=== PATIENT | female | born 1965 | race Caucasian/White ===

== ENCOUNTER → 2018-02-03 15:18 | Outpatient (CLI) | payer MEDICAID, SELFPAY ==
--- NOTE | 2018-02-03 15:21 | CT_ITS ---
CT sinus wo con Ordering Physician: Ulises Meier MD Patient Age: 52 years: Female HISTORY: ITS.REASON: chronic sinusititis TECHNIQUE: Helical CT scanning performed through the sinuses with sagittal coronal and axial reconstructions performed on CT workstation. No relevant studies for comparison COMPARISON :None FINDINGS Maxillary sinuses. Both maxillary sinuses well-developed and clear. No significant mucosal thickening. Ostiomeatal complex and outflow pathways patent bilaterally Ethmoid air cells. Mild to moderate mucosal thickening involving scattered air cells bilaterally. No air-fluid levels Left Sphenoid sinus. diffuse moderate/generous mucosal thickening at left sphenoid sinus.... Small amount of air remaining centrally. No air-fluid level Right sphenoid sinus clear unremarkable. Frontal sinuses. Clear satisfactory. No significant findings. Moderate engorgement of nasal turbinates bilaterally. Deviation of nasal septum convexity to the right Orbits included on this study & grossly unremarkable IMPRESSION: Left sphenoid sinus with prominent diffuse mucosal thickening. No air-fluid level . Mild/moderate scattered areas mucosal thickening at ethmoid air cells bilaterally Maxillary sinuses, frontal sinuses, right sphenoid sinus clear . Ostiomeatal pathway patent bilaterally . Deviation nasal septum convexity to the right
== END ==
PROVIDERS: Family Provider Emergency Medicine; PCP Emergency Medicine; Visit Provider Otolaryngology
DX: J34.2 Deviated nasal septum (principal); J30.9 Allergic rhinitis, unspecified
CPT/HCPCS: 70486

== ENCOUNTER → 2018-03-08 16:10 | Outpatient (CLI) | payer MEDICAID, SELFPAY ==
[2018-03-08 16:21] LABS: Basophils % 0.3 % (0.1-2.0); Eosinophils # 0.2 K/mm3 (0.0-0.4); Hematocrit 40.7 % (37.0-47.0); Lymphocytes # 2.4 K/mm3 (0.7-4.5); Lymphocytes % 37.6 K/mm3 (10-50); Mean Corpuscular HGB Conc 31.8 g/dL (31.8-35.4); Mean Corpuscular Hemoglobin 28.1 pg (27.0-31.2); Mean Corpuscular Volume 88.3 fl (81-99); Monocytes # 0.3 K/mm3 (0.1-1.0); Neutrophils # 3.4 K/mm3 (1.8-7.8); Platelet Count 335 K/mm3 (142-424); Red Blood Count 4.61 M/mm3 (4.20-5.40); Red Cell Distribution Width 12.5 % (11.5-17.5); White Blood Count 6.4 K/mm3 (4.8-10.8)
[2018-03-08 20:04] LABS: Anion Gap 13.6 mEq/L (5-15); Blood Urea Nitrogen 14 mg/dL (7-18); Calcium 8.9 mg/dL (8.5-10.1); Carbon Dioxide 24 mmol/L (21.0-32.0); Chloride 99 mmol/L (98-107); Creatinine,Serum 0.69 mg/dL (0.55-1.02); Estimated Glomerular Filt Rate 89 ml/min (>60); GFR (African American) 108 ML/MIN (>60); Glucose 91 mg/dL (74-106); Potassium 4.6 mmoL/L (3.5-5.1); Sodium 132 mmol/L (136-145)
== END ==
PROVIDERS: Visit Provider Otolaryngology
DX: Z01.810 Encounter for preprocedural cardiovascular examination (principal); Z01.812 Encounter for preprocedural laboratory examination
CPT/HCPCS: 36415; 80048; 85025; 93005

== ENCOUNTER 2018-03-10 07:30 | Day surgery (SDC) | payer MEDICAID, SELFPAY ==
[2018-03-10] VITALS (12 sets, daily range): BP systolic 116–132; BP diastolic 58–89; PULSE 70–102; RESP 14–18; TEMP 36.4–36.6; O2SAT 95–99; BMI 20.9
--- NOTE | 2018-03-10 08:35 | P.PN_ITS ---
[facility] Anesthesia Checklist - Patient Identification Patient Identification: Arm Band - Structural Data Admitted From: Home Planned Operative Procedure/s: nasal septoplasty with FESS Consent for Planned Operative Procedure(s) Verified: Yes Verified Documents: Surgical Consent, History and Physical - NPO Status Verified Time NPO: 00:00 - Additional verifications Anesthesia Reactions: No - Airway Assessment C-Spine Mobility Assessed: Yes (mp2) TMJ Mobility Assessed: Yes Dentition: Good Dentition - Neurological Assessment Level of Consciousness: Awake, Alert - Anesthesia Plan Anesthesia Risk discussed: Yes Anesthesia Plan: Verified ASA Class: II Anesthesia Type: General [facility] Anesthesia HX I have reviewed the patient's past medical history: Yes Medical History: Reports:: Anxiety, Depression, Hyperlipidemia, Migraine Denies:: Cancer, Diabetes Mellitus Type 1, Diabetes Mellitus Type 2, Internal Pacemaker, MRSA, Seizures Other Medical History: Reports: Hypothyroidism. Denies: Blood Transfusion Reaction Laterality Cases: Left: Arthroscopy Shoulder, Bilateral: Other Other Surgeries: Yes: Hysterectomy-Partial, Other. No: Pacemaker Amputation: No Fractures: No *Family Hx:: Cancer, Coronary Artery Disease, Diabetes, Hyperlipidemia, Hypertension, Stroke
--- NOTE | 2018-03-10 10:23 | HMH.ANESI ---
[facility] Anesthesia Record Part I Intake, IV Amount: 800 Estimated blood loss (mL): 50 Urine output (mL): 0 Blood Products used (#): none Blood Pressure: 132/77 SaO2: 97 Pulse Rate: 102 Respiratory Rate: 14 Temperature: 97.5 F Patient is:: Awake, Stable Stable to PACU at:: 10:20
--- NOTE | 2018-03-10 10:25 | HMH.ANESII ---
[facility] Anesthesia Record Part II Discharge Time: 10:50 Destination: [facility] PACU nurse assessment reviewed?: Yes Patient Condition:: Good Anesthesia Complications:: None
--- NOTE | 2018-03-10 10:26 | P.PN_ITS ---
[facility] Anesthesia Record Part II Discharge Time: 10:50 Destination: [facility] PACU nurse assessment reviewed?: Yes Patient Condition:: Good Anesthesia Complications:: None
--- NOTE | 2018-03-10 10:26 | P.PN_ITS ---
[facility] Anesthesia Record Part I Intake, IV Amount: 800 Estimated blood loss (mL): 50 Urine output (mL): 0 Blood Products used (#): none Blood Pressure: 132/77 SaO2: 97 Pulse Rate: 102 Respiratory Rate: 14 Temperature: 97.5 F Patient is:: Awake, Stable Stable to PACU at:: 10:20
--- NOTE | 2018-03-13 13:04 | HMH.OPNOTE ---
Date of procedure: 03/10/18 Pre-op Diagnosis:: 1. Deviated nasal septum with 90% nasal airflow blockage 2. Chronic bilateral ethmoid sinusitis Post-op Diagnosis:: same Procedure performed:: 1. nasal septoplasty 2. Functional endoscopic sinus surgery with bilateral total ethmoidectomies Surgeon:: Ulises Meier MD ROTARY SLICING MACHINE OPERATOR:: Other (Danny Kelly) Anesthesia: GETA Estimated blood loss (mL): 7 Operative findings:: same Operative note:: With the patient under general anesthesia the nose was decongested with topical cocaine and 5 cc of 2% lidocaine with epi were injected into the nasal septum and the interior cartilaginous region of the nose. A left hemitransfixion septal incision was made in the mucoperichondrium and the mucoperiosteum was elevated from both sides of the nasal septum. There is a severe deformity involving the vomer and the quadrangular cartilage. The quadrangular cartilage was from the maxillary crest and from the vomer and trimmed inferiorly and posteriorly a large vomerine spur was removed. The maxillary crest was narrowed and the septum was then realigned in the midline and held there with transfixion and hemitransfixion chromic sutures after Surgicel snow was placed between the flaps. Using endoscopic sinus surgical techniques,scopes, and instruments, a right total ethmoidectomy was done and extensive polypoid disease was removed from the right ethmoid. And submitted. Similarly using the same scopes and instruments a left total ethmoidectomy was done and once again there was extensive polypoid disease involving the left ethmoid sinus all of that was removed and submitted. Surgicel snow was placed in both ethmoid regions, blood loss for All the procedure was less than 10 cc and stopped with suction cautery. CortiSporn ointment was placed in the nasal vestibule and a drip pad dressing was applied. Patient tolerated the procedure well and was sent to recovery in good general condition. Condition: stable Disposition: PACU Complications:: none
--- NOTE | 2018-03-13 13:09 | P.OP_ITS ---
Date of procedure: 03/10/18 Pre-op Diagnosis:: 1. Deviated nasal septum with 90% nasal airflow blockage 2. Chronic bilateral ethmoid sinusitis Post-op Diagnosis:: same Procedure performed:: 1. nasal septoplasty 2. Functional endoscopic sinus surgery with bilateral total ethmoidectomies Surgeon:: Ulises Meier MD GAME ADVISOR:: Other (Danny Kelly) Anesthesia: GETA Estimated blood loss (mL): 7 Operative findings:: same Operative note:: With the patient under general anesthesia the nose was decongested with topical cocaine and 5 cc of 2% lidocaine with epi were injected into the nasal septum and the interior cartilaginous region of the nose. A left hemitransfixion septal incision was made in the mucoperichondrium and the mucoperiosteum was elevated from both sides of the nasal septum. There is a severe deformity involving the vomer and the quadrangular cartilage. The quadrangular cartilage was from the maxillary crest and from the vomer and trimmed inferiorly and posteriorly a large vomerine spur was removed. The maxillary crest was narrowed and the septum was then realigned in the midline and held there with transfixion and hemitransfixion chromic sutures after Surgicel snow was placed between the flaps. Using endoscopic sinus surgical techniques,scopes , and instruments, a right total ethmoidectomy was done and extensive polypoid disease was removed from the right ethmoid. And submitted. Similarly using the same scopes and instruments a left total ethmoidectomy was done and once again there was extensive polypoid disease involving the left ethmoid sinus all of that was removed and submitted. Surgicel snow was placed in both ethmoid regions, blood loss for All the procedure was less than 10 cc and stopped with suction cautery. CortiSporn ointment was placed in the nasal vestibule and a drip pad dressing was applied. Patient tolerated the procedure well and was sent to recovery in good general condition. Condition: stable Disposition: PACU Complications:: none
== END 2018-03-10 11:35 | disposition home or self-care (01) ==
LOC: OR 07:31
PROVIDERS: Family Provider Emergency Medicine; PCP Emergency Medicine; Visit Provider Otolaryngology
PROC: (CPT 30520; principal; 2018-03-10 09:00)
DX: J34.2 Deviated nasal septum (principal); J32.2 Chronic ethmoidal sinusitis; J33.1 Polypoid sinus degeneration
CPT/HCPCS: 30520; 31255; 96374; 96375; J2405; J2710

== ENCOUNTER → 2018-10-02 15:04 | Outpatient (CLI) | payer MEDICAID, SELFPAY ==
--- NOTE | 2018-10-02 15:10 | XR_ITS ---
EXAM: XR lumbar spine min 4V HISTORY: ITS.REASON: DDD, RADICULOPATHY ORDERING PHYSICIAN: Parris Leger PATIENT AGE: 53 years COMPARISON: 01/06/2016. FINDINGS: Normal alignment. No fracture or dislocation. No lytic or blastic change. Degenerative disc disease L2-L5 most severe at L4-L5. No lytic or blastic change. Flexion and extension views show no abnormal subluxation in flexion or extension. There is minimal lumbar curvature convex right. IMPRESSION: Degenerative disc disease worse at L4-L5. This has progressed compared to the previous exam. No abnormal subluxation in flexion or extension
== END ==
PROVIDERS: PCP Emergency Medicine; Visit Provider Physical Medicine & Rehabilitation
DX: M51.36 Other intervertebral disc degeneration, lumbar region (principal); M47.817 Spondylosis without myelopathy or radiculopathy, lumbosacral region
CPT/HCPCS: 72110

== ENCOUNTER 2019-05-12 00:58 | Inpatient (IN) ==
--- NOTE | 2019-05-12 01:30 | Emergency Department Note ---
ED Disposition Clinical Impression: Abdominal pain Qualifiers: Abdominal location: generalized Qualified Code(s): R10.84 - Generalized abdominal pain Disposition: Admitted as Observation Condition on Discharge: Good Instructions: DI for Acute Abdomen Referrals: Ronn Smith MD [Primary Care Provider] - - Critical Care Critical Care Time: No Attestation: On 05/12/19, the high probability of a clinically significant, sudden or life threatening deterioration of the following system(s) required my full and direct attention, intervention and personal management. The time I documented below is in addition to time spent performing reported procedures but includes the following listed in this critical care notation. Medical Decision Making - Medical Records Medical records reviewed: Yes: I reviewed the patient's medical records. - Jef Inquiry Pt receiving controlled substance: No Vital Signs: 05/12/19 01:09 Temperature 98.3 F Temperature Source Oral Pulse Rate [Left Radial] 108 H Respiratory Rate 17 Blood Pressure [Right Arm] 150/74 H Blood Pressure Mean [Right Arm] 99 Blood Pressure Source [Right Arm] Automatic Cuff Blood Pressure Position [Right Arm] Supine 02 Sat by Pulse Oximetry 98 Oxygen Delivery Method Room Air - Lab Data Lab results reviewed: Yes: I reviewed the patient's lab results. Lab Results 05/12/19 01:30: Urine Color Yellow, Urine Appearance Clear, Urine pH >= 9.0 H, Ur Specific [place] 1.010, Urine Protein Negative, Urine Glucose (UA) Negative, Urine Ketones Negative, Urine Blood Trace-i, Urine Nitrate Negative, Urine Bilirubin Negative, Urine Urobilinogen 0.2, Ur Leukocyte Esterase Negative, Urine WBC Occasional, Ur Squamous Epith Cells 5-10, Urine Bacteria Trace 05/12/19 01:30: WBC 20.1 H*, RBC 4.34, Hgb 12.5, Hct 38.0, MCV 87.6, MCH 28.9, MCHC 33.0, RDW 12.8, Plt Count 343, MPV 6.9 L, Neut % (Auto) 87.1 H, Lymph % (Auto) 8.2 L, Hitchcock % (Auto) 4.0, Eos % (Auto) 0.6, Baso % (Auto) 0.2, Neut # (Auto) 17.5 H, Lymph # (Auto) 1.6, Hitchcock # (Auto) 0.8, Eos # (Auto) 0.1, Baso # (Auto) 0.0, Total Counted 100, Neutrophils % (Manual) 89 H, Lymphocytes % (Manual) 9 L, Monocytes % (Manual) 2, Platelet Estimate Normal, RBC Morphology Normal, ESR 28 05/12/19 01:30: Sodium 138, Potassium 3.3 L, Chloride 101, Carbon Dioxide 27, Anion Gap 13.3, BUN 12, Creatinine 0.81, Estimated Creat Clear 69, Estimated GFR 74, Est GFR ( Amer) 89, Glucose 124 H, Calcium 9.4, Total Bilirubin 0.5, AST 14 L, ALT 18, Alkaline Phosphatase 73, C-Reactive Protein 2.0 H, Total Protein 7.8, Albumin 3.6, Globulin 4.2 H, Albumin/Globulin Ratio 0.9 L, Amylase 54 05/12/19 01:30: Lipase 104 05/12/19 01:30: Lactate 1.2 05/12/19 01:31: Troponin I < 0.02 Result diagrams: 05/12/19 01:30 05/12/19 01:30 Orders (Tests/Meds): ED MEDICATIONS Generic Name Dose Route Start Last Admin Trade Name Freq PRN Reason Stop Dose Admin Sodium Chloride 1,000 mls @ 999 mls/hr 05/12/19 01:45 05/12/19 01:42 Sod Chlor 0.9% 1000ml Bag IV 05/12/19 02:45 999 mls/hr .Q1H1M PREMA Administration Discontinued Medications Generic Name Dose Route Start Last Admin Trade Name Freq PRN Reason Stop Dose Admin Ioversol 75 ml 05/12/19 03:14 05/12/19 03:15 Rad-Optiray 350 100ml Vial IV 05/12/19 03:15 75 ml ONCE ONE Administration Protocol Ketorolac Tromethamine 30 mg 05/12/19 01:35 05/12/19 01:42 Toradol 30mg/Ml Vial IV 05/12/19 01:36 30 mg ONCE ONE Administration Morphine Sulfate 4 mg 05/12/19 01:43 05/12/19 01:54 Morphine 4mg/Ml Syringe IV 05/12/19 01:44 4 mg ONCE ONE Administration Morphine Sulfate 4 mg 05/12/19 02:17 05/12/19 02:30 Morphine 4mg/Ml Syringe IV 05/12/19 02:18 4 mg ONCE ONE Administration Ondansetron HCl 4 mg 05/12/19 01:35 05/12/19 01:42 Zofran 4mg/2ml Vial IV 05/12/19 01:36 4 mg ONCE ONE Administration Promethazine HCl 12.5 mg 05/12/19 02:27 05/12/19 02:33 Phenergan 25mg/Ml 1ml Vial IV 05/12/19 02:28 12.5 mg ONCE ONE Administration Sodium Chloride 25 ml 05/12/19 02:27 05/12/19 02:33 Sod Chlor 0.9% 25ml Bag IV 05/12/19 02:28 25 ml ONCE ONE Administration Sodium Chloride 10 ml 05/12/19 03:14 05/12/19 03:15 Rad-Saline Flush 10ml Syringe IV 05/12/19 03:15 10 ml ONCE ONE Administration ORDERS Category Date Time Status CT abdomen pelvis w con Stat Cat Scan 05/12/19 01:33 Taken Blood Culture Stat Micro 05/12/19 01:30 Received - CT Data CT Scan: Abdomen, Pelvis Time Received: 03:[address] Reviewed: Yes: I have viewed the radiologist's interpretation Preliminary Findings: Abnormal (enlarged appendix ) Nausea/Vomiting/Diarrhea HPI - General Chief complaint: Abdominal Pain Stated complaint: Abdominal Pain Time Seen by Provider: 05/12/19 01:15 Mode of Arrival: Wheelchair Source of Information: Patient, Relative, Medical Record Limitations: Physical Limitations Description of Symptoms (Recalled from ER Triage Doc. by RN): pt started having abdominal pain about 4 hours ago. the pain started out dull and in the top of her stomach and has progressed to her lower abdomen and bilateral flank. pt stated she has been vomitting for the past 2 hour. - History of Present Illness HPI Narrative: acute onset of abd pain more on lt which started betzaida TOM complaint: nausea, abdominal pain Onset (ago): hour(s) Associated Abdominal Pain: Yes Location of pain: LLQ Associated symptoms: denies other symptoms - Related Data Home Medications Medication Instructions Recorded Confirmed hydrocodone 7.5 mg-acetaminophen 1 tab PO Q6H 12/02/17 05/12/19 325 mg tablet sumatriptan 25 mg tablet 25 mg PO Q12H tab 12/02/17 05/12/19 tizanidine 4 mg capsule 4 mg PO DAILY cap 12/02/17 05/12/19 nortriptyline 50 mg capsule 150 mg PO QHS cap 09/20/18 05/12/19 rizatriptan 10 mg tablet 10 mg PO Q2H PRN 09/20/18 05/12/19 gabapentin 400 mg capsule 400 mg PO QHS cap 04/17/19 05/12/19 Estrogens, Conjugated [Premarin] See Rx Instructions .ROUTE .COMPLEX 05/12/19 05/12/19 Levothyroxine Sodium [Synthroid See Rx Instructions .ROUTE .COMPLEX 05/12/19 05/12/19 25mcg (0.025mg) tablet] Lovastatin See Rx Instructions .ROUTE .COMPLEX 05/12/19 05/12/19 Previous Rx's Medication Instructions Recorded duloxetine 30 mg capsule,delayed 30 mg PO DAILY #90 cap 04/17/19 release montelukast 10 mg tablet 10 mg PO QAM #90 tab 04/17/19 promethazine 12.5 mg tablet 12.5 mg PO .once daily PRN #30 tab 04/17/19 Allergies Allergy/AdvReac Type Severity Reaction Status Date / Time azithromycin [AZITHROMYCIN] Allergy Unknown Verified 05/12/19 02:07 metronidazole [From FLAGYL] Allergy Unknown Verified 05/12/19 02:07 Nuts (Food) Allergy Severe WITH Uncoded 04/17/19 10:19 ALCOHOL MIXED ONLY-ANAPHYLAXIS [place] History - Hepatitis A Screen Drug use history?: No High risk sexual behaviors?: No History of sexually transmitted infection?: No Currently employed?: No Childcare worker?: No Do you have indoor plumbing?: Yes Do you have electricity?: Yes Attestation statement:: This patient has been screened for Hepatitis A risk factors. I have reviewed the patient's past medical history: Yes Medical History: Reports:: Anxiety, Depression, Hyperlipidemia, Migraine Denies:: Cancer, Diabetes Mellitus Type 1, Diabetes Mellitus Type 2, Internal Pacemaker, MRSA, Seizures Other Medical History: Reports: Hypothyroidism. Denies: Blood Transfusion Reaction Laterality Cases: Left: Arthroscopy Shoulder, Bilateral: Other Other Surgeries: Yes: Hysterectomy-Partial, Other. No: Pacemaker Amputation: No Fractures: No - Social History Educational Level: Completed High School Smoking Status: Current some day smoker Tobacco Type: cigarettes # Packs/Day (cigarettes): 1 #Yrs smoked (if former smoker): 22 Alcohol Intake: never Substance Use Type: denies use Occupational Status: employed Housing: apartment Household Members: none - Psychiatric History Pschychiatric History:: Reports:: Anxiety, Depression Family Hx:: Cancer, Coronary Artery Disease, Diabetes, Hyperlipidemia, Hype rtension, Stroke ROS Obtained: Yes All systems reviewed & no additional complaints - Constitutional Constitutional: Denies fever(s) - Eyes Eyes: Denies change in vision - ENT Ears, Nose, Mouth, and Throat: Denies sore throat - Cardiovascular Cardiovascular: Denies chest pain - Respiratory Respiratory: No cough - Gastrointestinal Gastrointestingal: Reports: abdominal pain, nausea, vomiting - Genitourinary Female Genitourinary: Denies hematuria - Musculoskeletal Musculoskeletal: Denies joint pain - Integumentary/Breasts Skin/Breast: Denies rash - Neurologic Neurologic: Denies seizure-like activity Physical Exam - General General appearance: alert - Head Head exam: normocephalic - Eye Eye exam: Present: PERRL, EOMI. Absent: scleral icterus - ENT ENT exam: Present: mucous membranes dry - Neck Neck exam: Absent: trachea midline - Respiratory Respiratory exam: Absent: respiratory distress - Cardiovascular Cardiovascular exam: Present: regular rate - Abdominal Exam Abdominal exam: Present: soft, tenderness Abdominal tenderness: Present: LLQ, moderate - Extremities Exam Extremities exam: Present: normal inspection - Neurological Exam Neurological exam: Present: alert, oriented X3, CN II-XII intact - Psychiatric Psychiatric exam: Present: normal affect - Skin Skin exam: Absent: rash
[2019-05-12 01:41] LABS: Microscopic, Urine URINE MICROSCOPIC (MICROSCOPIC)
[2019-05-12 01:47] LABS: Basophils % 0.2 % (0.1-2.0); Eosinophils # 0.1 K/mm3 (0.0-0.4); Eosinophils % 0.6 % (0.1-12.0); Hemoglobin 12.5 g/dL (12.2-16.2); Lymphocytes # 1.6 K/mm3 (0.7-4.5); Lymphocytes % 8.2 % (10-50); Mean Corpuscular Volume 87.6 fl (81-99); Mean Platelet Volume 6.9 fl (7.4-10.4); Monocytes # 0.8 K/mm3 (0.1-1.0); Neutrophils # 17.5 K/mm3 (1.8-7.8); Neutrophils % 87.1 % (37.0-80.0); Platelet Count 343 K/mm3 (142-424); Red Blood Count 4.34 M/mm3 (4.20-5.40); Red Cell Distribution Width 12.8 % (11.5-17.5); White Blood Count 20.1 K/mm3 (4.8-10.8)
[2019-05-12 01:57] LABS: Albumin Level 3.6 gm/dL (3.4-5.0); Albumin/Globulin Ratio 0.9 (1.1-1.8); Anion Gap 13.3 mEq/L (5-15); Bilirubin,Total 0.5 mg/dL (0.2-1.0); Calcium 9.4 mg/dL (8.5-10.1); Globulin 4.2 gm/dl (1.3-3.2); Total Protein,Serum 7.8 gm/dL (6.4-8.2)
[2019-05-12 01:59] LABS: Appearance,Urine CLEAR (Clear); Bilirubin,Urine Negative (Negative); Blood, Urine TRACE-I (Negative); Color,Urine YELLOW (Yellow); Glucose,Urine (UA) Negative (Negative); Ketones,Urine Negative (Negative); Leukocyte Esterase,Urine Negative (Negative); Protein,Urine Negative (Negative); Urobilinogen,Urine 0.2 EU/dl (0.2)
[2019-05-12 02:02] LABS: PH,Urine >= 9.0 (5.0-8.5)
[2019-05-12 02:08] LABS: Bacteria,Urine Trace /lpf; WBC,Urine Occasional #/hpf (0-3)
[2019-05-12 02:23] LABS: Lymphocytes % 9 % (10-50); Monocytes % 2 % (2-9); Neutrophils % 89 % (42-76); RBC Morphology Normal; Total Cells Counted 100
[2019-05-12 02:44] LABS: Erythrocyte Sedimentation Rate 28 mm/hr (0-30)
[2019-05-12 07:40] LABS: Basophils % 0.1 % (0.1-2.0); Eosinophils % 0.1 % (0.1-12.0); Hematocrit 35.3 % (37.0-47.0); Hemoglobin 11.5 g/dL (12.2-16.2); Lymphocytes # 1.6 K/mm3 (0.7-4.5); Lymphocytes % 9.3 % (10-50); Mean Corpuscular HGB Conc 32.5 g/dL (31.8-35.4); Mean Corpuscular Volume 89.2 fl (81-99); Mean Platelet Volume 6.8 fl (7.4-10.4); Monocytes # 0.8 K/mm3 (0.1-1.0); Monocytes % 4.4 % (1.7-9.3); Neutrophils # 14.6 K/mm3 (1.8-7.8); Neutrophils % 86.1 % (37.0-80.0); Platelet Count 317 K/mm3 (142-424); Red Blood Count 3.96 M/mm3 (4.20-5.40); Red Cell Distribution Width 12.8 % (11.5-17.5); White Blood Count 16.9 K/mm3 (4.8-10.8)
[2019-05-12 07:54] LABS: Anion Gap 11.7 mEq/L (5-15)
[2019-05-12 08:06] LABS: Calcium 8.4 mg/dL (8.5-10.1)
--- NOTE | 2019-05-12 08:25 | Pharmacy Consult Notes ---
[facility] Pharmacy VTE Monitoring - Patient Demographics Admission date: 05/12/19 Report Date: 05/12/19 Time: 08:25 Allergies/Adverse Reactions: Patient Allergies azithromycin [AZITHROMYCIN] Allergy (Unknown, Verified 05/12/19 02:07) metronidazole [From FLAGYL] Allergy (Unknown, Verified 05/12/19 02:07) Nuts (Food) Allergy (Severe, Uncoded 04/17/19 10:19) WITH ALCOHOL MIXED ONLY-ANAPHYLAXIS Height: 1.63 m Weight: 56.727 kg Patient Problems: Current Active Problems Abdominal pain (Acute) - VTE Risk Labs: VTE Related Lab Results Hgb 11.5 g/dL (12.2-16.2) L 05/12/19 07:12 Hct 35.3 % (37.0-47.0) L 05/12/19 07:12 Plt Count 317 K/mm3 (142-424) 05/12/19 07:12 BUN 8 mg/dL (7-18) D 05/12/19 07:12 Creatinine 0.75 mg/dL (0.55-1.02) 05/12/19 07:12 Estimated Creat Clear 77 mL/min (50-200) 05/12/19 07:12 VTE Score: 6 VTE Risk Level: Moderate Risk - Prophylaxis VTE Prophylaxis Ordered?: Yes Types of VTE Prophylaxis: TEDS Knee High Location of Applied Device: Bilateral Lower Extremeties
--- NOTE | 2019-05-12 08:29 | History & Physical Report ---
*Admission Date: 05/12/19 *Chief complaint: abd pain *History of present illness: this wf with abd pain which started last pm with assoc nausea - no fever or diarrhea - she did report not feeling well during the day but dev sev pain on rt and lt side with rad to back - she was seen in the ed with nonspecific ct and persistant pain despite iv meds - she was admitted for eval and treatment [facility] History I have reviewed the patient's past medical history: Yes Medical History: Reports:: Anxiety, Depression, Hyperlipidemia, Migraine Denies:: Cancer, Diabetes Mellitus Type 1, Diabetes Mellitus Type 2, Internal Pacemaker, MRSA, Seizures *Have you ever received a pneumonia vaccine?: No *Have you received a flu vaccine this season?: No Other Medical History: Reports: Anemia, Hypothyroidism, Sinus Problems. Denies: Blood Transfusion Reaction Laterality Cases: Left: Arthroscopy Shoulder, Bilateral: Other Other Surgeries: Yes: Colonoscopy, Hysterectomy-Partial, Sinus Surgery, Other. No: Pacemaker Amputation: No Fractures: No - *Social History Educational Level: Attended College Smoking Status: Current every day smoker Tobacco Type: cigarettes # Packs/Day (cigarettes): 1 #Yrs smoked (if former smoker): 22 Alcohol Intake: never Substance Use Type: denies use *Occupational Status:: employed Housing: apartment Household Members: none *Travel in the last 8 weeks: None - Psychiatric History Expresses thoughts of harming self/others: None Suicide Plan Description: No Plan Pschychiatric History:: Reports:: Anxiety, Depression Family Hx:: Cancer, Coronary Artery Disease, Diabetes, Hyperlipidemia, Hypertension, Stroke Review of Systems - Review of Systems Review of systems:: pertinent systems reviewed and negative unless documented below - Constitutional Denies headache(s) - Eyes Denies change in vision - ENT Denies sore throat - *Cardiovascular Denies shortness of breath - *Respiratory Denies cough - *Gastrointestinal Reports abdominal pain, Reports nausea, Denies black, tarry stools, Denies vomiting - *Genitourinary Denies blood in urine, Denies pelvic pain - *Musculoskeletal Denies joint pain - Integumentary/Breasts Denies rash - *Neurologic Denies seizure-like activity - Psychiatric Denies anxiety Meds Home Medications Medication Instructions Recorded Confirmed Type hydrocodone 7.5 mg-acetaminophen 1 tab PO Q6H 12/02/17 05/12/19 History 325 mg tablet sumatriptan 25 mg tablet 25 mg PO Q12H PRN tab 12/02/17 05/12/19 History tizanidine 4 mg capsule 4 mg PO DAILY cap 12/02/17 05/12/19 History nortriptyline 50 mg capsule 150 mg PO QHS cap 09/20/18 05/12/19 History rizatriptan 10 mg tablet 10 mg PO Q2H PRN 09/20/18 05/12/19 History duloxetine 30 mg capsule,delayed 30 mg PO DAILY #90 cap 04/17/19 05/12/19 Rx release gabapentin 400 mg capsule 400 mg PO QHS cap 04/17/19 05/12/19 History montelukast 10 mg tablet 10 mg PO QAM #90 tab 04/17/19 05/12/19 Rx promethazine 12.5 mg tablet 12.5 mg PO .once daily PRN #30 tab 04/17/19 05/12/19 Rx Estrogens, Conjugated [Premarin] 1.25 mg PO DAILY 05/12/19 05/12/19 History Estrogens, Conjugated [Premarin] See Rx Instructions .ROUTE .COMPLEX 05/12/19 05/12/19 History Levothyroxine Sodium [Synthroid See Rx Instructions .ROUTE .COMPLEX 05/12/19 05/12/19 History 25mcg (0.025mg) tablet] Lovastatin 20 mg PO HS 05/12/19 05/12/19 History Allergies Allergy/AdvReac Type Severity Reaction Status Date / Time azithromycin [AZITHROMYCIN] Allergy Unknown Verified 05/12/19 02:07 metronidazole [From FLAGYL] Allergy Unknown Verified 05/12/19 02:07 Nuts (Food) Allergy Severe WITH Uncoded 04/17/19 10:19 ALCOHOL MIXED ONLY-ANAPHYLAXIS Exam Vital signs and Labs for Last 24 Hours: Temp Pulse Resp BP Pulse Ox 99.0 F 107 H 16 152/89 H 97 05/12/19 04:26 05/12/19 04:26 05/12/19 04:26 05/12/19 04:26 05/12/19 04:26 Laboratory Results - last 24 hr 05/12/19 01:30: Urine Color Yellow, Urine Appearance Clear, Urine pH >= 9.0 H, Ur Specific [place] 1.010, Urine Protein Negative, Urine Glucose (UA) Negative, Urine Ketones Negative, Urine Blood Trace-i, Urine Nitrate Negative, Urine Bilirubin Negative, Urine Urobilinogen 0.2, Ur Leukocyte Esterase Negative, Urine WBC Occasional, Ur Squamous Epith Cells 5-10, Urine Bacteria Trace 05/12/19 01:30: WBC 20.1 H*, RBC 4.34, Hgb 12.5, Hct 38.0, MCV 87.6, MCH 28.9, MCHC 33.0, RDW 12.8, Plt Count 343, MPV 6.9 L, Neut % (Auto) 87.1 H, Lymph % (Auto) 8.2 L, [place] % (Auto) 4.0, Eos % (Auto) 0.6, Baso % (Auto) 0.2, Neut # (Auto) 17.5 H, Lymph # (Auto) 1.6, [place] # (Auto) 0.8, Eos # (Auto) 0.1, Baso # (Auto) 0.0, Total Counted 100, Neutrophils % (Manual) 89 H, Lymphocytes % (Manual) 9 L, Monocytes % (Manual) 2, Platelet Estimate Normal, RBC Morphology Normal, ESR 28 05/12/19 01:30: Sodium 138, Potassium 3.3 L, Chloride 101, Carbon Dioxide 27, Anion Gap 13.3, BUN 12, Creatinine 0.81, Estimated Creat Clear 69, Estimated GFR 74, Est GFR ( Amer) 89, Glucose 124 H, Calcium 9.4, Total Bilirubin 0.5, AST 14 L, ALT 18, Alkaline Phosphatase 73, C-Reactive Protein 2.0 H, Total Protein 7.8, Albumin 3.6, Globulin 4.2 H, Albumin/Globulin Ratio 0.9 L, Amylase 54 05/12/19 01:30: Lipase 104 05/12/19 01:30: Lactate 1.2 05/12/19 01:31: Troponin I < 0.02 05/12/19 07:12: WBC 16.9 H, RBC 3.96 L, Hgb 11.5 L, Hct 35.3 L, MCV 89.2, MCH 29.0, MCHC 32.5, RDW 12.8, Plt Count 317, MPV 6.8 L, Neut % (Auto) 86.1 H, Lymph % (Auto) 9.3 L, [place] % (Auto) 4.4, Eos % (Auto) 0.1, Baso % (Auto) 0.1, Neut # (Auto) 14.6 H, Lymph # (Auto) 1.6, [place] # (Auto) 0.8, Eos # (Auto) 0.0, Baso # (Auto) 0.0 05/12/19 07:12: Sodium 139, Potassium 3.7, Chloride 104, Carbon Dioxide 27, Anion Gap 11.7, BUN 8 D, Creatinine 0.75, Estimated Creat Clear 77, Estimated GFR 81, Est GFR ( Amer) 97, Glucose 108 H, Calcium 8.4 L D I & O for Last 24 hours: Intake & Output 05/09/19 05/10/19 05/11/19 05/12/19 11:59 11:59 11:59 11:59 Weight 125 lb 1 oz - Constitutional no acute distress - *Routine HEENT Exam Head: Present: normocephalic Eye: Present: EOMI, PERRL ENT: Present: mucous membranes dry - *Routine Neck Exam Present: supple - *Routine Respiratory Exam Present: CTA bilaterally - *Routine Cardiovascular Exam Present: RRR - *Routine Abdominal Exam Present: soft, tenderness - *Routine Extremities Exam Present: full ROM - *Routine Skin Exam Present: intact - *Routine Neurological Exam Present: alert, oriented X3, CN II-XII intact - Routine Psychiatric Exam Present: normal affect Assessment and Plan (1) Abdominal pain Current visit: Yes Status: Acute Qualifiers: Abdominal location: generalized Qualified Code(s): R10.84 - Generalized abdominal pain Category: Medical Code(s): R10.9 - Unspecified abdominal pain
--- NOTE | 2019-05-12 10:41 | Consult Report ---
*Admission Date: 05/12/19 *Reason for consult:: Abdominal pain. Possible appendicitis. *History of present illness: This is a 54-year-old female who presents the emergency department overnight with increasing abdominal pain. She states that the pain initially was in the mid/upper abdomen with some radiation to the back. The majority of her pain is now and the bilateral lower quadrants (no worse on the right or on the left. No fevers. She describes the pain as "severe spasm". She continues to have some pain radiating to the back. She states that she has had a history of diverticulitis and that this pain is somewhat similar in terms of quality but much more severe. Evaluation in emergency department included a CT scan that revealed no definitive abnormality. She did have a somewhat enlarged appendix but definitive identification was questionable as she did not have p.o. contrast. Recommendations for repeat CT scan with p.o. contrast were made and this has been ordered. Review of Systems - Constitutional Denies chills - Eyes Denies change in vision - ENT Denies difficulty swallowing - *Cardiovascular Denies chest pain - *Respiratory Denies cough - *Gastrointestinal Reports abdominal pain, Denies vomiting - *Genitourinary Denies blood in urine - *Musculoskeletal Reports back pain - Integumentary/Breasts Denies changing lesions - *Neurologic Denies headache(s), Denies seizure-like activity - Psychiatric Denies confusion - Endocrine Denies cold intolerance - Hematologic/Lymphatic Denies easy bleeding - Allergic/Immunologic Denies wheezing [facility] History Medical History: Reports:: Anxiety, Depression, Hyperlipidemia, Migraine Denies:: Cancer, Diabetes Mellitus Type 1, Diabetes Mellitus Type 2, Internal Pacemaker, MRSA, Seizures *Have you ever received a pneumonia vaccine?: No *Have you received a flu vaccine this season?: No Other Medical History: Reports: Anemia, Hypothyroidism, Sinus Problems. Denies: Blood Transfusion Reaction Laterality Cases: Left: Arthroscopy Shoulder, Bilateral: Other Other Surgeries: Yes: Colonoscopy, Hysterectomy-Partial, Sinus Surgery, Other. No: Pacemaker Amputation: No Fractures: No - *Social History Educational Level: Attended College Smoking Status: Current every day smoker Tobacco Type: cigarettes # Packs/Day (cigarettes): 1 #Yrs smoked (if former smoker): 22 Alcohol Intake: never Substance Use Type: denies use *Occupational Status:: employed Housing: apartment Household Members: none *Travel in the last 8 weeks: None - Psychiatric History Expresses thoughts of harming self/others: None Suicide Plan Description: No Plan Pschychiatric History:: Reports:: Anxiety, Depression Family Hx:: Cancer, Coronary Artery Disease, Diabetes, Hyperlipidemia, Hypertension, Stroke Meds Home Medications Medication Instructions Recorded Confirmed Type hydrocodone 7.5 mg-acetaminophen 1 tab PO Q6H 12/02/17 05/12/19 History 325 mg tablet tizanidine 4 mg capsule 4 mg PO DAILY cap 12/02/17 05/12/19 History nortriptyline 50 mg capsule 150 mg PO HS cap 09/20/18 05/12/19 History rizatriptan 10 mg tablet 10 mg PO Q2H PRN 09/20/18 05/12/19 History duloxetine 30 mg capsule,delayed 30 mg PO DAILY #90 cap 04/17/19 05/12/19 Rx release gabapentin 400 mg capsule 400 mg PO HS cap 04/17/19 05/12/19 History Estrogens, Conjugated [Premarin] 1.25 mg PO DAILY 05/12/19 05/12/19 History Levothyroxine Sodium [Synthroid 25 mg PO DAILY 05/12/19 05/12/19 History 25mcg (0.025mg) tablet] Lovastatin 20 mg PO HS 05/12/19 05/12/19 History Montelukast Sodium [Montelukast 10 mg PO DAILY 05/12/19 05/12/19 History 10mg Tab] Nortriptyline HCl 3 - 4 tab PO HS 05/12/19 05/12/19 History Promethazine HCl 12.5 mg PO DAILYP PRN 05/12/19 05/12/19 History SUMAtriptan succinate [Sumatriptan 100 mg PO Q2HP PRN 05/12/19 05/12/19 History Succinate] Allergies Allergy/AdvReac Type Severity Reaction Status Date / Time azithromycin [AZITHROMYCIN] Allergy Unknown Verified 05/12/19 02:07 metronidazole [From FLAGYL] Allergy Unknown Verified 05/12/19 02:07 Nuts (Food) Allergy Severe WITH Uncoded 04/17/19 10:19 ALCOHOL MIXED ONLY-ANAPHYLAXIS Exam Vital signs and Labs for Last 24 Hours: Temp Pulse Resp BP Pulse Ox 98.1 F 102 H 18 123/71 97 05/12/19 08:00 05/12/19 08:00 05/12/19 08:00 05/12/19 08:00 05/12/19 08:00 Laboratory Results - last 24 hr 05/12/19 01:30: Urine Color Yellow, Urine Appearance Clear, Urine pH >= 9.0 H, Ur Specific [place] 1.010, Urine Protein Negative, Urine Glucose (UA) Negative, Urine Ketones Negative, Urine Blood Trace-i, Urine Nitrate Negative, Urine Bi lirubin Negative, Urine Urobilinogen 0.2, Ur Leukocyte Esterase Negative, Urine WBC Occasional, Ur Squamous Epith Cells 5-10, Urine Bacteria Trace 05/12/19 01:30: WBC 20.1 H*, RBC 4.34, Hgb 12.5, Hct 38.0, MCV 87.6, MCH 28.9, MCHC 33.0, RDW 12.8, Plt Count 343, MPV 6.9 L, Neut % (Auto) 87.1 H, Lymph % (Auto) 8.2 L, [place] % (Auto) 4.0, Eos % (Auto) 0.6, Baso % (Auto) 0.2, Neut # (Auto) 17.5 H, Lymph # (Auto) 1.6, [place] # (Auto) 0.8, Eos # (Auto) 0.1, Baso # (Auto) 0.0, Total Counted 100, Neutrophils % (Manual) 89 H, Lymphocytes % (Man ual) 9 L, Monocytes % (Manual) 2, Platelet Estimate Normal, RBC Morphology Normal, ESR 28 05/12/19 01:30: Sodium 138, Potassium 3.3 L, Chloride 101, Carbon Dioxide 27, Anion Gap 13.3, BUN 12, Creatinine 0.81, Estimated Creat Clear 69, Estimated GFR 74, Est GFR ( Amer) 89, Glucose 124 H, Calcium 9.4, Total Bilirubin 0.5, AST 14 L, ALT 18, Alkaline Phosphatase 73, C-Reactive Protein 2.0 H, Total Protein 7.8, Albumin 3.6, Globulin 4.2 H, Albumin/Globulin Ratio 0.9 L, Amylase 54 05/12/19 01:30: Lipase 104 05/12/19 01:30: Lactate 1.2 05/12/19 01:31: Troponin I < 0.02 05/12/19 07:12: WBC 16.9 H, RBC 3.96 L, Hgb 11.5 L, Hct 35.3 L, MCV 89.2, MCH 29.0, MCHC 32.5, RDW 12.8, Plt Count 317, MPV 6.8 L, Neut % (Auto) 86.1 H, Lymph % (Auto) 9.3 L, [place] % (Auto) 4.4, Eos % (Auto) 0.1, Baso % (Auto) 0.1, Neut # (Auto) 14.6 H, Lymph # (Auto) 1.6, [place] # (Auto) 0.8, Eos # (Auto) 0.0, Baso # (Auto) 0.0 05/12/19 07:12: Sodium 139, Potassium 3.7, Chloride 104, Carbon Dioxide 27, Anion Gap 11.7, BUN 8 D, Creatinine 0.75, Estimated Creat Clear 77, Estimated GFR 81, Est GFR ( Amer) 97, Glucose 108 H, Calcium 8.4 L D I & O for Last 24 hours: Intake & Output 05/09/19 05/10/19 05/11/19 05/12/19 11:59 11:59 11:59 11:59 Weight 125 lb 1 oz - Constitutional moderate distress - *Routine HEENT Exam Head: Present: normocephalic, atraumatic - *Routine Respiratory Exam Absent: respiratory distress - *Routine Cardiovascular Exam Comments: Mildly tachycardic - *Routine Abdominal Exam Present: tenderness Results - Labs 05/12/19 07:12 05/12/19 07:12 Laboratory Results - last 24 hr 05/12/19 01:30: Urine Color Yellow, Urine Appearance Clear, Urine pH >= 9.0 H, Ur Specific [place] 1.010, Urine Protein Negative, Urine Glucose (UA) Negative, Urine Ketones Negative, Urine Blood Trace-i, Urine Nitrate Negative, Urine Bilirubin Negative, Urine Urobilinogen 0.2, Ur Leukocyte Esterase Negative, Urine WBC Occasional, Ur Squamous Epith Cells 5-10, Urine Bacteria Trace 05/12/19 01:30: WBC 20.1 H*, RBC 4.34, Hgb 12.5, Hct 38.0, MCV 87.6, MCH 28.9, MCHC 33.0, RDW 12.8, Plt Count 343, MPV 6.9 L, Neut % (Auto) 87.1 H, Lymph % (Auto) 8.2 L, [place] % (Auto) 4.0, Eos % (Auto) 0.6, Baso % (Auto) 0.2, Neut # (Auto) 17.5 H, Lymph # (Auto) 1.6, [place] # (Auto) 0.8, Eos # (Auto) 0.1, Baso # (Auto) 0.0, Total Counted 100, Neutrophils % (Manual) 89 H, Lymphocytes % (Manual) 9 L, Monocytes % (Manual) 2, Platelet Estimate Normal, RBC Morphology Normal, ESR 28 05/12/19 01:30: Sodium 138, Potassium 3.3 L, Chloride 101, Carbon Dioxide 27, Anion Gap 13.3, BUN 12, Creatinine 0.81, Estimated Creat Clear 69, Estimated GFR 74, Est GFR ( Amer) 89, Glucose 124 H, Calcium 9.4, Total Bilirubin 0.5, AST 14 L, ALT 18, Alkaline Phosphatase 73, C-Reactive Protein 2.0 H, Total Protein 7.8, Albumin 3.6, Globulin 4.2 H, Albumin/Globulin Ratio 0.9 L, Amylase 54 05/12/19 01:30: Lipase 104 05/12/19 01:30: Lactate 1.2 05/12/19 01:31: Troponin I < 0.02 05/12/19 07:12: WBC 16.9 H, RBC 3.96 L, Hgb 11.5 L, Hct 35.3 L, MCV 89.2, MCH 29.0, MCHC 32.5, RDW 12.8, Plt Count 317, MPV 6.8 L, Neut % (Auto) 86.1 H, Lymph % (Auto) 9.3 L, [place] % (Auto) 4.4, Eos % (Auto) 0.1, Baso % (Auto) 0.1, Neut # (Auto) 14.6 H, Lymph # (Auto) 1.6, [place] # (Auto) 0.8, Eos # (Auto) 0.0, Baso # (Auto) 0.0 05/12/19 07:12: Sodium 139, Potassium 3.7, Chloride 104, Carbon Dioxide 27, Anion Gap 11.7, BUN 8 D, Creatinine 0.75, Estimated Creat Clear 77, Estimated GFR 81, Est GFR ( Amer) 97, Glucose 108 H, Calcium 8.4 L D Assessment and Plan (1) Abdominal pain Current visit: Yes Status: Acute Qualifiers: Abdominal location: generalized Qualified Code(s): R10.84 - Generalized abdominal pain Category: Medical Code(s): R10.9 - Unspecified abdominal pain No definitive etiology. Her severe spasmodic pain is not consistent with appendicitis; however, this is still certainly a possible diagnosis. Narcotic bowel syndrome was severe associated spasms is also a possibility. Irritable bowel disease with severe spasmodic episode is also a possibility. Repeat CT scan with IV and PO contrast is pending A single dose of Valium (secondary to the severe spasmodic nature of her symptoms) has been ordered and this will be administered after she returns from her CT scan. Additional doses and other considerations will be pending results of her CT scan.
--- NOTE | 2019-05-12 14:26 | Operative Note ---
Date of procedure: 05/12/19 Pre-op Diagnosis:: Appendicitis with possible perforation Post-op Diagnosis:: Necrotic/suppurative appendicitis Procedure performed:: Laparoscopic appendectomy Surgeon:: Adonis Morgan MD [employer]:: Mu Estrada Anesthesia: GETA Estimated blood loss (mL): 10 Operative findings:: Necrotic/separative appendicitis with severe periappendiceal inflammation No definite perforation or abscess cavity Severe cecal angulation with projection toward pelvis and retrocecal appendicitis Operative note:: After informed consent was obtained the patient was taken to the operating room and placed in the supine position. General anesthesia was induced and her abdomen was prepped and draped in a sterile fashion. After infiltration local anesthetic an infraumbilical incision was made. A Veress needle was placed in position. The abdomen was insufflated. A 12 mm optical trocar was secured in position. Under direct visualization a 5 mm trocar was placed in the suprapubic position and an additional 5 mm trocar was placed in the left lower quadrant. The patient had an elongated right colon with severe cecal angulation towards the pelvis and dissection was very difficult as it proceeded towards the appendix. Severe inflammatory changes were noted in this region. The appendix was carefully from surrounding tissue as it was elevated. No definite perforation or abscess cavity was noted. Changes consistent with necrotic/separative appendicitis were appreciated. The mesoappendix was carefully taken down with harmonic reddy. An Endopath ETS Flex 45 stapler was utilized to take the appendix at its base. The appendix was placed in a retrieval bag and removed through the infraumbilical trocar site. The right lower quadrant and pelvis was thoroughly irrigated. No active bleeding or sign of injury was noted. Fascia at the infraumbilical incision was reapproximated with 0 Ethibond. Pneumoperitoneum was released as the remaining trocars were removed. All wounds were irrigated and skin was closed with 4-0 Monocryl in a subcuticular fashion. Steri-Strips were applied. The patient's anesthetic agents were reversed and she was extubated prior to transfer to recovery. Condition: stable Disposition: PACU Specimens:: Appendix Complications:: No immediate
--- NOTE | 2019-05-12 14:44 | Progress Note ---
[facility] Anesthesia Checklist - Structural Data Admitted From: Inpatient Planned Operative Procedure/s: lap appy Consent for Planned Operative Procedure(s) Verified: Yes - Additional verifications Anesthesia Reactions: No Hx Blood Transfusions: No Blood Transfusion Reaction: No - Airway Assessment C-Spine Mobility Assessed: Yes TMJ Mobility Assessed: Yes Dentition: Good Dentition - Neurological Assessment Level of Consciousness: Awake, Alert, Appropriate - Anesthesia Plan Anesthesia Risk discussed: Yes Anesthesia Plan: Verified ASA Class: II Anesthesia Type: General Acuity:: emergency asa2 [facility] History I have reviewed the patient's past medical history: Yes Medical History: Reports:: Anxiety, Depression, Hyperlipidemia, Migraine Denies:: Cancer, Diabetes Mellitus Type 1, Diabetes Mellitus Type 2, Internal Pacemaker, MRSA, Seizures *Have you ever received a pneumonia vaccine?: No *Have you received a flu vaccine this season?: No Other Medical History: Reports: Anemia, Hypothyroidism, Sinus Problems. Denies: Blood Transfusion Reaction Anesthesia experience/problems:: none Laterality Cases: Left: Arthroscopy Shoulder, Bilateral: Other Other Surgeries: Yes: Colonoscopy, Hysterectomy-Partial, Sinus Surgery, Other. No: Pacemaker Amputation: No Fractures: No - *Social History Educational Level: Attended College Smoking Status: Current every day smoker Tobacco Type: cigarettes # Packs/Day (cigarettes): 1 #Yrs smoked (if former smoker): 22 Alcohol Intake: never Substance Use Type: denies use *Occupational Status:: employed Housing: apartment Household Members: none *Travel in the last 8 weeks: None - Psychiatric History Expresses thoughts of harming self/others: None Suicide Plan Description: No Plan Pschychiatric History:: Reports:: Anxiety, Depression Family Hx:: Cancer, Coronary Artery Disease, Diabetes, Hyperlipidemia, Hype rtension, Stroke
--- NOTE | 2019-05-12 14:45 | Progress Note ---
[facility] Anesthesia Record Part II Discharge Time: 15:05 Destination: floor PACU nurse assessment reviewed?: Yes Patient Condition:: Good Anesthesia Complications:: None Swallowing reflex intact?: Yes Cyanosis?: No
--- NOTE | 2019-05-12 14:45 | Progress Note ---
[facility] Anesthesia Record Part I Intake, IV Amount: 1,800 Estimated blood loss (mL): 0 Urine output (mL): 200 Blood Pressure: 152/83 SaO2: 97 Pulse Rate: 109 Respiratory Rate: 14 Temperature: 97.8 F Patient is:: Awake, Stable Stable to PACU at:: 14:35
--- NOTE | 2019-05-13 09:37 | Progress Note ---
Subjective Patient reports: feels better Exam Vital signs and Labs for Last 24 Hours: Temp Pulse Resp BP Pulse Ox 99.4 F 106 H 16 129/86 93 L 05/13/19 04:00 05/13/19 04:00 05/13/19 04:00 05/13/19 04:00 05/13/19 04:00 Laboratory Results - last 24 hr 05/12/19 13:16: Urine Color Yellow, Urine Appearance Clear, Urine pH 8.0, Ur Specific [place] 1.010, Urine Protein Negative, Urine Glucose (UA) Negative, Urine Ketones Negative, Urine Blood 2+, Urine Nitrate Negative, Urine Bilirubin Negative, Urine Urobilinogen 0.2, Ur Leukocyte Esterase Negative, Urine RBC 5- 10, Urine WBC Occasional, Ur Squamous Epith Cells Occasional, Urine Bacteria Trace I & O for Last 24 hours: Intake & Output 05/10/19 05/11/19 05/12/19 05/13/19 11:59 11:59 11:59 11:59 Intake Total 4154 / 4154 Output Total 700 / 700 Balance 3454 / 3454 Weight 125 lb 1 oz 138 lb 8 oz - Constitutional no acute distress - *Routine Respiratory Exam Absent: respiratory distress - *Routine Abdominal Exam Comments: dressings intact. no cellulitis. Progress Note: A&P (1) Abdominal pain Status: Acute Current Visit: Yes (2) Suppurative appendicitis Status: Acute Assessment and plan: Overall, doing very well status post laparoscopic appendectomy Continue IV antibiotics for now Slowly advance diet Increase ambulation Current Visit: Yes
--- NOTE | 2019-05-13 09:49 | Progress Note ---
Internal Medicine - PN: Subj *Date: 05/13/19 *Time: 09:46 Interval history: doing better - has migraine whelan Exam Vital signs and Labs for Last 24 Hours: Temp Pulse Resp BP Pulse Ox 99.3 F 100 H 16 129/75 95 05/13/19 08:00 05/13/19 08:00 05/13/19 08:00 05/13/19 08:00 05/13/19 08:00 Laboratory Results - last 24 hr 05/12/19 13:16: Urine Color Yellow, Urine Appearance Clear, Urine pH 8.0, Ur Specific [place] 1.010, Urine Protein Negative, Urine Glucose (UA) Negative, Urine Ketones Negative, Urine Blood 2+, Urine Nitrate Negative, Urine Bilirubin Negative, Urine Urobilinogen 0.2, Ur Leukocyte Esterase Negative, Urine RBC 5- 10, Urine WBC Occasional, Ur Squamous Epith Cells Occasional, Urine Bacteria Trace I & O for Last 24 hours: Intake & Output 05/10/19 05/11/19 05/12/19 05/13/19 11:59 11:59 11:59 11:59 Intake Total 4634 / 4634 Output Total 700 / 700 Balance 3934 / 3934 Weight 125 lb 1 oz 138 lb 8 oz - Constitutional no acute distress, thin - *Routine HEENT Exam Head: Present: normocephalic Eye: Present: EOMI, PERRL ENT: Present: mucous membranes dry - *Routine Neck Exam Present: supple - *Routine Respiratory Exam Absent: respiratory distress - *Routine Cardiovascular Exam Present: RRR - *Routine Abdominal Exam Present: soft Comments: surgical scars ok - *Routine Extremities Exam Present: full ROM - *Routine Skin Exam Present: intact - *Routine Neurological Exam Present: alert, CN II-XII intact - Routine Psychiatric Exam Present: normal affect Assessment and Plan (1) Abdominal pain Current visit: Yes Status: Acute Qualifiers: Abdominal location: generalized Qualified Code(s): R10.84 - Generalized abdominal pain Category: Medical Code(s): R10.9 - Unspecified abdominal pain (2) Suppurative appendicitis Current visit: Yes Status: Acute Category: Medical Code(s): K35.80 - Unspecified acute appendicitis (3) Migraine headache Current visit: Yes Status: Acute Qualifiers: Migraine type: chronic without aura Status migrainosus presence: without status migrainosus Intractability: not intractable Qualified Code(s): G43.709 - Chronic migraine without aura, not intractable, without status migrainosus Category: Medical Code(s): G43.909 - Migraine, unspecified, not intractable, without status migrainosus
[2019-05-14 06:33] LABS: Basophils % 0.2 % (0.1-2.0); Eosinophils # 0.1 K/mm3 (0.0-0.4); Eosinophils % 1.9 % (0.1-12.0); Hematocrit 30.2 % (37.0-47.0); Hemoglobin 9.9 g/dL (12.2-16.2); Lymphocytes # 2.5 K/mm3 (0.7-4.5); Lymphocytes % 35.1 % (10-50); Mean Corpuscular HGB Conc 32.6 g/dL (31.8-35.4); Mean Corpuscular Volume 89.4 fl (81-99); Monocytes # 0.3 K/mm3 (0.1-1.0); Monocytes % 4.5 % (1.7-9.3); Neutrophils # 4.1 K/mm3 (1.8-7.8); Neutrophils % 58.3 % (37.0-80.0); Platelet Count 264 K/mm3 (142-424); Red Blood Count 3.38 M/mm3 (4.20-5.40); Red Cell Distribution Width 13.1 % (11.5-17.5)
--- NOTE | 2019-05-14 08:42 | Progress Note ---
Subjective Patient reports: feels better, diarrhea Exam Vital signs and Labs for Last 24 Hours: Temp Pulse Resp BP Pulse Ox 98.1 F 86 18 121/50 L 98 05/14/19 08:00 05/14/19 08:00 05/14/19 08:00 05/14/19 08:00 05/14/19 08:00 Laboratory Results - last 24 hr 05/13/19 16:17: Stl Aeromonas (PCR) Not detected, Stl C. cayetanensis PCR Not detected, Stool Rotavirus (PCR) Not detected, Stl Adenov F 40/41 PCR Not detected, Stool Astrovirus (PCR) Not detected, Stool Campylobacter PCR Not detected, Stl C.difficile Tox PCR Not detected, Stool Cryptosporidium PCR Not detected, Stl E.coli Shiga Tox PCR Not detected, Stool E coli O157 PCR Not detected, Stl Enterotoxigenic E PCR Not detected, Stool EPEC (PCR) Not detected, Stool EAEC (PCR) Not detected, Stl E. histolytica PCR Not detected, Stool Giardia Lamblia PCR Not detected, Stool Salmonella PCR Not detected, Stool Sapovirus (PCR) Not detected, Stl P. shigelloides PCR Not detected, Stl Shigella/EIEC PCR Not detected, St Y.enterocolitica PCR Not detected, Stool Vibrio (PCR) Not detected, Stl Vibrio cholerae PCR Not detected, Stl Norovirus GI/GII PCR Not detected 05/14/19 06:05: WBC 7.0 D, RBC 3.38 L, Hgb 9.9 L, Hct 30.2 L, MCV 89.4, MCH 29.2, MCHC 32.6, RDW 13.1, Plt Count 264, MPV 7.0 L, Neut % (Auto) 58.3, Lymph % (Auto) 35.1, [place] % (Auto) 4.5, Eos % (Auto) 1.9, Baso % (Auto) 0.2, Neut # (Auto) 4.1, Lymph # (Auto) 2.5, [place] # (Auto) 0.3, Eos # (Auto) 0.1, Baso # (Auto) 0.0 I & O for Last 24 hours: Intake & Output 05/11/19 05/12/19 05/13/19 05/14/19 11:59 11:59 11:59 11:59 Intake Total 4634 / 4634 4913 / 4913 Output Total 700 / 700 Balance 3934 / 3934 4913 / 4913 Weight 125 lb 1 oz 138 lb 8 oz 137 lb 7 oz Microbiology Reports for the Last 24 Hours: Microbiology 05/12/19 01:30 Blood Blood Culture - Preliminary NO GROWTH AFTER 48 HOURS 05/12/19 01:30 Blood Blood Culture - Preliminary NO GROWTH AFTER 48 HOURS - Constitutional no acute distress - *Routine Respiratory Exam Absent: respiratory distress - *Routine Cardiovascular Exam Present: RRR - *Routine Abdominal Exam Present: soft Comments: no cellulitis Progress Note: A&P (1) Abdominal pain Status: Acute Current Visit: Yes (2) Suppurative appendicitis Status: Acute Assessment and plan: Overall, doing very well status post laparoscopic appendectomy. Okay from surgical standpoint for discharge home today with close outpatient follow-up. A short course of Augmentin has been prescribed secondary to separative/necrotic changes noted intraoperatively. Current Visit: Yes (3) Migraine headache Status: Acute Current Visit: Yes
--- NOTE | 2019-05-14 09:19 | Discharge Summary ---
General - General Admission date:: 05/12/19 Discharge date: 05/14/19 HPI HPI: this wf with abd pain which started last pm with assoc nausea - no fever or diarrhea - she did report not feeling well during the day but dev sev pain on rt and lt side with rad to back - she was seen in the ed with nonspecific ct and persistant pain despite iv meds - she was admitted for eval and treatment Hospital Course Hospital Course: pt was admitted and continued to have pain and was seen by surg -is is a 54-year-old female who presents the emergency department overnight with increasing abdominal pain. She states that the pain initially was in the mid/upper abdomen with some radiation to the back. The majority of her pain is now and the bilateral lower quadrants (no worse on the right or on the left. No fevers. She describes the pain as "severe spasm". She continues to have some pain radiating to the back. She states that she has had a history of diverticulitis and that this pain is somewhat similar in terms of quality but much more severe. Evaluation in emergency department included a CT scan that revealed no definitive abnormality. She did have a somewhat enlarged appendix but definitive identification was questionable as she did not have p.o. contrast. Recommendations for repeat CT scan with p.o. contrast were made and this has been ordered. pt had second ct with po contrast and showed -epeat CT shows changes c/w appendicitis with possible small contained perforation. She is being prepared for appendectomy. IV antibiotics have been ordered. pt had surg -te of procedure: 05/12/19 Pre-op Diagnosis:: Appendicitis with possible perforation Post-op Diagnosis:: Necrotic/suppurative appendicitis Procedure performed:: Laparoscopic appendectomy Surgeon:: Adonis Morgan MD EMPLOYMENT LAW ATTORNEY:: Mu Estrada Anesthesia: GETA Estimated blood loss (mL): 10 Operative findings:: Necrotic/separative appendicitis with severe periappendiceal inflammation No definite perforation or abscess cavity Severe cecal angulation with projection toward pelvis and retrocecal appendicitis pt has did very well after surg and has been able to ambulate and acosta diet but has had some diarrhea - dr morgan feels pa can be d/c on abx and pain meds with close follow up Objective Vital signs: Temp Pulse Resp BP Pulse Ox 98.1 F 86 18 121/50 L 98 05/14/19 08:00 05/14/19 08:00 05/14/19 08:00 05/14/19 08:00 05/14/19 08:00 no acute distress, thin - *Routine HEENT Exam Head: Present: normocephalic Eye: Present: EOMI, PERRL. Absent: conjunctival icterus ENT: Present: mucous membranes dry - *Routine Neck Exam Present: supple - *Routine Respiratory Exam Absent: respiratory distress - *Routine Cardiovascular Exam Present: RRR - *Routine Abdominal Exam Present: soft Comments: surg sites per dr morgan - *Routine Extremities Exam Present: full ROM - *Routine Skin Exam Present: intact - *Routine Neurological Exam Present: alert, oriented X3, CN II-XII intact - Routine Psychiatric Exam Present: normal affect Results Labs on day of discharge: Labs from last 24 hours 05/14/19 05/13/19 06:05 16:17 WBC 7.0 D RBC 3.38 L Hgb 9.9 L Hct 30.2 L MCV 89.4 MCH 29.2 MCHC 32.6 RDW 13.1 Plt Count 264 MPV 7.0 L Neut % (Auto) 58.3 Lymph % (Auto) 35.1 [place] % (Auto) 4.5 Eos % (Auto) 1.9 Baso % (Auto) 0.2 Neut # (Auto) 4.1 Lymph # (Auto) 2.5 [place] # (Auto) 0.3 Eos # (Auto) 0.1 Baso # (Auto) 0.0 Stl Aeromonas (PCR) Not detected Stl C. cayetanensis PCR Not detected Stool Rotavirus (PCR) Not detected Stl Adenov F 40/41 PCR Not detected Stool Astrovirus (PCR) Not detected Stool Campylobacter PCR Not detected Stl C.difficile Tox PCR Not detected Stool Cryptosporidium PCR Not detected Stl E.coli Shiga Tox PCR Not detected Stool E coli O157 PCR Not detected Stl Enterotoxigenic E PCR Not detected Stool EPEC (PCR) Not detected Stool EAEC (PCR) Not detected Stl E. histolytica PCR Not detected Stool Giardia Lamblia PCR Not detected Stool Salmonella PCR Not detected Stool Sapovirus (PCR) Not detected Stl P. shigelloides PCR Not detected Stl Shigella/EIEC PCR Not detected St Y.enterocolitica PCR Not detected Stool Vibrio (PCR) Not detected Stl Vibrio cholerae PCR Not detected Stl Norovirus GI/GII PCR Not detected Preliminary micro results at discharge 05/12/19 01:30 Blood Culture - Preliminary Blood NO GROWTH AFTER 48 HOURS 05/12/19 01:30 Blood Culture - Preliminary Blood NO GROWTH AFTER 48 HOURS DS: Diagnosis - Discharge Diagnosis (1) Abdominal pain Status: Acute (2) Suppurative appendicitis Status: Acute (3) Migraine headache Status: Acute (4) Anemia Status: Acute (5) Tobacco use Status: Acute (6) Chronic back pain greater than 3 months duration Status: Acute Discharge Plan - Patient Discharge Instructions ACTIVITY: Continue current activity DIET: continue same diet Patient Instructions: DI for an Appendectomy, DI for Abdominal Pain-Adult, DI for Surgical Site Infection - Follow up Plan Follow up with: Adonis Morgan MD [Staff Physician] - 1 week Disposition: Home, Self-Usp Medications: Home Medications Medication Instructions Recorded Confirmed Type hydrocodone 7.5 mg-acetaminophen 1 tab PO Q6H 12/02/17 05/12/19 History 325 mg tablet tizanidine 4 mg capsule 4 mg PO DAILY cap 12/02/17 05/12/19 History rizatriptan 10 mg tablet 10 mg PO Q2H PRN 09/20/18 05/12/19 History gabapentin 400 mg capsule 400 mg PO HS cap 04/17/19 05/12/19 History Estrogens, Conjugated [Premarin] 1.25 mg PO DAILY 05/12/19 05/12/19 History Levothyroxine Sodium [Synthroid 25 mg PO DAILY 05/12/19 05/12/19 History 25mcg (0.025mg) tablet] Lovastatin 20 mg PO HS 05/12/19 05/12/19 History Montelukast Sodium [Montelukast 10 mg PO DAILY 05/12/19 05/12/19 History 10mg Tab] Nortriptyline HCl 30 mg PO HS 05/12/19 05/13/19 History Promethazine HCl 12.5 mg PO DAILYP PRN 05/12/19 05/12/19 History SUMAtriptan succinate [Sumatriptan 100 mg PO Q2HP PRN 05/12/19 05/12/19 History Succinate] Duloxetine HCl 30 mg PO HS 05/13/19 05/13/19 History Amoxicillin/Potassium Clav 1 tab PO Q12H #10 tab 05/14/19 Rx [Augmentin 875-125 Tablet] Hydrocodone/Acetaminophen [[place] 1 - 2 each PO Q6HP PRN #13 tab 05/14/19 Rx 5-325 Tablet] Prescriptions/Medication Reconciliation: New Amoxicillin/Potassium Clav [Augmentin 875-125 Tablet] 1 tab PO Q12H #10 tab Hydrocodone/Acetaminophen [[place] 5-325 Tablet] 1 - 2 each PO Q6HP PRN #13 tab PRN Reason: pain Nortriptyline HCl [Pamelor 10mg capsule] 30 mg PO HS capsule Duloxetine HCl [Cymbalta 30mg capsule] 30 mg PO HS capsule. Duloxetine HCl [Cymbalta 30mg capsule] 30 mg PO DAILY capsule. Continued tizanidine 4 mg capsule 4 mg PO DAILY cap hydrocodone 7.5 mg-acetaminophen 325 mg tablet 1 tab PO Q6H rizatriptan 10 mg tablet 10 mg PO Q2H PRN PRN Reason: Headache gabapentin 400 mg capsule 400 mg PO HS cap Levothyroxine Sodium [Synthroid 25mcg (0.025mg) tablet] 25 mg PO DAILY Estrogens, Conjugated [Premarin] 1.25 mg PO DAILY Promethazine HCl 12.5 mg PO DAILYP PRN PRN Reason: nausea and vomiting Montelukast Sodium [Montelukast 10mg Tab] 10 mg PO DAILY Duloxetine HCl 30 mg PO HS Lovastatin 20 mg PO HS Nortriptyline HCl 30 mg PO HS SUMAtriptan succinate [Sumatriptan Succinate] 100 mg PO Q2HP PRN PRN Reason: MIGRAINES - Problem Reconciliation Problems Reviewed?: Yes
--- NOTE | 2019-05-14 09:45 | Electrocardiograph Report ---
APPROVED REPORT Exam: Resting ECG HR:105 bpm ECG Measurements Heart Rate 105 AXES SC 154 P 86 QRSd 76 QRS 57 QT 338 T99 QTc 446 <Conclusion> Sinus tachycardia Low voltage QRS Late R wave progression Abnormal ECG Electronically signed by : Jerry Gordon, 05/14/2019 09:45:38
== END 2019-05-14 10:40 | disposition home or self-care (01) | DRG 343 ==
LOC: 2ND 00:58 → ER 00:58 → OBSVTOIN 04:25 → 2ND 04:30
PROVIDERS: ADMIT Emergency Medicine; ATTEND Emergency Medicine
CPT/HCPCS: 36415; 74177; 80048; 80053; 81001; 82150; 83605; 83690; 84484; 85007; 85025; 85651; 86140; 87040; 87507; 88304; 93005; 96365; 96375; 96376; 99285; J0131; J1335; J2405; J2543; J2710; Q9967

== ENCOUNTER → 2019-10-10 17:28 | Outpatient (CLI) | payer MEDICAID, SELFPAY ==
[2019-10-10 18:31] LABS: Basophils % 0.6 % (0.1-2.0); Eosinophils # 0.1 K/mm3 (0.0-0.4); Eosinophils % 2.5 % (0.1-12.0); Hemoglobin 13.7 g/dL (12.2-16.2); Lymphocytes # 2.3 K/mm3 (0.7-4.5); Lymphocytes % 46.9 % (10-50); Mean Corpuscular HGB Conc 32.5 g/dL (31.8-35.4); Mean Corpuscular Hemoglobin 28.7 pg (27.0-31.2); Mean Corpuscular Volume 88.1 fl (81-99); Mean Platelet Volume 8.8 fl (7.4-10.4); Monocytes # 0.4 K/mm3 (0.1-1.0); Monocytes % 7.2 % (1.7-9.3); Neutrophils # 2.1 K/mm3 (1.8-7.8); Neutrophils % 42.8 % (37.0-80.0); Platelet Count 394 K/mm3 (142-424); Red Blood Count 4.76 M/mm3 (4.20-5.40); Red Cell Distribution Width 12.9 % (11.5-17.5)
[2019-10-10 18:58] LABS: Alanine Aminotransferase 14 U/L (12-78); Albumin Level 3.5 gm/dL (3.4-5.0); Albumin/Globulin Ratio 0.9 (1.1-1.8); Alkaline Phosphatase 96 U/L (46-116); Anion Gap 14.5 mEq/L (5-15); Aspartate Amino Transferase 16 U/L (15-37); Bilirubin,Total 0.4 mg/dL (0.2-1.0); Blood Urea Nitrogen 10 mg/dL (7-18); Calcium 9.5 mg/dL (8.5-10.1); Carbon Dioxide 27 mmol/L (21.0-32.0); Chloride 103 mmol/L (98-107); Chol/HDL Ratio 4.1 (1-3.5); Cholesterol 257 mg/dL (140-200); Creatinine,Serum 0.75 mg/dL (0.55-1.02); Estimated Glomerular Filt Rate 81 ml/min (>60); GFR (African American) 97 ML/MIN (>60); Globulin 4.1 gm/dl (1.3-3.2); Glucose 77 mg/dL (74-106); HDL Cholesterol 63 mg/dL (29-89); LDL Cholesterol 136 mg/dL (0-130); Potassium 4.5 mmoL/L (3.5-5.1); Sodium 140 mmol/L (136-145); T4 (Thyroxine) 13.2 ug/dl (4.7-13.3); Total Protein,Serum 7.6 gm/dL (6.4-8.2); Triglycerides 292 mg/dL (30-200); VLDL Cholesterol 58 mg/dL (0-40)
[2019-10-12 13:30] LABS: Hep A Ab, IgM Negative (Negative); Hepatitis B Core Antibody IgM Negative (Negative); Hepatitis B Surface Antigen Negative (Negative)
[2019-10-13 09:25] LABS: Hepatitis C Antibody <0.1 s/co ratio (0.0-0.9); Vitamin D 25 Hydroxy 19.5 ng/mL (30.0-100.0)
== END ==
PROVIDERS: Visit Provider Emergency Medicine
DX: R07.9 Chest pain, unspecified (principal); E55.9 Vitamin D deficiency, unspecified; F41.9 Anxiety disorder, unspecified; M54.9 Dorsalgia, unspecified; G89.29 Other chronic pain; Z79.899 Other long term (current) drug therapy; Z72.0 Tobacco use; Z82.49 Family history of ischemic heart disease and other diseases of the circulatory system; Z01.89 Encounter for other specified special examinations
CPT/HCPCS: 80053; 80061; 80074; 82652; 84436; 84443; 85025

== ENCOUNTER → 2019-10-23 08:15 | Outpatient (CLI) | payer MEDICAID, SELFPAY ==
--- NOTE | 2019-10-23 08:17 | CA_ITS ---
APPROVED REPORT EXAM: Comprehensive 2D, Doppler, and color-flow Echocardiogram Anti Air Warfare Operations Officer: Angely Melton CRT Ht: 5 ft 4 in Wt: 120lbs BSA: 1.57 BP: 120/70 mmHg Indications: Chest Pain, Hyperlipidemia 2D Dimensions Aortic Root 2.80 cm F: 2.7 - 3.3 Left Atrium 3.20 cm F: 2.7 - 3.8 LVOT 2.00 cm (M/F) 1.5-2.5 M-Mode Dimensions RVDd 2.18 cm (0.9-2.6) LVDd 4.91 cm (3.5-5.7) LVDs 4.18 cm (3.5-5.7) IVSd 0.61 cm (0.6-1.1) PWd 0.49 cm (0.6-1.1) EF (Teich) 31.50% FS 14.90% EDV (Teich) 113.40 mL ESV (Teich) 77.70 mL LV Diastology E/A Ratio 0.76 Mitral Valve MV A Velocity 63.00 (40-130 cm/s) Left Ventricle Left atrium is normal size, left ventricle is normal size, visually estimated ejection fraction 55% with no regional wall motion abnormality. Diastolic parameters are inconclusive. Right Ventricle Right atrium and right ventricle are normal size and contractility. Aortic Valve Aortic valve is grossly normal, there is no aortic stenosis or aortic insufficiency. Mitral Valve Mitral valve is grossly normal, there is mild mitral regurgitation. Tricuspid Valve Tricuspid valve is grossly normal, there is mild tricuspid regurgitation, tricuspid regurgitation jet velocity is inadequate for calculation of the right ventricular systolic pressure. Pulmonic Valve Pulmonic valve is poorly visualized. Great Vessels Aortic root is normal size. Pericardium No significant pericardial effusion noted. Conclusion 1. Normal left ventricular size, preserved left ventricular systolic function, visually estimated ejection fraction 55% with no regional wall motion abnormality. 2. Mild mitral and tricuspid regurgitation. 3. No significant pericardial effusion noted. Electronically signed by : Bishop Pizano, 10/24/2019 06:57:31
== END ==
PROVIDERS: PCP Emergency Medicine; Visit Provider Emergency Medicine
DX: R07.9 Chest pain, unspecified (principal)
CPT/HCPCS: 93306

== ENCOUNTER → 2019-11-12 06:43 | Outpatient (CLI) | payer MEDICAID, SELFPAY ==
--- NOTE | 2019-11-12 | CA_ITS ---
APPROVED REPORT Exam: Exercise Treadmill Technologist: nathanael ward, Ht: 4 ft 6 in Wt: 120 lbs BSA: 1.39 m2 HR: 93 bpm BP: 144/89 mmHg Indications: CP, SOB Medical History Medications: Levothyroxine,,,,, Gabapentin,,,,, DulOXETINE,,,,, Nortriptylin,,,,, Tizanidine,,,,, Sumatriptan,,,,, EstroGEN,,,,, Metronidazole,,,,, RIZATRIPTAN,,,,, RIZATRIPTAN,,,,, Hydrocone,,,,, Allergies: nuts, azithromycin, metronidazole Cardiac Risk Factors: HTN, Hyperlipidemia, FHX of CAD, Smoking Stress Test Details Test: Jim HR Resting HR: 87 bpm Max Heart Rate (APMHR): 166 bpm Max HR Achieved: 169 bpm Target HR (85% APMHR): 141 bpm % of APMHR: 101 Recovery HR: 131 bpm BP Resting BP: 154/90 mmHg Max BP: 166/94 mmHg Recovery BP: 166.0/94.0 mmHg ECG Resting ECG: Sinus rhythm Clinical Exercise duration: 10:21 min Highest Stage Achieved: Stage 4: 4.2 mph at 16% grade. Exercise capacity: 12.8 METs Stress ECG Conclusion Jim protocol completed. Test stopped due to SOB and chest tightness at peak exercise, resolved in recovery. No ectopy noted. Less than 1.5mm ST Depression. Images to follow Test Summary REST . . . . . . . Standing REST . . . . . . . Standing REST . . . . . . . Sitting REST . . . . . . . Sitting REST 03:53 0.0 0.0 87 . 154/ 90 . . Stage 1 01:00 10.0 1.7 106 . . . . Stage 1 02:00 10.0 1.7 124 . . . . Stage 1 03:00 10.0 1.7 130 . 150/ 90 . . Stage 2 01:00 12.0 2.5 136 . . . . Stage 2 02:00 12.0 2.5 140 . . . . Stage 2 03:00 12.0 2.5 144 . . . . Stage 3 01:00 14.0 3.4 150 . 152/ 88 . . Stage 3 02:00 14.0 3.4 155 . 152/ 88 . . Stage 3 03:00 14.0 3.4 160 . 154/ 86 . . Stage 4 . . . . . . . Cardiolite injected Stage 4 01:00 16.0 4.2 117 . . . . Stage 4 01:21 16.0 4.2 168 . . . Stop exercise at 10:21 RECOVERY 01:00 0.0 0.0 158 . . . . RECOVERY 02:00 0.0 0.0 135 . . . . RECOVERY 03:00 0.0 0.0 120 . 166/ 94 . . RECOVERY 04:00 0.0 0.0 110 . 162/ 84 . . RECOVERY 05:00 0.0 0.0 105 . 156/ 82 . . RECOVERY 05:24 0.0 0.0 106 . 156/ 82 . . Electronically signed by : Bishop Pizano, 11/12/2019 19:55:57
--- NOTE | 2019-11-12 06:45 | NM_ITS ---
APPROVED REPORT Exam: Nuclear Stress Test Indication: Chest pain, SOB, Syncope, Fatigue, HTN, High cholesterol, Tobacco use, Family history Patient Location: Outpatient Stress Tech: Nelida Link [place] Tech:Nusrat Salgado, ARRT, RT (R)(N) Ht: 5 ft 4 in Wt: 120 lbs Bra Size: 36B HR: 80 bpm BP: 154/90 mmHg BSA: 1.57 m2 BMI: 20.5 History: Chest pain, SOB, Syncope, Fatigue, HTN, High cholesterol, Tobacco use, Family history Procedure: Patient exercised on Jim protocol 10:21 minutes and sec, resting heart rate 80 bpm, resting blood pressure 154/90 mmHg, with exercise maximum heart rate achived was 169 bpm which is Greater than 85 % of the maximum predicted heart rate and blood pressure was 166/96 mmHg. Test was stopped due to Leg fatigue. Patient denied any complaint of chest pain. Patient has Good exercise capacity, achieved 12.8 METs of workload on treadmill, the blood pressure response to exercise was Adequate. Electrocardiogram Resting electrocardiogram showed sinus rhythm nonspecific ST-T changes, with exercise there is less than 1.[address] segment depression noted from the baseline EKG. The EKG portion of the exercise Myoview is negative for ischemia. Cardiac Stress and Resting SPECT Images: Cardiac Stress and Resting SPECT images were obtained using technetium 99m Myoview 29.6 mCi stress and 9.60 mCi at rest. Gated SPECT for analysis of segmental wall motion and calculation of the ejection fraction also done. Cardiac stress and resting SPECT images show uniform myocardial activity without segmental perfusion abnormality, computer derived ejection fraction is 54% with no regional wall motion abnormality, right ventricle is normal size and contractility. Conclusion: 1. The EKG portion of the exercise Myoview is negative for ischemia, patient has good exercise capacity achieved 12.8 mets of workload on treadmill, the blood pressure response to exercise was adequate, there was no exercise-induced chest discomfort. 2. No scintigraphic evidence of reversible ischemia seen at this level of exercise, computer derived ejection fraction is 54% with no regional wall motion abnormality, right ventricle is normal size and contractility. 3. Normal exercise Myoview study. Electronically signed by : Bishop Pizano, 11/12/2019 19:59:22
--- NOTE | 2019-11-12 09:20 | HMH.ITSHM ---
Current Home Medications as stated by this patient Tavia Hutson or lead generation representative. []NORTRIPTYLINE MONTELUKAST LEVOTHYROXINE PREMARIN TIZANIDINE RIZATRIPTAN LOVASTATIN HYDROCODONE GABAPENTIN VITAMIN D2 VITAMIN D3 CLONAZOPAM SUMATRIPTAN PROMETHAZINE DULOETINE
== END ==
PROVIDERS: PCP Emergency Medicine; Visit Provider Emergency Medicine
DX: R07.9 Chest pain, unspecified (principal)
CPT/HCPCS: 78452; 93017; A9502

== ENCOUNTER → 2020-05-12 17:25 | Outpatient (CLI) | payer MEDICAID, SELFPAY ==
[2020-05-12 17:47] LABS: Basophils % 0.5 % (0.1-2.0); Eosinophils # 0.2 K/mm3 (0.0-0.4); Eosinophils % 2.3 % (0.1-12.0); Hematocrit 42.6 % (37.0-47.0); Hemoglobin 14.4 g/dL (12.2-16.2); Lymphocytes # 2.8 K/mm3 (0.7-4.5); Lymphocytes % 42.4 % (10-50); Mean Corpuscular HGB Conc 33.8 g/dL (31.8-35.4); Mean Corpuscular Hemoglobin 30.1 pg (27.0-31.2); Mean Corpuscular Volume 89.1 fl (81-99); Monocytes # 0.4 K/mm3 (0.1-1.0); Monocytes % 6.8 % (1.7-9.3); Neutrophils # 3.1 K/mm3 (1.8-7.8); Neutrophils % 48.1 % (37.0-80.0); Platelet Count 307 K/mm3 (142-424); Red Blood Count 4.79 M/mm3 (4.20-5.40); Red Cell Distribution Width 13.1 % (11.5-17.5); White Blood Count 6.5 K/mm3 (4.8-10.8)
[2020-05-12 19:01] LABS: Albumin Level 4.6 g/dl (3.5-5.0); Albumin/Globulin Ratio 1.2 (1.1-1.8); Alkaline Phosphatase 83 U/L (38-126); Anion Gap 13.7 mEq/L (5-15); Bilirubin,Total 0.6 mg/dl (0.2-1.3); Blood Urea Nitrogen 10 mg/dl (7-17); Calcium 10.1 mg/dl (8.4-10.2); Carbon Dioxide 28 mmol/L (22.0-30.0); Chloride 100 mmol/L (98-107); Estimated Glomerular Filt Rate 128 ml/min (>60); GFR (African American) 155 ML/MIN (>60); Globulin 3.8 g/dL (1.3-3.2); Glucose 81 mg/dl (74-100); Potassium 4.7 mmoL/L (3.5-5.1); Sodium 137 mmol/L (136-145); Total Protein,Serum 8.4 g/dl (6.3-8.2)
[2020-05-12 19:02] LABS: Alanine Aminotransferase 14 U/L (12-78); Aspartate Amino Transferase 28 U/L (14-36)
[2020-05-12 19:32] LABS: Thyroid Stimulating Hormone 2.24 uIU/mL (0.465-4.68)
[2020-05-12 19:46] LABS: Free T4 (Free Thyroxine) 0.82 ng/dl (0.78-2.19)
== END ==
PROVIDERS: Visit Provider Emergency Medicine
DX: D64.9 Anemia, unspecified (principal)
CPT/HCPCS: 80053; 84439; 84443; 85025

== ENCOUNTER 2020-06-15 13:56 | Emergency (ER) | payer MEDICAID, SELFPAY ==
[2020-06-15 14:29] VITALS: BP 142/89; PULSE 89; RESP 20; O2SAT 97; BMI 20.2
--- NOTE | 2020-06-15 14:39 | HMH.EDUTC ---
[facility] [place] Clinical Impression: Exposure to COVID-19 virus Disposition: Home, Self-Care Condition on Discharge: Good Instructions: Preventing the Spread of Coronavirus Discharge Instructions Referrals: Ronn Smith MD [Primary Care Provider] - Forms: Work/School Release Time of Disposition: 14:43 Medical Decision Making - Jef Inquiry Pt receiving controlled substance: No Vital Signs: 06/15/20 14:29 Pulse Rate [Right Brachial] 89 Respiratory Rate 20 Blood Pressure [Right Arm] 142/89 H Blood Pressure Mean [Right Arm] 106 Blood Pressure Source [Right Arm] Automatic Cuff Blood Pressure Position [Right Arm] Sitting 02 Sat by Pulse Oximetry 97 Oxygen Delivery Method Room Air Orders (Tests/Meds): ORDERS Category Date Time Status Covid-19 Nasal PCR Sendout Bro Stat Lab 06/15/20 14:13 [place] [facility] [place] - General Stated complaint: covid test Time Seen by Provider: 06/15/20 14:40 Mode of Arrival: Ambulatory Source of Information: Patient Limitations: No Limitations Description of Symptoms (Recalled from Triage Doc. by RN): PATIENT NEEDS COVID TEST TO RETURN TO WORK HEENT Symptoms (Recalled from RN notes): No Resp Symptoms (Recalled from RN notes): No Skin Symptoms (Recalled from RN notes): No MS Symptoms (Recalled from RN notes): No Functional Status (Recalled from RN notes): wnl - History of Present Illness Provider Complaint: Patient needs COVID testing for work. Has recently traveled to [place]. - Related Data Home Medications Medication Instructions Recorded Confirmed hydrocodone 7.5 mg-acetaminophen 1 tab PO Q6H 12/02/17 05/12/20 325 mg tablet rizatriptan 10 mg tablet 10 mg PO Q2H PRN 09/20/18 05/12/20 SUMAtriptan succinate [Sumatriptan 100 mg PO Q2HP PRN 05/12/19 05/12/20 Succinate] gabapentin 800 mg tablet 800 mg PO QHS tab 11/06/19 05/12/20 tizanidine 4 mg tablet 4 mg PO BID tab 11/06/19 05/12/20 diclofenac sodium 1 % topical gel TOPICAL 03/14/20 05/12/20 tramadol 50 mg tablet 50 mg PO tab 03/14/20 05/12/20 erenumab-aooe 70 mg/mL 70 mg SQ QMONTH 05/12/20 05/12/20 subcutaneous auto-injector Previous Rx's Medication Instructions Recorded cholecalciferol (vitamin D3) 25 1,000 unit PO DAILY #90 cap 10/15/19 mcg (1,000 unit) capsule ergocalciferol (vitamin D2) 1,250 50,000 unit PO QWEEK 90 Days #12 10/15/19 mcg (50,000 unit) capsule cap conjugated estrogens 1.25 mg tablet 1.25 mg PO DAILY #90 tab 05/12/20 duloxetine 30 mg capsule,delayed 30 mg PO QHS #90 cap 05/12/20 release levothyroxine 25 mcg tablet See Rx Instructions .ROUTE 05/12/20 .COMPLEX #90 tab lovastatin 40 mg tablet See Rx Instructions .ROUTE 05/12/20 .COMPLEX #90 tab minocycline 100 mg capsule 100 mg PO BID #14 cap 05/12/20 montelukast 10 mg tablet 10 mg PO DAILY #90 tab 05/12/20 promethazine 12.5 mg tablet 12.5 mg PO DAILYP PRN #30 tab 05/12/20 escitalopram oxalate 10 mg tablet 10 mg PO DAILY #90 tab 06/15/20 Allergies Allergy/AdvReac Type Severity Reaction Status Date / Time azithromycin [AZITHROMYCIN] Allergy Unknown Verified 05/12/20 12:54 metronidazole [From FLAGYL] Allergy Unknown Verified 05/12/20 12:54 Nuts (Food) Allergy Severe WITH Uncoded 05/12/20 12:54 ALCOHOL MIXED ONLY-ANAPHYLAXIS - Worker's Comp Is this a Worker's Comp case?: No [facility] History - Hepatitis A Screen Drug use history?: No High risk sexual behaviors?: No History of sexually transmitted infection?: No Currently employed?: No Childcare worker?: No Do you have indoor plumbing?: Yes Do you have electricity?: Yes Attestation statement:: This patient has been screened for Hepatitis A risk factors. I have reviewed the patient's past medical history: Yes Medical History: Reports:: Anxiety, Depression, Hyperlipidemia, Migraine Denies:: Cancer, Diabetes Mellitus Type 1, Diabetes Mellitus Type 2, Internal Pacemaker, MRSA, Seizures Other Medical History: Reports: Anemia, Hypo
[2020-06-15 14:46] VITALS: BP 142/89; PULSE 89; RESP 20; TEMP 36.8; O2SAT 97
[2020-06-17 09:32] LABS: Covid-19 Nasal PCR Sendout Lex POSITIVE
== END 2020-06-15 14:51 | disposition home or self-care (01) ==
PROVIDERS: Emergency Provider Physician Assistant; PCP Emergency Medicine
DX: Z20.828 Contact with and (suspected) exposure to other viral communicable diseases (principal); F41.8 Other specified anxiety disorders; E78.5 Hyperlipidemia, unspecified; E03.9 Hypothyroidism, unspecified; G43.709 Chronic migraine without aura, not intractable, without status migrainosus; F17.210 Nicotine dependence, cigarettes, uncomplicated; Z88.1 Allergy status to other antibiotic agents; Z79.899 Other long term (current) drug therapy
CPT/HCPCS: 99201; U0004

== ENCOUNTER 2020-07-20 19:29 | Emergency (ER) | payer MEDICAID, SELFPAY ==
[2020-07-20 19:40] VITALS: BP 143/91; PULSE 76; RESP 20; TEMP 36.6; O2SAT 99; BMI 20.2
--- NOTE | 2020-07-20 19:45 | HMH.EDUTC ---
[facility] [place] Disposition Clinical Impression: Headache Qualifiers: Headache type: unspecified Headache chronicity pattern: unspecified pattern Intractability: not intractable Qualified Code(s): R51.9 - Headache, unspecified Disposition: Home, Self-Care Condition on Discharge: Good Additional Instructions: Go home and lay down and sleep off remainder of migraine headache Follow up with your Family Doctor if no improvement or any worsening of symptoms Return if needed Straight to ER if any life threatening symptoms Referrals: Ronn Smith MD [Primary Care Provider] - As needed Time of Disposition: 20:05 Medical Decision Making - Jef Inquiry Pt receiving controlled substance: No Jef was queried for this patient: No Vital Signs: 07/20/20 19:40 Temperature 97.9 F Temperature Source Oral Pulse Rate [Radial] 76 Respiratory Rate 20 Blood Pressure [Right Arm] 143/91 H Blood Pressure Mean [Right Arm] 108 Blood Pressure Source [Right Arm] Automatic Cuff Blood Pressure Position [Right Arm] Sitting 02 Sat by Pulse Oximetry 99 Oxygen Delivery Method Room Air Orders (Tests/Meds): ED MEDICATIONS Discontinued Medications Generic Name Dose Route Start Last Admin Trade Name Aleksandra PRN Reason Stop Dose Admin Diphenhydramine HCl 25 mg 07/20/20 19:50 07/20/20 19:51 Diphenhydramine 50mg/Ml Vial IM 07/20/20 19:51 25 mg ONCE ONE Administration Ketorolac Tromethamine 60 mg 07/20/20 19:50 07/20/20 19:51 Ketorolac 60mg/2ml Vial IM 07/20/20 19:51 60 mg ONCE ONE Administration Ondansetron HCl 4 mg 07/20/20 19:50 07/20/20 19:52 Ondansetron 4mg Odt SL 07/20/20 19:51 4 mg ONCE ONE Administration [facility] [place] HPI - General Stated complaint: Migraine Time Seen by Provider: 07/20/20 19:46 Mode of Arrival: Ambulatory Source of Information: Patient Limitations: No Limitations Description of Symptoms (Recalled from Triage Doc. by RN): migraine x 1 week HEENT Symptoms (Recalled from RN notes): No Resp Symptoms (Recalled from RN notes): No Skin Symptoms (Recalled from RN notes): No MS Symptoms (Recalled from RN notes): Yes Functional Status (Recalled from RN notes): wnl - History of Present Illness Provider Complaint: Patient states that she has a history of migraine headaches States that for the last week she has been having a migraine States that she has taken both her prescribed medication and over the counter medication and nothing has help - Related Data Home Medications Medication Instructions Recorded Confirmed hydrocodone 7.5 mg-acetaminophen 1 tab PO Q6H 12/02/17 05/12/20 325 mg tablet rizatriptan 10 mg tablet 10 mg PO Q2H PRN 09/20/18 05/12/20 SUMAtriptan succinate [Sumatriptan 100 mg PO Q2HP PRN 05/12/19 05/12/20 Succinate] gabapentin 800 mg tablet 800 mg PO QHS tab 11/06/19 05/12/20 tizanidine 4 mg tablet 4 mg PO BID tab 11/06/19 05/12/20 diclofenac sodium 1 % topical gel TOPICAL 03/14/20 05/12/20 tramadol 50 mg tablet 50 mg PO tab 03/14/20 05/12/20 erenumab-aooe 70 mg/mL 70 mg SQ QMONTH 05/12/20 05/12/20 subcutaneous auto-injector Previous Rx's Medication Instructions Recorded cholecalciferol (vitamin D3) 25 1,000 unit PO DAILY #90 cap 10/15/19 mcg (1,000 unit) capsule ergocalciferol (vitamin D2) 1,250 50,000 unit PO QWEEK 90 Days #12 10/15/19 mcg (50,000 unit) capsule cap conjugated estrogens 1.25 mg tablet 1.25 mg PO DAILY #90 tab 05/12/20 duloxetine 30 mg capsule,delayed 30 mg PO QHS #90 cap 05/12/20 release levothyroxine 25 mcg tablet See Rx Instructions .ROUTE 05/12/20 .COMPLEX #90 tab lovastatin 40 mg tablet See Rx Instructions .ROUTE 05/12/20 .COMPLEX #90 tab minocycline 100 mg capsule 100 mg PO BID #14 cap 05/12/20 montelukast 10 mg tablet 10 mg PO DAILY #90 tab 05/12/20 promethazine 12.5 mg tablet 12.5 mg PO DAILYP PRN #30 tab 05/12/20 escitalopram oxalate 10 mg tablet 10 mg PO DAILY #90 tab 06/15/20 Allergies Allergy/AdvReac Type Se
[2020-07-20 20:25] VITALS: BP 143/91; PULSE 76; RESP 20; TEMP 36.6; O2SAT 99
== END 2020-07-20 20:31 | disposition home or self-care (01) ==
PROVIDERS: Emergency Provider Nurse Practitioner; PCP Emergency Medicine
DX: G43.909 Migraine, unspecified, not intractable, without status migrainosus (principal); F41.8 Other specified anxiety disorders; E78.5 Hyperlipidemia, unspecified; E03.9 Hypothyroidism, unspecified; F17.210 Nicotine dependence, cigarettes, uncomplicated
CPT/HCPCS: 96372; 99201

== ENCOUNTER 2020-09-09 12:54 | Emergency (ER) | payer MEDICAID, SELFPAY ==
[2020-09-09 13:05] VITALS: BP 147/83; PULSE 90; RESP 19; TEMP 36.9; O2SAT 98; BMI 20.2
--- NOTE | 2020-09-09 13:20 | HMH.EDUTC ---
[facility] [place] Impression: Cat bite Qualifiers: Encounter type: initial encounter Qualified Code(s): W55.01XA - Bitten by cat, initial encounter Disposition: Home, Self-Care Condition on Discharge: Good Instructions: DI for Cat Bite, Amoxicillin and Clavulanic Acid Additional Instructions: Keep area clean and dry, clean with antibacterial soap and water Watched area for worsening of redness and warmth and watch for signs of worsening of infection included but not limited too streaks etc Follow up immediately if any worsening of symptoms, fever ETC It may take a couple of days for the antibiotics to get into your system and symptoms to improve Straight to ER if any life threatening symptoms Prescriptions: Amoxicillin/Potassium Clav [Augmentin 875-125 Tablet] 1 tab PO Q12H #20 tab Transmission Status: Pending to [facility] Referrals: Ronn Smith MD [Primary Care Provider] - Time of Disposition: 13:26 Medical Decision Making - Jef Inquiry Pt receiving controlled substance: No Jef was queried for this patient: No Vital Signs: 09/09/20 13:05 Temperature 98.4 F Temperature Source Oral Pulse Rate [Right Brachial] 90 Respiratory Rate 19 Blood Pressure [Right Arm] 147/83 H Blood Pressure Mean [Right Arm] 104 Blood Pressure Source [Right Arm] Automatic Cuff Blood Pressure Position [Right Arm] Sitting 02 Sat by Pulse Oximetry 98 Oxygen Delivery Method Room Air Medical Decision Narrative: Patient states that she was biten by her cat last night that was in a cat fight on her left forearm, Reports that she has taken augmentin before without complications or reactions [facility] [place] - General Stated complaint: cat bite on arm Time Seen by Provider: 09/09/20 13:20 Mode of Arrival: Ambulatory Source of Information: Patient Limitations: No Limitations Description of Symptoms (Recalled from Triage Doc. by RN): PATIENT C/O CAT BITE ON LEFT FOREARM THAT IS RED AND HOT TO TOUCH HEENT Symptoms (Recalled from RN notes): No Resp Symptoms (Recalled from RN notes): No Skin Symptoms (Recalled from RN notes): Yes MS Symptoms (Recalled from RN notes): No Functional Status (Recalled from RN notes): WNL - History of Present Illness Provider Complaint: Patient states that she was bitten on her left forearm last night by her cat after she broke up a cat fight States that ever since she noticed it was looking red and felt warm to the touch - Related Data Home Medications Medication Instructions Recorded Confirmed hydrocodone 7.5 mg-acetaminophen 1 tab PO Q6H 12/02/17 08/08/20 325 mg tablet tizanidine 4 mg tablet 4 mg PO BID tab 11/06/19 08/08/20 tramadol 50 mg tablet 50 mg PO tab 03/14/20 08/08/20 Levothyroxine Sodium [Synthroid See Rx Instructions .ROUTE .COMPLEX 09/09/20 09/09/20 25mcg (0.025mg) tablet] Lovastatin See Rx Instructions .ROUTE .COMPLEX 09/09/20 09/09/20 Previous Rx's Medication Instructions Recorded montelukast 10 mg tablet 10 mg PO DAILY #90 tab 08/08/20 Amoxicillin/Potassium Clav 1 tab PO Q12H #20 tab 09/09/20 [Augmentin 875-125 Tablet] Allergies Allergy/AdvReac Type Severity Reaction Status Date / Time azithromycin [AZITHROMYCIN] Allergy Unknown Verified 08/08/20 14:43 metronidazole [From FLAGYL] Allergy Unknown Verified 08/08/20 14:43 Nuts (Food) Allergy Severe WITH Uncoded 08/08/20 14:43 ALCOHOL MIXED ONLY-ANAPHYLAXIS - Worker's Comp Is this a Worker's Comp case?: No [facility] [place] History - Hepatitis A Screen Drug use history?: No High risk sexual behaviors?: No History of sexually transmitted infection?: No Currently employed?: No Childcare worker?: No Do you have indoor plumbing?: Yes Do you have electricity?: Yes Attestation statement:: This patient has been screened for Hepatitis A risk factors. I have reviewed the patient's past medical history: Yes Medical History: Reports:: Anxiety, Depression, Hyperlipidemia, Jesse
[2020-09-09 13:31] VITALS: BP 147/83; PULSE 90; RESP 19; TEMP 36.9; O2SAT 98
== END 2020-09-09 13:47 | disposition home or self-care (01) ==
PROVIDERS: Emergency Provider Nurse Practitioner; PCP Emergency Medicine
DX: S51.832A Puncture wound without foreign body of left forearm, initial encounter (principal); W55.01XA Bitten by cat, initial encounter; F41.8 Other specified anxiety disorders; E03.9 Hypothyroidism, unspecified; E78.5 Hyperlipidemia, unspecified; F17.210 Nicotine dependence, cigarettes, uncomplicated; Z88.1 Allergy status to other antibiotic agents; Z23 Encounter for immunization; Z79.899 Other long term (current) drug therapy
CPT/HCPCS: 90471; 90715; 99201

== ENCOUNTER 2020-09-22 11:24 | Emergency (ER) | payer MEDICAID, SELFPAY ==
[2020-09-22 11:50] VITALS: BP 139/66; PULSE 76; RESP 20; TEMP 36.4; O2SAT 96; BMI 20.2
--- NOTE | 2020-09-22 12:23 | XR_ITS ---
PROCEDURE: XR LUMBAR SPINE 2-3V CLINICAL INDICATION: low back pain COMPARISON: CR [id number] XR lumbar spine min 4V from 10/02/2018 FINDINGS: No fracture or dislocation. No lytic or blastic change. There is normal mineralization. There is mild degenerative disc disease at L4-5 and to lesser degree at L3-L4. Degenerative disc disease also present at T12-L1. Other findings:Pessary device noted in the pelvic region IMPRESSION: Degenerative changes otherwise negative Dictated by: Tyron Peres MD 09/22/2020 13:19 Tyron Peres MD in [place] 09/22/2020 13:19
--- NOTE | 2020-09-22 12:23 | HMH.EDUTC ---
[facility] [place] Impression: Low back pain Qualifiers: Chronicity: unspecified Back pain laterality: bilateral Sciatica presence: without sciatica Qualified Code(s): M54.5 - Low back pain Disposition: Home, Self-Care Condition on Discharge: Good Instructions: Low Back Pain, DI for Low Back Pain Additional Instructions: Continue to take prescribed medication Follow up with your Family Doctor if no improvement or any worsening of symptoms Return if needed Straight to ER if any life threatening symptoms Referrals: Ronn Smith MD [Primary Care Provider] - As needed Time of Disposition: 13:37 Medical Decision Making - Jef Inquiry Pt receiving controlled substance: No Jef was queried for this patient: No Vital Signs: 09/22/20 11:50 09/22/20 13:42 Temperature 97.6 F 97.6 F Temperature Source Oral Pulse Rate 76 Pulse Rate [Right Brachial] 76 Respiratory Rate 20 20 Blood Pressure 139/66 Blood Pressure [Right Arm] 139/66 Blood Pressure Mean [Right Arm] 90 Blood Pressure Source [Right Arm] Automatic Cuff Blood Pressure Position [Right Arm] Sitting 02 Sat by Pulse Oximetry 96 Oxygen Delivery Method Room Air Orders (Tests/Meds): ED MEDICATIONS Discontinued Medications Generic Name Dose Route Start Last Admin Trade Name Freq PRN Reason Stop Dose Admin Methylprednisolone Sodium Succinate 125 mg 09/22/20 13:28 09/22/20 13:42 Methylprednisolone Sod Succ 125mg Vial IM 09/22/20 13:29 Not Given ONCE ONE ORDERS Category Date Time Status Covid-19 Nasal PCR ([facility]) Routine Lab 09/22/20 12:05 Received - Radiology Data #1 Image(s): L-Spine Image Reviewed: Yes I have reviewed radiologist's interpretation Degenerative changes otherwise negative Medical Decision Narrative: Discusses transfer to ED for further treatment and evaluation and patient declined at this time States that she will return to the ED for follow up with her PCP if no improvement or any worsening of symptoms Discussed SoluMedrol injection and patient reports history of Diverticulitis therefore SoluMedrol order canceled and explained to patient that with Diverticulitis if she is starting to have a flare, steriods have been shown to make it worse therefore order canceled and not given again discussed with patient about transfer to the ED and patient declined [facility] [place] - General Stated complaint: back pain, no accident Time Seen by Provider: 09/22/20 12:23 Mode of Arrival: Ambulatory Source of Information: Patient Limitations: No Limitations Description of Symptoms (Recalled from Triage Doc. by RN): PATIENT PAIN IN LOWER BACK SINCE 09/17 THAT HAS MOVED AROUND TO PELVIC AREA HEENT Symptoms (Recalled from RN notes): No Resp Symptoms (Recalled from RN notes): No Skin Symptoms (Recalled from RN notes): No MS Symptoms (Recalled from RN notes): No Functional Status (Recalled from RN notes): WNL - History of Present Illness Provider Complaint: Patient states that for several days she has been having pain in her lower back area States that she is not sure if shes has done something to aggrivate her previous back problems States that she at times it will shoot around to her pelvic area but denies fever, denies chills, denies trouble urinating - Related Data Home Medications Medication Instructions Recorded Confirmed hydrocodone 7.5 mg-acetaminophen 1 tab PO Q6H 12/02/17 09/09/20 325 mg tablet tizanidine 4 mg tablet 4 mg PO BID tab 11/06/19 09/09/20 tramadol 50 mg tablet 50 mg PO tab 03/14/20 08/08/20 Levothyroxine Sodium [Synthroid See Rx Instructions .ROUTE .COMPLEX 09/09/20 09/09/20 25mcg (0.025mg) tablet] Lovastatin See Rx Instructions .ROUTE .COMPLEX 09/09/20 09/09/20 Previous Rx's Medication Instructions Recorded montelukast 10 mg tablet 10 mg PO DAILY #90 tab 08/08/20 Amoxicillin/Potassium Clav 1 tab PO Q12H #20 tab 09/09/20 [Augmentin 875-125 Tablet] Gali
[2020-09-22 13:42] VITALS: BP 139/66; PULSE 76; RESP 20; TEMP 36.4; O2SAT 96
[2020-09-22 21:12] LABS: Apearance,Urine Clear (Clear); Bilirubin,Urine Negative (Negative); Blood, Urine Negative (Negative); Color,Urine Yellow (Yellow); Glucose,Urine (UA) Negative (Negative); Ketones,Urine Negative (Negative); PH,Urine 7.5 (5.0-8.5); Protein,Urine Negative (Negative); Specific Gravity, Urine 1.025 (1.005-1.030); UTC Leukocyte Esterase,Urine Negative (Negative); UTC Nitrate,Urine Negative (Negative); Urobilinogen,Urine 0.2 EU/dl (0.2)
== END 2020-09-22 13:46 | disposition home or self-care (01) ==
PROVIDERS: Emergency Provider Nurse Practitioner; PCP Emergency Medicine
DX: M54.5 Low back pain (principal); F41.8 Other specified anxiety disorders; E78.5 Hyperlipidemia, unspecified; G43.709 Chronic migraine without aura, not intractable, without status migrainosus; E03.9 Hypothyroidism, unspecified; F17.210 Nicotine dependence, cigarettes, uncomplicated; Z79.899 Other long term (current) drug therapy; Z88.1 Allergy status to other antibiotic agents
CPT/HCPCS: 72100; 81003; 99202; G0463; U0003

== ENCOUNTER → 2020-12-12 19:30 | Outpatient (CLI) | payer MEDICAID, SELFPAY | PROVIDERS: Visit Provider Emergency Medicine | DX: E05.90 Thyrotoxicosis, unspecified without thyrotoxic crisis or storm (principal) | CPT/HCPCS: 84439; 84443 ==

== ENCOUNTER → 2021-01-19 10:21 | Outpatient (CLI) | payer MEDICAID, SELFPAY ==
--- NOTE | 2021-01-19 | XR_ITS ---
PROCEDURE: XR FOOT RT MIN 3V X-RAY RIGHT ANKLE THREE VIEWS CLINICAL INDICATION: M79.671 Heel pain COMPARISON: CR XR ANKLE RT MIN 3V from 01/19/2021 FINDINGS: No fracture or dislocation. No lytic or blastic change. There is normal mineralization. The joint spaces are well-preserved. No significant degenerative/arthritic changes. No erosive changes evident. Other findings:Mild bony prominence is present involving the posterior and superior aspect of the calcaneus near the Achilles insertion suggesting a Xenia deformity. Kager's fat pad is preserved. There is mild spurring of the medial malleolus with a small accessory center of ossification at this region. 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
[2021-01-19 11:57] LABS: Coronavirus 19 IgG Antibody Positive (Negative); Coronavirus 19 IgM Antibody Negative (Negative)
== END ==
PROVIDERS: Visit Provider Emergency Medicine
DX: M25.571 Pain in right ankle and joints of right foot (principal); M79.671 Pain in right foot; Z01.812 Encounter for preprocedural laboratory examination; Z20.822 Contact with and (suspected) exposure to COVID-19
CPT/HCPCS: 36415; 73610; 73630; 86328

== ENCOUNTER → 2021-01-20 20:00 | Outpatient (CLI) | payer MEDICAID, SELFPAY | PROVIDERS: PCP Emergency Medicine; Visit Provider Emergency Medicine | DX: G47.30 Sleep apnea, unspecified (principal); R40.0 Somnolence; R06.83 Snoring | CPT/HCPCS: 95810 ==

== ENCOUNTER → 2021-04-06 11:02 | Outpatient (CLI) | payer MEDICAID, SELFPAY ==
--- NOTE | 2021-04-06 11:11 | XR_ITS ---
PROCEDURE: XR CERVICAL SPINE W FLEX/EXT CLINICAL INDICATION: neck pain, brisk reflexes COMPARISON: CR CS2VFE C-SPINE 2V FLEX EXTENSION from 01/21/2017 FINDINGS: No acute fractures or listhesis. Multilevel degenerative changes of the cervical spine with the anterior osteophyte formation and loss of disc height. Minor multilevel facet joint arthropathy is noted. Bony neural foraminal narrowing is noted on the left at C3-4, C4-5 and C5-6 levels. The C1-2 alignment is within normal limits. Flexion and extension views of the cervical spine demonstrates minimal retrolisthesis of C4 over C5 measuring 2 millimeters on extension views. Demonstrates no evidence of instability. Visualized lung apices and the prevertebral soft tissues are unremarkable. IMPRESSION: Degenerative changes of the cervical spine. Minimal retrolisthesis of C4 over C5 measuring 2 millimeters on extension views. No evidence of acute fractures. Dictated by: Holli Loco 04/06/2021 14:55 Holli Loco in [place] 04/06/2021 14:55
[2021-04-06 14:57] LABS: Folate > 20.00 ng/mL
[2021-04-06 18:44] LABS: Vitamin B12 302 pg/mL (239-931)
== END ==
PROVIDERS: Visit Provider Nurse Practitioner Family
DX: G43.709 Chronic migraine without aura, not intractable, without status migrainosus (principal); M54.2 Cervicalgia; R29.2 Abnormal reflex
CPT/HCPCS: 36415; 72052; 82607; 82746

== ENCOUNTER → 2021-04-15 14:11 | Outpatient (CLI) | payer MEDICAID, SELFPAY ==
[2021-04-17 08:14] LABS: Homocyst(e)ine 16.3 umol/L (0.0-14.5)
[2021-04-18 22:13] LABS: Methylmalonic Acid 244 nmol/L (0-378)
== END ==
PROVIDERS: Visit Provider Nurse Practitioner Family
DX: D64.9 Anemia, unspecified (principal)
CPT/HCPCS: 36415; 82131; 83090

== ENCOUNTER → 2021-04-20 11:13 | Outpatient (CLI) | payer MEDICAID, SELFPAY ==
--- NOTE | 2021-04-20 11:32 | ECG_ITS ---
APPROVED REPORT Exam: Resting ECG HR:59 bpm ECG Measurements Heart Rate 59 AXES FL 144 P -25 QRSd 72 QRS 77 QT 380 T 72 QTc 376 Conclusion Sinus bradycardia Otherwise normal ECG Electronically signed by : Jerry Gordon, 04/21/2021 08:24:30
== END ==
PROVIDERS: Visit Provider Obstetrics & Gynecology Gynecology
DX: Z01.812 Encounter for preprocedural laboratory examination (principal); Z11.52 Encounter for screening for COVID-19
CPT/HCPCS: 93005; U0003

== ENCOUNTER 2021-04-22 09:30 | Outpatient (RCR) | payer MEDICAID, SELFPAY ==
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
== END 2021-04-22 09:35 | disposition home or self-care (01) ==
LOC: PT 09:30
PROVIDERS: Visit Provider Nurse Practitioner Family
DX: G43.709 Chronic migraine without aura, not intractable, without status migrainosus (principal); M54.2 Cervicalgia
CPT/HCPCS: 20560; 97010; 97014; 97035; 97110; 97140; 97163; G0283

== ENCOUNTER → 2021-06-09 08:49 | Outpatient (CLI) | payer MEDICAID, SELFPAY ==
--- NOTE | 2021-06-09 09:03 | CT_ITS ---
PROCEDURE: CT ABDOMEN PELVIS WO/W CON CLINICAL INDICATION: history of Diverticulitis Follow-up diverticulitis, constipation, diarrhea COMPARISON: CT CT ABDOMEN PELVIS W CON from 05/12/[address] ABDOMEN PELVIS W CON from 05/12/2019 TECHNIQUE: IV Contrast: 75ML Isovue 370 Oral Contrast 450ml Redicat Axial images obtained with sagittal and coronal reformats. All CT scans at the facility use one or more dose reduction, viz: automated exposure control, ma/kV adjustment per patient size (including targeted exams where dose is matched to indication, i.e. head), or iterative reconstruction technique. FINDINGS: LOWER THORAX: Mild atelectatic or fibrotic changes are present in the right middle lobe. Stable 4 mm nodule left lower lobe image 6 series 3. Minimal thickening of the pericardium measuring up to 7 mm suggesting small pericardial effusion ABDOMEN & PELVIS: The liver, spleen, adrenal glands, pancreas, and kidneys have an unremarkable unenhanced appearance. No renal or ureteral calculi. No intestinal obstruction or free air. Colonic diverticulosis. No evidence of diverticulitis. Status post appendectomy. Prior hysterectomy. Multiple unopacified bowel loops in the abdomen or pelvis which could obscure or mimic pathology. If symptoms persist, consider repeat exam with IV and oral contrast.. There is a mild amount of retained colonic feces. No acute bony findings. IMPRESSION: No acute finding. Moderate amount of retained colonic feces with colonic diverticulosis. No evidence of diverticulitis. Multiple unopacified bowel loops in the abdomen or pelvis which could obscure or mimic pathology. If symptoms persist, consider repeat exam with IV and oral contrast. Small pericardial effusion Dictated by: Tyron Peres MD 06/10/2021 09:21 Tyron Peres MD in [place] 06/10/2021 09:21
[2021-06-09 09:16] LABS: Basophils % 0.9 % (0.1-2.0); Eosinophils # 0.2 K/mm3 (0.0-0.4); Eosinophils % 3.9 % (0.1-12.0); Hematocrit 37.8 % (37.0-47.0); Hemoglobin 12.3 g/dL (12.2-16.2); Lymphocytes # 2.5 K/mm3 (0.7-4.5); Lymphocytes % 53.1 % (10-50); Mean Corpuscular HGB Conc 32.5 g/dL (31.8-35.4); Mean Corpuscular Hemoglobin 29.6 pg (27.0-31.2); Mean Corpuscular Volume 91.3 fl (81-99); Mean Platelet Volume 8.5 fl (7.4-10.4); Monocytes # 0.3 K/mm3 (0.1-1.0); Monocytes % 5.8 % (1.7-9.3); Neutrophils # 1.7 K/mm3 (1.8-7.8); Neutrophils % 36.4 % (37.0-80.0); Platelet Count 369 K/mm3 (142-424); Red Blood Count 4.14 M/mm3 (4.20-5.40); Red Cell Distribution Width 12.6 % (11.5-17.5); White Blood Count 4.7 K/mm3 (4.8-10.8)
[2021-06-09 09:19] LABS: MANUAL DIFFERENTIAL MANUAL DIFFERENTIAL (MANUAL DIFF)
[2021-06-09 09:42] LABS: Chloride 102 mmol/L (98-107)
[2021-06-09 09:43] LABS: Potassium 4.5 mmoL/L (3.5-5.1); Sodium 138 mmol/L (136-145)
[2021-06-09 09:44] LABS: Eosinophils % 4 % (0-3); Lymphocytes % 50 % (10-50); Monocytes % 7 % (2-9); Neutrophils % 39 % (42-76); Total Cells Counted 100
[2021-06-09 09:45] LABS: Blood Urea Nitrogen 16 mg/dl (7-17); Platelet Estimate Normal
[2021-06-09 09:46] LABS: Anion Gap 12.5 mEq/L (5-15); Calcium 9.2 mg/dl (8.4-10.2); Carbon Dioxide 28 mmol/L (22.0-30.0); Estimated Glomerular Filt Rate 103 ml/min (>60); GFR (African American) 125 ML/MIN (>60); Glucose 85 mg/dl (74-100)
== END ==
PROVIDERS: PCP Emergency Medicine; Visit Provider Surgery
DX: K57.92 Diverticulitis of intestine, part unspecified, without perforation or abscess without bleeding (principal); Z87.19 Personal history of other diseases of the digestive system
CPT/HCPCS: 36415; 74178; 80048; 85007; 85025; Q9967

== ENCOUNTER → 2021-06-15 13:04 | Outpatient (CLI) | payer MEDICAID, SELFPAY ==
--- NOTE | 2021-06-15 13:04 | MR_ITS ---
PROCEDURE: MR HEAD/BRAIN WO CON CLINICAL INDICATION: daily headache, severe at times COMPARISON: No exams were available for comparison TECHNIQUE: Routine multiplanar multi echo sequences are performed without gadolinium enhancement. FINDINGS: No midline shift, mass effect, intracranial hemorrhage, hydrocephalus, or acute infarction is evident. The cerebellopontine angles, cerebellum, and brainstem have an unremarkable appearance. There scant small T2 white matter hyperintensities nonspecific. Partial empty sella is present. The optic chiasm, corpus callosum, and craniocervical junction have an unremarkable appearance. Upper cervical images show that there is minimal bulging disc at C3-C4. No mastoid effusion or sinus air-fluid level. No large aneurysms apparent. Flow void artifact noted within the carotids and vertebral basilar system as expected. IMPRESSION: No acute intracranial findings. Dictated by: Tyron Peres MD 06/16/2021 08:33 Tyron Peres MD in [place] 06/16/2021 08:33
--- NOTE | 2021-06-15 13:04 | MR_ITS ---
PROCEDURE: MR CERVICAL SPINE WO CON CLINICAL INDICATION: neck pain, brisk reflexes COMPARISON: CR XR CERVICAL SPINE W FLEX/EXT from 04/06/2021 TECHNIQUE: Standard multiplanar multiecho sequences are performed without contrast. 3-D MIP and myelographic images are also rendered and reviewed FINDINGS: There is normal alignment. Craniocervical junction has an unremarkable appearance. There is straightening of the cervical lordosis which may be due to patient positioning or muscle spasm. C2-C3: Minimal uncovertebral hypertrophy with minimal left-sided foraminal narrowing. C3-C4: Degenerative disc disease with mild concentric bulging disc. There is mild bilateral foraminal narrowing from uncovertebral hypertrophy slightly greater on the left. Canal stenosis at 10 mm with very minimal flattening of the cord anteriorly. Small anterior osteophytes. C4-C5: Degenerative disc disease with minimal bulging disc and endplate osteophytes with canal stenosis of 9 mm and mild bilateral foraminal narrowing left greater than right. Type 1 endplate changes are present. Anterior disc osteophyte complex. Minimal flattening of the cord anteriorly. C5-C6: Degenerative disc disease with bulging disc with canal stenosis of 9 mm with minimal flattening of the cord anteriorly. Endplate osteophytes are present. There is a small broad-based central disc osteophyte complex contributing to the canal stenosis. There is bilateral lateral recess narrowing as well. Anterior osteophytes also noted. C6-C7: Degenerative disc disease with bulging disc and canal stenosis of 9 mm. Moderate right and moderate to severe left-sided foraminal narrowing from uncovertebral hypertrophy. C7-T1: Unremarkable. IMPRESSION: 1. Multilevel cervical spondylosis with degenerative disc disease with bulging disc and disc osteophyte complexes with endplate osteophytes and uncovertebral hypertrophy resulting in canal stenosis, lateral recess, and foraminal narrowing. Please see above for detailed description at each level. There is minimal flattening of the cord anteriorly at C3-C4 C4-C5 and C5-C6 2. No extruded herniated disc evident. Dictated by: Tyron Peres MD 06/16/2021 11:01 Tyron Peres MD in [place] 06/16/2021 11:01
== END ==
PROVIDERS: PCP Emergency Medicine; Visit Provider Nurse Practitioner Family
DX: G43.709 Chronic migraine without aura, not intractable, without status migrainosus (principal); M54.2 Cervicalgia; R29.2 Abnormal reflex
CPT/HCPCS: 70551; 72141; 76376

== ENCOUNTER → 2021-06-15 14:24 | Outpatient (CLI) | payer MEDICAID, SELFPAY | PROVIDERS: PCP Emergency Medicine; Visit Provider Nurse Practitioner | DX: Z20.822 Contact with and (suspected) exposure to COVID-19 (principal) | CPT/HCPCS: C9803; U0003; U0005 ==

== ENCOUNTER → 2021-07-21 15:12 | Outpatient (CLI) | payer MEDICAID, SELFPAY | PROVIDERS: Visit Provider Surgery | DX: Z01.812 Encounter for preprocedural laboratory examination (principal); Z11.52 Encounter for screening for COVID-19; Z12.11 Encounter for screening for malignant neoplasm of colon | CPT/HCPCS: C9803; U0003; U0005 ==

== ENCOUNTER 2021-07-23 08:13 | Day surgery (SDC) | payer MEDICAID, SELFPAY ==
[2021-07-20 12:57] VITALS: BMI 21.4
[2021-07-23 08:49] VITALS: BP 154/57; PULSE 77; RESP 18; TEMP 36.9; O2SAT 97
--- NOTE | 2021-07-23 09:33 | P.PN_ITS ---
[facility] Anesthesia Checklist - Patient Identification Patient Identification: Arm Band - Structural Data Admitted From: Home Planned Operative Procedure/s: colonoscopy Consent for Planned Operative Procedure(s) Verified: Yes Verified Documents: Surgical Consent, History and Physical - NPO Status Verified Time NPO: 00:00 - Additional verifications Anesthesia Reactions: No Hx Blood Transfusions: No Blood Transfusion Reaction: No - Airway Assessment C-Spine Mobility Assessed: Yes (mp2) TMJ Mobility Assessed: Yes Dentition: Good Dentition - Neurological Assessment Level of Consciousness: Awake, Alert - Anesthesia Plan Anesthesia Risk discussed: Yes Anesthesia Plan: Verified ASA Class: II Anesthesia Type: MAC [facility] History I have reviewed the patient's past medical history: Yes Medical History: Reports:: Anxiety, Depression, Hyperlipidemia, Migraine Denies:: Cancer, Diabetes Mellitus Type 1, Diabetes Mellitus Type 2, Internal Pacemaker, MRSA, Seizures *Have you ever received a pneumonia vaccine?: No *Have you received a flu vaccine this season?: No Other Medical History: Reports: Anemia, Hypothyroidism, Sinus Problems, Thyroid Disease, Other (lorelei). Denies: Blood Transfusion Reaction Anesthesia experience/problems:: nac Laterality Cases: Left: Arthroscopy Shoulder, Bilateral: Other Other Surgeries: Yes: Appendectomy, Cardiac Catheterization, Colonoscopy, Hysterectomy-Partial, Sinus Surgery, Other. No: Pacemaker Amputation: No Fractures: Yes (RT ARM) - *Social History Last grade of school completed: Some college Smoking Status: Former smoker Tobacco Type: cigarettes # Packs/Day (cigarettes): 1 #Yrs smoked (if former smoker): 26 Alcohol Intake: never Alcohol Intake Frequency:: holidays/special occasions only Substance Use Type: denies use *Occupational Status:: employed Housing: house Household Members: none *Travel in the last 8 weeks: None - Psychiatric History Pschychiatric History:: Reports:: Anxiety, Depression Family Hx:: Cancer, Heart Attack, Stroke
[2021-07-23 09:35] VITALS: O2SAT 97
--- NOTE | 2021-07-23 10:28 | HMH.SCOPE ---
- Procedure: Date: 07/23/21 Patient Date of :: 1965 Procedure Performed:: Colonoscopy Indications:: History of colon polyps Diverticulosis History of diverticulitis Performing Provider:: Adonis Morgan MD Referring Provider:: . Sedation:: Monitored anesthesia care Procedure:: After informed consent was obtained the patient was taken to the endoscopy suite. Sedation ensued after the patient was transferred to the left lateral decubitus position. Pulse, blood pressure, and oxygen saturation were monitored throughout the procedure. Digital rectal exam revealed no significant abnormality. The colonoscope was placed in position. The entire colon was evaluated. The colonoscope was carefully removed and the patient was transferred to recovery in stable condition. Please see findings and specimens below for detail. Findings:: Bowel preparation moderate to poor Profound lack of relaxation Specimens:: None Recommendations:: Repeat colonoscopy in 2-3 years with extended bowel preparation Complications:: Somewhat limited visualization secondary to moderate to poor bowel preparation and profound lack of relaxation. Estimated blood obtained (mL): 0
[2021-07-23 10:30] VITALS: BP 109/66; PULSE 77; RESP 18; TEMP 36.1; O2SAT 97
[2021-07-23 10:40] VITALS: BP 140/83; PULSE 89; RESP 18; O2SAT 100
[2021-07-23 11:00] VITALS: BP 167/79; PULSE 78; RESP 18; O2SAT 99
== END 2021-07-23 11:02 | disposition home or self-care (01) ==
LOC: OUTP 08:15
PROVIDERS: PCP Emergency Medicine; Visit Provider Surgery
PROC: 0DJD8ZZ Inspection of Lower Intestinal Tract, Via Natural or Artificial Opening Endoscopic (ICD-10-PCS; CPT 45378; principal; 2021-07-23 09:00)
DX: Z12.11 Encounter for screening for malignant neoplasm of colon (principal); Z86.010 Personal history of colon polyps; Z87.19 Personal history of other diseases of the digestive system; K62.89 Other specified diseases of anus and rectum; F41.9 Anxiety disorder, unspecified; F32.9 Major depressive disorder, single episode, unspecified; E78.5 Hyperlipidemia, unspecified; G43.909 Migraine, unspecified, not intractable, without status migrainosus; E03.9 Hypothyroidism, unspecified; G47.33 Obstructive sleep apnea (adult) (pediatric); Z87.891 Personal history of nicotine dependence; Z82.3 Family history of stroke; Z80.9 Family history of malignant neoplasm, unspecified
CPT/HCPCS: 45378

== ENCOUNTER 2021-08-17 14:11 | Emergency (ER) | payer MEDICAID, SELFPAY ==
[2021-08-17 14:31] VITALS: BP 135/79; PULSE 95; RESP 20; TEMP 36.9; O2SAT 97; BMI 21.6
[2021-08-17 14:45] LABS: Apearance,Urine Clear (Clear); Color,Urine Yellow (Yellow); PH,Urine 5.5 (5.0-8.5); Protein,Urine Negative (Negative); Specific Gravity, Urine < 1.005 (1.005-1.030)
[2021-08-17 14:46] LABS: Bilirubin,Urine Negative (Negative); Blood, Urine 1+ (Negative); Glucose,Urine (UA) Negative (Negative); Ketones,Urine Negative (Negative); UTC Leukocyte Esterase,Urine 1+ (Negative); Urobilinogen,Urine 0.2 EU/dl (0.2)
[2021-08-17 14:47] LABS: UTC Nitrate,Urine Negative (Negative)
--- NOTE | 2021-08-17 14:48 | HMH.EDUTC ---
[facility] Disposition Clinical Impression: UTI (urinary tract infection) Qualifiers: Urinary tract infection type: site unspecified Hematuria presence: with hematuria Qualified Code(s): N39.0 - Urinary tract infection, site not specified Disposition: Home, Self-Care Condition on Discharge: Good Instructions: DI for Urinary Tract Infection (UTI) Additional Instructions: Drink plenty of fluids. Take tylenol or ibuprofen for pain or fever. Take the medications as directed. Follow up with your regular doctor. GO TO THE ER FOR ANY WORSENING SYMPTOMS The pyridium will make your urine turn orange, this is an expected side effect. It will stain your clothes if it comes into contact with them. Prescriptions: Sulfamethoxazole/Trimethoprim [Bactrim DS tablet] 1 each PO BID 7 Days #14 tab Transmission Status: Received by [facility] Fluconazole [Diflucan 150mg tab] 150 mg PO ONCE #1 tab Transmission Status: Received by [facility] Phenazopyridine HCl [Pyridium 200mg Tablet] 200 pow PO TID #6 tab Transmission Status: Received by [facility] Referrals: Ronn Smith MD [Primary Care Provider] - Time of Disposition: 15:00 Medical Decision Making - Medical Records Medical records reviewed: No: I reviewed the patient's medical records. - Jef Inquiry Pt receiving controlled substance: No Vital Signs: 08/17/21 14:31 08/17/21 15:11 Temperature 98.4 F 98.2 F Temperature Source Oral Pulse Rate 95 H Pulse Rate [Left] 95 H Respiratory Rate 20 18 Blood Pressure 135/79 Blood Pressure [Right Arm] 135/79 Blood Pressure Mean [Right Arm] 97 02 Sat by Pulse Oximetry 97 - Lab Data Lab results reviewed: Yes: I reviewed the patient's lab results. Lab Results 08/17/21 14:38: Urine Color Yellow, Urine Appearance Clear, Urine pH 5.5, Ur Specific [place] < 1.005 L, Urine Protein Negative, Urine Glucose (UA) Negative, Urine Ketones Negative, Urine Blood 1+, Urine Nitrate Negative, Urine Bilirubin Negative, Urine Urobilinogen 0.2, Ur Leukocyte Esterase 1+ A Orders (Tests/Meds): ORDERS Category Date Time Status Urine Culture Stat Micro 08/17/21 14:31 Results [facility] HPI - General Stated complaint: possible uti Time Seen by Provider: 08/17/21 14:48 Mode of Arrival: Ambulatory Source of Information: Patient Limitations: No Limitations Description of Symptoms (Recalled from Triage Doc. by RN): pt believes she has a uti. pt states she is having hesitency and blood in her urine. pt had a procedure on her bladder in april. HEENT Symptoms (Recalled from RN notes): No Resp Symptoms (Recalled from RN notes): No Skin Symptoms (Recalled from RN notes): No MS Symptoms (Recalled from RN notes): No Functional Status (Recalled from RN notes): wnl - History of Present Illness Provider Complaint: She states that she has felt bad for about a week now. Her symptoms were very nonspecific, but over the past 2 days she has began having low back pain, urinary hesitancy, and burning when she urinates. She had a procedure done about 2 months ago to tack her bladder up due to her having frequent uti's. She states that since then she has did good until now. - Related Data Home Medications Medication Instructions Recorded Confirmed hydrocodone 7.5 mg-acetaminophen 1 tab PO Q6H 12/02/17 07/23/21 325 mg tablet sumatriptan succinate 100 mg tablet 100 mg PO DAILYP PRN 12/12/20 07/23/21 diclofenac sodium 1 % topical gel 2 g TOPICAL DAILYP PRN g 07/14/21 07/23/21 gabapentin 800 mg tablet 800 mg PO Q12H tab 07/14/21 07/23/21 tramadol 50 mg tablet 50 mg PO Q8H PRN tab 07/14/21 07/23/21 Cyanocobalamin (Vitamin B-12) 1,000 mcg IM QMONTH 07/20/21 07/23/21 [Physicians Ez Use B-12] Escitalopram Oxalate 20 mg PO DAILY 07/20/21 07/23/21 Estrogens, Conjugated [Premarin] 1.25 mg PO DAILY 07/20/21 07/23/21 Galcanezumab-Gnlm [Emgality Pen] 120 mg SQ QMONTH 07/20/21 07/23/21 Levothyroxine
[2021-08-17 15:11] VITALS: BP 135/79; PULSE 95; RESP 18; TEMP 36.8
== END 2021-08-17 15:13 | disposition home or self-care (01) ==
PROVIDERS: Emergency Provider Nurse Practitioner Family; PCP Emergency Medicine
DX: N30.00 Acute cystitis without hematuria (principal); F41.8 Other specified anxiety disorders; E78.5 Hyperlipidemia, unspecified; G43.709 Chronic migraine without aura, not intractable, without status migrainosus; E03.9 Hypothyroidism, unspecified; Z87.891 Personal history of nicotine dependence; Z79.899 Other long term (current) drug therapy
CPT/HCPCS: 81003; 87086; 99202; G0463

== ENCOUNTER → 2021-09-29 15:31 | Outpatient (CLI) | payer MEDICAID, SELFPAY | PROVIDERS: Visit Provider Nurse Practitioner | DX: Z20.822 Contact with and (suspected) exposure to COVID-19 (principal) | CPT/HCPCS: C9803; U0003; U0005 ==

== ENCOUNTER 2021-11-23 09:00 | Outpatient (RCR) | payer MEDICAID, SELFPAY ==
--- NOTE | 2021-10-21 11:03 | HMH.PTOPEV ---
PT Outpatient Evaluation Rehab PT Outpatient Evaluation Start: 10/21/21 09:56 Freq: Status: Active Protocol: Document 10/21/21 09:57 ALEX (Rec: 10/21/21 11:03 [email or web address] [id number]) Electronically Signed By Osman Nesbitt, PT 10/21/21 09:57 Outpatient Therapy Subjective History Subjective History Pt. is a 56 year old female who presents to [facility] Out[facility] for the initial evaluation this date(10/21/21) w/ c/o chronic and constant bilateral cervical/shldr./BUE(L>R) P!, stiffness , numbness, and ROM deficits of insidious onset that has progressively worsened over the last year. Pt. reports initial onset of symptoms were 15 years ago that she has managed throughout the years. Pt. reports having previous Physical Therapy for similar symptoms where she had dry needling, distraction, and stretching that provided some symptom relief. Pt. also reports having some symptom relief w/ prescribed medication. Pt. reports currently having symptom relief w/ stretching and using heat at home while she does it, but states symptoms always coming back. Recent diagnostic imaging positive for cervical DDD and stenosis per pt. report. Pt. denies having steroid injections for current pathology, but states having some symptom relief w/ them in the past for similar symptom complaint. Pt. reports having an EMG study on . Pt. RTMD in 1 month. Current medications include Gabapentin and Emgality injections. PMH includes S/P LUE shldr. ATS surgery and Biceps Tenodesis, Hysterectomy , Cervical stenosis, History
== END 2021-12-07 13:21 | disposition home or self-care (01) ==
LOC: PT.CARL 09:00
PROVIDERS: PCP Emergency Medicine; Visit Provider Nurse Practitioner Family
DX: M54.2 Cervicalgia (principal); G43.909 Migraine, unspecified, not intractable, without status migrainosus
CPT/HCPCS: 20560; 97010; 97012; 97014; 97110; 97140; 97163; G0283

== ENCOUNTER 2022-01-04 11:46 | Emergency (ER) | payer MEDICAID, SELFPAY ==
[2022-01-04 11:47] VITALS: BP 129/71; PULSE 85; RESP 19; TEMP 36.8; O2SAT 99; BMI 21.4
--- NOTE | 2022-01-04 12:06 | CT_ITS ---
FINAL REPORT CLINICAL HISTORY: LLQ pain COMPARISON: June 09, 2021 FINDINGS: CT OF THE ABDOMEN AND PELVIS WITH CONTRAST Axial CT images of the abdomen and pelvis were obtained after the administration of IV contrast. Coronal reformatted images were also obtained and reviewed.This study was performed with techniques to keep radiation doses as low as reasonably achievable (ALARA). Individualized dose reduction techniques using automated exposure control or adjustment of mA and/or kV according to the patient's size were employed. Abdomen: There is mild bibasilar scarring. The heart is normal in size. The liver has an unremarkable appearance, without evidence of mass or biliary ductal dilatation. There is mild nonspecific gallbladder wall thickening. The spleen is unremarkable. No adrenal mass is present. The pancreas has an unremarkable appearance. The kidneys are normal, without evidence of mass or hydronephrosis. The aorta is normal in caliber. There is no free fluid or adenopathy. No mass or abnormal fluid collection is seen. Pelvis: The appendix is not seen. There is a moderate amount of stool in the colon. There are multiple diverticula. There is mild stranding adjacent to the proximal sigmoid colon. Mild acute diverticulitis cannot be excluded. There is no evidence of bowel obstruction. The urinary bladder is unremarkable. There is a probable 28 mm left ovarian cyst that previously measured 25 mm. The patient is status post hysterectomy. IMPRESSION: Probable 28 mm left ovarian cyst. Multiple diverticula with mild stranding adjacent to the proximal sigmoid colon. Mild acute diverticulitis cannot be excluded. Mild nonspecific gallbladder wall thickening. Reviewed, Interpreted and Dictated by Mu Gomez III, MD Transcribed by Ramya Villalba Authenticated by Mu Gomez III, MD on 01/04/2022 02:09:31 PM [facility]
--- NOTE | 2022-01-04 12:14 | PC.NURSE ---
Urine sent to lab
[2022-01-04 12:17] LABS: Microscopic, Urine URINE MICROSCOPIC (MICROSCOPIC)
[2022-01-04 12:24] LABS: Appearance,Urine CLEAR (Clear); Bilirubin,Urine Negative (Negative); Blood, Urine Negative (Negative); Color,Urine YELLOW (Yellow); Glucose,Urine (UA) Negative (Negative); Ketones,Urine Negative (Negative); Leukocyte Esterase,Urine 2+ (Negative); Nitrate,Urine Negative (Negative); PH,Urine 6.5 (5.0-8.5); Protein,Urine Negative (Negative); Specific Gravity, Urine <= 1.005 (1.005-1.030); Urobilinogen,Urine 0.2 EU/dl (0.2)
--- NOTE | 2022-01-04 12:24 | HMH.EDABDPAI ---
ED Disposition Clinical Impression: Diverticulitis Ovarian cyst Qualifiers: Laterality: left Qualified Code(s): N83.202 - Unspecified ovarian cyst, left side Disposition: Home, Self-Care Condition on Discharge: Good Instructions: DI for Diverticulitis Prescriptions: Amoxicillin/Potassium Clav [Amox-Clav 875-125 mg Tablet] 1 tab PO BID #20 tab Transmission Status: Pending to [facility] Referrals: Ronn Smith MD [Primary Care Provider] - - Critical Care Critical Care Time: No Attestation: On 01/04/22, the high probability of a clinically significant, sudden or life threatening deterioration of the following system(s) required my full and direct attention, intervention and personal management. The time I documented below is in addition to time spent performing reported procedures but includes the following listed in this critical care notation. Medical Decision Making - Medical Records Medical records reviewed: Yes: I reviewed the patient's medical records. - Jef Inquiry Pt receiving controlled substance: No Vital Signs: 01/04/22 11:47 01/04/22 12:30 01/04/22 13:00 Temperature 98.3 F Temperature Source Oral Pulse Rate 75 79 Pulse Rate [Right Radial] 85 Respiratory Rate 19 18 18 Blood Pressure 127/85 123/75 Blood Pressure [Right Arm] 129/71 Blood Pressure Mean 99 91 Blood Pressure Mean [Right Arm] 90 Blood Pressure Source [Right Arm] Automatic Cuff Blood Pressure Position [Right Arm] Sitting 02 Sat by Pulse Oximetry 99 97 97 Oxygen Delivery Method Room Air - Lab Data Lab Results 01/04/22 12:05: WBC 4.4 L, RBC 4.24, Hgb 11.9 L, Hct 36.9 L, MCV 86.9, MCH 28.1, MCHC 32.3, RDW 12.5, Plt Count 333, MPV 7.8, Neut % (Auto) 44.0, Lymph % (Auto) 44.5, [place] % (Auto) 5.8, Eos % (Auto) 1.6, Baso % (Auto) 4.2 H, Neut # (Auto) 2.0, Lymph # (Auto) 2.0, [place] # (Auto) 0.3, Eos # (Auto) 0.1, Baso # (Auto) 0.2 01/04/22 12:05: Sodium 137, Potassium 4.3, Chloride 105, Carbon Dioxide 26, Anion Gap 10.3, BUN 9, Creatinine 0.50 L, Estimated Creat Clear 112, Estimated GFR 128, Est GFR ( Amer) 154, Glucose 77, Calcium 9.0, Total Bilirubin 0.5, AST 26, ALT 14, Alkaline Phosphatase 64, Total Protein 7.4, Albumin 3.9, Globulin 3.5 H, Albumin/Globulin Ratio 1.1, Lipase 55 01/04/22 12:14: Urine Color Yellow, Urine Appearance Clear, Urine pH 6.5, Ur Specific [place] <= 1.005, Urine Protein Negative, Urine Glucose (UA) Negative, Urine Ketones Negative, Urine Blood Negative, Urine Nitrate Negative, Urine Bilirubin Negative, Urine Urobilinogen 0.2, Ur Leukocyte Esterase 2+ A, Urine RBC 3-5, Urine WBC 5-10, Ur Squamous Epith Cells 10-20, Urine Bacteria Trace Result diagrams: 01/04/22 12:05 01/04/22 12:05 Orders (Tests/Meds): ED MEDICATIONS Discontinued Medications Generic Name Dose Route Start Last Admin Trade Name Kevinq PRN Reason Stop Dose Admin Sodium Chloride 1,000 mls @ 999 mls/hr 01/04/22 12:15 01/04/22 12:08 Sod Chlor 0.9% 1000ml Bag IV 01/04/22 13:15 Not Given .Q1H1M PREMA Lactated Ringer's 1,000 mls @ 999 mls/hr 01/04/22 12:30 01/04/22 12:21 Lactated Ringer's 1000 Ml Bag IV 01/04/22 13:30 999 mls/hr .Q1H1M PREMA Administration Iopamidol 75 ml 01/04/22 13:09 Iopamidol-370 (76%);100ml Bottle IV 01/04/22 13:10 ONCE ONE Ketorolac Tromethamine 30 mg 01/04/22 12:06 01/04/22 12:21 Ketorolac 30mg/Ml Vial IV 01/04/22 12:07 30 mg ONCE ONE Administration Ondansetron HCl 4 mg 01/04/22 12:06 01/04/22 12:21 Ondansetron 4mg/2ml Vial IV 01/04/22 12:07 4 mg ONCE ONE Administration Sodium Chloride 50 ml 01/04/22 13:09 0.9 % Sodium Chloride 50 Ml Vial IV 01/04/22 13:10 ONCE ONE Sodium Chloride 10 ml 01/04/22 13:09 Sodium Chloride 0.9% 10ml Syr (Rad Only) IV 01/04/22 13:10 ONCE ONE ORDERS Category Date Time Status Urine Culture Stat Micro 01/04/22 12:14 Received - CT Data CT Scan: Abdomen, Pe
[2022-01-04 12:30] VITALS: BP 127/85; PULSE 75; RESP 18; O2SAT 97
[2022-01-04 12:34] LABS: Basophils # 0.2 K/mm3 (0-0.2); Basophils % 4.2 % (0.1-2.0); Eosinophils # 0.1 K/mm3 (0.0-0.4); Eosinophils % 1.6 % (0.1-12.0); Hematocrit 36.9 % (37.0-47.0); Hemoglobin 11.9 g/dL (12.2-16.2); Lymphocytes % 44.5 % (10-50); Mean Corpuscular HGB Conc 32.3 g/dL (31.8-35.4); Mean Corpuscular Hemoglobin 28.1 pg (27.0-31.2); Mean Corpuscular Volume 86.9 fl (81-99); Mean Platelet Volume 7.8 fl (7.4-10.4); Monocytes # 0.3 K/mm3 (0.1-1.0); Monocytes % 5.8 % (1.7-9.3); Platelet Count 333 K/mm3 (142-424); Red Blood Count 4.24 M/mm3 (4.20-5.40); Red Cell Distribution Width 12.5 % (11.5-17.5); White Blood Count 4.4 K/mm3 (4.8-10.8)
[2022-01-04 12:36] LABS: Alanine Aminotransferase 14 U/L (12-78); Albumin Level 3.9 g/dl (3.5-5.0); Albumin/Globulin Ratio 1.1 (1.1-1.8); Alkaline Phosphatase 64 U/L (38-126); Anion Gap 10.3 mEq/L (5-15); Aspartate Amino Transferase 26 U/L (14-36); Bilirubin,Total 0.5 mg/dl (0.2-1.3); Blood Urea Nitrogen 9 mg/dl (7-17); Carbon Dioxide 26 mmol/L (22.0-30.0); Chloride 105 mmol/L (98-107); Creatinine Clearance Estimated 112 mL/min (50-200); Estimated Glomerular Filt Rate 128 ml/min (>60); GFR (African American) 154 ML/MIN (>60); Globulin 3.5 g/dL (1.3-3.2); Glucose 77 mg/dl (74-100); Lipase 55 U/L (23-300); Potassium 4.3 mmoL/L (3.5-5.1); Sodium 137 mmol/L (136-145); Total Protein,Serum 7.4 g/dl (6.3-8.2)
[2022-01-04 12:49] LABS: Bacteria,Urine Trace /lpf
[2022-01-04 13:00] VITALS: BP 123/75; PULSE 79; RESP 18; O2SAT 97
--- NOTE | 2022-01-04 13:08 | PC.NURSE ---
Pt returned from Rad
--- NOTE | 2022-01-04 15:23 | PC.NURSE ---
ED MD at for update on POC
[2022-01-04 15:44] VITALS: BP 125/79; PULSE 76; RESP 16; TEMP 36.8; O2SAT 98
== END 2022-01-04 15:45 | disposition home or self-care (01) ==
PROVIDERS: Emergency Provider Emergency Medicine; PCP Emergency Medicine
DX: N83.202 Unspecified ovarian cyst, left side (principal); K57.92 Diverticulitis of intestine, part unspecified, without perforation or abscess without bleeding; D64.9 Anemia, unspecified; R19.7 Diarrhea, unspecified; E78.5 Hyperlipidemia, unspecified; E03.9 Hypothyroidism, unspecified; M54.30 Sciatica, unspecified side; M51.25 Other intervertebral disc displacement, thoracolumbar region; G43.909 Migraine, unspecified, not intractable, without status migrainosus; K59.00 Constipation, unspecified; F32.A Depression, unspecified; F41.9 Anxiety disorder, unspecified; Z79.899 Other long term (current) drug therapy; Z88.0 Allergy status to penicillin; Z88.1 Allergy status to other antibiotic agents; Z88.3 Allergy status to other anti-infective agents; Z88.8 Allergy status to other drugs, medicaments and biological substances; Z91.018 Allergy to other foods; Z79.890 Hormone replacement therapy; Z80.9 Family history of malignant neoplasm, unspecified
CPT/HCPCS: 74177; 80053; 81001; 83690; 85025; 87086; 96361; 96365; 96374; 96375; 99285; J2405

== ENCOUNTER 2022-01-11 10:57 | Emergency (ER) | payer MEDICAID, SELFPAY ==
[2022-01-11] VITALS (7 sets, daily range): BP systolic 138–166; BP diastolic 70–77; PULSE 78–85; RESP 14–19; TEMP 36.5–37; O2SAT 97–99; BMI 20.5; BMI 19.5
--- NOTE | 2022-01-11 12:26 | HMH.EDUTC ---
[facility] [place] Disposition Clinical Impression: Infectious diarrhea Disposition: Home, Self-Care Condition on Discharge: Fair Instructions: DI for Acute Abdominal Pain Additional Instructions: outpatient order for diarrhea panel, given supplies to collect diarrhea panel and return it to hospital for analysis. Follow up with primary MD Referrals: Ronn Smith MD [Primary Care Provider] - Time of Disposition: 12:41 Medical Decision Making - Jef Inquiry Pt receiving controlled substance: No Jef was queried for this patient: No Vital Signs: 01/11/22 10:57 01/11/22 13:01 01/11/22 14:10 Temperature 97.7 F 98.6 F Temperature Source Oral Oral Pulse Rate 84 Pulse Rate [Right Radial] 85 78 Respiratory Rate 19 16 18 Blood Pressure 144/70 H Blood Pressure [Right Arm] 146/71 H 166/71 H Blood Pressure Mean [Right Arm] 96 102 Blood Pressure Source Blood Pressure Source [Right Arm] Automatic Cuff Blood Pressure Position Blood Pressure Position [Right Arm] Sitting Sitting 02 Sat by Pulse Oximetry 97 98 98 Oxygen Delivery Method Room Air Room Air 01/11/22 15:25 01/11/22 16:16 01/11/22 17:20 Temperature Temperature Source Pulse Rate 80 82 80 Pulse Rate [Right Radial] Respiratory Rate 16 14 14 Blood Pressure 142/77 H 140/70 138/72 Blood Pressure [Right Arm] Blood Pressure Mean [Right Arm] Blood Pressure Source Blood Pressure Source [Right Arm] Blood Pressure Position Blood Pressure Position [Right Arm] 02 Sat by Pulse Oximetry 99 99 99 Oxygen Delivery Method 01/11/22 18:35 Temperature 98.5 F Temperature Source Oral Pulse Rate 80 Pulse Rate [Right Radial] Respiratory Rate 16 Blood Pressure 138/70 Blood Pressure [Right Arm] Blood Pressure Mean [Right Arm] Blood Pressure Source Automatic Cuff Blood Pressure Source [Right Arm] Blood Pressure Position Sitting Blood Pressure Position [Right Arm] 02 Sat by Pulse Oximetry Oxygen Delivery Method Room Air - Lab Data Lab Results 01/11/22 13:27: WBC 9.0, RBC 4.51, Hgb 12.4, Hct 37.8, MCV 83.9, MCH 27.5, MCHC 32.8, RDW 12.0, Plt Count 391, MPV 6.8 L, Neut % (Auto) 75.5, Lymph % (Auto) 18.1, [place] % (Auto) 5.1, Eos % (Auto) 1.1, Baso % (Auto) 0.2, Neut # (Auto) 6.8, Lymph # (Auto) 1.6, [place] # (Auto) 0.5, Eos # (Auto) 0.1, Baso # (Auto) 0.0 01/11/22 13:27: Sodium 135 L, Potassium 3.5, Chloride 104, Carbon Dioxide 28, Anion Gap 6.5, BUN 10, Creatinine 0.60, Estimated Creat Clear 90, Estimated GFR 103, Est GFR ( Amer) 125, Glucose 125 H, Calcium 9.0, Total Bilirubin 0.4, AST 31, ALT 12, Alkaline Phosphatase 63, C-Reactive Protein 32.0 H, Total Protein 6.7, Albumin 3.5, Globulin 3.2, Albumin/Globulin Ratio 1.1 01/11/22 13:27: ESR 39 H 01/11/22 13:27: Lactate 0.7 Result diagrams: 01/11/22 13:27 01/11/22 13:27 Orders (Tests/Meds): ED MEDICATIONS Discontinued Medications Generic Name Dose Route Start Last Admin Trade Name Freq PRN Reason Stop Dose Admin Hydromorphone HCl 0.5 mg 01/11/22 19:46 01/11/22 13:28 Hydromorphone 2mg/Ml Syringe IV 01/11/22 19:47 0.5 mg ONCE ONE Administration Lactated Ringer's 1,000 mls @ 999 mls/hr 01/11/22 13:15 01/11/22 13:16 Lactated Ringer's 1000 Ml Bag IV 01/11/22 14:15 999 mls/hr .Q1H1M PREMA Administration Iopamidol 75 ml 01/11/22 14:37 01/11/22 14:37 Iopamidol-370 (76%);100ml Bottle IV 01/11/22 14:38 75 ml ONCE ONE Administration Sodium Chloride 10 ml 01/11/22 14:37 01/11/22 14:37 Sodium Chloride 0.9% 10ml Syr (Rad Only) IV 01/11/22 14:38 10 ml ONCE ONE Administration Medical Decision Narrative: Due to patient complaining of lower abdominal pain with recent dx of Diverticulitis and reports having many loose gloppy bowel movements daily including mucous like movements with blood tinge recommended transfer to the ED for further work up and evaluation and patient agreed Called ED spoke with Margie DOLAN and no room availa
[2022-01-11 13:46] LABS: Basophils % 0.2 % (0.1-2.0); Eosinophils # 0.1 K/mm3 (0.0-0.4); Eosinophils % 1.1 % (0.1-12.0); Hematocrit 37.8 % (37.0-47.0); Hemoglobin 12.4 g/dL (12.2-16.2); Lymphocytes # 1.6 K/mm3 (0.7-4.5); Lymphocytes % 18.1 % (10-50); Mean Corpuscular HGB Conc 32.8 g/dL (31.8-35.4); Mean Corpuscular Hemoglobin 27.5 pg (27.0-31.2); Mean Corpuscular Volume 83.9 fl (81-99); Mean Platelet Volume 6.8 fl (7.4-10.4); Monocytes # 0.5 K/mm3 (0.1-1.0); Monocytes % 5.1 % (1.7-9.3); Neutrophils # 6.8 K/mm3 (1.8-7.8); Neutrophils % 75.5 % (37.0-80.0); Platelet Count 391 K/mm3 (142-424); Red Blood Count 4.51 M/mm3 (4.20-5.40)
[2022-01-11 13:49] LABS: Chloride 104 mmol/L (98-107)
[2022-01-11 13:50] LABS: Potassium 3.5 mmoL/L (3.5-5.1); Sodium 135 mmol/L (136-145)
[2022-01-11 13:52] LABS: Alanine Aminotransferase 12 U/L (12-78); Alkaline Phosphatase 63 U/L (38-126); Anion Gap 6.5 mEq/L (5-15); Aspartate Amino Transferase 31 U/L (14-36); Bilirubin,Total 0.4 mg/dl (0.2-1.3); Blood Urea Nitrogen 10 mg/dl (7-17); Carbon Dioxide 28 mmol/L (22.0-30.0); Creatinine Clearance Estimated 90 mL/min (50-200); Estimated Glomerular Filt Rate 103 ml/min (>60); GFR (African American) 125 ML/MIN (>60)
[2022-01-11 13:53] LABS: Albumin Level 3.5 g/dl (3.5-5.0); Albumin/Globulin Ratio 1.1 (1.1-1.8); Globulin 3.2 g/dL (1.3-3.2); Glucose 125 mg/dl (74-100); Lactic Acid 0.7 mmol/L (0.7-2.1); Total Protein,Serum 6.7 g/dl (6.3-8.2)
--- NOTE | 2022-01-11 13:55 | PC.NURSE ---
ED MD at
--- NOTE | 2022-01-11 14:12 | HMH.EDGENADL ---
ED Disposition Clinical Impression: Infectious diarrhea Disposition: Home, Self-Care Condition on Discharge: Good Instructions: DI for Acute Abdominal Pain Additional Instructions: outpatient order for diarrhea panel, given supplies to collect diarrhea panel and return it to hospital for analysis. Follow up with primary MD Referrals: Ronn Smith MD [Primary Care Provider] - - Critical Care Critical Care Time: No Attestation: On 01/11/22, the high probability of a clinically significant, sudden or life threatening deterioration of the following system(s) required my full and direct attention, intervention and personal management. The time I documented below is in addition to time spent performing reported procedures but includes the following listed in this critical care notation. Medical Decision Making - Medical Records Medical records reviewed: Yes: I reviewed the patient's medical records. - Jef Inquiry Pt receiving controlled substance: No Vital Signs: 01/11/22 10:57 01/11/22 13:01 01/11/22 14:10 Temperature 97.7 F 98.6 F Temperature Source Oral Oral Pulse Rate 84 Pulse Rate [Right Radial] 85 78 Respiratory Rate 19 16 18 Blood Pressure 144/70 H Blood Pressure [Right Arm] 146/71 H 166/71 H Blood Pressure Mean [Right Arm] 96 102 Blood Pressure Source Blood Pressure Source [Right Arm] Automatic Cuff Blood Pressure Position Blood Pressure Position [Right Arm] Sitting Sitting 02 Sat by Pulse Oximetry 97 98 98 Oxygen Delivery Method Room Air Room Air 01/11/22 15:25 01/11/22 16:16 01/11/22 17:20 Temperature Temperature Source Pulse Rate 80 82 80 Pulse Rate [Right Radial] Respiratory Rate 16 14 14 Blood Pressure 142/77 H 140/70 138/72 Blood Pressure [Right Arm] Blood Pressure Mean [Right Arm] Blood Pressure Source Blood Pressure Source [Right Arm] Blood Pressure Position Blood Pressure Position [Right Arm] 02 Sat by Pulse Oximetry 99 99 99 Oxygen Delivery Method 01/11/22 18:35 Temperature 98.5 F Temperature Source Oral Pulse Rate 80 Pulse Rate [Right Radial] Respiratory Rate 16 Blood Pressure 138/70 Blood Pressure [Right Arm] Blood Pressure Mean [Right Arm] Blood Pressure Source Automatic Cuff Blood Pressure Source [Right Arm] Blood Pressure Position Sitting Blood Pressure Position [Right Arm] 02 Sat by Pulse Oximetry Oxygen Delivery Method Room Air - Lab Data Lab results reviewed: Yes: I reviewed the patient's lab results. Lab Results 01/11/22 13:27: WBC 9.0, RBC 4.51, Hgb 12.4, Hct 37.8, MCV 83.9, MCH 27.5, MCHC 32.8, RDW 12.0, Plt Count 391, MPV 6.8 L, Neut % (Auto) 75.5, Lymph % (Auto) 18.1, [place] % (Auto) 5.1, Eos % (Auto) 1.1, Baso % (Auto) 0.2, Neut # (Auto) 6.8, Lymph # (Auto) 1.6, [place] # (Auto) 0.5, Eos # (Auto) 0.1, Baso # (Auto) 0.0 01/11/22 13:27: Sodium 135 L, Potassium 3.5, Chloride 104, Carbon Dioxide 28, Anion Gap 6.5, BUN 10, Creatinine 0.60, Estimated Creat Clear 90, Estimated GFR 103, Est GFR ( Amer) 125, Glucose 125 H, Calcium 9.0, Total Bilirubin 0.4, AST 31, ALT 12, Alkaline Phosphatase 63, C-Reactive Protein 32.0 H, Total Protein 6.7, Albumin 3.5, Globulin 3.2, Albumin/Globulin Ratio 1.1 01/11/22 13:27: ESR 39 H 01/11/22 13:27: Lactate 0.7 Result diagrams: 01/11/22 13:27 01/11/22 13:27 Orders (Tests/Meds): ED MEDICATIONS Discontinued Medications Generic Name Dose Route Start Last Admin Trade Name Freq PRN Reason Stop Dose Admin Hydromorphone HCl 0.5 mg 01/11/22 19:46 01/11/22 13:28 Hydromorphone 2mg/Ml Syringe IV 01/11/22 19:47 0.5 mg ONCE ONE Administration Lactated Ringer's 1,000 mls @ 999 mls/hr 01/11/22 13:15 01/11/22 13:16 Lactated Ringer's 1000 Ml Bag IV 01/11/22 14:15 999 mls/hr .Q1H1M PREMA Administration Iopamidol 75 ml 01/11/22 14:37 01/11/22 14:37 Iopamidol-370 (76%);100ml Bottle IV 01/11/22 14:38 75 ml ONCE ONE Administration Sod
--- NOTE | 2022-01-11 14:14 | CT_ITS ---
FINAL REPORT TECHNIQUE: After the administration of intravenous contrast, axial images were obtained through the abdomen and pelvis by computed tomography. The study was performed with techniques to keep radiation dose as low as reasonably achievable, (ALARA). Individual dose reduction techniques using automated exposure control or adjustment of mA and/or kV according to the patient's size were employed. CLINICAL HISTORY: abd pain, LLQ, diarrhea COMPARISON: January 05, 2020 FINDINGS: Abdomen: The lung bases are clear. The liver parenchyma is homogeneous. The gallbladder is present. The spleen, pancreas, adrenals and kidneys appear unremarkable. The aorta is normal in caliber. There is no free fluid or adenopathy. There is moderate descending and sigmoid colon diverticulosis. Pelvis: The appendix is not identified. The urinary bladder is unremarkable. There is no free fluid or adenopathy. There are calcified phleboliths in the floor of the pelvis. There is a cystic structure the left adnexa measuring 2.5 x 2.0 cm, similar to prior. IMPRESSION: Descending and sigmoid colon diverticulosis without evidence of diverticulitis. Left adnexal cyst, similar to prior. Reviewed, Interpreted and Dictated by Azam Hernandez MD Transcribed by Jorden Bowman Authenticated by Azam Hernandez MD on 01/11/2022 03:09:28 PM [facility]
[2022-01-11 14:23] LABS: Erythrocyte Sedimentation Rate 39 mm/hr (0-30)
--- NOTE | 2022-01-11 14:24 | PC.NURSE ---
patient to CT with technical sales engineer; ambulatory without complications
--- NOTE | 2022-01-11 15:34 | PC.NURSE ---
pt up to restroom as this, attempting to give stool specimen
--- NOTE | 2022-01-11 15:40 | PC.NURSE ---
Sent up stool sample to lab
--- NOTE | 2022-01-11 18:11 | PC.NURSE ---
Went in to update patient and she was sleeping.
== END 2022-01-11 18:36 | disposition home or self-care (01) ==
LOC: UTC 12:41 → ER 12:59
PROVIDERS: Emergency Provider Emergency Medicine; PCP Emergency Medicine
DX: A09 Infectious gastroenteritis and colitis, unspecified (principal); K57.92 Diverticulitis of intestine, part unspecified, without perforation or abscess without bleeding; F41.8 Other specified anxiety disorders; E78.5 Hyperlipidemia, unspecified; G43.709 Chronic migraine without aura, not intractable, without status migrainosus; E03.9 Hypothyroidism, unspecified; Z87.891 Personal history of nicotine dependence; Z79.899 Other long term (current) drug therapy
CPT/HCPCS: 74177; 80053; 83605; 85025; 85651; 86140; Q9967

== ENCOUNTER 2022-01-13 11:42 | Inpatient (IN) | payer MEDICAID, SELFPAY ==
[2022-01-13 11:44] VITALS: BP 101/54; PULSE 111; RESP 16; TEMP 36.8; O2SAT 95; BMI 20.5
[2022-01-13 12:06] LABS: Adenovirus F 40/41, stool Not Detected (NotDetected); Astrovirus Not Detected (NotDetected); Campylobacter Not Detected (NotDetected); Cryptosporidium Not Detected (NotDetected); Cyclospora Cayetanesis Not Detected (NotDetected); Entamoeba histolytica Not Detected (NotDetected); Enteroaggregative E coli Not Detected (NotDetected); Enteropathogenic E coli Not Detected (NotDetected); Enterotoxigenic E coli Not Detected (NotDetected); Giardia lamblia Not Detected (NotDetected); Norovirus Not Detected (NotDetected); Plesimonas Shigalloides, PCR Not Detected (NotDetected); Rotavirus A Not Detected (NotDetected); Salmonella, PCR Not Detected (NotDetected); Sapovirus Not Detected (NotDetected); Shiga-like toxin E coli Not Detected (NotDetected); Shigella Enterovasive E coli Not Detected (NotDetected); Vibrio Cholerae Not Detected (NotDetected); Vibrio, PCR Not Detected (NotDetected); Yersinia Entercolitica, PCR Not Detected (NotDetected)
--- NOTE | 2022-01-13 12:06 | HMH.EDGENADL ---
ED Disposition Clinical Impression: Hypokalemia, Clostridium difficile colitis Disposition: Admitted as Observation Condition on Discharge: Fair Referrals: Ronn Smith MD [Primary Care Provider] - - Critical Care Critical Care Time: No Attestation: On 01/13/22, the high probability of a clinically significant, sudden or life threatening deterioration of the following system(s) required my full and direct attention, intervention and personal management. The time I documented below is in addition to time spent performing reported procedures but includes the following listed in this critical care notation. Medical Decision Making - Medical Records Medical records reviewed: Yes: I reviewed the patient's medical records. MR Comment: Reviewed emergency department notes from 01/04/2022 and 01/11/[address] scan reports. Reviewed laboratory results. Reviewed urine culture result (no growth). - Jef Inquiry Pt receiving controlled substance: No Vital Signs: 01/13/22 11:44 01/13/22 13:05 01/13/22 14:06 Temperature 98.2 F Temperature Source Oral Pulse Rate 106 H 113 H Pulse Rate [Right Radial] 111 H Respiratory Rate 16 16 18 Blood Pressure 111/52 L 117/71 Blood Pressure [Right Arm] 101/54 L Blood Pressure Mean 85 Blood Pressure Mean [Right Arm] 69 Blood Pressure Source [Right Arm] Automatic Cuff Blood Pressure Position [Right Arm] Left Lateral 02 Sat by Pulse Oximetry 95 99 97 Oxygen Delivery Method Room Air 01/13/22 14:30 01/13/22 15:00 Temperature Temperature Source Pulse Rate 107 H 106 H Pulse Rate [Right Radial] Respiratory Rate 18 18 Blood Pressure 116/71 128/72 Blood Pressure [Right Arm] Blood Pressure Mean 86 88 Blood Pressure Mean [Right Arm] Blood Pressure Source [Right Arm] Blood Pressure Position [Right Arm] 02 Sat by Pulse Oximetry 94 L 94 L Oxygen Delivery Method - Lab Data Lab Results 01/13/22 11:50: Stl Aeromonas (PCR) Not detected, Stl C. cayetanensis PCR Not detected, Stool Rotavirus (PCR) Not detected, Stl Adenov F 40/41 PCR Not detected, Stool Astrovirus (PCR) Not detected, Stool Campylobacter PCR Not detected, Stl C.difficile Tox PCR Detected A, Stool Cryptosporidium PCR Not detected, Stl E.coli Shiga Tox PCR Not detected, Stool E coli O157 PCR Not detected, Stl Enterotoxigenic E PCR Not detected, Stool EPEC (PCR) Not detected, Stool EAEC (PCR) Not detected, Stl E. histolytica PCR Not detected, Stool Giardia Lamblia PCR Not detected, Stool Salmonella PCR Not detected, Stool Sapovirus (PCR) Not detected, Stl P. shigelloides PCR Not detected, Stl Shigella/EIEC PCR Not detected, St Y.enterocolitica PCR Not detected, Stool Vibrio (PCR) Not detected, Stl Vibrio cholerae PCR Not detected, Stl Norovirus GI/GII PCR Not detected 01/13/22 12:15: WBC 13.7 H D, RBC 4.41, Hgb 12.1 L, Hct 36.7 L, MCV 83.3, MCH 27.5, MCHC 33.1, RDW 12.3, Plt Count 388, MPV 7.1 L, Neut % (Auto) 83.3 H, Lymph % (Auto) 9.2 L, [place] % (Auto) 7.0, Eos % (Auto) 0.4, Baso % (Auto) 0.1, Neut # (Auto) 11.4 H, Lymph # (Auto) 1.3, [place] # (Auto) 1.0, Eos # (Auto) 0.1, Baso # (Auto) 0.0, ESR 135 H 01/13/22 12:15: Sodium 134 L, Potassium 3.0 L, Chloride 103, Carbon Dioxide 23, Anion Gap 11.0, BUN 12, Creatinine 0.60, Estimated Creat Clear 90, Estimated GFR 103, Est GFR ( Amer) 125, Glucose 114 H, Calcium 8.7, Total Bilirubin 0.6, AST 19 D, ALT 9 L, Alkaline Phosphatase 66, C-Reactive Protein 98.6 H D, Total Protein 6.7, Albumin 3.5, Globulin 3.2, Albumin/Globulin Ratio 1.1, Lipase 23 01/13/22 14:30: SARS-CoV-2 (PCR) Not detected, Influenza A Untype (PCR) Not detected, Influenza Type B (PCR) Not detected Result diagrams: 01/13/22 12:15 01/13/22 12:15 Orders (Tests/Meds): ED MEDICATIONS Generic Name Dose Route Start Last Admin Trade Name Freq PRN Reason Stop Dose Admin Vancomycin HCl 125 mg 01/13/22 21:00 Vancomycin 500mg Vial PO 01/27/22 20:59 QID PREMA Dis
[2022-01-13 12:28] LABS: Basophils % 0.1 % (0.1-2.0); Eosinophils # 0.1 K/mm3 (0.0-0.4); Eosinophils % 0.4 % (0.1-12.0); Hematocrit 36.7 % (37.0-47.0); Hemoglobin 12.1 g/dL (12.2-16.2); Lymphocytes # 1.3 K/mm3 (0.7-4.5); Lymphocytes % 9.2 % (10-50); Mean Corpuscular HGB Conc 33.1 g/dL (31.8-35.4); Mean Corpuscular Hemoglobin 27.5 pg (27.0-31.2); Mean Corpuscular Volume 83.3 fl (81-99); Mean Platelet Volume 7.1 fl (7.4-10.4); Neutrophils # 11.4 K/mm3 (1.8-7.8); Neutrophils % 83.3 % (37.0-80.0); Platelet Count 388 K/mm3 (142-424); Red Blood Count 4.41 M/mm3 (4.20-5.40); Red Cell Distribution Width 12.3 % (11.5-17.5); White Blood Count 13.7 K/mm3 (4.8-10.8)
[2022-01-13 12:31] LABS: Chloride 103 mmol/L (98-107); Sodium 134 mmol/L (136-145)
[2022-01-13 12:34] LABS: Alanine Aminotransferase 9 U/L (12-78); Albumin Level 3.5 g/dl (3.5-5.0); Albumin/Globulin Ratio 1.1 (1.1-1.8); Alkaline Phosphatase 66 U/L (38-126); Aspartate Amino Transferase 19 U/L (14-36); Bilirubin,Total 0.6 mg/dl (0.2-1.3); Blood Urea Nitrogen 12 mg/dl (7-17); Calcium 8.7 mg/dl (8.4-10.2); Carbon Dioxide 23 mmol/L (22.0-30.0); Creatinine Clearance Estimated 90 mL/min (50-200); Estimated Glomerular Filt Rate 103 ml/min (>60); GFR (African American) 125 ML/MIN (>60); Globulin 3.2 g/dL (1.3-3.2); Glucose 114 mg/dl (74-100); Lipase 23 U/L (23-300); Total Protein,Serum 6.7 g/dl (6.3-8.2)
[2022-01-13 12:40] LABS: C-Reactive Protein 98.6 mg/L (0-4)
[2022-01-13 13:00] LABS: Erythrocyte Sedimentation Rate 135 mm/hr (0-30)
[2022-01-13 13:05] VITALS: BP 111/52; PULSE 106; RESP 16; O2SAT 99
--- NOTE | 2022-01-13 13:42 | CT_ITS ---
FINAL REPORT TECHNIQUE: After the administration of oral and intravenous contrast, axial images were obtained through the abdomen and pelvis by computed tomography. The study was performed with techniques to keep radiation dose as low as reasonably achievable, (ALARA). Individual dose reduction techniques using automated exposure control or adjustment of mA and/or kV according to the patient's size were employed. CLINICAL HISTORY: abdo pain patient states still vomiting and diarrhea, not improving, oral contrast finished at 2:00pm COMPARISON: 01/11/2022 FINDINGS: Abdomen: There is mild atelectasis at the lung bases. The liver parenchyma is homogeneous. The gallbladder is present. The spleen, pancreas, adrenals and kidneys appear unremarkable. The aorta is normal in caliber. There is no free fluid or adenopathy. Pelvis: The appendix is not identified. There is now abnormal mucosal thickening in the descending and sigmoid colon. There is mild pericolonic inflammation which appears more evident than previous. Findings are concerning for acute colitis. There is apparent pseudo pneumatosis. Fluid is seen in the rectum. The urinary bladder is unremarkable. There is no free fluid or adenopathy. IMPRESSION: Descending and sigmoid colitis which may be infectious or inflammatory. Reviewed, Interpreted and Dictated by Azam Hernandez MD Transcribed by Margie De Los Santos Authenticated by Azam Hernandez MD on 01/13/2022 03:56:56 PM [facility]
--- NOTE | 2022-01-13 14:02 | PC.NURSE ---
pt finished drinking po contrast
[2022-01-13 14:06] VITALS: BP 117/71; PULSE 113; RESP 18; O2SAT 97
[2022-01-13 14:30] VITALS: BP 116/71; PULSE 107; RESP 18; O2SAT 94
[2022-01-13 14:37] LABS: Coronavirus 19, PCR Not Detected (NotDetected); Influenza A, PCR Not Detected (NotDetected); Influenza B, PCR Not Detected (NotDetected)
[2022-01-13 15:00] VITALS: BP 128/72; PULSE 106; RESP 18; O2SAT 94
--- NOTE | 2022-01-13 16:35 | PC.NURSE ---
Updated pt on POC, advised her we were waiting on CT results
[2022-01-13 18:13] LABS: Clostridium Difficile A/B, PCR Detected (NotDetected)
--- NOTE | 2022-01-13 18:20 | PC.NURSE ---
Dr Arambula speaking with Dr Smith
[2022-01-13 18:55] VITALS: BMI 20.8
[2022-01-13 20:00] VITALS: BP 104/54; PULSE 108; RESP 18; TEMP 37.8; O2SAT 97
--- NOTE | 2022-01-13 20:00 | PC.NURSE ---
PT ARRIVED TO FLOOR VIA W/C FROM ED W/STAFF @ 1999
--- NOTE | 2022-01-13 20:58 | HMH.HP ---
*Admission Date: 01/13/22 *Chief complaint: vomiting/diarrhea *History of present illness: this patient started on about 12/25/21 with vomiting and diarrhea - pt was seen in the [facility] ed x2 with no clear dx and continued to have sx and presented today-patient states that she was here 2 weeks ago for diarrhea and abdominal pain. Says she also returned Tuesday, 2 days ago for the same. Initially says she was told she had diverticulitis and is taking Augmentin. Symptoms have not improved. She feels worse today. She says that she called her primary care provider's office, Dr. Smith, today to arrange follow-up. She says that his cafe assistant called her back and told him it would be best if she just came back to the emergency room and to bring a stool specimen in with her, which she did and took to the lab. She says her diarrhea is currently watery. She says initially it was more soft and initially had some blood in it, but none since early in her illness. No documented fever, but says she wakes up sweaty. Says her abdominal pain is generalized. She also says she began vomiting today and feels dehydrated. pt was found to have -to have increased inflammatory markers with abn ct with colitis and positive c diff on diarrhea panel - pt was admitted for fluids and treatment [facility] History I have reviewed the patient's past medical history: Yes Medical History: Reports:: Anxiety, Depression, Hyperlipidemia, Migraine Denies:: Cancer, Diabetes Mellitus Type 1, Diabetes Mellitus Type 2, Internal Pacemaker, MRSA, Seizures *Have you ever received a pneumonia vaccine?: No *Have you received a flu vaccine this season?: No Other Medical History: Reports: Anemia, Hypothyroidism, Sinus Problems, Thyroid Disease, Other. Denies: Blood Transfusion Reaction Laterality Cases: Left: Arthroscopy Shoulder, Bilateral: Other Other Surgeries: Yes: No Previous Surgery, Appendectomy, Cardiac Catheterization, Colonoscopy, Hysterectomy-Partial, Sinus Surgery, Other. No: Pacemaker Amputation: No Fractures: Yes (RT ARM) - *Social History Smoking Status: Former smoker Tobacco Type: cigarettes # Packs/Day (cigarettes): 1 #Yrs smoked (if former smoker): 26 Alcohol Intake: current Alcohol Intake Frequency:: holidays/special occasions only Substance Use Type: denies use *Occupational Status:: employed Housing: house Household Members: none *Travel in the last 8 weeks: None - Psychiatric History Pschychiatric History:: Reports:: Anxiety, Depression Family Hx:: Cancer, Heart Attack, Stroke Review of Systems - Review of Systems Review of systems:: pertinent systems reviewed and negative unless documented below - Constitutional Reports weakness - Eyes Denies change in vision - ENT Denies sore throat - *Cardiovascular Denies shortness of breath - *Respiratory Denies cough - *Gastrointestinal Reports abdominal pain, Reports loose stools, Reports nausea, Reports vomiting - *Genitourinary Denies pelvic pain - *Musculoskeletal Denies joint pain - Integumentary/Breasts Denies rash - *Neurologic Denies seizure-like activity - Psychiatric Denies confusion Meds Home Medications Medication Instructions Recorded Confirmed Type hydrocodone 7.5 mg-acetaminophen 1 tab PO Q6H 12/02/17 01/13/22 History 325 mg tablet clonazepam 0.5 mg tablet 0.5 mg PO BID PRN #60 tab 03/27/21 01/13/22 Rx diclofenac sodium 1 % topical gel 2 g TOPICAL DAILYP PRN g 07/14/21 01/13/22 History Cyanocobalamin (Vitamin B-12) 1,000 mcg IM QMONTH 07/20/21 01/13/22 History [Physicians Ez Use B-12] conjugated estrogens 1.25 mg tablet 1.25 mg PO DAILY #90 tab 10/01/21 01/13/22 Rx estradiol 10 mcg vaginal tablet 10 mcg VAGINAL WEEKLY tab 10/13/21 01/13/22 History galcanezumab-gnlm 120 mg/mL 120 mg SQ QMONTH #1 ml 10/14/21 01/13/22 Rx subcutaneous pen injector atogepant 60 mg tablet 60 mg PO DAILY #30 tab 10/21/21 01/13/22 Rx montelukast 10 mg tablet 10 mg PO DAILY #90 tab 10/26
[2022-01-14 04:00] VITALS: BP 88/43; PULSE 78; RESP 16; TEMP 36.9; O2SAT 93
--- NOTE | 2022-01-14 07:36 | P.CONPHA_ITS ---
[facility] Pharmacy VTE Monitoring - Patient Demographics Admission date: 01/14/22 Report Date: 01/14/22 Time: 07:36 Allergies/Adverse Reactions: Patient Allergies azithromycin [AZITHROMYCIN] Allergy (Unknown, Verified 10/13/21 11:14) metronidazole [From FLAGYL] Allergy (Unknown, Verified 10/13/21 11:14) Nuts (Food) Allergy (Severe, Uncoded 06/10/21 09:32) WITH ALCOHOL MIXED ONLY-ANAPHYLAXIS Height: 1.63 m Weight: 55.384 kg Patient Problems: Current Active Problems (This Medical Record has been edited. Action required.) Hypokalemia (Acute) Clostridium difficile colitis (Acute) SIRS (systemic inflammatory response syndrome) (Acute) - VTE Risk Labs: VTE Related Lab Results Hgb 12.1 g/dL (12.2-16.2) L 01/13/22 12:15 Hct 36.7 % (37.0-47.0) L 01/13/22 12:15 Plt Count 388 K/mm3 (142-424) 01/13/22 12:15 BUN 12 mg/dl (7-17) 01/13/22 12:15 Creatinine 0.60 mg/dl (0.52-1.04) 01/13/22 12:15 Estimated Creat Clear 90 mL/min (50-200) 01/13/22 12:15 Was VTE Risk Assessment Performed: Yes VTE Score: 3 VTE Risk Level: Low Risk Clinical Trial Participant: No - Prophylaxis VTE Prophylaxis Ordered?: Yes Types of VTE Prophylaxis: TEDS Knee High
--- NOTE | 2022-01-14 07:39 | HMH.PHAINT ---
Home medication list has been verified using the patient's PBM claim history and discharge packet from visit with us a few days ago.
[2022-01-14 08:00] VITALS: BP 98/59; PULSE 92; RESP 15; TEMP 38; O2SAT 96
[2022-01-14 08:08] LABS: Chloride 102 mmol/L (98-107)
[2022-01-14 08:09] LABS: Sodium 132 mmol/L (136-145)
[2022-01-14 08:11] LABS: Blood Urea Nitrogen 15 mg/dl (7-17); Creatinine Clearance Estimated 69 mL/min (50-200); Estimated Glomerular Filt Rate 74 ml/min (>60); GFR (African American) 90 ML/MIN (>60)
[2022-01-14 08:12] LABS: Anion Gap 8.8 mEq/L (5-15); Calcium 8.2 mg/dl (8.4-10.2); Carbon Dioxide 24 mmol/L (22.0-30.0); Glucose 109 mg/dl (74-100)
[2022-01-14 08:20] LABS: Potassium 2.8 mmoL/L (3.5-5.1)
--- NOTE | 2022-01-14 08:20 | PC.NURSE ---
Spoke with Silvia from lab. Stated that K was 2.8.
--- NOTE | 2022-01-14 08:30 | PC.NURSE ---
Spoke with Dr. Smith and told him about the labs, and that pt had a 100.4 fever. I gave her tylenol, and wet rag to see if we can get the fever down.
--- NOTE | 2022-01-14 09:08 | HMH.ACPN2 ---
Internal Medicine - PN: Subj *Date: 01/14/22 *Time: 09:08 Interval history: doing some better - low k Exam Vital signs and Labs for Last 24 Hours: Temp Pulse Resp BP Pulse Ox 98.5 F 78 16 88/43 L 93 L 01/14/22 04:00 01/14/22 04:00 01/14/22 04:00 01/14/22 04:00 01/14/22 04:00 Laboratory Results - last 24 hr 01/13/22 11:50: Stl Aeromonas (PCR) Not detected, Stl C. cayetanensis PCR Not detected, Stool Rotavirus (PCR) Not detected, Stl Adenov F 40/41 PCR Not detected, Stool Astrovirus (PCR) Not detected, Stool Campylobacter PCR Not detected, Stl C.difficile Tox PCR Detected A, Stool Cryptosporidium PCR Not detected, Stl E.coli Shiga Tox PCR Not detected, Stool E coli O157 PCR Not detected, Stl Enterotoxigenic E PCR Not detected, Stool EPEC (PCR) Not detected, Stool EAEC (PCR) Not detected, Stl E. histolytica PCR Not detected, Stool Giardia Lamblia PCR Not detected, Stool Salmonella PCR Not detected, Stool Sapovirus (PCR) Not detected, Stl P. shigelloides PCR Not detected, Stl Shigella/EIEC PCR Not detected, St Y.enterocolitica PCR Not detected, Stool Vibrio (PCR) Not detected, Stl Vibrio cholerae PCR Not detected, Stl Norovirus GI/GII PCR Not detected 01/13/22 12:15: WBC 13.7 H D, RBC 4.41, Hgb 12.1 L, Hct 36.7 L, MCV 83.3, MCH 27.5, MCHC 33.1, RDW 12.3, Plt Count 388, MPV 7.1 L, Neut % (Auto) 83.3 H, Lymph % (Auto) 9.2 L, [place] % (Auto) 7.0, Eos % (Auto) 0.4, Baso % (Auto) 0.1, Neut # (Auto) 11.4 H, Lymph # (Auto) 1.3, [place] # (Auto) 1.0, Eos # (Auto) 0.1, Baso # (Auto) 0.0, ESR 135 H 01/13/22 12:15: Sodium 134 L, Potassium 3.0 L, Chloride 103, Carbon Dioxide 23, Anion Gap 11.0, BUN 12, Creatinine 0.60, Estimated Creat Clear 90, Estimated GFR 103, Est GFR ( Amer) 125, Glucose 114 H, Calcium 8.7, Total Bilirubin 0.6, AST 19 D, ALT 9 L, Alkaline Phosphatase 66, C-Reactive Protein 98.6 H D, Total Protein 6.7, Albumin 3.5, Globulin 3.2, Albumin/Globulin Ratio 1.1, Lipase 23 01/13/22 14:30: SARS-CoV-2 (PCR) Not detected, Influenza A Untype (PCR) Not detected, Influenza Type B (PCR) Not detected 01/14/22 06:49: Sodium 132 L, Potassium 2.8 L*, Chloride 102, Carbon Dioxide 24, Anion Gap 8.8, BUN 15, Creatinine 0.80 D, Estimated Creat Clear 69, Estimated GFR 74, Est GFR ( Amer) 90 D, Glucose 109 H, Calcium 8.2 L I & O for Last 24 hours: Intake & Output 01/11/22 01/12/22 01/13/22 01/14/22 11:59 11:59 11:59 11:59 Weight 120 lb 122 lb 1.6 oz - Constitutional no acute distress - *Routine HEENT Exam Head: Present: normocephalic Eye: Present: EOMI, PERRL ENT: Present: mucous membranes dry - *Routine Neck Exam Present: supple - *Routine Respiratory Exam Present: CTA bilaterally - *Routine Cardiovascular Exam Present: RRR - *Routine Abdominal Exam Present: soft - *Routine Extremities Exam Absent: calf tenderness - *Routine Skin Exam Present: intact - *Routine Neurological Exam Present: alert - Routine Psychiatric Exam Present: normal affect Assessment and Plan (1) SIRS (systemic inflammatory response syndrome) Status: Acute Category: Medical Code(s): R65.10 - Systemic inflammatory response syndrome (SIRS) of non-infectious origin without acute organ dysfunction (2) Hypokalemia Status: Acute Category: Medical Code(s): E87.6 - Hypokalemia (3) Clostridium difficile colitis Status: Acute Category: Medical Code(s): A04.72 - Enterocolitis due to Clostridium difficile, not specified as recurrent
[2022-01-14 10:21] LABS: Hematocrit 31.6 % (37.0-47.0); Mean Corpuscular Volume 84.3 fl (81-99); Red Blood Count 3.75 M/mm3 (4.20-5.40)
[2022-01-14 10:22] LABS: Mean Corpuscular HGB Conc 32.9 g/dL (31.8-35.4); Mean Corpuscular Hemoglobin 27.7 pg (27.0-31.2); Mean Platelet Volume 9.9 fl (7.4-10.4); Platelet Count 310 K/mm3 (142-424); Red Cell Distribution Width 12.4 % (11.5-17.5)
[2022-01-14 10:42] LABS: Lymphocytes % 15.4 % (10-50); Monocytes % 12.8 % (1.7-9.3)
[2022-01-14 10:47] LABS: Basophils % 0.2 % (0.1-2.0); Eosinophils # 0.1 K/mm3 (0.0-0.4); Eosinophils % 0.4 % (0.1-12.0); Monocytes # 1.7 K/mm3 (0.1-1.0); Neutrophils # 9.3 K/mm3 (1.8-7.8)
[2022-01-14 10:52] LABS: White Blood Count 13.1 K/mm3 (4.8-10.8)
[2022-01-14 12:46] VITALS: BMI 20.8
[2022-01-14 13:32] LABS: Hemoglobin 10.4 g/dL (12.2-16.2)
[2022-01-14 16:00] VITALS: BP 125/71; PULSE 100; RESP 16; TEMP 37.3; O2SAT 96
[2022-01-14 20:00] VITALS: BP 126/61; PULSE 94; RESP 17; TEMP 36.7; O2SAT 98
[2022-01-15 04:00] VITALS: BP 92/47; PULSE 71; RESP 16; TEMP 36.7; O2SAT 95
--- NOTE | 2022-01-15 04:41 | PC.NURSE ---
Patient had several bowel movements this shift. Patient medicated per MAR for pain. VSS.
[2022-01-15 05:00] VITALS: BMI 20.9
[2022-01-15 05:39] VITALS: BP 98/60; PULSE 72
[2022-01-15 08:00] VITALS: BP 109/48; PULSE 69; RESP 22; TEMP 36.4; O2SAT 95
--- NOTE | 2022-01-15 13:36 | HMH.ACPN2 ---
Internal Medicine - PN: Subj *Date: 01/16/22 *Time: 06:22 Interval history: doing better at this time but still with sig pain and diarrhea Exam Vital signs and Labs for Last 24 Hours: Temp Pulse Resp BP Pulse Ox 97.5 F L 69 22 109/48 L 95 01/15/22 08:00 01/15/22 08:00 01/15/22 08:00 01/15/22 08:00 01/15/22 08:00 I & O for Last 24 hours: Intake & Output 01/13/22 01/14/22 01/15/22 01/16/22 11:59 11:59 11:59 11:59 Intake Total 480 / 480 1200 / 1200 Balance 480 / 480 1200 / 1200 Weight 120 lb 122 lb 1.6 oz 122 lb 8 oz - Constitutional no acute distress - *Routine HEENT Exam Head: Present: normocephalic Eye: Present: EOMI, PERRL ENT: Present: mucous membranes dry - *Routine Neck Exam Absent: JVD - *Routine Respiratory Exam Present: CTA bilaterally - *Routine Cardiovascular Exam Present: RRR - *Routine Abdominal Exam Present: soft - *Routine Extremities Exam Present: full ROM - *Routine Skin Exam Present: intact - *Routine Neurological Exam Present: alert, CN II-XII intact - Routine Psychiatric Exam Present: normal affect Assessment and Plan (1) SIRS (systemic inflammatory response syndrome) Status: Acute Category: Medical Code(s): R65.10 - Systemic inflammatory response syndrome (SIRS) of non-infectious origin without acute organ dysfunction (2) Hypokalemia Status: Acute Category: Medical Code(s): E87.6 - Hypokalemia (3) Clostridium difficile colitis Status: Acute Category: Medical Code(s): A04.72 - Enterocolitis due to Clostridium difficile, not specified as recurrent
[2022-01-15 16:00] VITALS: BP 114/70; PULSE 73; RESP 22; TEMP 36.7; O2SAT 97
[2022-01-15 20:00] VITALS: BP 117/63; PULSE 85; RESP 16; TEMP 36.8; O2SAT 98
[2022-01-16 04:00] VITALS: BP 97/52; PULSE 65; RESP 16; TEMP 36.4; O2SAT 97
[2022-01-16 05:00] VITALS: BMI 21.3
--- NOTE | 2022-01-16 05:55 | PC.NURSE ---
Pt has had multiple liquid stools t/o shift. Pt has complained of abdominal pain 2x t/o shift. PRN medication administered per MAR with favorable results. Call light within reach.
[2022-01-16 08:00] VITALS: BP 125/64; PULSE 75; RESP 14; TEMP 36.6; O2SAT 96; O2SAT 99
--- NOTE | 2022-01-16 11:11 | P.PN_ITS ---
Internal Medicine - PN: Subj *Date: 01/16/22 *Time: 11:11 Exam Vital signs and Labs for Last 24 Hours: Temp Pulse Resp BP Pulse Ox 97.9 F 75 14 125/64 99 01/16/22 08:00 01/16/22 08:00 01/16/22 08:00 01/16/22 08:00 01/16/22 08:00 I & O for Last 24 hours: Intake & Output 01/13/22 01/14/22 01/15/22 01/16/22 23:59 23:59 23:59 23:59 Intake Total 960 / 960 2460 / 2460 360 / 360 Balance 960 / 960 2460 / 2460 360 / 360 Weight 55.384 kg 55.38 kg 55.565 kg 56.756 kg Assessment and Plan (1) SIRS (systemic inflammatory response syndrome) Status: Acute Category: Medical Code(s): R65.10 - Systemic inflammatory response syndrome (SIRS) of non-infectious origin without acute organ dy sfunction (2) Hypokalemia Status: Acute Category: Medical Code(s): E87.6 - Hypokalemia (3) Clostridium difficile colitis Status: Acute Category: Medical Code(s): A04.72 - Enterocolitis due to Clostridium difficile, not specified as recurrent The patient's infection will respond to the chosen ABx?: Yes Is the patient receiving the right drug, dose, and route?: Yes Could a more targeted ABx be ordered?: No (PO VANC FOR CDIFF)
--- NOTE | 2022-01-16 11:26 | HMH.ACPN2 ---
Internal Medicine - PN: Subj *Date: 01/16/22 *Time: 11:26 Interval history: doing much better - some element of sore throat Exam Vital signs and Labs for Last 24 Hours: Temp Pulse Resp BP Pulse Ox 97.9 F 75 14 125/64 99 01/16/22 08:00 01/16/22 08:00 01/16/22 08:00 01/16/22 08:00 01/16/22 08:00 I & O for Last 24 hours: Intake & Output 01/13/22 01/14/22 01/15/22 01/16/22 11:59 11:59 11:59 11:59 Intake Total 480 / 480 1200 / 1200 2100 / 2100 Balance 480 / 480 1200 / 1200 2100 / 2100 Weight 120 lb 122 lb 1.6 oz 122 lb 8 oz 125 lb 2 oz - Constitutional no acute distress - *Routine HEENT Exam Head: Present: normocephalic Eye: Present: EOMI, PERRL ENT: Present: mucous membranes dry - *Routine Neck Exam Present: supple - *Routine Respiratory Exam Present: CTA bilaterally - *Routine Cardiovascular Exam Present: RRR - *Routine Abdominal Exam Present: soft - *Routine Extremities Exam Absent: edema - *Routine Skin Exam Present: intact - *Routine Neurological Exam Present: alert, CN II-XII intact - Routine Psychiatric Exam Present: normal affect Assessment and Plan (1) SIRS (systemic inflammatory response syndrome) Status: Acute Category: Medical Code(s): R65.10 - Systemic inflammatory response syndrome (SIRS) of non-infectious origin without acute organ dysfunction (2) Hypokalemia Status: Acute Category: Medical Code(s): E87.6 - Hypokalemia (3) Clostridium difficile colitis Status: Acute Category: Medical Code(s): A04.72 - Enterocolitis due to Clostridium difficile, not specified as recurrent
[2022-01-16 12:45] LABS: Basophils # 0.1 K/mm3 (0-0.2); Basophils % 0.8 % (0.1-2.0); Eosinophils # 0.3 K/mm3 (0.0-0.4); Eosinophils % 3.7 % (0.1-12.0); Hematocrit 34.5 % (37.0-47.0); Hemoglobin 11.2 g/dL (12.2-16.2); Lymphocytes # 1.8 K/mm3 (0.7-4.5); Lymphocytes % 24.4 % (10-50); Mean Corpuscular HGB Conc 32.6 g/dL (31.8-35.4); Mean Platelet Volume 7.9 fl (7.4-10.4); Monocytes # 0.6 K/mm3 (0.1-1.0); Monocytes % 7.7 % (1.7-9.3); Neutrophils # 4.6 K/mm3 (1.8-7.8); Neutrophils % 63.3 % (37.0-80.0); Platelet Count 483 K/mm3 (142-424); Red Blood Count 4.01 M/mm3 (4.20-5.40); Red Cell Distribution Width 12.9 % (11.5-17.5); White Blood Count 7.3 K/mm3 (4.8-10.8)
[2022-01-16 12:52] LABS: Chloride 106 mmol/L (98-107); Sodium 138 mmol/L (136-145)
[2022-01-16 12:55] LABS: Blood Urea Nitrogen 3 mg/dl (7-17); Creatinine Clearance Estimated 113 mL/min (50-200); Estimated Glomerular Filt Rate 128 ml/min (>60); GFR (African American) 154 ML/MIN (>60)
[2022-01-16 12:56] LABS: Calcium 8.4 mg/dl (8.4-10.2); Carbon Dioxide 27 mmol/L (22.0-30.0); Glucose 84 mg/dl (74-100)
[2022-01-16 15:40] VITALS: BP 163/77; PULSE 86; RESP 16; TEMP 36.9; O2SAT 96
[2022-01-16 20:00] VITALS: BP 139/81; PULSE 85; RESP 16; TEMP 36.7; O2SAT 97
[2022-01-17 04:00] VITALS: BP 144/78; PULSE 90; RESP 16; TEMP 37.1; O2SAT 94
--- NOTE | 2022-01-17 04:42 | PC.NURSE ---
No acute episodes or changed thus far during my shift. Pt is still having multiple diarrhea stools. Medicated per MAR for pain x 1 this shift. Pt is independent to [facility]. Pt states she still doesn't have much of an appetite but is drinking more. IV infusing per order. Call light in reach. No complaints or needs voiced at this time. Call light in reach.
[2022-01-17 05:00] VITALS: BMI 21.2
[2022-01-17 08:00] VITALS: BP 141/71; PULSE 91; RESP 14; TEMP 37.2; O2SAT 98
--- NOTE | 2022-01-17 10:28 | HMH.ACPN2 ---
Internal Medicine - PN: Subj *Date: 01/18/22 *Time: 14:32 Interval history: slow improvement but still with sig sx Exam Vital signs and Labs for Last 24 Hours: Temp Pulse Resp BP Pulse Ox 98.9 F 91 H 14 141/71 H 98 01/17/22 08:00 01/17/22 08:00 01/17/22 08:00 01/17/22 08:00 01/17/22 08:00 Laboratory Results - last 24 hr 01/16/22 12:25: WBC 7.3 D, RBC 4.01 L, Hgb 11.2 L, Hct 34.5 L, MCV 86.0, MCH 28.0, MCHC 32.6, RDW 12.9, Plt Count 483 H D, MPV 7.9, Neut % (Auto) 63.3, Lymph % (Auto) 24.4, [place] % (Auto) 7.7, Eos % (Auto) 3.7, Baso % (Auto) 0.8, Neut # (Auto) 4.6, Lymph # (Auto) 1.8, [place] # (Auto) 0.6, Eos # (Auto) 0.3, Baso # (Auto) 0.1 01/16/22 12:25: Sodium 138, Potassium 3.0 L, Chloride 106, Carbon Dioxide 27, Anion Gap 8.0, BUN 3 L D, Creatinine 0.50 L D, Estimated Creat Clear 113, Estimated GFR 128, Est GFR ( Amer) 154 D, Glucose 84, Calcium 8.4 I & O for Last 24 hours: Intake & Output 01/14/22 01/15/22 01/16/22 01/17/22 11:59 11:59 11:59 11:59 Intake Total 480 / 480 1200 / 1200 2100 / 2100 3240 / 3240 Balance 480 / 480 1200 / 1200 2100 / 2100 3240 / 3240 Weight 122 lb 1.6 oz 122 lb 8 oz 125 lb 2 oz 124 lb 9.6 oz - Constitutional no acute distress - *Routine HEENT Exam Head: Present: hematoma Eye: Present: EOMI, PERRL ENT: Present: mucous membranes dry - *Routine Neck Exam Absent: JVD - *Routine Respiratory Exam Present: CTA bilaterally - *Routine Cardiovascular Exam Present: RRR - *Routine Abdominal Exam Present: soft - *Routine Extremities Exam Absent: calf tenderness - *Routine Skin Exam Present: intact - *Routine Neurological Exam Present: alert, CN II-XII intact - Routine Psychiatric Exam Present: normal affect Assessment and Plan (1) SIRS (systemic inflammatory response syndrome) Status: Acute Category: Medical Code(s): R65.10 - Systemic inflammatory response syndrome (SIRS) of non-infectious origin without acute organ dysfunction (2) Hypokalemia Status: Acute Category: Medical Code(s): E87.6 - Hypokalemia (3) Clostridium difficile colitis Status: Acute Category: Medical Code(s): A04.72 - Enterocolitis due to Clostridium difficile, not specified as recurrent
[2022-01-17 15:38] VITALS: BP 155/90; PULSE 84; RESP 15; TEMP 37.1; O2SAT 97
--- NOTE | 2022-01-17 18:41 | PC.NURSE ---
pt has required pain medication more frequently today. She reports multiple episodes of diarrhea. She states her appetite remains poor. denies any vomiting.
[2022-01-17 20:00] VITALS: BP 150/83; PULSE 82; RESP 18; TEMP 36.9; O2SAT 95
[2022-01-18 04:00] VITALS: BP 135/77; PULSE 68; RESP 18; TEMP 36.3; O2SAT 97
--- NOTE | 2022-01-18 04:29 | PC.NURSE ---
At this time, no acute changes since previous assessment. Contact enteric precautions for C. Diff. Pt is still having frequent diarrhea stools and ABD cramping. So far this shift pt has requested pain medication once. Medicated per MAR with adequate pain relief achieved. Pt states she feels about 50% better, but still has times where she feels really bad. Pt states she has been drinking well, but after meals the cramping and diarrhea worsens. No other complaints or needs voiced at this time. Call light in reach.
[2022-01-18 05:00] VITALS: BMI 21.0
--- NOTE | 2022-01-18 06:38 | PC.NURSE ---
Educated pt on changing IV site every 72 hrs. Pt refused new iv at this time because she thinks she may go home today.
[2022-01-18 08:00] VITALS: BP 149/80; PULSE 79; RESP 16; TEMP 36.7; O2SAT 96
[2022-01-18 09:21] LABS: Anion Gap 8.4 mEq/L (5-15); Blood Urea Nitrogen 3 mg/dl (7-17); Calcium 8.7 mg/dl (8.4-10.2); Carbon Dioxide 32 mmol/L (22.0-30.0); Chloride 102 mmol/L (98-107); Creatinine Clearance Estimated 111 mL/min (50-200); Estimated Glomerular Filt Rate 128 ml/min (>60); GFR (African American) 154 ML/MIN (>60); Glucose 84 mg/dl (74-100); Potassium 3.4 mmoL/L (3.5-5.1); Sodium 139 mmol/L (136-145)
--- NOTE | 2022-01-18 09:23 | HMH.DCSUM ---
General - General Admission date:: 01/13/22 Discharge date: 01/18/22 HPI HPI: this patient started on about 12/25/21 with vomiting and diarrhea - pt was seen in the [facility] x2 with no clear dx and continued to have sx and presented today-patient states that she was here 2 weeks ago for diarrhea and abdominal pain. Says she also returned Tuesday, 2 days ago for the same. Initially says she was told she had diverticulitis and is taking Augmentin. Symptoms have not improved. She feels worse today. She says that she called her primary care provider's office, Dr. Frye, today to arrange follow-up. She says that his home health assistant called her back and told him it would be best if she just came back to the emergency room and to bring a stool specimen in with her, which she did and took to the lab. She says her diarrhea is currently watery. She says initially it was more soft and initially had some blood in it, but none since early in her illness. No documented fever, but says she wakes up sweaty. Says her abdominal pain is generalized. She also says she began vomiting today and feels dehydrated. pt was found to have -to have increased inflammatory markers with abn ct with colitis and positive c diff on diarrhea panel - pt was admitted for fluids and treatment Hospital Course Hospital Course: Abnormal Lab Results 01/18/22 08:40: Potassium 3.4 L, Carbon Dioxide 32 H, BUN 3 L, Creatinine 0.50 L Discharge Plan (1) SIRS (systemic inflammatory response syndrome)- vital sign stable,labs stable, pt able to eat and drink with out any issues (2) Hypokalemia- 3.4 today, encourage kcl rich foods (3) Clostridium difficile colitis- stool positive for c diff- 4 more days of po vanc(allergic to flagyl), continue contact precautions Objective Vital signs: Temp Pulse Resp BP Pulse Ox 97.3 F L 68 18 135/77 97 01/18/22 04:00 01/18/22 04:00 01/18/22 04:00 01/18/22 04:00 01/18/22 04:00 no acute distress - *Routine HEENT Exam Head: Present: normocephalic Eye: Present: PERRL ENT: Present: mucous membranes moist - *Routine Neck Exam Present: supple - *Routine Respiratory Exam Present: CTA bilaterally - *Routine Cardiovascular Exam Present: RRR - *Routine Abdominal Exam Present: soft, normoactive bowel sounds. Absent: tenderness - *Routine Extremities Exam Absent: cyanosis, clubbing, edema - *Routine Skin Exam Present: warm. Absent: rash - *Routine Neurological Exam Present: alert, oriented X3 Results - Additional Comments rounded with dr frye all orders per dr frye DS: Diagnosis - Discharge Diagnosis (1) SIRS (systemic inflammatory response syndrome) Status: Acute (2) Hypokalemia Status: Acute (3) Clostridium difficile colitis Status: Acute Discharge Plan - Patient Discharge Instructions ACTIVITY: Continue current activity DIET: continue same diet Patient Instructions: DI for Hypokalemia, Hypokalemia, Clostridium difficile Infection - Follow up Plan Follow up with: Ronn Frye MD [Primary Care Provider] - 1 week Disposition: Home, Self-Care Condition at discharge:: Stable Home Medications: Home Medications Medication Instructions Recorded Confirmed Type hydrocodone 7.5 mg-acetaminophen 1 tab PO Q6HP PRN 12/02/17 01/14/22 History 325 mg tablet diclofenac sodium 1 % topical gel 2 gm TOPICAL DAILYP PRN g 07/14/21 01/14/22 History Cyanocobalamin (Vitamin B-12) 1,000 mcg IM QMONTH 07/20/21 01/13/22 History [Physicians Ez Use B-12] estradiol 10 mcg vaginal tablet 10 mcg VAGINAL DIRECTED tab 10/13/21 01/14/22 History atogepant 60 mg tablet 60 mg PO DAILY #30 tab 10/21/21 01/13/22 Rx montelukast 10 mg tablet 10 mg PO DAILY #90 tab 10/26/21 01/13/22 Rx gabapentin 300 mg capsule 300 mg PO BID 11/03/21 01/13/22 History gabapentin 800 mg tablet 800 mg PO HS tab 11/03/21 01/13/22 History tizanidine 4 mg tablet 8 mg PO HS 30 Days #60 tab 01/04
[2022-01-18 09:27] LABS: Basophils # 0.1 K/mm3 (0-0.2); Basophils % 1.7 % (0.1-2.0); Eosinophils # 0.2 K/mm3 (0.0-0.4); Eosinophils % 3.7 % (0.1-12.0); Hematocrit 34.8 % (37.0-47.0); Hemoglobin 11.7 g/dL (12.2-16.2); Lymphocytes # 1.7 K/mm3 (0.7-4.5); Lymphocytes % 28.6 % (10-50); Mean Corpuscular HGB Conc 33.6 g/dL (31.8-35.4); Mean Corpuscular Hemoglobin 28.3 pg (27.0-31.2); Mean Corpuscular Volume 84.2 fl (81-99); Mean Platelet Volume 8.8 fl (7.4-10.4); Monocytes # 0.6 K/mm3 (0.1-1.0); Monocytes % 10.6 % (1.7-9.3); Neutrophils # 3.3 K/mm3 (1.8-7.8); Neutrophils % 55.4 % (37.0-80.0); Platelet Count 480 K/mm3 (142-424); Red Blood Count 4.13 M/mm3 (4.20-5.40); Red Cell Distribution Width 12.9 % (11.5-17.5); White Blood Count 5.9 K/mm3 (4.8-10.8)
--- NOTE | 2022-01-18 10:19 | HMH.PHAINT ---
DISCHARGE MEDICATION COUNSELING PROVIDED. DISCUSSED STOPPING THE AUGMENTIN AND THE SHORT COURSE ORAL VANCOMYCIN. DISCUSSED TO TAKE FOUR TIMES DAILY FOR FOUR DAYS, MAY CAUSE UPSET STOMACH. PATIENT ENDORSED NO QUESTIONS AT THIS TIME.
--- NOTE | 2022-01-19 13:59 | CARE MANAGER ---
Contacted patient related to discharge from hospital. She states she was able to get a partial fill on her Vancomycin, but is going to call the pharmacy today to see if they were able to get pre-auth for it. She denies questions or concerns. Josee Stern
== END 2022-01-18 11:31 | disposition home or self-care (01) | DRG 373 ==
LOC: ER 18:23 → 2ND 01-14 02:00
PROVIDERS: Nurse Practitioner Family; Admitting Provider Emergency Medicine; Emergency Provider Emergency Medicine; PCP Emergency Medicine; Visit Provider Emergency Medicine
DX: A04.72 Enterocolitis due to Clostridium difficile, not specified as recurrent (principal); E78.5 Hyperlipidemia, unspecified; E03.9 Hypothyroidism, unspecified; Z79.899 Other long term (current) drug therapy; E87.6 Hypokalemia; G43.909 Migraine, unspecified, not intractable, without status migrainosus; Z87.891 Personal history of nicotine dependence; F41.9 Anxiety disorder, unspecified; F32.A Depression, unspecified; Z20.822 Contact with and (suspected) exposure to COVID-19
CPT/HCPCS: 36415; 74177; 80048; 80053; 83605; 83690; 85025; 85651; 86140; 87507; 96375; 99285; C9803; J2405; J3370; Q9967; U0003; U0005

== ENCOUNTER → 2022-01-25 10:51 | Outpatient (CLI) | payer MEDICAID, SELFPAY ==
[2022-01-25 13:22] LABS: Chloride 101 mmol/L (98-107); Potassium 4.6 mmoL/L (3.5-5.1); Sodium 135 mmol/L (136-145)
[2022-01-25 13:25] LABS: Anion Gap 11.6 mEq/L (5-15); Blood Urea Nitrogen 8 mg/dl (7-17); Carbon Dioxide 27 mmol/L (22.0-30.0); Estimated Glomerular Filt Rate 128 ml/min (>60); GFR (African American) 154 ML/MIN (>60)
[2022-01-25 13:26] LABS: Calcium 9.6 mg/dl (8.4-10.2); Glucose 93 mg/dl (74-100)
== END ==
PROVIDERS: PCP Emergency Medicine; Visit Provider Emergency Medicine
DX: A04.72 Enterocolitis due to Clostridium difficile, not specified as recurrent (principal)
CPT/HCPCS: 80048

== ENCOUNTER → 2022-02-08 13:13 | Outpatient (CLI) | payer MEDICAID, SELFPAY | PROVIDERS: PCP Emergency Medicine; Visit Provider Emergency Medicine | DX: R82.90 Unspecified abnormal findings in urine (principal) | CPT/HCPCS: 87086 ==

== ENCOUNTER 2022-02-24 07:06 | Emergency (ER) | payer MEDICAID, SELFPAY ==
[2022-02-24 07:19] VITALS: BP 121/54; PULSE 104; RESP 17; TEMP 38.7; O2SAT 99
[2022-02-24 07:28] LABS: Influenza A, PCR Not Detected (NotDetected); Influenza B, PCR Not Detected (NotDetected)
[2022-02-24 07:30] LABS: Microscopic, Urine URINE MICROSCOPIC (MICROSCOPIC)
[2022-02-24 07:32] LABS: Appearance,Urine CLOUDY (Clear); Bilirubin,Urine Negative (Negative); Blood, Urine Negative (Negative); Color,Urine YELLOW (Yellow); Glucose,Urine (UA) Negative (Negative); Ketones,Urine 1+ (Negative); Leukocyte Esterase,Urine 3+ (Negative); Nitrate,Urine Negative (Negative); PH,Urine 8.5 (5.0-8.5); Protein,Urine TRACE (Negative); Specific Gravity, Urine 1.015 (1.005-1.030); Urobilinogen,Urine 0.2 EU/dl (0.2)
[2022-02-24 07:48] LABS: Bacteria,Urine 1+ /lpf; Trichomonas,Urine 2+ /lpf
[2022-02-24 07:50] LABS: Coronavirus 19, PCR Detected (NotDetected)
[2022-02-24 07:52] LABS: Basophils # 0.1 K/mm3 (0-0.2); Eosinophils % 0.3 % (0.1-12.0); Hematocrit 33.4 % (37.0-47.0); Hemoglobin 11.3 g/dL (12.2-16.2); Lymphocytes # 0.9 K/mm3 (0.7-4.5); Lymphocytes % 13.2 % (10-50); Mean Corpuscular HGB Conc 33.9 g/dL (31.8-35.4); Mean Corpuscular Hemoglobin 27.1 pg (27.0-31.2); Mean Corpuscular Volume 79.9 fl (81-99); Monocytes # 0.8 K/mm3 (0.1-1.0); Monocytes % 11.9 % (1.7-9.3); Neutrophils # 4.8 K/mm3 (1.8-7.8); Neutrophils % 73.6 % (37.0-80.0); Platelet Count 290 K/mm3 (142-424); Red Blood Count 4.18 M/mm3 (4.20-5.40); Red Cell Distribution Width 12.9 % (11.5-17.5); White Blood Count 6.6 K/mm3 (4.8-10.8)
[2022-02-24 07:59] LABS: Chloride 102 mmol/L (98-107); Potassium 3.7 mmoL/L (3.5-5.1); Sodium 135 mmol/L (136-145)
[2022-02-24 08:00] VITALS: BP 148/79; PULSE 111; O2SAT 97
--- NOTE | 2022-02-24 08:01 | HMH.EDGENADL ---
ED Disposition Clinical Impression: COVID-19 Headache Qualifiers: Headache type: tension-type Headache chronicity pattern: acute headache Intractability: not intractable Qualified Code(s): G44.209 - Tension-type headache, unspecified, not intractable Disposition: Home, Self-Care Condition on Discharge: Fair Instructions: DI for Urinary Tract Infection (UTI), DI for Urinary Tract Infection in Children Additional Instructions: Please follow up with Dr. Smith in the next 2 days. He will follow your urine culture results and decide if additional antibiotics are appropriate for you based off your urine culture. Referrals: Ronn Smith MD [Primary Care Provider] - - Critical Care Critical Care Time: No Attestation: On , the high probability of a clinically significant, sudden or life threatening deterioration of the following system(s) required my full and direct attention, intervention and personal management. The time I documented below is in addition to time spent performing reported procedures but includes the following listed in this critical care notation. Medical Decision Making - Medical Records Medical records reviewed: Yes: I reviewed the patient's medical records. - Jef Inquiry Pt receiving controlled substance: No Vital Signs: 02/24/22 07:19 02/24/22 08:00 02/24/22 08:30 Temperature 101.7 F H Temperature Source Oral Pulse Rate 111 H 107 H Pulse Rate [Left Radial] 104 H Respiratory Rate 17 Blood Pressure 148/79 H 131/63 Blood Pressure [Right Arm] 121/54 L Blood Pressure Mean [Right Arm] 76 Blood Pressure Source Automatic Cuff Automatic Cuff Blood Pressure Position Sitting Sitting 02 Sat by Pulse Oximetry 99 97 98 Oxygen Delivery Method Room Air Room Air Room Air 02/24/22 09:13 Temperature Temperature Source Pulse Rate 108 H Pulse Rate [Left Radial] Respiratory Rate Blood Pressure 133/64 Blood Pressure [Right Arm] Blood Pressure Mean [Right Arm] Blood Pressure Source Automatic Cuff Blood Pressure Position Sitting 02 Sat by Pulse Oximetry 94 L Oxygen Delivery Method Room Air - Lab Data Lab results reviewed: Yes: I reviewed the patient's lab results. Lab Results 02/24/22 07:22: SARS-CoV-2 (PCR) Detected A, Influenza A Untype (PCR) Not detected, Influenza Type B (PCR) Not detected 02/24/22 07:25: Urine Color Yellow, Urine Appearance Cloudy, Urine pH 8.5, Ur Specific [place] 1.015, Urine Protein Trace, Urine Glucose (UA) Negative, Urine Ketones 1+, Urine Blood Negative, Urine Nitrate Negative, Urine Bilirubin Negative, Urine Urobilinogen 0.2, Ur Leukocyte Esterase 3+ A, Urine RBC 3-5, Urine WBC 10-20, Ur Squamous Epith Cells 5-10, Urine Bacteria 1+, Urine Trichomonas 2+ 02/24/22 07:35: WBC 6.6, RBC 4.18 L, Hgb 11.3 L, Hct 33.4 L, MCV 79.9 L, MCH 27.1, MCHC 33.9, RDW 12.9, Plt Count 290, MPV 7.0 L, Neut % (Auto) 73.6, Lymph % (Auto) 13.2, [place] % (Auto) 11.9 H, Eos % (Auto) 0.3, Baso % (Auto) 1.0, Neut # (Auto) 4.8, Lymph # (Auto) 0.9, [place] # (Auto) 0.8, Eos # (Auto) 0.0, Baso # (Auto) 0.1 02/24/22 07:35: Sodium 135 L, Potassium 3.7, Chloride 102, Carbon Dioxide 22, Anion Gap 14.7, BUN 12, Creatinine 0.70, Estimated Creat Clear 75, Estimated GFR 87, Est GFR ( Amer) 105, Glucose 120 H, Calcium 9.6, Total Bilirubin 0.5, AST 39 H, ALT 29, Alkaline Phosphatase 118, Total Protein 8.2, Albumin 4.1, Globulin 4.1 H, Albumin/Globulin Ratio 1.0 L 02/24/22 07:35: Lactate 1.0 Result diagrams: 02/24/22 07:35 02/24/22 07:35 Orders (Tests/Meds): ED MEDICATIONS Generic Name Dose Route Start Last Admin Trade Name Freq PRN Reason Stop Dose Admin Ceftriaxone Sodium 1 gm/ 50 mls @ 100 mls/hr 02/24/22 08:30 02/24/22 08:47 Sodium Chloride IV 03/10/22 08:29 100 mls/hr Q24H PREMA Administration Sodium Chloride 10 ml 02/24/22 07:25 Sodium Chloride 0.9% 10ml Flush Syringe IV 03/26/22 07:24 NEEDED PRN Maintain IV Site Discontinued Medications
[2022-02-24 08:02] LABS: Alanine Aminotransferase 29 U/L (12-78); Albumin Level 4.1 g/dl (3.5-5.0); Alkaline Phosphatase 118 U/L (38-126); Anion Gap 14.7 mEq/L (5-15); Aspartate Amino Transferase 39 U/L (14-36); Bilirubin,Total 0.5 mg/dl (0.2-1.3); Blood Urea Nitrogen 12 mg/dl (7-17); Calcium 9.6 mg/dl (8.4-10.2); Carbon Dioxide 22 mmol/L (22.0-30.0); Creatinine Clearance Estimated 75 mL/min (50-200); Estimated Glomerular Filt Rate 87 ml/min (>60); GFR (African American) 105 ML/MIN (>60); Globulin 4.1 g/dL (1.3-3.2); Glucose 120 mg/dl (74-100); Total Protein,Serum 8.2 g/dl (6.3-8.2)
--- NOTE | 2022-02-24 08:11 | PC.NURSE ---
ED MD at
[2022-02-24 08:30] VITALS: BP 131/63; PULSE 107; O2SAT 98
--- NOTE | 2022-02-24 08:54 | XR_ITS ---
FINAL REPORT CLINICAL HISTORY: SOA, Covid, Fever, assess for airspace disease FINDINGS: A single portable view of the chest was obtained. The heart size and pulmonary vascularity are within normal limits. The mediastinum is within normal limits. There is a minimal right base opacity, may represent atelectasis or pneumonia. The bony thorax is intact. IMPRESSION: Minimal right base opacity, may represent atelectasis or pneumonia. Reviewed, Interpreted and Dictated by Mu Gomez III, MD Transcribed by Carri Pineda Authenticated and [facility]
[2022-02-24 09:13] VITALS: BP 133/64; PULSE 108; O2SAT 94
[2022-02-24 10:02] VITALS: BP 109/52; PULSE 99; O2SAT 95
[2022-02-24 10:53] VITALS: BP 121/61; PULSE 92; RESP 17; TEMP 37.2; O2SAT 95
== END 2022-02-24 10:55 | disposition home or self-care (01) ==
PROVIDERS: Emergency Provider Emergency Medicine; PCP Emergency Medicine
DX: U07.1 COVID-19 (principal); N39.0 Urinary tract infection, site not specified; B96.4 Proteus (mirabilis) (morganii) as the cause of diseases classified elsewhere; G44.209 Tension-type headache, unspecified, not intractable; R00.0 Tachycardia, unspecified; Z87.891 Personal history of nicotine dependence
CPT/HCPCS: 71045; 80053; 81001; 83605; 85025; 87040; 87086; 87088; 87186; 96365; 96375; 99284; C9803; J0696; U0003; U0005

== ENCOUNTER 2022-02-28 10:12 | Inpatient (IN) | payer MEDICAID, SELFPAY ==
[2022-02-28] VITALS (19 sets, daily range): BP systolic 114–172; BP diastolic 56–84; PULSE 106–145; RESP 16–18; TEMP 37–39.2; O2SAT 92–98
--- NOTE | 2022-02-28 10:15 | PC.NURSE ---
pt to restroom by wheelchair with assistance of tech.
--- NOTE | 2022-02-28 10:25 | PC.NURSE ---
UA sent to lab; pt out of restroom and to ED room 9 with assistance from myself; no complications. Pt hooked to monitor and given a warm blanket; Kisha Gates RN at BS
[2022-02-28 10:27] LABS: Microscopic, Urine URINE MICROSCOPIC (MICROSCOPIC)
[2022-02-28 10:30] LABS: Appearance,Urine CLEAR (Clear); Bilirubin,Urine Negative (Negative); Blood, Urine TRACE-I (Negative); Color,Urine DK YELLOW (Yellow); Glucose,Urine (UA) Negative (Negative); Ketones,Urine Negative (Negative); Leukocyte Esterase,Urine 1+ (Negative); Nitrate,Urine POSITIVE (Negative); Protein,Urine TRACE (Negative); Specific Gravity, Urine 1.025 (1.005-1.030); Urobilinogen,Urine 0.2 EU/dl (0.2)
--- NOTE | 2022-02-28 10:37 | PC.NURSE ---
ED MD at
--- NOTE | 2022-02-28 10:39 | XR_ITS ---
PROCEDURE INFORMATION: Exam: XR Abdomen Exam date and time: 02/28/2022 10:49 AM Age: 56 years old Clinical indication: Nausea; Additional info: Diarrhea, abd pain TECHNIQUE: Imaging protocol: XR of the abdomen. Views: Frontal supine view of the abdomen. 1 View. COMPARISON: CT ABDOMEN PELVIS W CON 01/13/2022 3:22 PM FINDINGS: Gastrointestinal tract: Normal. No bowel dilation. Bones/joints: Unremarkable. IMPRESSION: No acute findings.
[2022-02-28 10:53] LABS: Bacteria,Urine Trace /lpf; RBC,Urine Occasional #/hpf (0-3); Squamous Epithelial Cell,Urine Occasional #/hpf (0-5)
--- NOTE | 2022-02-28 10:55 | PC.NURSE ---
Addendum entered by Ernestina Dickens 02/28/22 11:02: pt to xray; NOT CT Original Note: pt to CT with principal technologist by truong
--- NOTE | 2022-02-28 10:55 | PC.NURSE ---
PPE precautions signs placed outside of patients room; she states she was diagnosed with COVID on 02/24/22
[2022-02-28 11:00] LABS: Basophils # 0.1 K/mm3 (0-0.2); Basophils % 0.6 % (0.1-2.0); Eosinophils # 0.1 K/mm3 (0.0-0.4); Eosinophils % 0.5 % (0.1-12.0); Hematocrit 33.2 % (37.0-47.0); Hemoglobin 11.2 g/dL (12.2-16.2); Lymphocytes # 1.2 K/mm3 (0.7-4.5); Lymphocytes % 13.9 % (10-50); Mean Corpuscular HGB Conc 33.8 g/dL (31.8-35.4); Mean Corpuscular Hemoglobin 27.9 pg (27.0-31.2); Mean Corpuscular Volume 82.5 fl (81-99); Mean Platelet Volume 8.6 fl (7.4-10.4); Monocytes # 0.4 K/mm3 (0.1-1.0); Monocytes % 4.2 % (1.7-9.3); Neutrophils # 7.1 K/mm3 (1.8-7.8); Neutrophils % 80.8 % (37.0-80.0); Platelet Count 254 K/mm3 (142-424); Red Blood Count 4.02 M/mm3 (4.20-5.40); Red Cell Distribution Width 14.1 % (11.5-17.5); White Blood Count 8.8 K/mm3 (4.8-10.8)
[2022-02-28 11:09] LABS: Chloride 100 mmol/L (98-107); Potassium 3.7 mmoL/L (3.5-5.1); Sodium 132 mmol/L (136-145)
[2022-02-28 11:11] LABS: Alanine Aminotransferase 19 U/L (12-78); Alkaline Phosphatase 91 U/L (38-126); Aspartate Amino Transferase 33 U/L (14-36); Bilirubin,Total 0.9 mg/dl (0.2-1.3); Blood Urea Nitrogen 9 mg/dl (7-17); Creatinine Clearance Estimated 66 mL/min (50-200); Estimated Glomerular Filt Rate 74 ml/min (>60); GFR (African American) 90 ML/MIN (>60)
[2022-02-28 11:12] LABS: Albumin Level 3.5 g/dl (3.5-5.0); Anion Gap 13.7 mEq/L (5-15); Calcium 9.1 mg/dl (8.4-10.2); Carbon Dioxide 22 mmol/L (22.0-30.0); Globulin 3.6 g/dL (1.3-3.2); Glucose 115 mg/dl (74-100); Total Protein,Serum 7.1 g/dl (6.3-8.2)
--- NOTE | 2022-02-28 11:17 | CT_ITS ---
PROCEDURE INFORMATION: Exam: CT Abdomen And Pelvis Without Contrast Exam date and time: 02/28/2022 11:24 AM Age: 56 years old Clinical indication: Nausea and vomiting; Additional info: Llq abd pain, HX cdiff / diverticulitis TECHNIQUE: Imaging protocol: Computed tomography of the abdomen and pelvis without contrast. Radiation optimization: All CT scans at this facility use at least one of these dose optimization techniques: automated exposure control; mA and/or kV adjustment per patient size (includes targeted exams where dose is matched to clinical indication); or iterative reconstruction. COMPARISON: CT ABDOMEN PELVIS W CON 01/13/2022 3:22 PM FINDINGS: Liver: Normal. No mass. Gallbladder and bile ducts: Normal. No calcified stones. No ductal dilation. Pancreas: Normal. No ductal dilation. Spleen: Normal. No splenomegaly. Adrenal glands: Normal. No mass. Kidneys and ureters: Normal. No hydronephrosis. Stomach and bowel: Mild circumferential wall thickening throughout the colon with adjacent inflammatory changes, compatible with nonspecific colitis. Fluid distention of the cecum to 6.6 cm. Residual or recurrent Clostridium difficile cannot be excluded, although imaging for C. diff. is typically marked wall thickening. No bowel obstruction. Appendix: No evidence of appendicitis. Intraperitoneal space: Unremarkable. No free air. No significant fluid collection. Vasculature: Unremarkable. No abdominal aortic aneurysm. Lymph nodes: Unremarkable. No enlarged lymph nodes. Urinary bladder: Unremarkable as visualized. Reproductive: Unremarkable as visualized. Bones/joints: Unremarkable. No acute fracture. Soft tissues: Unremarkable. IMPRESSION: Mild circumferential wall thickening throughout the colon with adjacent inflammatory changes, compatible with nonspecific colitis. Fluid distention of the cecum to 6.6 cm. Residual or recurrent Clostridium difficile cannot be excluded, although imaging for C. diff. is typically marked wall thickening.
--- NOTE | 2022-02-28 11:20 | HMH.EDGENADL ---
ED Disposition Clinical Impression: Gastroenteritis, Dehydration Disposition: Admitted As Inpatient Condition on Discharge: Good Instructions: DI for Acute Abdominal Pain Referrals: Ronn Smith MD [Primary Care Provider] - - Critical Care Critical Care Time: No Attestation: On 02/28/22, the high probability of a clinically significant, sudden or life threatening deterioration of the following system(s) required my full and direct attention, intervention and personal management. The time I documented below is in addition to time spent performing reported procedures but includes the following listed in this critical care notation. Medical Decision Making - Medical Records Medical records reviewed: Yes: I reviewed the patient's medical records. - Jef Inquiry Pt receiving controlled substance: No Vital Signs: 02/28/22 10:14 02/28/22 10:25 02/28/22 10:30 Temperature 100.6 F H Temperature Source Oral Pulse Rate 109 H 106 H Pulse Rate [Right Brachial] 107 H Respiratory Rate 18 Blood Pressure 116/56 L 125/62 Blood Pressure [Right Arm] 116/56 L Blood Pressure Mean 83 Blood Pressure Mean [Right Arm] 76 Blood Pressure Source Automatic Cuff Blood Pressure Source [Right Arm] Automatic Cuff Blood Pressure Position Sitting Blood Pressure Position [Right Arm] Supine 02 Sat by Pulse Oximetry 95 96 98 Oxygen Delivery Method Room Air Room Air 02/28/22 11:01 02/28/22 11:15 02/28/22 12:30 Temperature Temperature Source Pulse Rate 123 H 117 H 117 H Pulse Rate [Right Brachial] Respiratory Rate Blood Pressure Blood Pressure [Right Arm] Blood Pressure Mean Blood Pressure Mean [Right Arm] Blood Pressure Source Blood Pressure Source [Right Arm] Blood Pressure Position Blood Pressure Position [Right Arm] 02 Sat by Pulse Oximetry 97 95 95 Oxygen Delivery Method 02/28/22 13:14 02/28/22 13:30 02/28/22 13:41 Temperature Temperature Source Pulse Rate 113 H 120 H 120 H Pulse Rate [Right Brachial] Respiratory Rate Blood Pressure 114/69 132/70 132/70 Blood Pressure [Right Arm] Blood Pressure Mean 84 88 Blood Pressure Mean [Right Arm] Blood Pressure Source Automatic Cuff Blood Pressure Source [Right Arm] Blood Pressure Position Sitting Blood Pressure Position [Right Arm] 02 Sat by Pulse Oximetry 95 94 L 95 Oxygen Delivery Method Room Air Room Air 02/28/22 14:01 02/28/22 14:31 02/28/22 15:00 Temperature Temperature Source Pulse Rate 128 H 132 H Pulse Rate [Right Brachial] Respiratory Rate Blood Pressure 141/78 H 142/77 H 145/69 H Blood Pressure [Right Arm] Blood Pressure Mean 93 94 92 Blood Pressure Mean [Right Arm] Blood Pressure Source Blood Pressure Source [Right Arm] Blood Pressure Position Blood Pressure Position [Right Arm] 02 Sat by Pulse Oximetry 94 L 94 L Oxygen Delivery Method - Lab Data Lab Results 02/28/22 10:22: Urine Color Dk yellow, Urine Appearance Clear, Urine pH 6.0, Ur Specific [place] 1.025, Urine Protein Trace, Urine Glucose (UA) Negative, Urine Ketones Negative, Urine Blood Trace-i, Urine Nitrate Positive, Urine Bilirubin Negative, Urine Urobilinogen 0.2, Ur Leukocyte Esterase 1+ A, Urine RBC Occasional, Urine WBC 3-5, Ur Squamous Epith Cells Occasional, Urine Bacteria Trace 02/28/22 10:44: WBC 8.8, RBC 4.02 L, Hgb 11.2 L, Hct 33.2 L, MCV 82.5, MCH 27.9, MCHC 33.8, RDW 14.1, Plt Count 254, MPV 8.6, Neut % (Auto) 80.8 H, Lymph % (Auto) 13.9, [place] % (Auto) 4.2, Eos % (Auto) 0.5, Baso % (Auto) 0.6, Neut # (Auto) 7.1, Lymph # (Auto) 1.2, [place] # (Auto) 0.4, Eos # (Auto) 0.1, Baso # (Auto) 0.1 02/28/22 10:44: Sodium 132 L, Potassium 3.7, Chloride 100, Carbon Dioxide 22, Anion Gap 13.7, BUN 9, Creatinine 0.80, Estimated Creat Clear 66, Estimated GFR 74, Est GFR ( Amer) 90, Glucose 115 H, Calcium 9.1, Total Bilirubin 0.9, AST 33, ALT 19, Alkaline Phosphat
--- NOTE | 2022-02-28 12:11 | PC.NURSE ---
pt resting; awaiting CT results. No needs at this time
--- NOTE | 2022-02-28 13:07 | PC.NURSE ---
ER MD at speaking with patient regarding update on POC
--- NOTE | 2022-02-28 13:09 | PC.NURSE ---
assisted patient on bedpan; she was able to provide a stool sample
--- NOTE | 2022-02-28 13:15 | PC.NURSE ---
Stool sample sent to lab
[2022-02-28 13:16] LABS: Adenovirus F 40/41, stool Not Detected (NotDetected); Astrovirus Not Detected (NotDetected); Campylobacter Not Detected (NotDetected); Cryptosporidium Not Detected (NotDetected); Cyclospora Cayetanesis Not Detected (NotDetected); Entamoeba histolytica Not Detected (NotDetected); Enteroaggregative E coli Not Detected (NotDetected); Enteropathogenic E coli Not Detected (NotDetected); Enterotoxigenic E coli Not Detected (NotDetected); Giardia lamblia Not Detected (NotDetected); Norovirus Not Detected (NotDetected); Plesimonas Shigalloides, PCR Not Detected (NotDetected); Rotavirus A Not Detected (NotDetected); Salmonella, PCR Not Detected (NotDetected); Sapovirus Not Detected (NotDetected); Shiga-like toxin E coli Not Detected (NotDetected); Shigella Enterovasive E coli Not Detected (NotDetected); Vibrio Cholerae Not Detected (NotDetected); Vibrio, PCR Not Detected (NotDetected); Yersinia Entercolitica, PCR Not Detected (NotDetected)
--- NOTE | 2022-02-28 13:58 | PC.NURSE ---
pt placed on bedpan. call light given to pt to call when ready.
--- NOTE | 2022-02-28 14:48 | PC.NURSE ---
IRVIN TOM at speaking with patient
--- NOTE | 2022-02-28 16:00 | PC.NURSE ---
IRVIN TOM speaking with Dr. Hayes at this time
--- NOTE | 2022-02-28 16:05 | PC.NURSE ---
[facility] has been notified by KELSI López of patient admission
[2022-02-28 16:09] LABS: Clostridium Difficile A/B, PCR Detected (NotDetected)
--- NOTE | 2022-02-28 16:09 | PC.NURSE ---
lab called and notified staff that pt's diarrhea panel is positive for cdiff. notified ed physician.
--- NOTE | 2022-02-28 16:12 | PC.NURSE ---
Covid Swab sent to lab
[2022-02-28 16:13] LABS: Influenza A, PCR Not Detected (NotDetected); Influenza B, PCR Not Detected (NotDetected)
--- NOTE | 2022-02-28 16:52 | PC.NURSE ---
Gypsy with [facility] called to inform us they need still need to clean room 202 at this time.
[2022-02-28 17:02] LABS: Coronavirus 19, PCR Detected (NotDetected)
--- NOTE | 2022-02-28 17:49 | PC.NURSE ---
Dr. Hayes paged for ER physician
--- NOTE | 2022-02-28 17:52 | PC.NURSE ---
IRVIN TOM speaking with Dr. Hayes
[2022-03-01 03:40] VITALS: BP 90/54; PULSE 77; RESP 20; TEMP 36.8; O2SAT 97
--- NOTE | 2022-03-01 04:03 | PC.NURSE ---
Pt had multiple liquid BM's this shift, independently uses BSC. Pt voiced c/o of pain in abdomen x1, medicated per MAR. Remains on room air with O2 sats >90%.
[2022-03-01 04:36] VITALS: BMI 19.5
--- NOTE | 2022-03-01 07:11 | P.CONPHA_ITS ---
[facility] Pharmacy VTE Monitoring - Patient Demographics Admission date: 02/28/22 Report Date: 03/01/22 Time: 07:11 Allergies/Adverse Reactions: Patient Allergies nut - unspecified Allergy (Severe, Verified 02/24/22 07:44) Anaphylaxis azithromycin [AZITHROMYCIN] Allergy (Unknown, Verified 02/24/22 07:44) Unknown allergy reaction metronidazole [From FLAGYL] Allergy (Unknown, Verified 02/24/22 07:44) Unknown allergy reaction Height: 1.63 m Weight: 51.766 kg Patient Problems: Current Active Problems (This Medical Record has been edited. Action required.) Gastroenteritis (Acute) Dehydration (Acute) - VTE Risk Labs: VTE Related Lab Results Hgb 11.2 g/dL (12.2-16.2) L 02/28/22 10:44 Hct 33.2 % (37.0-47.0) L 02/28/22 10:44 Plt Count 254 K/mm3 (142-424) 02/28/22 10:44 BUN 9 mg/dl (7-17) 02/28/22 10:44 Creatinine 0.80 mg/dl (0.52-1.04) 02/28/22 10:44 Estimated Creat Clear 66 mL/min (50-200) 02/28/22 10:44 VTE Score: 3 VTE Risk Level: Low Risk - Prophylaxis VTE Prophylaxis Ordered?: Yes Types of VTE Prophylaxis: TEDS Knee High Location of Applied Device: Bilateral Lower Extremeties
--- NOTE | 2022-03-01 07:18 | HMH.PHAINT ---
MEDICATION RECONCILIATION COMPLETED ON PATIENT USING EXTERNAL FILL HISTORY FROM PHARMACY AND NEYMAR REPORT. -ACACIA LOUISD
[2022-03-01 08:00] VITALS: BP 89/49; PULSE 84; RESP 16; TEMP 36.9; O2SAT 95
--- NOTE | 2022-03-01 09:01 | HMH.HP ---
*Admission Date: 02/28/22 *Chief complaint: weakness/diarrhea *History of present illness: this patient presented to the ed -Patient is a 56-year-old female presents the ED today for further evaluation of left lower quadrant abdominal pain for 2 days ago, patient states that she has had extensive watery diarrhea, states that she has a history of C. difficile infection was on antibiotics for over a month for that, and states that it has the smell of her prior C. difficile infections. Denies being on antibiotics recently, states that she also has a history of diverticulosis with diverticulitis, however has not had any intra abdominal operations for this. Patient does not endorse any dysuria, no chest pain, no shortness of breath, nausea but no significant vomiting does endorse a headache. Patient is a 56-year-old female presenting to the ED today for evaluation of left lower quadrant abdominal pain, patient vital signs upon initial evaluation showed tachycardia, fever, we have triggered sepsis protocol for this patient. Patient seen shortly after arrival, with left lower quadrant abdominal pain, history of C. difficile and history of diverticulitis, will perform CT scan, due to contrast shortage will obtain without IV contrast. Will administer 10 mg IV Compazine, 50 mg IV Toradol for pain, headache, and to treat nausea. Have administered 30 mils per KG IV fluid, will closely reassess. Planning to also order CBC CMP urinalysis, C. difficile toxin and GI comprehensive panel for evaluation of alternative cause of diarrhea. Patient is COVID-positive, no respiratory or chest symptoms at this time, COVID does have some risk of diarrhea, however given patient's history warrants further investigation. CT scan with no actionable abnormalities, patient has received 2 L of IV fluids which is near 30 cc/kg for her, and has still remained tachycardic with left lower quadrant pain. Diagnosis likely enterocolitis, could be C. difficile, testing still pending, however given that she is still showing signs of dehydration after 2 L, we have decided to admit for inpatient evaluation further monitoring, will place on maintenance fluids LR at 125, patient admission discussed with Dr. Hayes who is amenable. A.m. labs placed, patient amenable with this plan has remained otherwise stable throughout time in the ED. pt has positive covid-19 testing from earlier and has remained positive - [facility] History I have reviewed the patient's past medical history: Yes Medical History: Reports:: Anxiety, Depression, Hyperlipidemia, Migraine Denies:: Cancer, Diabetes Mellitus Type 1, Diabetes Mellitus Type 2, Internal Pacemaker, MRSA, Seizures *Have you ever received a pneumonia vaccine?: No *Have you received a flu vaccine this season?: No Other Medical History: Reports: Anemia, Arthritis, Hormone Therapy, Hypothyroidism, Sinus Problems, Thyroid Disease, Other. Denies: Blood Transfusion Reaction Laterality Cases: Left: Arthroscopy Shoulder, Bilateral: Other Other Surgeries: Yes: No Previous Surgery, Appendectomy, Cardiac Catheterization, Colonoscopy, Hysterectomy-Partial, Sinus Surgery, Other. No: Pacemaker Amputation: No Fractures: Yes (RT ARM) - *Social History Smoking Status: Former smoker Tobacco Type: cigarettes # Packs/Day (cigarettes): 1 #Yrs smoked (if former smoker): 26 Alcohol Intake: never Alcohol Intake Frequency:: holidays/special occasions only Substance Use Type: denies use *Occupational Status:: employed Housing: house Household Members: none *Travel in the last 8 weeks: None - Psychiatric History Pschychiatric History:: Reports:: Anxiety, Depression Family Hx:: Anemia, Cancer, Coronary Artery Disease, Heart Attack, Hyperlipidemia, Hypertension, Kidney Disease, Stroke, Thyroid Disorder, Alcoholism, Mental illness Review of Systems - Review of Systems Review of systems:: pertinent systems reviewed and negative unless documented below - Constitutional Reports fatigue, R
--- NOTE | 2022-03-01 09:07 | XR_ITS ---
FINAL REPORT CLINICAL HISTORY: sob COMPARISON: February 24, 2022 FINDINGS: A single portable view of the chest was obtained. The heart size and pulmonary vascularity are within normal limits. The mediastinum is within normal limits. There is mild bibasilar atelectasis or scarring. The bony thorax is intact. IMPRESSION: Mild bibasilar atelectasis or scarring. Reviewed, Interpreted and Dictated by Mu Gomez III, MD Transcribed by Ramya Villalba Authenticated and [facility]
[2022-03-01 12:00] VITALS: BP 100/50; PULSE 82; RESP 16; TEMP 36.3; O2SAT 95
--- NOTE | 2022-03-01 14:42 | PC.NURSE ---
Patient passing multiple liquid bowel movements during shift. Patient able to use bedside commode independently. Pain medication given for pain in abdomen. Patient refused remdesivir despite education and stated she wanted ivermectin. Patient refusing duo-nebs but agreeable to inhalers. VS stable and patient remains on room air with oxygenation in 90's. No other complaints noted.
[2022-03-01 16:00] VITALS: BP 107/59; PULSE 88; RESP 17; TEMP 36.8; O2SAT 94
[2022-03-01 20:00] VITALS: BP 114/62; PULSE 93; RESP 20; TEMP 36.8; O2SAT 95
[2022-03-02] VITALS: BP 105/61; PULSE 70; RESP 18; TEMP 36.5; O2SAT 97
[2022-03-02 04:44] VITALS: BP 107/57; PULSE 72; RESP 18; TEMP 36.7; O2SAT 96
[2022-03-02 05:00] VITALS: BMI 19.9
--- NOTE | 2022-03-02 07:04 | PC.NURSE ---
No acute changes. Pt has had multiple liquid BMs t/o night. No complaints voiced to staff. Call light within reach.
[2022-03-02 07:32] LABS: Basophils % 0.3 % (0.1-2.0); Eosinophils # 0.1 K/mm3 (0.0-0.4); Eosinophils % 0.7 % (0.1-12.0); Hematocrit 29.8 % (37.0-47.0); Hemoglobin 9.8 g/dL (12.2-16.2); Lymphocytes # 1.8 K/mm3 (0.7-4.5); Lymphocytes % 17.7 % (10-50); Mean Corpuscular HGB Conc 32.8 g/dL (31.8-35.4); Mean Corpuscular Hemoglobin 27.9 pg (27.0-31.2); Mean Platelet Volume 8.8 fl (7.4-10.4); Monocytes # 0.6 K/mm3 (0.1-1.0); Neutrophils # 7.5 K/mm3 (1.8-7.8); Neutrophils % 75.3 % (37.0-80.0); Platelet Count 292 K/mm3 (142-424); Red Cell Distribution Width 14.3 % (11.5-17.5); White Blood Count 9.9 K/mm3 (4.8-10.8)
[2022-03-02 07:43] VITALS: BP 105/60; PULSE 85; RESP 18; TEMP 37.1; O2SAT 95
[2022-03-02 09:39] LABS: Chloride 105 mmol/L (98-107); Sodium 133 mmol/L (136-145)
[2022-03-02 09:41] LABS: Blood Urea Nitrogen 26 mg/dl (7-17); Creatinine Clearance Estimated 29 mL/min (50-200); Estimated Glomerular Filt Rate 29 ml/min (>60); GFR (African American) 35 ML/MIN (>60)
[2022-03-02 09:42] LABS: Alanine Aminotransferase 14 U/L (12-78); Albumin/Globulin Ratio 0.9 (1.1-1.8); Alkaline Phosphatase 81 U/L (38-126); Anion Gap 10.8 mEq/L (5-15); Aspartate Amino Transferase 23 U/L (14-36); Bilirubin,Total 0.4 mg/dl (0.2-1.3); Calcium 8.5 mg/dl (8.4-10.2); Carbon Dioxide 20 mmol/L (22.0-30.0); Globulin 3.4 g/dL (1.3-3.2); Glucose 108 mg/dl (74-100); Total Protein,Serum 6.4 g/dl (6.3-8.2)
[2022-03-02 09:44] LABS: Potassium 2.8 mmoL/L (3.5-5.1)
--- NOTE | 2022-03-02 10:04 | HMH.ACPN2 ---
Internal Medicine - PN: Subj *Date: 03/02/22 *Time: 18:50 Interval history: 56-year-old female patient sitting up in side of the bed she still reports loose stools, abdominal tenderness, and some shortness of breath during the night. She denies any chest pain. She did refuse her remdesivir. Room air oxygen saturation 96%. [facility] GENERAL STUDIES PROGRAM CHAIR shows no growth at 24 hours. She is receiving p.o. vancomycin and Flagyl IV. Potassium 2.8 will replenish Exam Vital signs and Labs for Last 24 Hours: Temp Pulse Resp BP Pulse Ox 98.8 F 85 18 105/60 L 95 03/02/22 07:43 03/02/22 07:43 03/02/22 07:43 03/02/22 07:43 03/02/22 07:43 Laboratory Results - last 24 hr 02/28/22 13:13: C.diff Toxin Gene (SJ) TNP, C. difficile Toxin A&B TNP 03/02/22 06:49: WBC 9.9, RBC 3.50 L, Hgb 9.8 L, Hct 29.8 L, MCV 85.0, MCH 27.9, MCHC 32.8, RDW 14.3, Plt Count 292, MPV 8.8, Neut % (Auto) 75.3, Lymph % (Auto) 17.7, [place] % (Auto) 6.0, Eos % (Auto) 0.7, Baso % (Auto) 0.3, Neut # (Auto) 7.5, Lymph # (Auto) 1.8, [place] # (Auto) 0.6, Eos # (Auto) 0.1, Baso # (Auto) 0.0 03/02/22 06:49: Sodium 133 L, Potassium 2.8 L* D, Chloride 105, Carbon Dioxide 20 L, Anion Gap 10.8, BUN 26 H D, Creatinine 1.80 H D, Estimated Creat Clear 29, Estimated GFR 29 L, Est GFR ( Amer) 35 L D, Glucose 108 H, Calcium 8.5, Total Bilirubin 0.4, AST 23 D, ALT 14 D, Alkaline Phosphatase 81, Total Protein 6.4, Albumin 3.0 L, Globulin 3.4 H, Albumin/Globulin Ratio 0.9 L I & O for Last 24 hours: Intake & Output 02/27/22 02/28/22 03/01/22 03/02/22 23:59 23:59 23:59 23:59 Intake Total 960 / 1100 620 / 620 Output Total 300 / 300 Balance 960 / 1100 320 / 320 Weight 117 lb 1.6 oz 114 lb 2 oz 116 lb 12.8 oz Microbiology Reports for the Last 24 Hours: Microbiology 02/28/22 10:22 Urine,Clean Catch Urine Culture - Preliminary NO GROWTH AFTER 24 HOURS - Constitutional no acute distress - *Routine HEENT Exam Head: Present: normocephalic Eye: Present: EOMI ENT: Present: mucous membranes moist - *Routine Neck Exam Present: supple, trachea midline. Absent: tracheal deviation - *Routine Respiratory Exam Present: CTA bilaterally. Absent: accessory muscle use - *Routine Cardiovascular Exam Present: RRR - *Routine Abdominal Exam Present: soft, normoactive bowel sounds, tenderness. Absent: firm - *Routine Extremities Exam Present: full ROM, pulses intact. Absent: cyanosis, clubbing, edema - *Routine Skin Exam Present: intact, dry. Absent: cyanosis, erythema - *Routine Neurological Exam Present: alert, oriented X3. Absent: normal reflexes Assessment and Plan (1) Clostridium difficile colitis Status: Acute Category: Medical Code(s): A04.72 - Enterocolitis due to Clostridium difficile, not specified as recurrent (2) SIRS (systemic inflammatory response syndrome) Status: Acute Category: Medical Code(s): R65.10 - Systemic inflammatory response syndrome (SIRS) of non-infectious origin without acute organ dysfunction (3) COVID-19 Status: Acute Category: Medical Code(s): U07.1 - COVID-19 - Assessment and plan all Dx Assessment and Plan for all problems:: Rounded with Dr. Smith, all orders per Dr. Smith: 1. Replace potassium 2. Continue current medical regimen
[2022-03-02 10:48] VITALS: BMI 19.9
[2022-03-02 11:11] VITALS: BP 119/66; PULSE 87; RESP 17; TEMP 36.9; O2SAT 97
--- NOTE | 2022-03-02 12:34 | DIET.NUTRFU ---
Rounded with provider this morning, discussed upgrading to full liquids if patient was tolerating it. Spoke to patient and she would like to try full liquids tonight for dinner- tomato soup/vanilla pudding and agreed to try to boost clear for extra calories. Patient continues to have loose bowls and does not want milk to drink or ice cream and dislikes soda.
--- NOTE | 2022-03-02 14:17 | PC.NURSE ---
Pt is alert and oriented. She has used the bsc multiple times today with watery stools. Occasional incontinence noted. Bed has been changed several times this shift thus far. She also vomited a small amount of yellow liquid after attempting to eat lunch. She is currently resting in bed watching TV.
[2022-03-02 14:55] VITALS: BP 118/82; PULSE 91; RESP 17; TEMP 37; O2SAT 96
--- NOTE | 2022-03-02 17:35 | PC.NURSE ---
Pt is still reporting some nausea but states she is tolerating her full liquid diet.
[2022-03-02 20:00] VITALS: BP 138/79; PULSE 91; RESP 18; TEMP 36.6; O2SAT 96
[2022-03-03] VITALS (9 sets, daily range): BP systolic 106–148; BP diastolic 59–92; PULSE 72–111; RESP 16–20; TEMP 36.7–38.4; O2SAT 93–98; BMI 19.8
--- NOTE | 2022-03-03 06:21 | PC.NURSE ---
Pt has rested throughout shift with no new complaints. Pt complained of pain one time, treated per nov. Pt O2 sat 96% on room air. Pt is independent in room and gets up to bedside. Call light working and in reach.
[2022-03-03 07:43] LABS: Chloride 109 mmol/L (98-107); Potassium 3.1 mmoL/L (3.5-5.1); Sodium 135 mmol/L (136-145)
[2022-03-03 07:45] LABS: Blood Urea Nitrogen 17 mg/dl (7-17); Creatinine Clearance Estimated 33 mL/min (50-200); Estimated Glomerular Filt Rate 33 ml/min (>60); GFR (African American) 40 ML/MIN (>60)
[2022-03-03 07:46] LABS: Alanine Aminotransferase 16 U/L (12-78); Albumin Level 2.9 g/dl (3.5-5.0); Albumin/Globulin Ratio 0.9 (1.1-1.8); Alkaline Phosphatase 105 U/L (38-126); Anion Gap 11.1 mEq/L (5-15); Aspartate Amino Transferase 40 U/L (14-36); Bilirubin,Total 0.3 mg/dl (0.2-1.3); Calcium 8.4 mg/dl (8.4-10.2); Carbon Dioxide 18 mmol/L (22.0-30.0); Globulin 3.3 g/dL (1.3-3.2); Glucose 98 mg/dl (74-100); Total Protein,Serum 6.2 g/dl (6.3-8.2)
[2022-03-03 07:58] LABS: Basophils % 0.6 % (0.1-2.0); Eosinophils # 0.1 K/mm3 (0.0-0.4); Eosinophils % 0.9 % (0.1-12.0); Hematocrit 29.6 % (37.0-47.0); Lymphocytes # 0.9 K/mm3 (0.7-4.5); Lymphocytes % 15.4 % (10-50); Mean Corpuscular HGB Conc 33.9 g/dL (31.8-35.4); Mean Corpuscular Hemoglobin 27.7 pg (27.0-31.2); Mean Corpuscular Volume 81.6 fl (81-99); Mean Platelet Volume 8.4 fl (7.4-10.4); Monocytes # 0.6 K/mm3 (0.1-1.0); Monocytes % 9.4 % (1.7-9.3); Neutrophils # 4.5 K/mm3 (1.8-7.8); Neutrophils % 73.8 % (37.0-80.0); Platelet Count 340 K/mm3 (142-424); Red Blood Count 3.63 M/mm3 (4.20-5.40); Red Cell Distribution Width 14.4 % (11.5-17.5); White Blood Count 6.1 K/mm3 (4.8-10.8)
--- NOTE | 2022-03-03 08:06 | HMH.ACPN ---
Internal Medicine - PN: Subj *Date: 03/03/22 *Time: 08:06 Exam Vital signs and Labs for Last 24 Hours: Temp Pulse Resp BP Pulse Ox 98.6 F 111 H 18 137/61 95 03/03/22 07:39 03/03/22 07:39 03/03/22 07:39 03/03/22 07:39 03/03/22 07:39 Laboratory Results - last 24 hr 03/02/22 06:49: Sodium 133 L, Potassium 2.8 L* D, Chloride 105, Carbon Dioxide 20 L, Anion Gap 10.8, BUN 26 H D, Creatinine 1.80 H D, Estimated Creat Clear 29, Estimated GFR 29 L, Est GFR ( Amer) 35 L D, Glucose 108 H, Calcium 8.5, Total Bilirubin 0.4, AST 23 D, ALT 14 D, Alkaline Phosphatase 81, Total Protein 6.4, Albumin 3.0 L, Globulin 3.4 H, Albumin/Globulin Ratio 0.9 L 03/03/22 07:02: WBC 6.1 D, RBC 3.63 L, Hgb 10.0 L, Hct 29.6 L, MCV 81.6, MCH 27.7, MCHC 33.9, RDW 14.4, Plt Count 340, MPV 8.4, Neut % (Auto) 73.8, Lymph % (Auto) 15.4, [place] % (Auto) 9.4 H, Eos % (Auto) 0.9, Baso % (Auto) 0.6, Neut # (Auto) 4.5, Lymph # (Auto) 0.9, [place] # (Auto) 0.6, Eos # (Auto) 0.1, Baso # (Auto) 0.0 03/03/22 07:02: Sodium 135 L, Potassium 3.1 L, Chloride 109 H, Carbon Dioxide 18 L, Anion Gap 11.1, BUN 17 D, Creatinine 1.60 H, Estimated Creat Clear 33, Estimated GFR 33 L, Est GFR ( Amer) 40 L, Glucose 98, Calcium 8.4, Total Bilirubin 0.3, AST 40 H D, ALT 16, Alkaline Phosphatase 105, Total Protein 6.2 L, Albumin 2.9 L, Globulin 3.3 H, Albumin/Globulin Ratio 0.9 L I & O for Last 24 hours: Intake & Output 02/28/22 03/01/22 03/02/22 03/03/22 23:59 23:59 23:59 23:59 Intake Total 960 / 1100 2220 / 2220 360 / 360 Output Total 300 / 300 Balance 960 / 1100 1920 / 1920 360 / 360 Weight 53.116 kg 51.766 kg 52.9 kg 52.5 kg Microbiology Reports for the Last 24 Hours: Microbiology 02/28/22 10:22 Urine,Clean Catch Urine Culture - Final NO GROWTH AFTER 48 HOURS Assessment and Plan (1) Clostridium difficile colitis Status: Acute Category: Medical Code(s): A04.72 - Enterocolitis due to Clostridium difficile, not specified as recurrent (2) SIRS (systemic inflammatory response syndrome) Status: Acute Category: Medical Code(s): R65.10 - Systemic inflammatory response syndrome (SIRS) of non-infectious origin without acute organ dysfunction (3) COVID-19 Status: Acute Category: Medical Code(s): U07.1 - COVID-19 The patient's infection will respond to the chosen ABx?: Yes Is the patient receiving the right drug, dose, and route?: Yes Could a more targeted ABx be ordered?: No (PATIENT POSITIVE FOR C. DIFF. CONTINUE VANCOMYCIN.)
--- NOTE | 2022-03-03 08:39 | PC.NURSE ---
2168 cleared off of iv pump this am
--- NOTE | 2022-03-03 09:20 | HMH.ACPN2 ---
Internal Medicine - PN: Subj *Date: 03/03/22 *Time: 12:16 Interval history: 6-year-old female patient resting quietly in bed she reports she is feeling better today than yesterday with fever loose bowel movements. She does report emesis 30 minutes after Vanco administration yesterday and will order antiemetic with future doses. Exam Vital signs and Labs for Last 24 Hours: Temp Pulse Resp BP Pulse Ox 98.6 F 110 H 18 137/61 95 03/03/22 07:39 03/03/22 08:00 03/03/22 07:39 03/03/22 07:39 03/03/22 07:39 Laboratory Results - last 24 hr 03/02/22 06:49: Sodium 133 L, Potassium 2.8 L* D, Chloride 105, Carbon Dioxide 20 L, Anion Gap 10.8, BUN 26 H D, Creatinine 1.80 H D, Estimated Creat Clear 29, Estimated GFR 29 L, Est GFR ( Amer) 35 L D, Glucose 108 H, Calcium 8.5, Total Bilirubin 0.4, AST 23 D, ALT 14 D, Alkaline Phosphatase 81, Total Protein 6.4, Albumin 3.0 L, Globulin 3.4 H, Albumin/Globulin Ratio 0.9 L 03/03/22 07:02: WBC 6.1 D, RBC 3.63 L, Hgb 10.0 L, Hct 29.6 L, MCV 81.6, MCH 27.7, MCHC 33.9, RDW 14.4, Plt Count 340, MPV 8.4, Neut % (Auto) 73.8, Lymph % (Auto) 15.4, [place] % (Auto) 9.4 H, Eos % (Auto) 0.9, Baso % (Auto) 0.6, Neut # (Auto) 4.5, Lymph # (Auto) 0.9, [place] # (Auto) 0.6, Eos # (Auto) 0.1, Baso # (Auto) 0.0 03/03/22 07:02: Sodium 135 L, Potassium 3.1 L, Chloride 109 H, Carbon Dioxide 18 L, Anion Gap 11.1, BUN 17 D, Creatinine 1.60 H, Estimated Creat Clear 33, Estimated GFR 33 L, Est GFR ( Amer) 40 L, Glucose 98, Calcium 8.4, Total Bilirubin 0.3, AST 40 H D, ALT 16, Alkaline Phosphatase 105, Total Protein 6.2 L, Albumin 2.9 L, Globulin 3.3 H, Albumin/Globulin Ratio 0.9 L I & O for Last 24 hours: Intake & Output 02/28/22 03/01/22 03/02/22 03/03/22 23:59 23:59 23:59 23:59 Intake Total 960 / 1100 2220 / 2220 2528 / 2528 Output Total 300 / 300 Balance 960 / 1100 1920 / 1920 2528 / 2528 Weight 117 lb 1.6 oz 114 lb 2 oz 116 lb 9.992 oz 115 lb 11.883 oz Microbiology Reports for the Last 24 Hours: Microbiology 02/28/22 10:22 Urine,Clean Catch Urine Culture - Final NO GROWTH AFTER 48 HOURS - Constitutional no acute distress, cachectic - *Routine HEENT Exam Head: Present: normocephalic Eye: Present: EOMI ENT: Present: mucous membranes moist - *Routine Neck Exam Present: trachea midline. Absent: tracheal deviation - *Routine Respiratory Exam Present: CTA bilaterally. Absent: accessory muscle use - *Routine Cardiovascular Exam Present: RRR - *Routine Abdominal Exam Present: soft, normoactive bowel sounds. Absent: tenderness, firm - *Routine Extremities Exam Present: full ROM, pulses intact. Absent: cyanosis, clubbing, edema - *Routine Skin Exam Present: intact, dry. Absent: cyanosis, erythema - *Routine Neurological Exam Present: alert, oriented X3. Absent: motor deficit - Routine Psychiatric Exam Present: normal affect, normal thought process. Absent: visual hallucinations Assessment and Plan (1) Clostridium difficile colitis Status: Acute Category: Medical Code(s): A04.72 - Enterocolitis due to Clostridium difficile, not specified as recurrent (2) SIRS (systemic inflammatory response syndrome) Status: Acute Category: Medical Code(s): R65.10 - Systemic inflammatory response syndrome (SIRS) of non-infectious origin without acute organ dysfunction (3) COVID-19 Status: Acute Category: Medical Code(s): U07.1 - COVID-19 (4) Protein calorie malnutrition Status: Acute Category: Medical Code(s): E46 - Unspecified protein-calorie malnutrition - Assessment and plan all Dx Assessment and Plan for all problems:: Rounded with Dr. Smith, all orders per Dr. Smith: 1. Continue thank Comycin p.o. and Flagyl IV line 2. Replenish potassium 3. Probable discharge tomorrow
--- NOTE | 2022-03-03 15:34 | PC.NURSE ---
Pt has been alert and oriented this shift. She is still having nausea, zofran administered per mar with relief noted on reassessment. She has used her BSC independently. She remains on RA with O2 sats measuring >92%. She's been afebrile this shift. Appetite is poor. No other complaints reported.
--- NOTE | 2022-03-03 23:00 | PC.NURSE ---
This RN entered patients room at 22:50, patient was very disoriented, had ripped her IV tubing from the pump, had removed her gown, and her bedside commode was dumped on the floor. Helped patient back to bed, asked all orientation questions, patient could state name, , and place. Speech was very slurred would only open her eyes if asked too. Purse was on bedside table with a prescription bottle on top reading Hydrocodone. When asked if patient had taken any other medication other than what I administered at beginning of shift, patient responded with No. Called MD consumer relations specialist to notify status change. Md stated to lock medication up. Notified house. Xavier talked with patient and explained the need to lock up any medication she has in her purse. Patient was understanding and removed all medication in her purse. 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
[2022-03-04] VITALS: BP 138/71; PULSE 85; RESP 17; TEMP 37.2; O2SAT 95
[2022-03-04 04:00] VITALS: BP 133/69; PULSE 96; RESP 20; TEMP 36.8; O2SAT 96
[2022-03-04 05:00] VITALS: BMI 20.2
--- NOTE | 2022-03-04 05:41 | PC.NURSE ---
Patient has rested intermittently t/o shift. Pt has had multiple loose BM's this shift. Reported nausea x1 this shift, admin meds per MAR. Bed alarm on for safety. Remains on room air with o2 sats 95-98%.
[2022-03-04 07:07] LABS: Basophils # 0.2 K/mm3 (0-0.2); Basophils % 2.5 % (0.1-2.0); Eosinophils % 0.3 % (0.1-12.0); Hematocrit 30.4 % (37.0-47.0); Hemoglobin 9.9 g/dL (12.2-16.2); Lymphocytes # 1.7 K/mm3 (0.7-4.5); Lymphocytes % 27.4 % (10-50); Mean Corpuscular HGB Conc 32.7 g/dL (31.8-35.4); Mean Corpuscular Hemoglobin 27.4 pg (27.0-31.2); Mean Corpuscular Volume 83.7 fl (81-99); Mean Platelet Volume 8.2 fl (7.4-10.4); Monocytes # 0.7 K/mm3 (0.1-1.0); Monocytes % 11.8 % (1.7-9.3); Neutrophils # 3.6 K/mm3 (1.8-7.8); Platelet Count 424 K/mm3 (142-424); Red Blood Count 3.62 M/mm3 (4.20-5.40); Red Cell Distribution Width 14.5 % (11.5-17.5); White Blood Count 6.1 K/mm3 (4.8-10.8)
[2022-03-04 07:12] LABS: Chloride 109 mmol/L (98-107)
[2022-03-04 07:13] LABS: Sodium 137 mmol/L (136-145)
[2022-03-04 07:15] LABS: Alanine Aminotransferase 14 U/L (12-78); Alkaline Phosphatase 92 U/L (38-126); Anion Gap 9.8 mEq/L (5-15); Aspartate Amino Transferase 32 U/L (14-36); Bilirubin,Total 0.3 mg/dl (0.2-1.3); Blood Urea Nitrogen 13 mg/dl (7-17); Carbon Dioxide 21 mmol/L (22.0-30.0); Creatinine Clearance Estimated 35 mL/min (50-200); Estimated Glomerular Filt Rate 36 ml/min (>60); GFR (African American) 43 ML/MIN (>60)
[2022-03-04 07:16] LABS: Albumin Level 2.8 g/dl (3.5-5.0); Albumin/Globulin Ratio 0.8 (1.1-1.8); Calcium 8.1 mg/dl (8.4-10.2); Globulin 3.3 g/dL (1.3-3.2); Glucose 103 mg/dl (74-100); Total Protein,Serum 6.1 g/dl (6.3-8.2)
[2022-03-04 07:23] LABS: Potassium 2.8 mmoL/L (3.5-5.1)
[2022-03-04 08:00] VITALS: BP 167/85; PULSE 101; RESP 14; TEMP 37; O2SAT 93
--- NOTE | 2022-03-04 09:29 | HMH.ACPN ---
Internal Medicine - PN: Subj *Date: 03/04/22 *Time: 09:29 Exam Vital signs and Labs for Last 24 Hours: Temp Pulse Resp BP Pulse Ox 98.6 F 101 H 14 167/85 H 93 L 03/04/22 08:00 03/04/22 08:00 03/04/22 08:00 03/04/22 08:00 03/04/22 08:00 Laboratory Results - last 24 hr 03/04/22 06:55: WBC 6.1, RBC 3.62 L, Hgb 9.9 L, Hct 30.4 L, MCV 83.7, MCH 27.4, MCHC 32.7, RDW 14.5, Plt Count 424, MPV 8.2, Neut % (Auto) 58.0, Lymph % (Auto) 27.4, [place] % (Auto) 11.8 H, Eos % (Auto) 0.3, Baso % (Auto) 2.5 H, Neut # (Auto) 3.6, Lymph # (Auto) 1.7, [place] # (Auto) 0.7, Eos # (Auto) 0.0, Baso # (Auto) 0.2 03/04/22 06:55: Sodium 137, Potassium 2.8 L*, Chloride 109 H, Carbon Dioxide 21 L, Anion Gap 9.8, BUN 13, Creatinine 1.50 H, Estimated Creat Clear 35, Estimated GFR 36 L, Est GFR ( Amer) 43 L, Glucose 103 H, Calcium 8.1 L, Total Bilirubin 0.3, AST 32, ALT 14, Alkaline Phosphatase 92, Total Protein 6.1 L, Albumin 2.8 L, Globulin 3.3 H, Albumin/Globulin Ratio 0.8 L I & O for Last 24 hours: Intake & Output 03/01/22 03/02/22 03/03/22 03/04/22 23:59 23:59 23:59 23:59 Intake Total 960 / 1100 2220 / 2220 4182 / 4182 1033 / 1033 Output Total 300 / 300 Balance 960 / 1100 1920 / 1920 4182 / 4182 1033 / 1033 Weight 51.766 kg 52.9 kg 52.5 kg 53.63 kg Assessment and Plan (1) Clostridium difficile colitis Status: Acute Category: Medical Code(s): A04.72 - Enterocolitis due to Clostridium difficile, not specified as recurrent (2) SIRS (systemic inflammatory response syndrome) Status: Acute Category: Medical Code(s): R65.10 - Systemic inflammatory response syndrome (SIRS) of non-infectious origin without acute organ dysfunction (3) COVID-19 Status: Acute Category: Medical Code(s): U07.1 - COVID-19 (4) Protein calorie malnutrition Status: Acute Category: Medical Code(s): E46 - Unspecified protein-calorie malnutrition The patient's infection will respond to the chosen ABx?: Yes Is the patient receiving the right drug, dose, and route?: Yes Could a more targeted ABx be ordered?: No (C DIFF +, CONT. VANCO AND FLAGYL)
--- NOTE | 2022-03-04 11:06 | PC.NURSE ---
MADE AWARE OF CRITICAL K. K ORDERED PER NOV.
--- NOTE | 2022-03-04 11:12 | CARE MANAGER ---
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
--- NOTE | 2022-03-04 11:42 | P.PN_ITS ---
Internal Medicine - PN: Subj *Date: 03/04/22 *Time: 11:42 Interval history: 6-year-old female patient lying in bed resting quietly with eyes closed, awakens to verbal stimuli. She reports she feels worse today than yesterday with increased abdominal tenderness and still large amounts of loose watery diarrhea. Medication will be delivered to clinic pharmacy today and we will attempt to obtain medicine and start dosing today Exam Vital signs and Labs for Last 24 Hours: Temp Pulse Resp BP Pulse Ox 98.6 F 101 H 14 167/85 H 93 L 03/04/22 08:00 03/04/22 08:00 03/04/22 08:00 03/04/22 08:00 03/04/22 08:00 Laboratory Results - last 24 hr 03/04/22 06:55: WBC 6.1, RBC 3.62 L, Hgb 9.9 L, Hct 30.4 L, MCV 83.7, MCH 27.4, MCHC 32.7, RDW 14.5, Plt Count 424, MPV 8.2, Neut % (Auto) 58.0, Lymph % (Auto) 27.4, [place] % (Auto) 11.8 H, Eos % (Auto) 0.3, Baso % (Auto) 2.5 H, Neut # (Auto) 3.6, Lymph # (Auto) 1.7, [place] # (Auto) 0.7, Eos # (Auto) 0.0, Baso # (Auto) 0.2 03/04/22 06:55: Sodium 137, Potassium 2.8 L*, Chloride 109 H, Carbon Dioxide 21 L, Anion Gap 9.8, BUN 13, Creatinine 1.50 H, Estimated Creat Clear 35, Estimated GFR 36 L, Est GFR ( Amer) 43 L, Glucose 103 H, Calcium 8.1 L, Total Bilirubin 0.3, AST 32, ALT 14, Alkaline Phosphatase 92, Total Protein 6.1 L, Albumin 2.8 L, Globulin 3.3 H, Albumin/Globulin Ratio 0.8 L I & O for Last 24 hours: Intake & Output 03/01/22 03/02/22 03/03/22 03/04/22 23:59 23:59 23:59 23:59 Intake Total 960 / 1100 2220 / 2220 4182 / 4182 1033 / 1033 Output Total 300 / 300 Balance 960 / 1100 1920 / 1920 4182 / 4182 1033 / 1033 Weight 114 lb 2 oz 116 lb 9.992 oz 115 lb 11.883 oz 118 lb 3.742 oz - Constitutional mild distress, thin - *Routine HEENT Exam Head: Present: normocephalic Eye: Present: EOMI ENT: Present: mucous membranes moist - *Routine Neck Exam Present: trachea midline. Absent: tracheal deviation - *Routine Respiratory Exam Present: CTA bilaterally. Absent: accessory muscle use - *Routine Cardiovascular Exam Present: RRR - *Routine Abdominal Exam Present: soft, normoactive bowel sounds, tenderness. Absent: firm - *Routine Extremities Exam Present: full ROM, pulses intact. Absent: cyanosis, clubbing, edema - *Routine Skin Exam Present: intact, dry. Absent: cyanosis, erythema - *Routine Neurological Exam Present: alert, oriented X3. Absent: motor deficit - Routine Psychiatric Exam Present: normal affect, normal thought process. Absent: auditory hallucinations Assessment and Plan (1) Clostridium difficile colitis Status: Acute Category: Medical Code(s): A04.72 - Enterocolitis due to Clostridium difficile, not specified as recurrent (2) SIRS (systemic inflammatory response syndrome) Status: Acute Category: Medical Code(s): R65.10 - Systemic inflammatory response syndrome (SIRS) of non-infectious origin without acute organ dysfunction (3) COVID-19 Status: Acute Category: Medical Code(s): U07.1 - COVID-19 (4) Protein calorie malnutrition Status: Acute Category: Medical Code(s): E46 - Unspecified protein-calorie malnutrition - Assessment and plan all Dx Assessment and Plan for all problems:: Rounded with Dr. Polanco, all orders per Dr. Polanco: 1. We will see today, possible discharge home tomorrow 2. Start medications today
[2022-03-04 11:43] VITALS: BP 170/86; PULSE 104; RESP 14; TEMP 37.1; O2SAT 94
[2022-03-04 15:44] VITALS: BP 142/75; PULSE 96; RESP 15; TEMP 37.1; O2SAT 97
--- NOTE | 2022-03-04 17:57 | PC.NURSE ---
Pt has continued to have multiple loose watery bowel movements this shift. IVF's continue per mar. Pt refused to take shower this shift. CB in reach. Pt continues to be weak. VSS. NO c/o's at this time. Pt states she just wants to sleep. Mx continues.
[2022-03-04 20:00] VITALS: BP 163/87; PULSE 94; RESP 18; TEMP 37.1; O2SAT 95; O2SAT 97
[2022-03-05] VITALS (7 sets, daily range): BP systolic 136–155; BP diastolic 75–90; PULSE 77–97; RESP 15–20; TEMP 34.6–37.2; O2SAT 95–98
--- NOTE | 2022-03-05 04:51 | PC.NURSE ---
no changes from previous assessment, pt slept most of shift, pt with productive cough at times, lung sounds diminished, pt with frequent diarrhea still, VSS, pt complaint of abd pain x1 and medicated with prn pain med, no other issues noted
[2022-03-05 07:01] LABS: Basophils # 0.1 K/mm3 (0-0.2); Basophils % 1.2 % (0.1-2.0); Eosinophils # 0.1 K/mm3 (0.0-0.4); Eosinophils % 1.7 % (0.1-12.0); Hemoglobin 9.7 g/dL (12.2-16.2); Lymphocytes # 1.5 K/mm3 (0.7-4.5); Lymphocytes % 21.9 % (10-50); Mean Corpuscular HGB Conc 33.5 g/dL (31.8-35.4); Mean Corpuscular Volume 83.5 fl (81-99); Monocytes # 0.7 K/mm3 (0.1-1.0); Monocytes % 10.1 % (1.7-9.3); Neutrophils # 4.5 K/mm3 (1.8-7.8); Neutrophils % 65.1 % (37.0-80.0); Platelet Count 450 K/mm3 (142-424); Red Blood Count 3.48 M/mm3 (4.20-5.40); Red Cell Distribution Width 14.5 % (11.5-17.5); White Blood Count 6.9 K/mm3 (4.8-10.8)
[2022-03-05 09:23] LABS: Chloride 109 mmol/L (98-107); Sodium 137 mmol/L (136-145)
[2022-03-05 09:26] LABS: Anion Gap 8.9 mEq/L (5-15); Blood Urea Nitrogen 11 mg/dl (7-17); Carbon Dioxide 22 mmol/L (22.0-30.0); Creatinine Clearance Estimated 41 mL/min (50-200); Estimated Glomerular Filt Rate 42 ml/min (>60); GFR (African American) 51 ML/MIN (>60)
[2022-03-05 09:27] LABS: Calcium 8.2 mg/dl (8.4-10.2); Glucose 85 mg/dl (74-100)
[2022-03-05 09:31] LABS: Potassium 2.9 mmoL/L (3.5-5.1)
--- NOTE | 2022-03-05 09:58 | HMH.ACPN2 ---
Internal Medicine - PN: Subj *Date: 03/05/22 *Time: 17:14 Interval history: 56-year-old female patient with inquiring, patient reports she feels better today than yesterday but still with multiple loose stools during the night and this morning. She states she is tolerating a regular diet with only nausea occasionally. She did start her routine of Dificid. Plan to discharge in a.m. Exam Vital signs and Labs for Last 24 Hours: Temp Pulse Resp BP Pulse Ox 98.6 F 92 H 15 149/82 H 96 03/05/22 08:00 03/05/22 08:00 03/05/22 08:00 03/05/22 08:00 03/05/22 08:00 Laboratory Results - last 24 hr 03/05/22 06:22: WBC 6.9, RBC 3.48 L, Hgb 9.7 L, Hct 29.0 L, MCV 83.5, MCH 28.0, MCHC 33.5, RDW 14.5, Plt Count 450 H, MPV 8.0, Neut % (Auto) 65.1, Lymph % (Auto) 21.9, [place] % (Auto) 10.1 H, Eos % (Auto) 1.7, Baso % (Auto) 1.2, Neut # (Auto) 4.5, Lymph # (Auto) 1.5, [place] # (Auto) 0.7, Eos # (Auto) 0.1, Baso # (Auto) 0.1 03/05/22 06:27: Sodium 137, Potassium 2.9 L*, Chloride 109 H, Carbon Dioxide 22, Anion Gap 8.9, BUN 11, Creatinine 1.30 H, Estimated Creat Clear 41, Estimated GFR 42 L, Est GFR ( Amer) 51 L, Glucose 85, Calcium 8.2 L I & O for Last 24 hours: Intake & Output 03/02/22 03/03/22 03/04/22 03/05/22 23:59 23:59 23:59 23:59 Intake Total 2220 / 2220 4182 / 4182 1233 / 1233 1615 / 1615 Output Total 300 / 300 Balance 1920 / 1920 4182 / 4182 1233 / 1233 1615 / 1615 Weight 116 lb 9.992 oz 115 lb 11.883 oz 118 lb 3.742 oz 117 lb 6 oz - Constitutional no acute distress, thin - *Routine HEENT Exam Head: Present: normocephalic Eye: Present: EOMI ENT: Present: mucous membranes moist - *Routine Neck Exam Present: trachea midline. Absent: tracheal deviation - *Routine Respiratory Exam Present: CTA bilaterally. Absent: accessory muscle use (Patient) - *Routine Cardiovascular Exam Present: RRR - *Routine Abdominal Exam Present: soft, normoactive bowel sounds, tenderness. Absent: distended - *Routine Extremities Exam Present: full ROM, pulses intact. Absent: cyanosis, clubbing, edema - *Routine Skin Exam Present: intact, dry. Absent: cyanosis, erythema - *Routine Neurological Exam Present: alert, oriented X3. Absent: motor deficit, altered mental status - Routine Psychiatric Exam Present: normal affect, normal thought process. Absent: auditory hallucinations Assessment and Plan (1) Clostridium difficile colitis Status: Acute Category: Medical Code(s): A04.72 - Enterocolitis due to Clostridium difficile, not specified as recurrent (2) SIRS (systemic inflammatory response syndrome) Status: Acute Category: Medical Code(s): R65.10 - Systemic inflammatory response syndrome (SIRS) of non-infectious origin without acute organ dysfunction (3) COVID-19 Status: Acute Category: Medical Code(s): U07.1 - COVID-19 (4) Protein calorie malnutrition Status: Acute Category: Medical Code(s): E46 - Unspecified protein-calorie malnutrition - Assessment and plan all Dx Assessment and Plan for all problems:: Pain, all orders per Dr. Smith: 1. Continue Dificid 2. Plan for discharge in a.m.
--- NOTE | 2022-03-05 10:15 | PC.NURSE ---
Notified Belinda Plaza APRN of K of 2.9, NNO.
[2022-03-06] VITALS: BP 144/78; PULSE 77; RESP 16; TEMP 36.8; O2SAT 96
[2022-03-06 04:00] VITALS: BP 144/94; PULSE 85; RESP 17; TEMP 36.9; O2SAT 97
[2022-03-06 05:00] VITALS: BMI 20.4
[2022-03-06 07:51] LABS: Basophils # 0.1 K/mm3 (0-0.2); Basophils % 0.9 % (0.1-2.0); Eosinophils # 0.2 K/mm3 (0.0-0.4); Eosinophils % 2.6 % (0.1-12.0); Hematocrit 29.2 % (37.0-47.0); Hemoglobin 9.7 g/dL (12.2-16.2); Lymphocytes # 1.7 K/mm3 (0.7-4.5); Lymphocytes % 24.9 % (10-50); Mean Corpuscular HGB Conc 33.1 g/dL (31.8-35.4); Mean Corpuscular Hemoglobin 27.5 pg (27.0-31.2); Mean Platelet Volume 8.2 fl (7.4-10.4); Monocytes # 0.5 K/mm3 (0.1-1.0); Monocytes % 8.1 % (1.7-9.3); Neutrophils # 4.3 K/mm3 (1.8-7.8); Neutrophils % 63.6 % (37.0-80.0); Platelet Count 494 K/mm3 (142-424); Red Blood Count 3.52 M/mm3 (4.20-5.40); Red Cell Distribution Width 14.6 % (11.5-17.5); White Blood Count 6.7 K/mm3 (4.8-10.8)
[2022-03-06 07:55] VITALS: BP 147/80; PULSE 98; RESP 18; TEMP 36.5; O2SAT 96
[2022-03-06 07:55] LABS: Chloride 108 mmol/L (98-107); Sodium 136 mmol/L (136-145)
[2022-03-06 07:56] LABS: Potassium 3.1 mmoL/L (3.5-5.1)
[2022-03-06 07:59] LABS: Anion Gap 7.1 mEq/L (5-15); Blood Urea Nitrogen 7 mg/dl (7-17); Calcium 8.1 mg/dl (8.4-10.2); Carbon Dioxide 24 mmol/L (22.0-30.0); Creatinine Clearance Estimated 45 mL/min (50-200); Estimated Glomerular Filt Rate 46 ml/min (>60); GFR (African American) 56 ML/MIN (>60); Glucose 82 mg/dl (74-100)
--- NOTE | 2022-03-06 09:31 | HMH.DCSUM ---
General - General Admission date:: 02/28/22 Discharge date: 03/06/22 HPI HPI: this patient presented to the ed -Patient is a 56-year-old female presents the ED today for further evaluation of left lower quadrant abdominal pain for 2 days ago, patient states that she has had extensive watery diarrhea, states that she has a history of C. difficile infection was on antibiotics for over a month for that, and states that it has the smell of her prior C. difficile infections. Denies being on antibiotics recently, states that she also has a history of diverticulosis with diverticulitis, however has not had any intra abdominal operations for this. Patient does not endorse any dysuria, no chest pain, no shortness of breath, nausea but no significant vomiting does endorse a headache. Patient is a 56-year-old female presenting to the ED today for evaluation of left lower quadrant abdominal pain, patient vital signs upon initial evaluation showed tachycardia, fever, we have triggered sepsis protocol for this patient. Patient seen shortly after arrival, with left lower quadrant abdominal pain, history of C. difficile and history of diverticulitis, will perform CT scan, due to contrast shortage will obtain without IV contrast. Will administer 10 mg IV Compazine, 50 mg IV Toradol for pain, headache, and to treat nausea. Have administered 30 mils per KG IV fluid, will closely reassess. Planning to also order CBC CMP urinalysis, C. difficile toxin and GI comprehensive panel for evaluation of alternative cause of diarrhea. Patient is COVID-positive, no respiratory or chest symptoms at this time, COVID does have some risk of diarrhea, however given patient's history warrants further investigation. CT scan with no actionable abnormalities, patient has received 2 L of IV fluids which is near 30 cc/kg for her, and has still remained tachycardic with left lower quadrant pain. Diagnosis likely enterocolitis, could be C. difficile, testing still pending, however given that she is still showing signs of dehydration after 2 L, we have decided to admit for inpatient evaluation further monitoring, will place on maintenance fluids LR at 125, patient admission discussed with Dr. Hayes who is amenable. A.m. labs placed, patient amenable with this plan has remained otherwise stable throughout time in the ED. pt has positive covid-19 testing from earlier and has remained positive - Hospital Course Hospital Course: pt has slowly improved with less diarrhea and increased po intake during admit - pt has been on po vancomycin and iv flagyl with ivf - has ongoing sx and was converted to dificid- pt has required kcl supplement po and iv and renal function and k have slowly improved - pt has did ok with stable cxr and o2 sat has been ok despite covid-19 positive status - pulse and blood pressure have improved since admit - will follow as op and monitor labs Objective Vital signs: Temp Pulse Resp BP Pulse Ox 97.7 F 98 H 18 147/80 H 96 03/06/22 07:55 03/06/22 07:55 03/06/22 07:55 03/06/22 07:55 03/06/22 07:55 no acute distress, thin, cooperative - *Routine HEENT Exam Head: Present: normocephalic Eye: Present: EOMI, PERRL ENT: Present: mucous membranes moist - *Routine Neck Exam Absent: JVD - *Routine Respiratory Exam Present: CTA bilaterally. Absent: respiratory distress - *Routine Cardiovascular Exam Present: RRR - *Routine Abdominal Exam Present: soft - *Routine Extremities Exam Absent: calf tenderness - *Routine Skin Exam Present: intact - *Routine Neurological Exam Present: alert, CN II-XII intact - Routine Psychiatric Exam Present: normal affect Results Labs on day of discharge: Labs from last 24 hours 03/06/22 03/06/22 03/05/22 07:21 07:21 06:27 WBC 6.7 RBC 3.52 L Hgb 9.7 L Hct 29.2 L MCV 83.0 MCH 27.5 MCHC 33.1 RDW 14.6 Plt Count 494 H MPV 8.2 Neut % (Auto) 63.6 Lymph
--- NOTE | 2022-03-06 12:41 | PC.NURSE ---
pt is being discharged via private car. took all belongings with her including medications in drawer, bin and purse @ bedside. Saline lock discontinued. pt voiced understanding of all dc education and follow up appts. nursing to wheel out pt
--- NOTE | 2022-03-09 14:49 | CARE MANAGER ---
Contacted patient related to discharge from hospital. Patient states that she is doing okay. She is drinking and still urinating, but not as much as she was. Discussed with her the importance of continuing to increase intake. Suggested also she schedule appointment for follow up with PCP within 1-2 weeks. Denies any other questions or concerns. KELSI Stern
== END 2022-03-06 12:58 | disposition home or self-care (01) | DRG 371 ==
LOC: ER 16:06 → 2ND 17:03
PROVIDERS: Nurse Practitioner Family; Admitting Provider Internal Medicine Adolescent Medicine; Emergency Provider Student in an Organized Health Care Education/Training Program; PCP Emergency Medicine; Visit Provider Emergency Medicine
DX: A04.72 Enterocolitis due to Clostridium difficile, not specified as recurrent (principal); U07.1 COVID-19; N17.9 Acute kidney failure, unspecified; E46 Unspecified protein-calorie malnutrition; E86.0 Dehydration; Z68.20 Body mass index [BMI] 20.0-20.9, adult; F41.9 Anxiety disorder, unspecified; F32.A Depression, unspecified; Z87.891 Personal history of nicotine dependence; E03.9 Hypothyroidism, unspecified; M19.90 Unspecified osteoarthritis, unspecified site
CPT/HCPCS: 36415; 71045; 74018; 74176; 80048; 80053; 81001; 83605; 85025; 87086; 87324; 87493; 87507; 94640; 99285; C9803; J2405; J3370; U0003; U0005

== ENCOUNTER 2022-03-30 14:29 | Outpatient (CLI) | payer MEDICAID, SELFPAY ==
[2022-03-30 14:50] VITALS: BP 113/70; PULSE 108; RESP 20; TEMP 36.4; O2SAT 98
[2022-03-30 15:50] VITALS: BP 117/69; PULSE 98; RESP 20; O2SAT 98
[2022-03-30 16:50] VITALS: BP 112/72; PULSE 92; RESP 20; O2SAT 98
== END 2022-03-30 16:58 | disposition home or self-care (01) ==
LOC: INF 14:32
PROVIDERS: PCP Emergency Medicine; Visit Provider Emergency Medicine
DX: E86.0 Dehydration (principal); A04.72 Enterocolitis due to Clostridium difficile, not specified as recurrent
CPT/HCPCS: 96360; 96361; 96375; J2405

== ENCOUNTER → 2022-09-22 16:35 | Outpatient (CLI) | payer MEDICAID, SELFPAY ==
[2022-09-22 21:46] LABS: Chloride 102 mmol/L (98-107); Sodium 139 mmol/L (136-145)
[2022-09-22 21:47] LABS: Potassium 4.3 mmoL/L (3.5-5.1)
[2022-09-22 21:49] LABS: Blood Urea Nitrogen 13 mg/dl (7-17); Estimated Glomerular Filt Rate 65 ml/min (>60); GFR (African American) 78 ML/MIN (>60)
[2022-09-22 21:50] LABS: Anion Gap 14.3 mEq/L (5-15); Calcium 9.4 mg/dl (8.4-10.2); Carbon Dioxide 27 mmol/L (22.0-30.0); Glucose 120 mg/dl (74-100)
[2022-09-22 21:52] LABS: Basophils % 0.5 % (0.1-2.0); Eosinophils # 0.1 K/mm3 (0.0-0.4); Eosinophils % 2.2 % (0.1-12.0); Hematocrit 35.8 % (37.0-47.0); Hemoglobin 11.7 g/dL (12.2-16.2); Lymphocytes % 42.3 % (10-50); Mean Corpuscular HGB Conc 32.7 g/dL (31.8-35.4); Mean Corpuscular Volume 85.7 fl (81-99); Monocytes # 0.2 K/mm3 (0.1-1.0); Monocytes % 5.1 % (1.7-9.3); Neutrophils # 2.4 K/mm3 (1.8-7.8); Neutrophils % 49.8 % (37.0-80.0); Platelet Count 371 K/mm3 (142-424); Red Blood Count 4.18 M/mm3 (4.20-5.40); Red Cell Distribution Width 13.7 % (11.5-17.5); White Blood Count 4.8 K/mm3 (4.8-10.8)
[2022-09-22 22:06] LABS: Free T4 (Free Thyroxine) 1.48 ng/dl (0.78-2.19)
[2022-09-22 22:19] LABS: Thyroid Stimulating Hormone < 0.02 uIU/mL (0.465-4.68)
== END ==
PROVIDERS: PCP Emergency Medicine; Visit Provider Emergency Medicine
DX: R53.83 Other fatigue (principal); E03.9 Hypothyroidism, unspecified
CPT/HCPCS: 80048; 84439; 84443; 85025

== ENCOUNTER → 2022-09-23 11:01 | Outpatient (CLI) | payer MEDICAID, SELFPAY ==
[2022-09-24 13:23] LABS: Hemoglobin A1C 5.4 % (4.0-6.0)
== END ==
PROVIDERS: PCP Emergency Medicine; Visit Provider Emergency Medicine
DX: E07.9 Disorder of thyroid, unspecified (principal)
CPT/HCPCS: 83036

== ENCOUNTER 2022-12-04 19:18 | Emergency (ER) | payer MEDICAID, SELFPAY ==
[2022-12-04 19:25] VITALS: BP 145/100; PULSE 76; RESP 20; TEMP 37; O2SAT 97; BMI 20.5
[2022-12-04 19:29] VITALS: BMI 20.5
--- NOTE | 2022-12-04 19:30 | XR_ITS ---
PROCEDURE INFORMATION: Exam: XR Left Clavicle, Complete Exam date and time: 12/04/2022 7:26 PM Age: 57 years old Clinical indication: Pain; Other: Clavicle; Additional info: Fall TECHNIQUE: Imaging protocol: Radiologic exam of the left clavicle. Complete exam. Views: Any number of views. COMPARISON: CR XR CHEST PORTABLE 03/01/2022 9:39 AM FINDINGS: Bones/joints: Mild narrowing of the subacromial space. No acute fracture or dislocation. Soft tissues: Normal. IMPRESSION: No acute findings.
--- NOTE | 2022-12-04 19:44 | EXP.UTC ---
Discharge Plan Disposition Patient Disposition: Home, Self-Care Condition: Good Prescriptions Prescriptions: No Action hydrocodone-acetaminophen [Temple] 7.5-325 mg tablet 1 tab PO QID diclofenac sodium 1 % gel 1 applic TP DAILYP PRN (Reason: PAIN) Label Comments: APPLY 4 GM TO AFFECTED AREA(S) FOUR TIMES DAILY gabapentin 800 mg tablet 800 mg PO HS lovastatin 40 mg tablet 40 mg PO DAILY Qty: 90 0RF gabapentin 300 mg capsule 300 mg PO BID PRN tizanidine 4 mg tablet 8 mg PO HS 30 Days Qty: 60 5RF sumatriptan succinate 100 mg tablet 100 mg PO NEEDED PRN (Reason: Migraine Treatment) Qty: 10 5RF galcanezumab-gnlm 120 mg/mL pen injector 120 mg SQ MONTHLY Qty: 1 5RF dicyclomine 10 mg capsule 10 mg PO TID Qty: 30 0RF montelukast 10 mg tablet 10 mg PO DAILY Qty: 90 3RF cyanocobalamin (vitamin B-12) [Dodex] 1,000 mcg/mL solution See Rx Instructions .ROUTE .COMPLEX Qty: 1 2RF Dose Instruction: 1000 MCG INTRAMUSCULAR EVERY MONTH FOR SUPPLEMENT Rx Instructions: 1000 MCG INTRAMUSCULAR EVERY MONTH FOR SUPPLEMENT clonazepam 0.5 mg tablet 0.5 mg PO BIDP PRN (Reason: Anxiety) Qty: 60 0RF levothyroxine 175 mcg capsule 175 mcg PO DAILY Qty: 90 0RF escitalopram oxalate 20 mg tablet See Rx Instructions .ROUTE .COMPLEX Qty: 90 0RF Dose Instruction: TAKE 1 TABLET BY MOUTH ONCE DAILY Rx Instructions: TAKE 1 TABLET BY MOUTH ONCE DAILY Premarin 1.25 mg tablet 1.25 mg PO DAILY Qty: 90 3RF conjugated estrogens 1.25 MG tablet 1.25 mg PO DAILY duloxetine 30 MG capsule,delayed release(DR/EC) 30 mg PO DAILY ondansetron 4 MG tablet,disintegrating 4 mg PO TIDP PRN (Reason: Nausea And Vomiting) Qty: 30 0RF promethazine 25 MG tablet 25 mg PO Q6H PRN (Reason: Nausea And Vomiting) Qty: 28 0RF Referrals Follow up/Referrals: Ronn Smith MD [Primary Care Provider] - See instructions Activity Restrictions/Add. Instructions Additional Instructions/Restrictions: follow up with pcp may need more work up. return if symptoms worsen or do not improve Clinical Impressions Clinical Impression: Fall Instructions Patient Instructions: How to Prevent Falls Discharge ED Provider: Patricia ([facility])Regan [facility] [place] H[place] General Stated complaint: Fell 3 weeks ago left collerbone area Mode of Arrival: Ambulatory Source of Information: Patient Limitations: No Limitations Time Seen by Provider: 12/04/22 19:44 Description of Symptoms (Recalled from Triage Doc. by RN): pain in left clavicle. pt states she fell 3 weeks ago and only thought she hurt her back but she has recently noticed a knot in her clavicle and has felt popping. pt states when she fell she caught herself with her left arm. HEENT Symptoms (Recalled from RN notes): No Resp Symptoms (Recalled from RN notes): No Skin Symptoms (Recalled from RN notes): No MS Symptoms (Recalled from RN notes): Yes Functional Status (Recalled from RN notes): WNL History of Present Illness Provider Complaint: 57 yr old female presents with c/o pain in left clavicle. pt states she fell 3 weeks ago and only thought she hurt her back but she has recently noticed a knot in her clavicle and has felt popping. pt states when she fell she caught herself with her left arm. Related Data Home Medications Medication Instructions Recorded Confirmed hydrocodone 7.5 mg-acetaminophen 1 tab PO QID Pain 12/02/17 09/23/22 325 mg tablet (Temple) diclofenac sodium 1 % topical gel 1 applic topical DAILYP PRN PAIN 07/14/21 09/23/22 gabapentin 800 mg tablet 800 mg PO HS Pain 11/03/21 09/23/22 conjugated estrogens 1.25 mg tablet 1.25 mg PO DAILY HORMONE 01/14/22 09/23/22 REPLACEMENT duloxetine 30 mg capsule,delayed 30 mg PO DAILY MOOD 03/01/22 09/23/22 release gabapentin 300 mg capsule 300 mg PO BID PRN 09/23/22 09/23/22 Previous Rx's Medication Instructions Recorded shannan
[2022-12-04 19:49] VITALS: BP 145/100; PULSE 76; RESP 20; TEMP 37; O2SAT 97
== END 2022-12-04 20:01 | disposition home or self-care (01) ==
PROVIDERS: Emergency Provider Nurse Practitioner Family; PCP Emergency Medicine
DX: M25.512 Pain in left shoulder (principal); R22.32 Localized swelling, mass and lump, left upper limb; F17.210 Nicotine dependence, cigarettes, uncomplicated; W19.XXXA Unspecified fall, initial encounter
CPT/HCPCS: 73000; 99212; 99213; G0463

== ENCOUNTER → 2022-12-20 13:46 | Outpatient (CLI) | payer MEDICAID, SELFPAY ==
[2022-12-20 16:37] LABS: Opiate Screen,Urine Positive ng/ml (<300); Phencyclidine Screen,Urine Negative ng/ml (<25)
[2022-12-20 16:39] LABS: Amphetamine/Metha Screen,Urine Negative ng/ml (<1000); Barbiturates Screen,Urine Negative ng/ml (<200)
[2022-12-20 16:40] LABS: Benzodiazepines Screen,Urine Negative ng/ml (<200)
[2022-12-20 16:42] LABS: Cannabinoid Screen,Urine Negative ng/ml (<50)
[2022-12-20 16:43] LABS: Cocaine Screen,Urine Negative ng/ml (<300)
[2022-12-20 16:44] LABS: Methadone Screen,Urine Negative ng/ml (<300)
== END ==
PROVIDERS: PCP Emergency Medicine; Visit Provider Emergency Medicine
DX: M48.02 Spinal stenosis, cervical region (principal)
CPT/HCPCS: 80305

== ENCOUNTER 2023-01-26 23:13 | Emergency (ER) | payer MEDICAID, SELFPAY ==
[2023-01-26 23:14] VITALS: BP 162/88; PULSE 88; RESP 16; TEMP 36.5; O2SAT 97; BMI 20.5
--- NOTE | 2023-01-26 23:24 | XR_ITS ---
PROCEDURE INFORMATION: Exam: XR Chest Exam date and time: 01/26/2023 11:20 PM Age: 57 years old Clinical indication: Chest wall pain and on breathing and left-sided; Patient HX: Fall into bathtub , left sided pain; Additional info: Rib pain TECHNIQUE: Imaging protocol: Radiologic exam of the chest. Views: 2 views. COMPARISON: CR XR CHEST PORTABLE 03/01/2022 9:39 AM FINDINGS: Lungs: Unremarkable. No consolidation. Pleural spaces: Unremarkable. No pleural effusion. No pneumothorax. Heart/Mediastinum: Unremarkable. No cardiomegaly. Bones/joints: Unremarkable. IMPRESSION: No acute findings.
--- NOTE | 2023-01-27 00:27 | HMH.EDGENADL ---
Discharge Plan Disposition Patient Disposition: Home, Self-Care Chief Complaint: PAIN Prescriptions Prescriptions: No Action hydrocodone-acetaminophen [Alpha] 7.5-325 mg tablet 1 tab PO QID diclofenac sodium 1 % gel 1 applic TP DAILYP PRN (Reason: PAIN) Label Comments: APPLY 4 GM TO AFFECTED AREA(S) FOUR TIMES DAILY gabapentin 800 mg tablet 800 mg PO HS lovastatin 40 mg tablet 40 mg PO DAILY Qty: 90 0RF gabapentin 300 mg capsule 300 mg PO BID PRN tizanidine 4 mg tablet 8 mg PO HS 30 Days Qty: 60 5RF sumatriptan succinate 100 mg tablet 100 mg PO NEEDED PRN (Reason: Migraine Treatment) Qty: 10 5RF dicyclomine 10 mg capsule 10 mg PO TID Qty: 30 0RF clonazepam 0.5 mg tablet 0.5 mg PO BIDP PRN (Reason: Anxiety) Qty: 60 2RF montelukast 10 mg tablet 10 mg PO DAILY Qty: 90 3RF cyanocobalamin (vitamin B-12) [Dodex] 1,000 mcg/mL solution See Rx Instructions .ROUTE .COMPLEX Qty: 1 2RF Dose Instruction: 1000 MCG INTRAMUSCULAR EVERY MONTH FOR SUPPLEMENT Rx Instructions: 1000 MCG INTRAMUSCULAR EVERY MONTH FOR SUPPLEMENT Premarin 1.25 mg tablet 1.25 mg PO DAILY Qty: 90 3RF escitalopram oxalate 20 mg tablet See Rx Instructions .ROUTE .COMPLEX Qty: 90 0RF Dose Instruction: TAKE 1 TABLET BY MOUTH ONCE DAILY Rx Instructions: TAKE 1 TABLET BY MOUTH ONCE DAILY (DME) BD Luer-Jess Syringe 3 mL 23 x 1 syringe See Rx Instructions .ROUTE .COMPLEX Qty: 10 0RF Dose Instruction: DIRECTED Rx Instructions: DIRECTED Zyrtec 10 mg capsule 10 mg PO DAILY Qty: 30 0RF Rx Instructions: may take med at night if it causes sleepiness galcanezumab-gnlm 120 mg/mL pen injector 120 mg SQ MONTHLY Qty: 1 5RF conjugated estrogens 1.25 MG tablet 1.25 mg PO DAILY levothyroxine 200 mcg tablet 200 mcg PO DAILY Rx Instructions: TAKE 1 TABLET BY MOUTH ONCE CORNELL MORNING ON AN EMPTY STOMACH duloxetine 30 MG capsule,delayed release(DR/EC) 30 mg PO DAILY ondansetron 4 MG tablet,disintegrating 4 mg PO TIDP PRN (Reason: Nausea And Vomiting) Qty: 30 0RF promethazine 25 MG tablet 25 mg PO Q6H PRN (Reason: Nausea And Vomiting) Qty: 28 0RF Referrals Follow up/Referrals: Ronn Smith MD [Primary Care Provider] - See instructions Clinical Impressions Clinical Impression: Contusion of rib on left side Instructions Patient Instructions: DI for Rib Contusion Discharge ED Provider: Sarah (ED)Ronn General Adult HPI General Chief complaint: PAIN Stated complaint: AO 01/26/235 injury left rib cage Time Seen by Provider: 01/27/23 00:27 Mode of Arrival: Ambulatory Source of Information: Patient and Medical Record Limitations: No Limitations Description of Symptoms (Recalled from ER Triage Doc. by RN): Pt arrives w c/o left sided rib pain after experiencing a fall into the bathtub wall around 2230 tonight. -loc, -blood thinners. Pt stated she just slipped on the water . History of Present Illness HPI narrative: fell in bathtub and has lt rib pain- no head or neck injury and no abd pain Onset (ago): hour(s) Location: chest Severity: moderate Consistency: constant Associated symptoms: denies other symptoms Related Data Home Medications Medication Instructions Recorded Confirmed hydrocodone 7.5 mg-acetaminophen 1 tab PO QID Pain 12/02/17 12/20/22 325 mg tablet (Alpha) diclofenac sodium 1 % topical gel 1 applic topical DAILYP PRN PAIN 07/14/21 12/20/22 gabapentin 800 mg tablet 800 mg PO HS Pain 11/03/21 12/20/22 conjugated estrogens 1.25 mg tablet 1.25 mg PO DAILY HORMONE 01/14/22 12/20/22 REPLACEMENT duloxetine 30 mg capsule,delayed 30 mg PO DAILY MOOD 03/01/22 12/20/22 release gabapentin 300 mg capsule 300 mg PO BID PRN 09/23/22 12/20/22 levothyroxine 200 mcg tablet 200 mcg PO DAILY hypothyroidism 01/26/23 01/26/23 Previous Rx's Medication Inst
--- NOTE | 2023-01-27 00:29 | CT_ITS ---
PROCEDURE INFORMATION: Exam: CT Chest Without Contrast; Diagnostic Exam date and time: 01/27/2023 12:57 AM Age: 57 years old Clinical indication: Injury or trauma; Shortness of breath; Blunt trauma (contusions or hematomas); Patient HX: Fall into bathtub, C/O pain left sided near breast TECHNIQUE: Imaging protocol: Diagnostic computed tomography of the chest without contrast. 3D rendering (Not supervised by radiologist): MIP and/or 3D reconstructed images were created by the technologist. Radiation optimization: All CT scans at this facility use at least one of these dose optimization techniques: automated exposure control; mA and/or kV adjustment per patient size (includes targeted exams where dose is matched to clinical indication); or iterative reconstruction. REPORTING DATA: Count of CT and Cardiac NM exams in prior 12 months: This patient has received [address] and 0 known cardiac nuclear medicine studies in the 12 months prior to the current study. COMPARISON: CR XR CHEST 2V 01/26/2023 11:20 PM FINDINGS: Lungs: There is mild right middle lobe infiltrate of indeterminate age. Subsegmental scarring/atelectasis noted in the right lower lobe. Left lung is clear. Pleural spaces: Unremarkable. No pneumothorax. No pleural effusion. Heart: Unremarkable. No cardiomegaly. No pericardial effusion. No coronary artery calcifications Lymph nodes: Unremarkable. No enlarged lymph nodes. Vasculature: Unremarkable. No aortic aneurysm. Bones/joints: Unremarkable. No acute fracture. Soft tissues: Unremarkable. IMPRESSION: Mild right middle lobe infiltrate
[2023-01-27 00:30] VITALS: BP 140/77; PULSE 86; O2SAT 97
[2023-01-27 01:00] VITALS: BP 162/82; PULSE 83; O2SAT 99
[2023-01-27 01:41] VITALS: BP 160/80; PULSE 80; RESP 18; TEMP 36.6; O2SAT 99
== END 2023-01-27 01:43 | disposition home or self-care (01) ==
PROVIDERS: Emergency Provider Emergency Medicine; PCP Emergency Medicine
DX: S20.212A Contusion of left front wall of thorax, initial encounter (principal); W18.2XXA Fall in (into) shower or empty bathtub, initial encounter
CPT/HCPCS: 71046; 71250; 96372; 99284; 99285

== ENCOUNTER 2023-02-19 19:29 | Emergency (ER) | payer MEDICAID, SELFPAY ==
[2023-02-19 19:35] VITALS: BP 132/81; PULSE 94; RESP 18; TEMP 36.8; O2SAT 99; BMI 20.2
[2023-02-19 20:00] VITALS: BP 139/69; PULSE 95; O2SAT 96
--- NOTE | 2023-02-19 20:06 | XR_ITS ---
PROCEDURE INFORMATION: Exam: XR Chest Exam date and time: 02/19/2023 8:02 PM Age: 57 years old Clinical indication: Cough; Additional info: Pleuritic pain upon inspiration/cough TECHNIQUE: Imaging protocol: Radiologic exam of the chest. Views: 2 views. COMPARISON: CT CHEST WO CON 01/27/2023 12:57 AM FINDINGS: Lungs: Airspace disease in the right upper lobe concerning for pneumonia. Remainder of the lungs are clear. Pleural spaces: Unremarkable. No pleural effusion. No pneumothorax. Heart/Mediastinum: Unremarkable. No cardiomegaly. Bones/joints: Unremarkable. IMPRESSION: Right upper lobe pneumonia
[2023-02-19 20:08] LABS: Coronavirus 19, PCR Not Detected (NotDetected); Influenza A, PCR Not Detected (NotDetected); Influenza B, PCR Not Detected (NotDetected)
[2023-02-19 20:30] VITALS: BP 156/75; PULSE 73; O2SAT 96
--- NOTE | 2023-02-19 20:36 | CT_ITS ---
PROCEDURE INFORMATION: Exam: CTA Chest With Contrast Exam date and time: 02/19/2023 9:13 PM Age: 57 years old Clinical indication: Pain; Chest pressure; Additional info: Chest rib pain right side TECHNIQUE: Imaging protocol: Computed tomographic angiography of the chest with contrast. Exam focused on the arteries. 3D rendering (Not supervised by radiologist): MIP and/or 3D reconstructed images were created by the technologist. Radiation optimization: All CT scans at this facility use at least one of these dose optimization techniques: automated exposure control; mA and/or kV adjustment per patient size (includes targeted exams where dose is matched to clinical indication); or iterative reconstruction. Contrast material: ISOVUE; Contrast volume: 70 ml; Contrast route: INTRAVENOUS (IV); REPORTING DATA: Count of CT and Cardiac NM exams in prior 12 months: This patient has received 2 known [address]s and 0 known cardiac nuclear medicine studies in the 12 months prior to the current study. COMPARISON: CT CHEST WO CON 01/27/2023 12:57 AM FINDINGS: Pulmonary arteries: Normal. No pulmonary emboli. Aorta: Unremarkable. No aortic aneurysm. No aortic dissection. Lungs: There is irregular airspace disease in the right upper lobe concerning for pneumonia. In the right lung base there is mild atelectasis. Pleural spaces: Unremarkable. No pneumothorax. No pleural effusion. Heart: Unremarkable. No cardiomegaly. No pericardial effusion. Lymph nodes: Unremarkable. No enlarged lymph nodes. Bones/joints: Unremarkable. No acute fracture. Soft tissues: Unremarkable. IMPRESSION: 1. Right upper lobe pneumonia. 2. No pulmonary embolism.
[2023-02-19 20:54] LABS: Basophils % 0.2 % (0.1-2.0); Eosinophils # 0.1 K/mm3 (0.0-0.4); Eosinophils % 1.3 % (0.1-12.0); Hematocrit 33.8 % (37.0-47.0); Hemoglobin 10.8 g/dL (12.2-16.2); Lymphocytes # 2.1 K/mm3 (0.7-4.5); Lymphocytes % 26.6 % (10-50); Mean Corpuscular HGB Conc 32.1 g/dL (31.8-35.4); Mean Corpuscular Hemoglobin 27.7 pg (27.0-31.2); Mean Corpuscular Volume 86.4 fl (81-99); Mean Platelet Volume 7.8 fl (7.4-10.4); Monocytes # 0.6 K/mm3 (0.1-1.0); Monocytes % 7.3 % (1.7-9.3); Neutrophils % 64.6 % (37.0-80.0); Platelet Count 327 K/mm3 (142-424); Red Blood Count 3.91 M/mm3 (4.20-5.40); Red Cell Distribution Width 13.2 % (11.5-17.5); White Blood Count 7.7 K/mm3 (4.8-10.8)
[2023-02-19 21:01] LABS: Chloride 103 mmol/L (98-107)
[2023-02-19 21:02] LABS: Potassium 3.7 mmoL/L (3.5-5.1); Sodium 138 mmol/L (136-145)
[2023-02-19 21:04] LABS: Alanine Aminotransferase 15 U/L (12-78); Aspartate Amino Transferase 25 U/L (14-36); Blood Urea Nitrogen 15 mg/dl (7-17); Creatinine Clearance Estimated 58 mL/min (50-200); Estimated Glomerular Filt Rate 65 ml/min (>60); GFR (African American) 78 ML/MIN (>60)
[2023-02-19 21:05] LABS: Albumin Level 3.8 g/dl (3.5-5.0); Albumin/Globulin Ratio 0.9 (1.1-1.8); Alkaline Phosphatase 93 U/L (38-126); Anion Gap 11.7 mEq/L (5-15); Bilirubin,Total 0.4 mg/dl (0.2-1.3); Calcium 9.2 mg/dl (8.4-10.2); Carbon Dioxide 27 mmol/L (22.0-30.0); Globulin 4.1 g/dL (1.3-3.2); Glucose 106 mg/dl (74-100); Total Protein,Serum 7.9 g/dl (6.3-8.2)
[2023-02-19 21:10] LABS: C-Reactive Protein 132.9 mg/L (0-4)
--- NOTE | 2023-02-19 21:16 | PC.NURSE ---
Pt gone to RAD
[2023-02-19 21:24] LABS: Erythrocyte Sedimentation Rate 126 mm/hr (0-30)
--- NOTE | 2023-02-19 21:26 | PC.NURSE ---
Pt back from RAD
[2023-02-19 21:30] VITALS: BP 141/75; PULSE 87; O2SAT 98
--- NOTE | 2023-02-19 21:44 | HMH.EDURI ---
Discharge Plan Disposition Patient Disposition: Home, Self-Care Prescriptions Prescriptions: New minocycline 100 mg Capsule 100 mg PO BID Qty: 14 0RF No Action hydrocodone-acetaminophen [Wilson] 7.5-325 mg tablet 1 tab PO QID diclofenac sodium 1 % gel 1 applic TP DAILYP PRN (Reason: PAIN) Label Comments: APPLY 4 GM TO AFFECTED AREA(S) FOUR TIMES DAILY gabapentin 800 mg tablet 800 mg PO HS lovastatin 40 mg tablet 40 mg PO DAILY Qty: 90 0RF gabapentin 300 mg capsule 300 mg PO BID PRN tizanidine 4 mg tablet 8 mg PO HS 30 Days Qty: 60 5RF sumatriptan succinate 100 mg tablet 100 mg PO NEEDED PRN (Reason: Migraine Treatment) Qty: 10 5RF dicyclomine 10 mg capsule 10 mg PO TID Qty: 30 0RF clonazepam 0.5 mg tablet 0.5 mg PO BIDP PRN (Reason: Anxiety) Qty: 60 2RF montelukast 10 mg tablet 10 mg PO DAILY Qty: 90 3RF cyanocobalamin (vitamin B-12) [Dodex] 1,000 mcg/mL solution See Rx Instructions .ROUTE .COMPLEX Qty: 1 2RF Dose Instruction: 1000 MCG INTRAMUSCULAR EVERY MONTH FOR SUPPLEMENT Rx Instructions: 1000 MCG INTRAMUSCULAR EVERY MONTH FOR SUPPLEMENT Premarin 1.25 mg tablet 1.25 mg PO DAILY Qty: 90 3RF escitalopram oxalate 20 mg tablet See Rx Instructions .ROUTE .COMPLEX Qty: 90 0RF Dose Instruction: TAKE 1 TABLET BY MOUTH ONCE DAILY Rx Instructions: TAKE 1 TABLET BY MOUTH ONCE DAILY (DME) BD Luer-Jess Syringe 3 mL 23 x 1 syringe See Rx Instructions .ROUTE .COMPLEX Qty: 10 0RF Dose Instruction: DIRECTED Rx Instructions: DIRECTED galcanezumab-gnlm 120 mg/mL pen injector 120 mg SQ MONTHLY Qty: 1 5RF levothyroxine 175 mcg tablet See Rx Instructions .ROUTE .COMPLEX Qty: 90 0RF Dose Instruction: TAKE 1 TABLET BY MOUTH EVERY MORNING ON AN EMPTY STOMACH Rx Instructions: TAKE 1 TABLET BY MOUTH EVERY MORNING ON AN EMPTY STOMACH cetirizine 10 mg tablet See Rx Instructions .ROUTE .COMPLEX Qty: 30 1RF Dose Instruction: TAKE 1 TABLET BY MOUTH DAILY FOR ALLERGIES; MAY TAKE MED AT NIGHT IF IT CAUSES SLEEPINESS Rx Instructions: TAKE 1 TABLET BY MOUTH DAILY FOR ALLERGIES; MAY TAKE MED AT NIGHT IF IT CAUSES SLEEPINESS conjugated estrogens 1.25 MG tablet 1.25 mg PO DAILY duloxetine 30 MG capsule,delayed release(DR/EC) 30 mg PO DAILY ondansetron 4 MG tablet,disintegrating 4 mg PO TIDP PRN (Reason: Nausea And Vomiting) Qty: 30 0RF promethazine 25 MG tablet 25 mg PO Q6H PRN (Reason: Nausea And Vomiting) Qty: 28 0RF Referrals Follow up/Referrals: Ronn Smith MD [Primary Care Provider] - See instructions Discharge ED Provider: Sarah (ED)Ronn URI/Sore Throat HPI General Chief Complaint: Upper Respiratory Infection Stated Complaint: fever,chills,SOB Time Seen by Provider: 02/19/23 21:44 Mode of Arrival: Family Vehicle Source of Information: Patient and Medical Record Limitations: No Limitations Description of Symptoms (Recalled from ER Triage Doc. by RN): 57 yo female presents with CC of chills/fever/sinus congestion/laryngitis like symptoms, right posterior rib pain with inspiration. denies productive cough. currently afebrile. History of Present Illness HPI Narrative: pt with hx of c diff in past and tob use but no tob x yrs with fever/chills and rt chest pain no fever or cough Onset (ago): day(s) Duration: intermittent Severity: moderate Able to tolerate fluids by mouth: Yes Associated symptoms: chills Related Data Home Medications Medication Instructions Recorded Confirmed hydrocodone 7.5 mg-acetaminophen 1 tab PO QID Pain 12/02/17 12/20/22 325 mg tablet (Wilson) diclofenac sodium 1 % topical gel 1 applic topical DAILYP PRN PAIN 07/14/21 12/20/22 gabapentin 800 mg tablet 800 mg PO HS Pain 11/03/21 12/20/22 conjugated estrogens 1.25 mg tablet 1.25 mg PO DAILY HORMONE 01/14/22 12/20/22 REPLACEMENT duloxetin
--- NOTE | 2023-02-19 21:50 | PC.NURSE ---
Pt arrives to ED from [facility] with noted dti on sacrum. Wound includes areas that are purple in nature and nonblanchable, wound has slough that obscures the wound bed. Wound has foul odor and reddened edges. Wound reviewed with , mepilex and barrier cream applied following cleaning of wound with NS and gauze. An additional open area of concern on paent right upper posterior thigh. Area is open with slough present. Area also includes an additional area that is dime sized with opened area. Area cleaned with gauze and ns and mepilex and barrier cream applied. Wound reviewed with .
[2023-02-19 22:10] VITALS: BP 126/75; PULSE 89; RESP 19; TEMP 36.8; O2SAT 98
== END 2023-02-19 22:20 | disposition home or self-care (01) ==
PROVIDERS: Emergency Provider Emergency Medicine; PCP Emergency Medicine
DX: J06.9 Acute upper respiratory infection, unspecified (principal); R50.9 Fever, unspecified; R06.02 Shortness of breath; G43.909 Migraine, unspecified, not intractable, without status migrainosus; G47.33 Obstructive sleep apnea (adult) (pediatric)
CPT/HCPCS: 71046; 71275; 80053; 85025; 85651; 86140; 87636; 96361; 96374; 99284; 99285; C9803; Q9967; U0003; U0005

== ENCOUNTER → 2023-03-15 14:22 | Outpatient (CLI) | payer MEDICAID, SELFPAY ==
[2023-03-15 13:31] LABS: Amphetamine/Metha Screen,Urine Negative ng/ml (<1000); Barbiturates Screen,Urine Negative ng/ml (<200)
[2023-03-15 13:32] LABS: Benzodiazepines Screen,Urine Negative ng/ml (<200)
[2023-03-15 13:33] LABS: Cannabinoid Screen,Urine Negative ng/ml (<50); Cocaine Screen,Urine Negative ng/ml (<300)
[2023-03-15 13:34] LABS: Methadone Screen,Urine Negative ng/ml (<300)
[2023-03-15 13:35] LABS: Opiate Screen,Urine Positive ng/ml (<300); Phencyclidine Screen,Urine Negative ng/ml (<25)
[2023-03-15 18:37] LABS: Basophils % 0.5 % (0.1-2.0); Eosinophils # 0.2 K/mm3 (0.0-0.4); Eosinophils % 3.4 % (0.1-12.0); Hematocrit 35.7 % (37.0-47.0); Hemoglobin 11.2 g/dL (12.2-16.2); Lymphocytes % 39.8 % (10-50); Mean Corpuscular HGB Conc 31.3 g/dL (31.8-35.4); Mean Corpuscular Hemoglobin 27.2 pg (27.0-31.2); Mean Corpuscular Volume 86.8 fl (81-99); Mean Platelet Volume 9.5 fl (7.4-10.4); Monocytes # 0.4 K/mm3 (0.1-1.0); Monocytes % 7.3 % (1.7-9.3); Neutrophils # 2.4 K/mm3 (1.8-7.8); Neutrophils % 49.1 % (37.0-80.0); Platelet Count 430 K/mm3 (142-424); Red Blood Count 4.11 M/mm3 (4.20-5.40); Red Cell Distribution Width 13.1 % (11.5-17.5); White Blood Count 4.9 K/mm3 (4.8-10.8)
[2023-03-15 18:44] LABS: Alanine Aminotransferase 15 U/L (12-78); Albumin Level 3.9 g/dl (3.5-5.0); Albumin/Globulin Ratio 1.1 (1.1-1.8); Alkaline Phosphatase 95 U/L (38-126); Anion Gap 16.4 mEq/L (5-15); Aspartate Amino Transferase 26 U/L (14-36); Bilirubin,Total 0.4 mg/dl (0.2-1.3); Blood Urea Nitrogen 15 mg/dl (7-17); Calcium 9.4 mg/dl (8.4-10.2); Carbon Dioxide 22 mmol/L (22.0-30.0); Chloride 102 mmol/L (98-107); Estimated Glomerular Filt Rate 74 ml/min (>60); GFR (African American) 89 ML/MIN (>60); Globulin 3.6 g/dL (1.3-3.2); Glucose 98 mg/dl (74-100); Potassium 4.4 mmoL/L (3.5-5.1); Sodium 136 mmol/L (136-145); Total Protein,Serum 7.5 g/dl (6.3-8.2)
[2023-03-15 18:50] LABS: C-Reactive Protein 4.7 mg/L (0-4)
[2023-03-15 18:54] LABS: Erythrocyte Sedimentation Rate 55 mm/hr (0-30)
[2023-03-15 19:15] LABS: Thyroid Stimulating Hormone < 0.02 uIU/mL (0.465-4.68)
[2023-03-15 19:51] LABS: Vitamin B12 632 pg/mL (239-931)
[2023-03-15 20:06] LABS: Folate 8.34 ng/mL
[2023-03-17 11:24] LABS: Rapid Plasma Reagin Ab Titer Non Reactive (NonRea<1:1)
[2023-03-17 13:16] LABS: Anti-Centromere B Antibodies <0.2 AI (0.0-0.9); Anti-DNA (DS) Ab Qn 1 IU/mL (0-9); Anti-Jo-1 <0.2 AI (0.0-0.9); Antichromatin Antibodies <0.2 AI (0.0-0.9); Antiscleroderma-70 Antibodies <0.2 AI (0.0-0.9); RNP Antibodies 7.3 AI (0.0-0.9); Sjogren's Anti-SS-A <0.2 AI (0.0-0.9); Sjogren's Anti-SS-B <0.2 AI (0.0-0.9)
[2023-04-07 00:09] LABS: Anti-Centromere B Abs Charge YES; Anti-DNA (DS) Ab Charge YES; Anti-Jo-1 Charge YES; Antichromatin Abs Charge YES; Antinuclear Antibodies (ANA) Positive; Antiscleroderma-70 Abs Charge YES; RNP Antibodies Charge YES; Sjogren's Anti-SS-A Ab Charge YES; Sjogren's Anti-SS-B Ab Charge YES; Smith Antibodies Charge YES
== END ==
PROVIDERS: Nurse Practitioner Family; PCP Emergency Medicine; Visit Provider Emergency Medicine
DX: Z79.899 Other long term (current) drug therapy (principal); R44.1 Visual hallucinations; E03.9 Hypothyroidism, unspecified
CPT/HCPCS: 80053; 80305; 82306; 82607; 82746; 84443; 85025; 85651; 86038; 86140; 86225; 86235; 86593

== ENCOUNTER 2023-05-11 12:27 | Emergency (ER) | payer MEDICAID, SELFPAY ==
[2023-05-11] VITALS (7 sets, daily range): BP systolic 123–145; BP diastolic 69–81; PULSE 69–81; RESP 15–18; TEMP 36.6–36.8; O2SAT 94–98; BMI 20.5
--- NOTE | 2023-05-11 12:25 | ECG_ITS ---
APPROVED REPORT Exam: Resting ECG HR:70 bpm ECG Measurements Heart Rate 70 AXES NC 126 P 7 QRSd 81 QRS 54 QT 424 T 66 QTc 444 Conclusion SINUS RHYTHM WITH OCCASIONAL VENTRICULAR PREMATURE COMPLEXES BORDERLINE ECG UNCONFIRMED REPORT Electronically signed by : Jerry Gordon MD 05/12/2023 06:42:32
--- NOTE | 2023-05-11 12:40 | PC.NURSE ---
assisted pt to bathroom for a diarrhea episode, pt states this is her normal daily routine.
--- NOTE | 2023-05-11 12:52 | XR_ITS ---
FINAL REPORT TECHNIQUE: Chest PA & Lateral CLINICAL HISTORY: syncope COMPARISON: 02/19/2023 FINDINGS: 2 views of the chest were performed. The heart size is normal. The mediastinum is within normal limits. The previously noted right upper lobe airspace opacity has resolved. The lungs are now clear. There are no pleural effusions. There is no pneumothorax. The bony thorax appears intact. IMPRESSION: Resolution of previously noted right upper lobe airspace opacity. Reviewed, Interpreted and Dictated by Azam Hernandez MD Transcribed by Carri Pineda Authenticated and [facility]
--- NOTE | 2023-05-11 13:03 | PC.NURSE ---
adjusted pt headrest call light at bs
[2023-05-11 13:07] LABS: Basophils % 0.5 % (0.1-2.0); Eosinophils # 0.2 K/mm3 (0.0-0.4); Eosinophils % 2.4 % (0.1-12.0); Hematocrit 38.1 % (37.0-47.0); Hemoglobin 12.3 g/dL (12.2-16.2); Lymphocytes # 3.3 K/mm3 (0.7-4.5); Lymphocytes % 53.3 % (10-50); Mean Corpuscular HGB Conc 32.2 g/dL (31.8-35.4); Mean Corpuscular Hemoglobin 27.7 pg (27.0-31.2); Mean Platelet Volume 7.4 fl (7.4-10.4); Monocytes # 0.4 K/mm3 (0.1-1.0); Monocytes % 6.1 % (1.7-9.3); Neutrophils # 2.4 K/mm3 (1.8-7.8); Neutrophils % 37.7 % (37.0-80.0); Platelet Count 406 K/mm3 (142-424); Red Blood Count 4.43 M/mm3 (4.20-5.40); Red Cell Distribution Width 13.4 % (11.5-17.5); White Blood Count 6.2 K/mm3 (4.8-10.8)
[2023-05-11 13:08] LABS: MANUAL DIFFERENTIAL MANUAL DIFFERENTIAL (MANUAL DIFF)
[2023-05-11 13:11] LABS: Alanine Aminotransferase 21 U/L (12-78); Albumin Level 4.4 g/dl (3.5-5.0); Alkaline Phosphatase 107 U/L (38-126); Anion Gap 17.2 mEq/L (5-15); Aspartate Amino Transferase 39 U/L (14-36); Bilirubin,Total 0.5 mg/dl (0.2-1.3); Blood Urea Nitrogen 12 mg/dl (7-17); Calcium 9.6 mg/dl (8.4-10.2); Carbon Dioxide 22 mmol/L (22.0-30.0); Chloride 102 mmol/L (98-107); Creatinine Clearance Estimated 59 mL/min (50-200); Estimated Glomerular Filt Rate 64 ml/min (>60); GFR (African American) 78 ML/MIN (>60); Globulin 4.4 g/dL (1.3-3.2); Glucose 96 mg/dl (74-100); Potassium 3.2 mmoL/L (3.5-5.1); Sodium 138 mmol/L (136-145); Total Protein,Serum 8.8 g/dl (6.3-8.2)
--- NOTE | 2023-05-11 13:22 | PC.NURSE ---
pt is at xray
[2023-05-11 13:24] LABS: Troponin I < 0.01 ng/ml (0.00-0.034)
[2023-05-11 13:34] LABS: Eosinophils % 3 % (0-3); Lymphocytes % 55 % (10-50); Monocytes % 6 % (2-9); Neutrophils % 36 % (42-76); Platelet Estimate Slight Increase; RBC Morphology Normal; Total Cells Counted 100
--- NOTE | 2023-05-11 13:38 | HMH.EDGENADL ---
Discharge Plan Disposition Patient Disposition: Home, Self-Care Condition: Good Prescriptions Prescriptions: No Action hydrocodone-acetaminophen [[place]] 7.5-325 mg tablet 1 tab PO QID diclofenac sodium 1 % gel 1 applic TP DAILYP PRN (Reason: PAIN) Patient Comments: APPLY 4 GM TO AFFECTED AREA(S) FOUR TIMES DAILY lovastatin 40 mg tablet 40 mg PO DAILY Qty: 90 0RF tizanidine 4 mg tablet 8 mg PO HS 30 Days Qty: 60 5RF sumatriptan succinate 100 mg tablet 100 mg PO NEEDED PRN (Reason: Migraine Treatment) Qty: 10 5RF galcanezumab-gnlm 120 mg/mL pen injector 120 mg SQ MONTHLY Qty: 1 5RF clonazepam 0.5 mg tablet 0.5 mg PO BIDP PRN (Reason: Anxiety) Qty: 60 2RF ondansetron 4 mg tablet,disintegrating 4 mg PO TIDP PRN (Reason: Nausea And Vomiting) Qty: 30 3RF gabapentin 300 mg capsule 300 mg PO BID PRN dicyclomine 10 mg capsule 10 mg PO TID Qty: 30 0RF Premarin 1.25 mg tablet 1.25 mg PO DAILY Qty: 90 3RF cyanocobalamin (vitamin B-12) [[place]] 1,000 mcg/mL solution See Rx Instructions .ROUTE .COMPLEX Qty: 1 2RF Dose Instruction: 1000 MCG INTRAMUSCULAR EVERY MONTH FOR SUPPLEMENT Rx Instructions: 1000 MCG INTRAMUSCULAR EVERY MONTH FOR SUPPLEMENT levothyroxine 150 mcg capsule 150 mcg PO DAILY Qty: 90 3RF escitalopram oxalate 20 mg tablet See Rx Instructions .ROUTE .COMPLEX Qty: 90 0RF Dose Instruction: TAKE 1 TABLET BY MOUTH ONCE DAILY Rx Instructions: TAKE 1 TABLET BY MOUTH ONCE DAILY cetirizine 10 mg tablet See Rx Instructions .ROUTE .COMPLEX Qty: 30 0RF Dose Instruction: TAKE 1 TABLET BY MOUTH DAILY FOR ALLERGIES; MAY TAKE MED AT NIGHT IF IT CAUSES SLEEPINESS Rx Instructions: TAKE 1 TABLET BY MOUTH DAILY FOR ALLERGIES; MAY TAKE MED AT NIGHT IF IT CAUSES SLEEPINESS (DME) Monoject Safety Syringes 3 mL 23 gauge x 1 syringe See Rx Instructions .Route Qty: 100 1RF Rx Instructions: As directed duloxetine 30 MG capsule,delayed release(DR/EC) 30 mg PO DAILY promethazine 25 MG tablet 25 mg PO Q6H PRN (Reason: Nausea And Vomiting) Qty: 28 0RF Referrals Follow up/Referrals: Provider,Referral, [Primary Care Provider] - See instructions Activity Restrictions/Add. Instructions Additional Instructions/Restrictions: You were evaluated in the emergency department today after nearly passing out and your primary care provider's office. We did not identify any acute abnormalities on work-up. You are stable for discharge. Please go back to your primary care physician in the next 2 days for reassessment. Return to the emergency department with new or worsening symptoms. Clinical Impressions Clinical Impression: Near syncope, Hypokalemia Instructions Patient Instructions: DI for Syncope in Adults (Fainting) Discharge ED Provider: Harsha Rogers General Adult HPI <Bladimir Posadas MD - Last Filed: 05/11/23 16:35> General Chief complaint: Syncope Stated complaint: syncope Time Seen by Provider: 05/11/23 13:30 Mode of Arrival: EMS Source of Information: Patient, EMS and Medical Record Limitations: No Limitations Description of Symptoms (Recalled from ER Triage Doc. by RN): c/o dizziness and almost passing out at her pcp office today. Pt states that she has excruciating pain when she moves and touches her left shoulder. PCP was examining her shoulder when she felt light headed, got sweaty and felt that she was going to pass out. History of Present Illness HPI narrative: This 58-year-old female with a history of migraines, chronic pain presents to the emergency department with concerns of near syncope. Patient was at her primary care physician and he was manipulating the left shoulder which has been extremely painful for her recently. She has been evaluated by him multiple times for this and they continue to work it up. She states that while he was manipulating it, she suddenly fel
--- NOTE | 2023-05-11 14:39 | PC.NURSE ---
rounded on pt sleeping in bed,call light at bs
--- NOTE | 2023-05-11 16:26 | PC.NURSE ---
pt is laying in stretcher watching videos on phone, noting needed at this time, call light at bs
[2023-05-11 16:28] LABS: Troponin I < 0.01 ng/ml (0.00-0.034)
== END 2023-05-11 17:04 | disposition home or self-care (01) ==
PROVIDERS: Emergency Medicine; Emergency Provider Emergency Medicine
DX: E87.6 Hypokalemia (principal); R55 Syncope and collapse; R11.0 Nausea; R51.9 Headache, unspecified; I49.3 Ventricular premature depolarization; G47.33 Obstructive sleep apnea (adult) (pediatric); Z87.891 Personal history of nicotine dependence
CPT/HCPCS: 36415; 71046; 80053; 84484; 85007; 85025; 93005; 96374; 99285; J2405

== ENCOUNTER → 2023-05-17 10:04 | Outpatient (CLI) | payer MEDICAID, SELFPAY ==
--- NOTE | 2023-05-17 | XR_ITS ---
FINAL REPORT CLINICAL HISTORY: Left shoulder pain COMPARISON: 2 view chest 01/26/2023 FINDINGS: LEFT SHOULDER 3 views of the left shoulder were obtained. There is no acute fracture or dislocation. There are mild hypertrophic changes at the AC joint. There is a well-circumscribed lucency of the proximal left humeral diaphysis measuring 9 mm. This appears to be nonaggressive and is stable from January 2023. IMPRESSION: No acute bony abnormality. Reviewed, Interpreted and Dictated by Azam Hernandez MD Transcribed by Carri Pineda Authenticated and [facility]
== END ==
PROVIDERS: PCP Emergency Medicine; Visit Provider Emergency Medicine
DX: M25.512 Pain in left shoulder (principal)
CPT/HCPCS: 73030

== ENCOUNTER → 2023-05-18 23:33 | Outpatient (CLI) | payer MEDICAID, SELFPAY ==
[2023-05-18 19:58] LABS: Basophils % 0.3 % (0.1-2.0); Eosinophils # 0.1 K/mm3 (0.0-0.4); Eosinophils % 3.3 % (0.1-12.0); Hematocrit 36.9 % (37.0-47.0); Lymphocytes # 1.7 K/mm3 (0.7-4.5); Lymphocytes % 42.7 % (10-50); Mean Corpuscular HGB Conc 32.6 g/dL (31.8-35.4); Mean Corpuscular Hemoglobin 27.8 pg (27.0-31.2); Mean Corpuscular Volume 85.2 fl (81-99); Monocytes # 0.3 K/mm3 (0.1-1.0); Monocytes % 6.5 % (1.7-9.3); Neutrophils # 1.9 K/mm3 (1.8-7.8); Neutrophils % 47.2 % (37.0-80.0); Platelet Count 379 K/mm3 (142-424); Red Blood Count 4.33 M/mm3 (4.20-5.40); Red Cell Distribution Width 13.7 % (11.5-17.5); White Blood Count 3.9 K/mm3 (4.8-10.8)
[2023-05-18 20:18] LABS: Erythrocyte Sedimentation Rate 48 mm/hr (0-30)
[2023-05-18 20:45] LABS: Alanine Aminotransferase 15 U/L (12-78); Albumin Level 4.2 g/dl (3.5-5.0); Alkaline Phosphatase 98 U/L (38-126); Anion Gap 17.4 mEq/L (5-15); Aspartate Amino Transferase 25 U/L (14-36); Bilirubin,Total 0.3 mg/dl (0.2-1.3); Blood Urea Nitrogen 15 mg/dl (7-17); Calcium 9.4 mg/dl (8.4-10.2); Carbon Dioxide 24 mmol/L (22.0-30.0); Chloride 101 mmol/L (98-107); Estimated Glomerular Filt Rate 64 ml/min (>60); GFR (African American) 78 ML/MIN (>60); Globulin 4.2 g/dL (1.3-3.2); Glucose 104 mg/dl (74-100); Potassium 4.4 mmoL/L (3.5-5.1); Sodium 138 mmol/L (136-145); Total Protein,Serum 8.4 g/dl (6.3-8.2)
[2023-05-19 00:29] LABS: C-Reactive Protein 4.2 mg/L (0-4)
[2023-05-20 13:22] LABS: Anti-Centromere B Antibodies <0.2 AI (0.0-0.9); Anti-Cyclic Citrullinated Pept 6 units (0-19); Anti-DNA (DS) Ab Qn 2 IU/mL (0-9); Anti-Jo-1 <0.2 AI (0.0-0.9); Anti-Smith Antibody <0.2 AI (0.0-0.9); Antichromatin Antibodies <0.2 AI (0.0-0.9); Antiscleroderma-70 Antibodies <0.2 AI (0.0-0.9); RNP Antibodies 6.1 AI (0.0-0.9); Sjogren's Anti-SS-A <0.2 AI (0.0-0.9); Sjogren's Anti-SS-B <0.2 AI (0.0-0.9)
== END ==
PROVIDERS: PCP Emergency Medicine; Visit Provider Emergency Medicine
DX: R76.8 Other specified abnormal immunological findings in serum (principal)
CPT/HCPCS: 80053; 85025; 85651; 86140; 86200; 86225; 86235; 86431

== ENCOUNTER → 2023-08-19 07:32 | Outpatient (CLI) | payer MEDICAID, SELFPAY ==
--- NOTE | 2023-08-19 07:32 | CA_ITS ---
FINAL REPORT CLINICAL HISTORY: syncope, HTN COMPARISON: None FINDINGS: Aorta velocity: cm/sec Right kidney: 10.4 cm. No evidence of hydronephrosis or mass. Right intrarenal RI: 0.7 Right renal artery velocity: 216 cm/sec. Right RAR (Renal artery-Aortic Ratio): 3 Left Kidney: 10 cm. No evidence of hydronephrosis or mass. Left intrarenal RI: 0.7 Left renal artery velocity: 385 cm/sec. Left RAR (Renal Artery-Aortic Ratio): 5.4 IMPRESSION: Less than 60% stenosis of the right renal artery. Greater than 60% stenosis of the left renal artery. Would recommend CTA, MRA, or catheter angiogram for further evaluation of the renal arteries. Reviewed, Interpreted and Dictated by Azam Hernandez MD Transcribed by Pattie Wells Authenticated and [facility]
== END ==
PROVIDERS: PCP Internal Medicine; Visit Provider Nurse Practitioner Family
DX: R55 Syncope and collapse (principal); I10 Essential (primary) hypertension
CPT/HCPCS: 93976

== ENCOUNTER → 2023-09-14 07:56 | Outpatient (CLI) | payer MEDICAID, SELFPAY ==
--- NOTE | 2023-09-14 07:56 | CT_ITS ---
FINAL REPORT TECHNIQUE: Pre-and postcontrast images of the abdomen were performed by computed tomography. Extensive 3-D reconstruction images were performed. A CTA was performed. This study was performed with techniques to keep radiation doses as low as reasonably achievable (ALARA). Individualized dose reduction techniques using automated exposure control or adjustment of mA and/or kV according to the patient''s size were employed. CLINICAL HISTORY: Abnormal Renal Atery Duplex FINDINGS: ABDOMEN: There are scar or atelectasis in the right middle lobe. The liver parenchyma is homogeneous. The gallbladder is present. The spleen, pancreas, adrenals, and kidneys are unremarkable. CTA: There is a 70% stenosis at the origin of the celiac axis. The SMA and CHARLEY are widely patent. The renal arteries are patent bilaterally. 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 No evidence of significant renal artery stenosis. Reviewed, Interpreted and Dictated by Azam Hernandez MD Transcribed by Margie De Los Santos Authenticated and [facility]
[2023-09-14 08:25] LABS: Blood Urea Nitrogen 13 mg/dl (7-17); Estimated Glomerular Filt Rate 57 ml/min (>60); GFR (African American) 69 ML/MIN (>60)
[2023-09-14] MEDS: IOPAMIDOL-370 (76%);100ML BOTTLE 75 ML IV (09:13)
[2023-09-14] MEDS: 0.9 % SODIUM CHLORIDE 50 ML VIAL IV (09:13)
== END ==
LOC: RAD 07:56
PROVIDERS: PCP Internal Medicine; Visit Provider Nurse Practitioner Family
DX: I70.1 Atherosclerosis of renal artery (principal); Z87.891 Personal history of nicotine dependence
CPT/HCPCS: 36415; 74175; 82565; 84520; Q9967

== ENCOUNTER 2023-09-14 20:46 | Emergency (ER) | payer MEDICAID, SELFPAY ==
[2023-09-14] VITALS (8 sets, daily range): BP systolic 130–155; BP diastolic 60–80; PULSE 71–81; RESP 11–20; TEMP 36.8; O2SAT 96–100; BMI 22.3
--- NOTE | 2023-09-14 20:46 | ECG_ITS ---
APPROVED REPORT Exam: Resting ECG HR:76 bpm ECG Measurements Heart Rate 76 AXES UT 140 P 49 QRSd 82 QRS 75 QT 371 T 84 QTc 401 Conclusion SINUS RHYTHM NORMAL ECG UNCONFIRMED REPORT Electronically signed by : Jerry Gordon MD 09/16/2023 07:59:01
--- NOTE | 2023-09-14 21:07 | XR_ITS ---
PROCEDURE INFORMATION: Exam: XR Chest Exam date and time: 09/14/2023 9:09 PM Age: 58 years old Clinical indication: Left-sided; Patient HX: Left sided chest pain with numbness, tingling in left arm. HX of hypertension per patient. ; Additional info: Cp TECHNIQUE: Imaging protocol: Radiologic exam of the chest. Views: 1 view. COMPARISON: CR XR CHEST 2V 05/11/2023 1:11 PM FINDINGS: Tubes, catheters and devices: Extensive apparatus is present over the chest wall which limits study. Lungs: No evidence of acute pulmonary disease or infiltrates; lung guerra appear clear. Pleural spaces: No large effusion or pneumothorax. Heart/Mediastinum: No evidence of mediastinal widening or cardiac silhouette enlargement; the mediastinum and heart appear within normal limits for contour and size. Stable cardiac and mediastinal contours. Bones/joints: No evidence of acute osseous abnormalities within the visualized portions of the thoracic spine and ribs. Osseous structures appear appropriate for patient age. IMPRESSION: No dense parenchymal consolidation, pleural effusion, or pneumothorax.
[2023-09-14 21:15] LABS: Basophils % 0.5 % (0.1-2.0); Eosinophils # 0.1 K/mm3 (0.0-0.4); Hematocrit 35.9 % (37.0-47.0); Hemoglobin 11.8 g/dL (12.2-16.2); Lymphocytes # 2.1 K/mm3 (0.7-4.5); Lymphocytes % 41.3 % (10-50); Mean Corpuscular Hemoglobin 27.4 pg (27.0-31.2); Mean Platelet Volume 7.4 fl (7.4-10.4); Monocytes # 0.3 K/mm3 (0.1-1.0); Monocytes % 5.2 % (1.7-9.3); Neutrophils # 2.6 K/mm3 (1.8-7.8); Neutrophils % 50.9 % (37.0-80.0); Platelet Count 365 K/mm3 (142-424); Red Blood Count 4.32 M/mm3 (4.20-5.40); Red Cell Distribution Width 14.3 % (11.5-17.5)
[2023-09-14 21:22] LABS: Alanine Aminotransferase 19 U/L (12-78); Albumin Level 4.5 g/dl (3.5-5.0); Alkaline Phosphatase 107 U/L (38-126); Anion Gap 9.7 mEq/L (5-15); Aspartate Amino Transferase 30 U/L (14-36); Bilirubin,Total 0.4 mg/dl (0.2-1.3); Blood Urea Nitrogen 12 mg/dl (7-17); Calcium 9.2 mg/dl (8.4-10.2); Carbon Dioxide 28 mmol/L (22.0-30.0); Chloride 99 mmol/L (98-107); Creatinine Clearance Estimated 57 mL/min (50-200); Estimated Glomerular Filt Rate 57 ml/min (>60); GFR (African American) 69 ML/MIN (>60); Globulin 4.5 g/dL (1.3-3.2); Glucose 66 mg/dl (74-100); Potassium 3.7 mmoL/L (3.5-5.1); Sodium 133 mmol/L (136-145)
[2023-09-14 21:33] LABS: Troponin I < 0.01 ng/ml (0.00-0.034)
--- NOTE | 2023-09-14 21:49 | HMH.EDCP ---
Discharge Plan Disposition Patient Disposition: Home, Self-Care Condition: Good Prescriptions Prescriptions: No Action hydrocodone-acetaminophen [[place]] 7.5-325 mg tablet 1 tab PO QID diclofenac sodium 1 % gel 1 applic TP DAILYP PRN (Reason: PAIN) Patient Comments: APPLY 4 GM TO AFFECTED AREA(S) FOUR TIMES DAILY ondansetron 4 mg tablet,disintegrating 4 mg PO TIDP PRN (Reason: Nausea And Vomiting) Qty: 30 3RF Premarin 1.25 mg tablet 1.25 mg PO DAILY Qty: 90 3RF levothyroxine 150 mcg capsule 150 mcg PO DAILY Qty: 90 3RF clonazepam 0.5 mg tablet 0.5 mg PO BIDP PRN (Reason: Anxiety) Qty: 60 1RF gabapentin 300 mg capsule 300 mg PO BID galcanezumab-gnlm 120 mg/mL pen injector 120 mg SQ MONTHLY Qty: 1 5RF tizanidine 4 mg tablet 8 mg PO HS 30 Days Qty: 60 5RF sumatriptan succinate 100 mg tablet 100 mg PO NEEDED PRN (Reason: Migraine Treatment) Qty: 10 5RF gabapentin 800 mg tablet 800 mg PO HS lisinopril 5 mg tablet 5 mg PO DAILY Qty: 30 2RF cyanocobalamin (vitamin B-12) 1,000 mcg/mL solution See Rx Instructions .ROUTE .COMPLEX Qty: 1 1RF Dose Instruction: 1000 MCG INTRAMUSCULAR EVERY MONTH FOR SUPPLEMENT Rx Instructions: 1000 MCG INTRAMUSCULAR EVERY MONTH FOR SUPPLEMENT cetirizine 10 mg tablet See Rx Instructions .ROUTE .COMPLEX Qty: 30 0RF Dose Instruction: TAKE 1 TABLET BY MOUTH DAILY FOR ALLERGIES; MAY TAKE MED AT NIGHT IF IT CAUSES SLEEPINESS Rx Instructions: TAKE 1 TABLET BY MOUTH DAILY FOR ALLERGIES; MAY TAKE MED AT NIGHT IF IT CAUSES SLEEPINESS escitalopram oxalate 20 mg tablet See Rx Instructions .ROUTE .COMPLEX Qty: 90 0RF Dose Instruction: TAKE 1 TABLET BY MOUTH ONCE DAILY Rx Instructions: TAKE 1 TABLET BY MOUTH ONCE DAILY (DME) BD Luer-Jess Syringe 3 mL 23 x 1 syringe See Rx Instructions .ROUTE .COMPLEX Qty: 1 0RF Dose Instruction: DIRECTED Rx Instructions: DIRECTED duloxetine 30 MG capsule,delayed release(DR/EC) 30 mg PO DAILY Emgality Pen 120 mg/mL pen injector 120 mg SQ DIRECTED Eysuvis 0.25 % drops,suspension 1 drp ophthalmic (eye) DIRECTED Referrals Follow up/Referrals: López Jauregui DO [Primary Care Provider] - See instructions Activity Restrictions/Add. Instructions Additional Instructions/Restrictions: You were evaluated in the emergency department today. Please follow-up closely with your primary care provider as well as cardiology. Return to the emergency department for any new or worsening symptoms. Clinical Impressions Clinical Impression: Chest pain Instructions Patient Instructions: DI for Atypical Chest Pain Discharge ED Provider: Torie Green HPI <J Vamsi Turk MD - Last Filed: 09/14/23 21:52> General Chief Complaint: Chest Pain Stated Complaint: Chest pain Time Seen by Provider: 09/14/23 21:41 Mode of Arrival: Ambulatory Source of Information: Patient Limitations: No Limitations Description of Symptoms (Recalled from ER Triage Doc. by RN): Patient states that she started having tingling and cold sensation in her left neck going down her left arm around 1999, then she started having pain in her left chest with nausea. History of Present Illness HPI narrative: Patient is a 58-year-old female with a history of renal artery stenosis and hypertension presenting today with left anterior chest pain that is since resolved. This started 2 hours prior to arrival lasted for 1 hour and is now completely resolved and has been asymptomatic for an hour at this point. There were no exertional component to this no diaphoresis or shortness of breath it was left anterior chest burning in nature radiating to left arm. She has no history of coronary disease had a negative stress echo 3 years ago has never had a heart cath in the past. States she still has a little bit of discomfort on the left posterior aspect of her back but the chest pain is completely resolved. Also states that it is tender to the touch and left anterior aspect of her chest denies any mechanism of strain. Related Data Home Medications Medication Instructions Recorded Confirmed hydrocodone 7.5 mg-acetaminophen 1 tab PO QID Pain 12/02/17 09/14/23 325 mg tablet ([place]) diclofenac sodium 1 % topical gel 1 applic topical DAILYP PRN PAIN 07/14/21 09/14/23 duloxetine 30 mg capsule,delayed 30 mg PO DAILY MOOD 03/01/22 09/14/23 release gabapentin 300 mg capsule 300 mg PO BID 09/23/22 09/14/23 gabapentin 800 mg tablet 800 mg PO HS 07/20/23 09/14/23 galcanezumab-gnlm 120 mg/mL 120 mg SQ DIRECTED 09/14/23 09/14/23 subcutaneous pen injector (Emgality Pen) loteprednol etabonate 0.25 % eye 1 drp ophthalmic (eye) DIRECTED 09/14/23 09/14/23 drops,suspension (Eysuvis) Previous Rx's Medication Instructions Recorded ondansetron 4 mg disintegrating 4 mg PO TIDP PRN Nausea And 05/11/23 tablet Vomiting #30 tabs clonazepam 0.5 mg tablet 0.5 mg PO BIDP PRN Anxiety #60 tabs 05/18/23 conjugated estrogens 1.25 mg 1.25 mg PO DAILY #90 tabs 05/18/23 tablet (Premarin) levothyroxine 150 mcg capsule 150 mcg PO DAILY #90 caps 05/18/23 cyanocobalamin (vitamin B-12) See Rx Instructions .Route 07/06/23 1,000 mcg/mL injection solution .COMPLEX #1 mL lisinopril 5 mg tablet 5 mg PO DAILY #30 tabs 07/20/23 cetirizine 10 mg tablet See Rx Instructions .Route 07/26/23 .COMPLEX #30 tabs escitalopram oxalate 20 mg tablet See Rx Instructions .Route 07/28/23 .COMPLEX #90 tabs syringe with needle 3 mL 23 x 1 #1 ea 08/05/23 (BD Luer-Jess Syringe) galcanezumab-gnlm 120 mg/mL 120 mg SQ MONTHLY Migraine 08/23/23 subcutaneous pen injector Prophylaxis #1 mL sumatriptan succinate 100 mg tablet 100 mg PO NEEDED PRN Migraine 08/23/23 Treatment #10 tabs tizanidine 4 mg tablet 8 mg PO HS Pain 30 days #60 tabs 08/23/23 Allergies Allergy/AdvReac Type Severity Reaction Status Date / Time nut - unspecified Allergy Severe Anaphylaxis Verified 08/23/23 13:06 azithromycin [AZITHROMYCIN] Allergy Intermediate Hives Verified 08/23/23 13:06 [facility] <Abiel Turk MD - Last Filed: 09/14/23 21:52> [facility] Disclaimer: The information contained in this section may have been updated after the patient was seen, as this information can be updated by other users. 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 current occupational exposures/hazards: No caffeine: Yes <Abiel Turk MD - Last Filed: 09/14/23 21:52> ROS Obtained: Yes All systems reviewed & no additional complaints except as documented Physical Exam <Abiel Turk MD - Last Filed: 09/14/23 21:52> General General appearance: alert Chest Chest inspection: Present tenderness (Left anterior tenderness to palpation) Respiratory Respiratory exam: Present normal lung sounds bilaterally; Absent respiratory distress, wheezes or stridor Cardiovascular Cardiovascular exam: Present regular rate; Absent tachycardia Abdominal Exam Abdominal exam: Present soft; Absent distention or tenderness Neurological Exam Neurological exam: Present alert and oriented X3 HEART Score <Abiel Turk MD - Last Filed: 09/14/23 21:52> HEART Score HEART Score assessment performed?: Yes History (anamnesis): Slightly suspicious ECG: Normal Age: 45-65 years Risk factors: 1-2 risk factors Troponin: </= normal limit HEART Score: 2 <Torie Green DO - Last Filed: 09/15/23 02:06> HEART Score HEART Score: 2 Critical Care <Abiel Turk MD - Last Filed: 09/14/23 21:52> Critical Care Time Critical Care Time: No Medical Decision Making <Abiel Turk MD - Last Filed: 09/14/23 21:52> Jef Inquiry Pt receiving controlled substance: No Vital Signs Vital Signs: 09/14/23 20:48 09/14/23 20:55 09/14/23 21:00 Temperature 98.2 F Temperature Source Oral Pulse Rate 78 78 Pulse Rate [Radial] 78 Respiratory Rate 20 16 Blood Pressure Blood Pressure [Right Arm] 155/60 H Blood Pressure Mean [Right Arm] 91 Blood Pressure Source Blood Pressure Position Blood Pressure Position [Right Arm] Supine 02 Sat by Pulse Oximetry 98 96 Oxygen Delivery Method Room Air Nasal Cannula Room Air 09/14/23 21:30 09/14/23 22:01 09/14/23 22:30 Temperature Temperature Source Pulse Rate 79 73 71 Pulse Rate [Radial] Respiratory Rate 11 L 16 14 Blood Pressure 144/80 H 145/78 H Blood Pressure [Right Arm] Blood Pressure Mean [Right Arm] Blood Pressure Source Blood Pressure Position Blood Pressure Position [Right Arm] 02 Sat by Pulse Oximetry 98 98 100 Oxygen Delivery Method Room Air 09/14/23 23:00 09/14/23 23:30 09/15/23 00:58 Temperature 97.8 F Temperature Source Oral Pulse Rate 77 81 71 Pulse Rate [Radial] Respiratory Rate 17 16 18 Blood Pressure 130/70 140/71 152/86 H Blood Pressure [Right Arm] Blood Pressure Mean [Right Arm] Blood Pressure Source Automatic Cuff Blood Pressure Position Sitting Blood Pressure Position [Right Arm] 02 Sat by Pulse Oximetry 98 96 Oxygen Delivery Method Room Air Lab Data Lab results reviewed: Yes I reviewed the patient's lab results. Labs: Lab Results 09/14/23 20:51: WBC 5.0, RBC 4.32, Hgb 11.8 L, Hct 35.9 L, MCV 83.0, MCH 27.4, MCHC 33.0, RDW 14.3, Plt Count 365, MPV 7.4, Neut % (Auto) 50.9, Lymph % (Auto) 41.3, [place] % (Auto) 5.2, Eos % (Auto) 2.0, Baso % (Auto) 0.5, Neut # (Auto) 2.6, Lymph # (Auto) 2.1, [place] # (Auto) 0.3, Eos # (Auto) 0.1, Baso # (Auto) 0.0, D-Dimer 0.87 H, Sodium 133 L, Potassium 3.7, Chloride 99, Carbon Dioxide 28, Anion Gap 9.7, BUN 12, Creatinine 1.00, Estimated Creat Clear 57, Estimated GFR 57 L, Est GFR ( Amer) 69, Glucose 66 L, Calcium 9.2, Total Bilirubin 0.4, AST 30, ALT 19, Alkaline Phosphatase 107, Troponin I < 0.01, Total Protein 9.0 H, Albumin 4.5, Globulin 4.5 H, Albumin/Globulin Ratio 1.0 L 09/15/23 00:00: Troponin I < 0.01 09/14/23 20:51 09/14/23 20:51 Response Orders (Tests/Meds): ED MEDICATIONS Discontinued Medications Generic Name Dose Route Start Last Admin Trade Name Kevinq PRN Reason Stop Dose Admin Ketorolac Tromethamine 15 mg 09/14/23 21:48 09/14/23 22:01 Ketorolac 30mg/Ml Vial IV 09/14/23 21:49 15 mg ONCE ONE Administration ORDERS Category Date Time Status Chest XR -- portable [XR chest portable] Stat Exams 09/14/23 21:07 Completed Complete Blood Count Auto Diff Stat Lab 09/14/23 20:51 Completed Comprehensive Metabolic Panel Stat Lab 09/14/23 20:51 Completed D-Dimer Stat Lab 09/14/23 20:51 Completed Troponin I Q3H Lab 09/15/23 00:00 Completed Troponin I Stat Lab 09/14/23 20:51 Completed MDM Narrative Medical Decision Narrative: 58-year-old with above history atypical in nature she has left anterior chest wall discomfort but symptoms lasted for an hour just prior to arrival we will get serial troponins. For that reason we will place in ED observation order which was placed about 9:45 PM. Cannot use pulmonary embolism rule out criteria and will get a D-dimer with years criteria cutoff of 1.0 in terms of assessment for possible CT PE. EKG was performed which I personally interpreted which shows a ventricular rate of 76 normal sinus rhythm no acute ischemic changes noted normal axis no conduction abnormalities this is a normal nondiagnostic emergency EKG. Chest x-ray was also performed which I personally interpreted which shows no acute cardiopulmonary emergency. Care will be transitioned to Dr. Alex Mcdonnell at 11 PM. <Torie Green, DO - Last Filed: 09/15/23 02:06> Vital Signs Vital Signs: 09/14/23 20:48 09/14/23 20:55 09/14/23 21:00 Temperature 98.2 F Temperature Source Oral Pulse Rate 78 78 Pulse Rate [Radial] 78 Respiratory Rate 20 16 Blood Pressure Blood Pressure [Right Arm] 155/60 H Blood Pressure Mean [Right Arm] 91 Blood Pressure Source Blood Pressure Position Blood Pressure Position [Right Arm] Supine 02 Sat by Pulse Oximetry 98 96 Oxygen Delivery Method Room Air Nasal Cannula Room Air 09/14/23 21:30 09/14/23 22:01 09/14/23 22:30 Temperature Temperature Source Pulse Rate 79 73 71 Pulse Rate [Radial] Respiratory Rate 11 L 16 14 Blood Pressure 144/80 H 145/78 H Blood Pressure [Right Arm] Blood Pressure Mean [Right Arm] Blood Pressure Source Blood Pressure Position Blood Pressure Position [Right Arm] 02 Sat by Pulse Oximetry 98 98 100 Oxygen Delivery Method Room Air 09/14/23 23:00 09/14/23 23:30 09/15/23 00:58 Temperature 97.8 F Temperature Source Oral Pulse Rate 77 81 71 Pulse Rate [Radial] Respiratory Rate 17 16 18 Blood Pressure 130/70 140/71 152/86 H Blood Pressure [Right Arm] Blood Pressure Mean [Right Arm] Blood Pressure Source Automatic Cuff Blood Pressure Position Sitting Blood Pressure Position [Right Arm] 02 Sat by Pulse Oximetry 98 96 Oxygen Delivery Method Room Air Lab Data Labs: Lab Results 09/14/23 20:51: WBC 5.0, RBC 4.32, Hgb 11.8 L, Hct 35.9 L, MCV 83.0, MCH 27.4, MCHC 33.0, RDW 14.3, Plt Count 365, MPV 7.4, Neut % (Auto) 50.9, Lymph % (Auto) 41.3, [place] % (Auto) 5.2, Eos % (Auto) 2.0, Baso % (Auto) 0.5, Neut # (Auto) 2.6, Lymph # (Auto) 2.1, [place] # (Auto) 0.3, Eos # (Auto) 0.1, Baso # (Auto) 0.0, D-Dimer 0.87 H, Sodium 133 L, Potassium 3.7, Chloride 99, Carbon Dioxide 28, Anion Gap 9.7, BUN 12, Creatinine 1.00, Estimated Creat Clear 57, Estimated GFR 57 L, Est GFR ( Amer) 69, Glucose 66 L, Calcium 9.2, Total Bilirubin 0.4, AST 30, ALT 19, Alkaline Phosphatase 107, Troponin I < 0.01, Total Protein 9.0 H, Albumin 4.5, Globulin 4.5 H, Albumin/Globulin Ratio 1.0 L 09/15/23 00:00: Troponin I < 0.01 Response Orders (Tests/Meds): ED MEDICATIONS Discontinued Medications Generic Name Dose Route Start Last Admin Trade Name Aleksandra PRN Reason Stop Dose Admin Ketorolac Tromethamine 15 mg 09/14/23 21:48 09/14/23 22:01 Ketorolac 30mg/Ml Vial IV 09/14/23 21:49 15 mg ONCE ONE Administration ORDERS Category Date Time Status Chest XR -- portable [XR chest portable] Stat Exams 09/14/23 21:07 Completed Complete Blood Count Auto Diff Stat Lab 09/14/23 20:51 Completed Comprehensive Metabolic Panel Stat Lab 09/14/23 20:51 Completed D-Dimer Stat Lab 09/14/23 20:51 Completed Troponin I Q3H Lab 09/15/23 00:00 Completed Troponin I Stat Lab 09/14/23 20:51 Completed MDM Narrative Medical Decision Narrative: 58-year-old with above history atypical in nature she has left anterior chest wall discomfort but symptoms lasted for an hour just prior to arrival we will get serial troponins. For that reason we will place in ED observation order which was placed about 9:45 PM. Cannot use pulmonary embolism rule out criteria and will get a D-dimer with years criteria cutoff of 1.0 in terms of assessment for possible CT PE. EKG was performed which I personally interpreted which shows a ventricular rate of 76 normal sinus rhythm no acute ischemic changes noted normal axis no conduction abnormalities this is a normal nondiagnostic emergency EKG. Chest x-ray was also performed which I personally interpreted which shows no acute cardiopulmonary emergency. Care will be transitioned to Dr. Torie Green at 11 PM. Peter, DO: On my assessment of the patient, she is resting company without concerns or complaints at this time. Vitals remain reassuring on cardiac telemetry. Her second opponent resulted and was also undetectable. Given this, I had a discussion with the patient and we feel that she is appropriate for discharge with close outpatient follow-up with her primary care provider and also cardiology. She was given strict return precautions and was discharged in stable condition after all questions were answered.
[2023-09-14] MEDS: KETOROLAC 30MG/ML VIAL 15 MG IV (22:01)
[2023-09-14 22:03] LABS: D-Dimer 0.87 ug/mL (0.0-0.5)
[2023-09-15 00:45] LABS: Troponin I < 0.01 ng/ml (0.00-0.034)
[2023-09-15 00:58] VITALS: BP 152/86; PULSE 71; RESP 18; TEMP 36.6; O2SAT 96
== END 2023-09-15 01:00 | disposition home or self-care (01) ==
PROVIDERS: Student in an Organized Health Care Education/Training Program; Emergency Provider Emergency Medicine; PCP Internal Medicine
DX: R07.9 Chest pain, unspecified (principal); I10 Essential (primary) hypertension; I70.1 Atherosclerosis of renal artery; G47.33 Obstructive sleep apnea (adult) (pediatric)
CPT/HCPCS: 71045; 80053; 84484; 85025; 85378; 93005; 96374; 99285

== ENCOUNTER 2024-01-22 13:48 | Emergency (ER) | payer MEDICAID, SELFPAY ==
[2024-01-22 13:49] VITALS: BP 133/67; PULSE 79; RESP 17; TEMP 36.8; O2SAT 96; BMI 20.5
--- NOTE | 2024-01-22 14:02 | CT_ITS ---
PROCEDURE INFORMATION: Exam: CT Abdomen And Pelvis With Contrast Exam date and time: 01/22/2024 3:22 PM Age: 58 years old Clinical indication: Abdominal pain; Flank; Right; Additional info: R flank pain TECHNIQUE: Imaging protocol: Computed tomography of the abdomen and pelvis with contrast. Radiation optimization: All CT scans at this facility use at least one of these dose optimization techniques: automated exposure control; mA and/or kV adjustment per patient size (includes targeted exams where dose is matched to clinical indication); or iterative reconstruction. Contrast material: ISOVUE; Contrast volume: 75 ml; Contrast route: IV; COMPARISON: CT ANGIO ABDOMEN 09/14/2023 9:01 AM FINDINGS: Lungs: Bibasilar atelectasis versus parenchymal scarring. Calcified granuloma left lung base Liver: Evidence of prior hepatic, splenic granulomatous disease. Gallbladder and bile ducts: Gallbladder partially contracted Pancreas: Pancreas unremarkable Spleen: See Liver finding. Adrenal glands: Adrenal glands unremarkable. Kidneys and ureters: No hydronephrosis. Stomach and bowel: Mild-moderate stool burden. Colonic diverticulosis. No evidence of diverticulitis. Appendix: No evidence of appendicitis. Intraperitoneal space: Unremarkable. No free air. No significant fluid collection. Vasculature: Unremarkable. No abdominal aortic aneurysm. Lymph nodes: Unremarkable. No enlarged lymph nodes. Urinary bladder: Unremarkable as visualized. Reproductive: 3.3 x 2.5 cm left adnexal cyst. Hysterectomy Bones/joints: Unremarkable. No acute fracture. Soft tissues: Unremarkable. IMPRESSION: 1. 3.3 x 2.5 cm left adnexal cyst. 2. No evidence of acute abnormality.
--- NOTE | 2024-01-22 14:04 | ED_ITS ---
Discharge Plan Disposition Patient Disposition: Home, Self-Care Condition: Good Prescriptions Prescriptions: No Action hydrocodone-acetaminophen [Bristow] 7.5-325 mg tablet 1 tab PO QID diclofenac sodium 1 % gel 1 applic TP DAILYP PRN (Reason: PAIN) Patient Comments: APPLY 4 GM TO AFFECTED AREA(S) FOUR TIMES DAILY ondansetron 4 mg tablet,disintegrating 4 mg PO TIDP PRN (Reason: Nausea And Vomiting) Qty: 30 3RF Premarin 1.25 mg tablet 1.25 mg PO DAILY Qty: 90 3RF levothyroxine 150 mcg capsule 150 mcg PO DAILY Qty: 90 3RF gabapentin 300 mg capsule 300 mg PO BID galcanezumab-gnlm 120 mg/mL pen injector 120 mg SQ MONTHLY Qty: 1 5RF tizanidine 4 mg tablet 8 mg PO HS 30 Days Qty: 60 5RF sumatriptan succinate 100 mg tablet 100 mg PO NEEDED PRN (Reason: Migraine Treatment) Qty: 10 5RF gabapentin 800 mg tablet 800 mg PO HS lisinopril 5 mg tablet 5 mg PO DAILY Qty: 30 2RF cetirizine 10 mg tablet See Rx Instructions .ROUTE .COMPLEX Qty: 30 0RF Dose Instruction: TAKE 1 TABLET BY MOUTH DAILY FOR ALLERGIES; MAY TAKE MED AT NIGHT IF IT CAUSES SLEEPINESS Rx Instructions: TAKE 1 TABLET BY MOUTH DAILY FOR ALLERGIES; MAY TAKE MED AT NIGHT IF IT CAUSES SLEEPINESS (DME) BD Luer-Jess Syringe 3 mL 23 x 1 syringe See Rx Instructions .ROUTE .COMPLEX Qty: 1 0RF Dose Instruction: DIRECTED Rx Instructions: DIRECTED cyanocobalamin (vitamin B-12) 1,000 mcg/mL solution See Rx Instructions .ROUTE .COMPLEX Qty: 1 1RF Dose Instruction: 1000 MCG INTRAMUSCULAR EVERY MONTH FOR SUPPLEMENT Rx Instructions: 1000 MCG INTRAMUSCULAR EVERY MONTH FOR SUPPLEMENT methylprednisolone [Medrol (Sriram)] 4 mg tablets,dose pack See Rx Instructions PO PER PKG DIR Qty: 21 0RF Rx Instructions: PO PER PKG DIR escitalopram oxalate 20 mg tablet See Rx Instructions .ROUTE .COMPLEX Qty: 90 0RF Dose Instruction: TAKE 1 TABLET BY MOUTH ONCE DAILY Rx Instructions: TAKE 1 TABLET BY MOUTH ONCE DAILY clonazepam 0.5 mg tablet 0.5 mg PO BID PRN (Reason: anxiety) Qty: 60 0RF duloxetine 30 MG capsule,delayed release(DR/EC) 30 mg PO DAILY Emgality Pen 120 mg/mL pen injector 120 mg SQ DIRECTED Eysuvis 0.25 % drops,suspension 1 drp ophthalmic (eye) DIRECTED Referrals Follow up/Referrals: Vamsi Plaza APRN [Primary Care Provider] - See instructions Activity Restrictions/Add. Instructions Additional Instructions/Restrictions: Continue medications as prescribed and follow-up closely with your primary care provider for continued management. Return for any new or worsening symptoms. Clinical Impressions Clinical Impression: Headache, Acute flank pain Instructions Patient Instructions: DI for Acute Pain -- Adult Discharge ED Provider: Diana Smith General Adult HPI <Harsha Rogers MD - Last Filed: 01/22/24 15:35> General Chief complaint: PAIN Stated complaint: back pain body ache migrane Time Seen by Provider: 01/22/24 13:51 History of Present Illness HPI narrative: Patient is a 58-year-old female with past medical history of migraines who presents emergency department for evaluation of migraine and flank pain. With expected migraines she has had intermittent headaches, left-sided, radiating down her neck consistent with her baseline since the Eclipse. She is on Emgality and Imitrex. No new characteristic with respect to her headache today just refractory to her home Imitrex. Flank pain was acute, right-sided radiating into her back. She has past medical history of previous appendectomy, still has her gallbladder. There is nonbloody diarrhea, no vomiting. No other acute complaints at this time. Related Data Home Medications Medication Instructions Recorded Confirmed hydrocodone 7.5 mg-acetaminophen 1 tab PO QID Pain 12/02/17 09/14/23 325 mg tablet (Bristow) diclofenac sodium 1 % topical gel 1 applic topical DAILYP PRN PAIN 07/14/21 09/14/23 duloxetine 30 mg capsule,delayed 30 mg PO DAILY MOOD 03/01/22 09/14/23 release gabapentin 300 mg capsule 300 mg PO BID 09/23/22 09/14/23 gabapentin 800 mg tablet 800 mg PO HS 07/20/23 09/14/23 galcanezumab-gnlm 120 mg/mL 120 mg SQ DIRECTED 09/14/23 09/14/23 subcutaneous pen injector (Emgality Pen) loteprednol etabonate 0.25 % eye 1 drp ophthalmic (eye) DIRECTED 09/14/23 09/14/23 drops,suspension (Eysuvis) Previous Rx's Medication Instructions Recorded ondansetron 4 mg disintegrating 4 mg PO TIDP PRN Nausea And 05/11/23 tablet Vomiting #30 tabs conjugated estrogens 1.25 mg 1.25 mg PO DAILY #90 tabs 05/18/23 tablet (Premarin) levothyroxine 150 mcg capsule 150 mcg PO DAILY #90 caps 05/18/23 lisinopril 5 mg tablet 5 mg PO DAILY #30 tabs 07/20/23 cetirizine 10 mg tablet See Rx Instructions .Route 07/26/23 .COMPLEX #30 tabs syringe with needle 3 mL 23 x 1 #1 ea 08/05/23 (BD Luer-Jess Syringe) galcanezumab-gnlm 120 mg/mL 120 mg SQ MONTHLY Migraine 08/23/23 subcutaneous pen injector Prophylaxis #1 mL sumatriptan succinate 100 mg tablet 100 mg PO NEEDED PRN Migraine 08/23/23 Treatment #10 tabs tizanidine 4 mg tablet 8 mg (2 x 4 mg) PO HS Pain 30 days 08/23/23 #60 tabs cyanocobalamin (vitamin B-12) See Rx Instructions .Route 09/23/23 1,000 mcg/mL injection solution .COMPLEX #1 mL methylprednisolone 4 mg tablets in See Rx Instructions PO PER PKG DIR 10/05/23 a dose pack (Medrol (Sriram)) #21 tabs escitalopram oxalate 20 mg tablet See Rx Instructions .Route 11/10/23 .COMPLEX #90 tabs clonazepam 0.5 mg tablet 0.5 mg PO BID PRN anxiety #60 tabs 12/06/23 Allergies Allergy/AdvReac Type Severity Reaction Status Date / Time nut - unspecified Allergy Severe Anaphylaxis Verified 08/23/23 13:06 azithromycin [AZITHROMYCIN] Allergy Intermediate Hives Verified 08/23/23 13:06 [facility] <Harsha Rogers MD - Last Filed: 01/22/24 15:35> [facility] Disclaimer: The information contained in this section may have been updated after the patient was seen, as this information can be updated by other users. Medical History Migraine headache PRANAY (obstructive sleep apnea) Surgical History History of appendectomy History of arthroscopy of right shoulder History of laparoscopy History of prolapse of bladder History of rhinoplasty Family History Other Cancer Social History Smoking Status: Former smoker tobacco type: cigarettes packs per day: 1 second hand exposure: No alcohol intake: current alcohol intake frequency: holidays/special occasions only substance use type: denies use current occupational status: employed Travel in the last 8 weeks: None household members: none housing: apartment marital status: 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 current occupational exposures/hazards: No caffeine: Yes <Harsha Rogers MD - Last Filed: 01/22/24 15:35> ROS Obtained: Yes Systems reviewed as appropriate & no additional complaints except as documented Physical Exam <Harsha Rogers MD - Last Filed: 01/22/24 15:35> General General appearance: alert and in no apparent distress Head Head exam: atraumatic and normocephalic Eye Eye exam: Present PERRL and EOMI ENT ENT exam: Present mucous membranes moist Neck Neck exam: Present normal inspection Chest Chest inspection: Present normal inspection and symmetric chest wall rise Respiratory Respiratory exam: Present normal lung sounds bilaterally; Absent respiratory distress Cardiovascular Cardiovascular exam: Present regular rate and normal rhythm Abdominal Exam Abdominal exam: Present soft and tenderness (Right flank, mild) Extremities Exam Extremities exam: Present normal inspection Back Exam Back exam: Present other (No midline tenderness) Neurological Exam Neurological exam: Present alert Psychiatric Psychiatric exam: Present normal affect Skin Skin exam: Present warm and dry Medical Decision Making <Harsha Rogers MD - Last Filed: 01/22/24 15:35> Jef Inquiry Pt receiving controlled substance: No Vital Signs: 01/22/24 13:49 01/22/24 14:30 01/22/24 15:00 Temperature 98.3 F Temperature Source Oral Pulse Rate 95 H 94 H Pulse Rate [Right] 79 Respiratory Rate 17 Blood Pressure 139/74 148/78 H Blood Pressure [Right Arm] 133/67 Blood Pressure Mean 101 Blood Pressure Mean [Right Arm] 89 Blood Pressure Source [Right Arm] Automatic Cuff 02 Sat by Pulse Oximetry 96 95 93 L Oxygen Delivery Method Room Air Room Air Room Air 01/22/24 15:30 01/22/24 16:00 Temperature Temperature Source Pulse Rate 94 H 92 H Pulse Rate [Right] Respiratory Rate Blood Pressure 148/77 H 165/91 H Blood Pressure [Right Arm] Blood Pressure Mean Blood Pressure Mean [Right Arm] Blood Pressure Source [Right Arm] 02 Sat by Pulse Oximetry 95 95 Oxygen Delivery Method Room Air Room Air Lab Data Lab Results 01/22/24 13:58: WBC 7.2, RBC 4.65, Hgb 12.5, Hct 40.0, MCV 86.0, MCH 26.8 L, M CHC 31.2 L, RDW 14.6, Plt Count 416, MPV 7.5, Neut % (Auto) 69.6, Lymph % (Auto) 21.5, Johnson % (Auto) 5.5, Eos % (Auto) 1.4, Baso % (Auto) 1.8, Neut # (Auto) 5.0, Lymph # (Auto) 1.6, Johnson # (Auto) 0.4, Eos # (Auto) 0.1, Baso # (Auto) 0.1, Sodium 143, Potassium 3.7, Chloride 101, Carbon Dioxide 31 H, Anion Gap 14.7, B UN 22 H, Creatinine 1.00, Estimated Creat Clear 53, Estimated GFR 57 L, Est GFR ( Amer) 69, Glucose 114 H, Calcium 10.1, Total Bilirubin 0.6, AST 28, ALT 23, Alkaline Phosphatase 84, Total Protein 8.4 H, Albumin 4.5, Globulin 3.9 H, Albumin/Globulin Ratio 1.2, Lipase 119, Urine Color Yellow, Urine Appearance Clear, Urine pH 5.5, Ur Specific Comfort 1.025, Urine Protein Negative, Urine Glucose (UA) Negative, Urine Ketones Negative, Urine Blood Trace-i, Urine Nitrate Negative, Urine Bilirubin Negative, Urine Urobilinogen 0.2, Ur Leukocyte Esterase Negative, Urine RBC Occasional, Urine WBC Occasional, Ur Squamous Epith Cells 5-10, Urine Bacteria Trace 01/22/24 13:58 01/22/24 13:58 Orders (Tests/Meds): ED MEDICATIONS Generic Name Dose Route Start Last Admin Trade Name Freq PRN Reason Stop Dose Admin Diphenhydramine HCl 25 mg 01/22/24 17:08 Diphenhydramine 25mg Capsule PO 01/22/24 17:09 ONCE ONE Discontinued Medications Generic Name Dose Route Start Last Admin Trade Name Aleksandra PRN Reason Stop Dose Admin Acetaminophen 1,000 mg 01/22/24 14:02 01/22/24 14:08 Acetaminophen 1,000mg/100ml Vial IV 01/22/24 14:03 1,000 mg ONCE ONE Administration Diphenhydramine HCl 25 mg 01/22/24 17:01 01/22/24 17:10 Diphenhydramine 50mg/Ml Vial IV 01/22/24 17:02 Not Given ONCE ONE Lactated Ringer's 1,000 mls @ 999 mls/hr 01/22/24 14:02 01/22/24 14:08 Lactated Ringer's 1000 Ml Bag IV 01/22/24 15:02 999 mls/hr .Q1H1M ONE Administration Iopamidol 75 ml 01/22/24 15:24 01/22/24 15:26 Iopamidol-370 (76%);100ml Bottle IV 01/22/24 15:25 75 ml ONCE ONE Administration Ketorolac Tromethamine 30 mg 01/22/24 14:02 01/22/24 14:08 Ketorolac 30mg/Ml Vial IV 01/22/24 14:03 30 mg ONCE ONE Administration Prochlorperazine Maleate 10 mg 01/22/24 17:01 01/22/24 17:08 Prochlorperazine 10mg Tablet PO 01/22/24 17:02 10 mg ONCE ONE Administration Sodium Chloride 10 ml 01/22/24 15:24 01/22/24 15:26 Sodium Chloride 0.9% 10ml Syr (Rad Only) IV 01/22/24 15:25 10 ml ONCE ONE Administration ORDERS Category Date Time Status CT abdomen pelvis w con Stat Cat Scan 01/22/24 14:02 Completed CBC w/Auto Diff [Complete Blood Count Auto Diff] Stat Lab 01/22/24 13:58 Completed CMP [Comprehensive Metabolic Panel] Stat Lab 01/22/24 13:58 Completed Lipase Stat Lab 01/22/24 13:58 Completed UA [Urinalysis and Microscopic] Stat Lab 01/22/24 13:58 Completed Medical Decision Narrative: In summary patient is a 58-year-old female past medical history described above presents emergency department for evaluation of migraine and flank pain. Patient is hemodynamically stable nontoxic-appearing upon arrival, afebrile. With respect to headache, it is similar in quality just refractory to her home medicine. Given that she has a nonfocal neurologic exam patient will be empirically treated with headache cocktail with crystalloid bolus, Tylenol, Toradol. Unfortunately she has to drive herself home and is not a candidate for Compazine or droperidol due to this. With expected flank pain differential includes urinary tract infection, ureterolithiasis, referred pain from gallbladder pathology, mass, among others. Workup will be conducted with hematologic labs, CT abdomen pelvis IV contrast, urinalysis. Initial workup reviewed by me, hematologic labs are nonactionable, no DAYSI or critical electrolyte abnormality, no leukocytosis or acute blood loss anemia. Urinalysis interpreted by me not consistent with infection. CT imaging and repeat evaluation pending at time of transfer of care to the oncoming physician, Dr. Smith. <Diana Smith MD - Last Filed: 01/22/24 17:12> Medical Records Medical records reviewed: Yes I reviewed the patient's medical records. Vital Signs: 01/22/24 13:49 01/22/24 14:30 01/22/24 15:00 Temperature 98.3 F Temperature Source Oral Pulse Rate 95 H 94 H Pulse Rate [Right] 79 Respiratory Rate 17 Blood Pressure 139/74 148/78 H Blood Pressure [Right Arm] 133/67 Blood Pressure Mean 101 Blood Pressure Mean [Right Arm] 89 Blood Pressure Source [Right Arm] Automatic Cuff 02 Sat by Pulse Oximetry 96 95 93 L Oxygen Delivery Method Room Air Room Air Room Air 01/22/24 15:30 01/22/24 16:00 Temperature Temperature Source Pulse Rate 94 H 92 H Pulse Rate [Right] Respiratory Rate Blood Pressure 148/77 H 165/91 H Blood Pressure [Right Arm] Blood Pressure Mean Blood Pressure Mean [Right Arm] Blood Pressure Source [Right Arm] 02 Sat by Pulse Oximetry 95 95 Oxygen Delivery Method Room Air Room Air Lab Data Lab results reviewed: Yes I reviewed the patient's lab results. Lab Results 01/22/24 13:58: WBC 7.2, RBC 4.65, Hgb 12.5, Hct 40.0, MCV 86.0, MCH 26.8 L, M CHC 31.2 L, RDW 14.6, Plt Count 416, MPV 7.5, Neut % (Auto) 69.6, Lymph % (Auto) 21.5, Johnson % (Auto) 5.5, Eos % (Auto) 1.4, Baso % (Auto) 1.8, Neut # (Auto) 5.0, Lymph # (Auto) 1.6, Johnson # (Auto) 0.4, Eos # (Auto) 0.1, Baso # (Auto) 0.1, Sodium 143, Potassium 3.7, Chloride 101, Carbon Dioxide 31 H, Anion Gap 14.7, B UN 22 H, Creatinine 1.00, Estimated Creat Clear 53, Estimated GFR 57 L, Est GFR ( Amer) 69, Glucose 114 H, Calcium 10.1, Total Bilirubin 0.6, AST 28, ALT 23, Alkaline Phosphatase 84, Total Protein 8.4 H, Albumin 4.5, Globulin 3.9 H, Albumin/Globulin Ratio 1.2, Lipase 119, Urine Color Yellow, Urine Appearance Clear, Urine pH 5.5, Ur Specific Comfort 1.025, Urine Protein Negative, Urine Glucose (UA) Negative, Urine Ketones Negative, Urine Blood Trace-i, Urine Nitrate Negative, Urine Bilirubin Negative, Urine Urobilinogen 0.2, Ur Leukocyte Esterase Negative, Urine RBC Occasional, Urine WBC Occasional, Ur Squamous Epith Cells 5-10, Urine Bacteria Trace Orders (Tests/Meds): ED MEDICATIONS Generic Name Dose Route Start Last Admin Trade Name Freq PRN Reason Stop Dose Admin Diphenhydramine HCl 25 mg 01/22/24 17:08 Diphenhydramine 25mg Capsule PO 01/22/24 17:09 ONCE ONE Discontinued Medications Generic Name Dose Route Start Last Admin Trade Name Freq PRN Reason Stop Dose Admin Acetaminophen 1,000 mg 01/22/24 14:02 01/22/24 14:08 Acetaminophen 1,000mg/100ml Vial IV 01/22/24 14:03 1,000 mg ONCE ONE Administration Diphenhydramine HCl 25 mg 01/22/24 17:01 01/22/24 17:10 Diphenhydramine 50mg/Ml Vial IV 01/22/24 17:02 Not Given ONCE ONE Lactated Ringer's 1,000 mls @ 999 mls/hr 01/22/24 14:02 01/22/24 14:08 Lactated Ringer's 1000 Ml Bag IV 01/22/24 15:02 999 mls/hr .Q1H1M ONE Administration Iopamidol 75 ml 01/22/24 15:24 01/22/24 15:26 Iopamidol-370 (76%);100ml Bottle IV 01/22/24 15:25 75 ml ONCE ONE Administration Ketorolac Tromethamine 30 mg 01/22/24 14:02 01/22/24 14:08 Ketorolac 30mg/Ml Vial IV 01/22/24 14:03 30 mg ONCE ONE Administration Prochlorperazine Maleate 10 mg 01/22/24 17:01 01/22/24 17:08 Prochlorperazine 10mg Tablet PO 01/22/24 17:02 10 mg ONCE ONE Administration Sodium Chloride 10 ml 01/22/24 15:24 01/22/24 15:26 Sodium Chloride 0.9% 10ml Syr (Rad Only) IV 01/22/24 15:25 10 ml ONCE ONE Administration ORDERS Category Date Time Status CT abdomen pelvis w con Stat Cat Scan 01/22/24 14:02 Completed CBC w/Auto Diff [Complete Blood Count Auto Diff] Stat Lab 01/22/24 13:58 Completed CMP [Comprehensive Metabolic Panel] Stat Lab 01/22/24 13:58 Completed Lipase Stat Lab 01/22/24 13:58 Completed UA [Urinalysis and Microscopic] Stat Lab 01/22/24 13:58 Completed Medical Decision Narrative: In summary patient is a 58-year-old female past medical history described above presents emergency department for evaluation of migraine and flank pain. Patient is hemodynamically stable nontoxic-appearing upon arrival, afebrile. With respect to headache, it is similar in quality just refractory to her home medicine. Given that she has a nonfocal neurologic exam patient will be empirically treated with headache cocktail with crystalloid bolus, Tylenol, Toradol. Unfortunately she has to drive herself home and is not a candidate for Compazine or droperidol due to this. With expected flank pain differential includes urinary tract infection, ureterolithiasis, referred pain from gallbladder pathology, mass, among others. Workup will be conducted with hematologic labs, CT abdomen pelvis IV contrast, urinalysis. Initial workup reviewed by me, hematologic labs are nonactionable, no DAYSI or critical electrolyte abnormality, no leukocytosis or acute blood loss anemia. Urinalysis interpreted by me not consistent with infection. CT imaging and repeat evaluation pending at time of transfer of care to the oncoming physician, Dr. Smith. I assumed care of patient pending CT imaging. There was a delay in CT imaging which we did contact radiology for. On reevaluation patient did note some continuation of her headache but it was improved after medications. Patient requests p.o. medications and would like to be discharged as she works in the morning. We discussed her reassuring CT scan which did come back negative for acute process. Recommended PCP follow-up which patient is agreeable and return precautions. Discharged in stable condition. Critical Care <Harsha Rogers MD - Last Filed: 01/22/24 15:35> Critical Care Time Critical Care Time: No
[2024-01-22 14:07] LABS: Microscopic, Urine URINE MICROSCOPIC (MICROSCOPIC)
[2024-01-22] MEDS: LACTATED RINGERS 1000ML 1,000 ML 999 ML IV (14:08)
[2024-01-22] MEDS: KETOROLAC 30MG/ML VIAL 30 MG IV (14:08)
[2024-01-22] MEDS: ACETAMINOPHEN 1,000MG/100ML VIAL 1000 MG IV (14:08)
[2024-01-22 14:12] LABS: Basophils # 0.1 K/mm3 (0-0.2); Basophils % 1.8 % (0.1-2.0); Eosinophils # 0.1 K/mm3 (0.0-0.4); Eosinophils % 1.4 % (0.1-12.0); Hemoglobin 12.5 g/dL (12.2-16.2); Lymphocytes # 1.6 K/mm3 (0.7-4.5); Lymphocytes % 21.5 % (10-50); Mean Corpuscular HGB Conc 31.2 g/dL (31.8-35.4); Mean Corpuscular Hemoglobin 26.8 pg (27.0-31.2); Mean Platelet Volume 7.5 fl (7.4-10.4); Monocytes # 0.4 K/mm3 (0.1-1.0); Monocytes % 5.5 % (1.7-9.3); Neutrophils % 69.6 % (37.0-80.0); Platelet Count 416 K/mm3 (142-424); Red Blood Count 4.65 M/mm3 (4.20-5.40); Red Cell Distribution Width 14.6 % (11.5-17.5); White Blood Count 7.2 K/mm3 (4.8-10.8)
[2024-01-22 14:21] LABS: Appearance,Urine CLEAR (Clear); Bilirubin,Urine Negative (Negative); Blood, Urine TRACE-I (Negative); Color,Urine YELLOW (Yellow); Glucose,Urine (UA) Negative (Negative); Ketones,Urine Negative (Negative); Leukocyte Esterase,Urine Negative (Negative); Nitrate,Urine Negative (Negative); PH,Urine 5.5 (5.0-8.5); Protein,Urine Negative (Negative); Specific Gravity, Urine 1.025 (1.005-1.030); Urobilinogen,Urine 0.2 EU/dl (0.2)
[2024-01-22 14:22] LABS: Alanine Aminotransferase 23 U/L (12-78); Albumin Level 4.5 g/dl (3.5-5.0); Albumin/Globulin Ratio 1.2 (1.1-1.8); Alkaline Phosphatase 84 U/L (38-126); Anion Gap 14.7 mEq/L (5-15); Aspartate Amino Transferase 28 U/L (14-36); Bilirubin,Total 0.6 mg/dl (0.2-1.3); Blood Urea Nitrogen 22 mg/dl (7-17); Calcium 10.1 mg/dl (8.4-10.2); Carbon Dioxide 31 mmol/L (22.0-30.0); Chloride 101 mmol/L (98-107); Creatinine Clearance Estimated 53 mL/min (50-200); Estimated Glomerular Filt Rate 57 ml/min (>60); GFR (African American) 69 ML/MIN (>60); Globulin 3.9 g/dL (1.3-3.2); Glucose 114 mg/dl (74-100); Lipase 119 U/L (23-300); Potassium 3.7 mmoL/L (3.5-5.1); Sodium 143 mmol/L (136-145); Total Protein,Serum 8.4 g/dl (6.3-8.2)
[2024-01-22 14:30] VITALS: BP 139/74; PULSE 95; O2SAT 95
[2024-01-22 14:43] LABS: Bacteria,Urine Trace /lpf; RBC,Urine Occasional #/hpf (0-3); WBC,Urine Occasional #/hpf (0-3)
[2024-01-22 15:00] VITALS: BP 148/78; PULSE 94; O2SAT 93
--- NOTE | 2024-01-22 15:11 | PC.NURSE ---
Rounded on pt. Warm blanket provided. No other needs voiced at this time.
--- NOTE | 2024-01-22 15:15 | PC.NURSE ---
pt going to RAD
[2024-01-22] MEDS: SODIUM CHLORIDE 0.9% 10ML SYR (RAD ONLY) 10 ML IV (15:26)
[2024-01-22] MEDS: IOPAMIDOL-370 (76%);100ML BOTTLE 75 ML IV (15:26)
--- NOTE | 2024-01-22 15:26 | PC.NURSE ---
PT RETURNED FROM CT
--- NOTE | 2024-01-22 15:27 | PC.NURSE ---
pt back from ct scan
[2024-01-22 15:30] VITALS: BP 148/77; PULSE 94; O2SAT 95
[2024-01-22 16:00] VITALS: BP 165/91; PULSE 92; O2SAT 95
--- NOTE | 2024-01-22 16:16 | PC.NURSE ---
Rounded on pt. No needs voiced at this time. Call light remains within reach.
[2024-01-22] MEDS: PROCHLORPERAZINE 10MG TABLET 10 MG PO (17:08)
[2024-01-22 17:20] VITALS: BP 165/91; PULSE 92; RESP 16; TEMP 36.8; O2SAT 95
[2024-01-22] MEDS: diphenhydrAMINE 25MG CAPSULE 25 MG PO (17:21)
== END 2024-01-22 17:21 | disposition home or self-care (01) ==
PROVIDERS: Emergency Medicine; Emergency Provider Emergency Medicine; PCP Nurse Practitioner Family
DX: G43.909 Migraine, unspecified, not intractable, without status migrainosus (principal); M54.59 Other low back pain; Z87.891 Personal history of nicotine dependence
CPT/HCPCS: 74177; 80053; 81001; 83690; 85025; 96361; 96374; 96375; 99284; J0131; Q9967

== ENCOUNTER 2024-03-15 09:47 | Outpatient (CLI) | payer MEDICAID, SELFPAY ==
[2024-03-15 19:26] LABS: Chol/HDL Ratio 3.5 (1-3.5); Cholesterol 240 mg/dl (140-200); HDL Cholesterol 69 mg/dl (40-60); Triglycerides 222 mg/dl (30-150); VLDL Cholesterol 44 mg/dL (0-40)
[2024-03-15 19:38] LABS: Direct LDL Cholesterol 122.82 mg/dL (100-129)
[2024-03-15 19:50] LABS: 25-OH Vitamin D, Total 39.4 ng/mL (30-100)
[2024-03-15 20:01] LABS: Free Thyroxine Index 5.3 ug/dL (5.93-13.13); T4 (Thyroxine) 18.3 ug/dl (5.53-11.0); Triiodothryronine (T3) Uptake 29 % (23.5-40.5)
[2024-03-15 20:15] LABS: Thyroid Stimulating Hormone < 0.02 uIU/mL (0.465-4.68)
[2024-03-15 20:26] LABS: Vitamin B12 496 pg/mL (239-931)
[2024-03-15 20:47] LABS: Iron 55 ug/dL (37-170)
[2024-03-15 20:56] LABS: Total Iron Binding Capacity 336 ug/dL (265-497)
== END 2024-03-15 23:59 | disposition home or self-care (01) ==
LOC: LAB.DROPOF 03-16 09:47
PROVIDERS: PCP Family Medicine; Visit Provider Family Medicine
DX: K58.9 Irritable bowel syndrome, unspecified (principal); E03.9 Hypothyroidism, unspecified; Z68.21 Body mass index [BMI] 21.0-21.9, adult
CPT/HCPCS: 80061; 82306; 82607; 83540; 83550; 84436; 84443; 84479

== ENCOUNTER 2024-04-09 16:03 | Outpatient (CLI) | payer MEDICAID, SELFPAY ==
[2024-04-09 16:51] LABS: Basophils % 0.5 % (0.1-2.0); Eosinophils # 0.1 K/mm3 (0.0-0.4); Eosinophils % 1.6 % (0.1-12.0); Hematocrit 37.6 % (37.0-47.0); Hemoglobin 12.1 g/dL (12.2-16.2); Mean Corpuscular HGB Conc 32.2 g/dL (31.8-35.4); Mean Corpuscular Hemoglobin 27.6 pg (27.0-31.2); Mean Corpuscular Volume 85.7 fl (81-99); Mean Platelet Volume 7.2 fl (7.4-10.4); Monocytes # 0.4 K/mm3 (0.1-1.0); Monocytes % 5.8 % (1.7-9.3); Neutrophils # 4.4 K/mm3 (1.8-7.8); Neutrophils % 63.1 % (37.0-80.0); Platelet Count 326 K/mm3 (142-424); Red Blood Count 4.38 M/mm3 (4.20-5.40); Red Cell Distribution Width 15.5 % (11.5-17.5); White Blood Count 6.9 K/mm3 (4.8-10.8)
[2024-04-09 17:16] LABS: Chloride 106 mmol/L (98-107)
[2024-04-09 17:17] LABS: Potassium 3.9 mmoL/L (3.5-5.1); Sodium 137 mmol/L (136-145)
[2024-04-09 17:19] LABS: Alanine Aminotransferase 16 U/L (12-78); Alkaline Phosphatase 76 U/L (38-126); Anion Gap 7.9 mEq/L (5-15); Aspartate Amino Transferase 25 U/L (14-36); Bilirubin,Indirect 0.3 mg/dL (0.0-0.9); Bilirubin,Total 0.3 mg/dl (0.2-1.3); Bilirubin,Unconjugated 0.4 mg/dL (0.0-1.1); Blood Urea Nitrogen 19 mg/dl (7-17); Carbon Dioxide 27 mmol/L (22.0-30.0); Estimated Glomerular Filt Rate 64 ml/min (>60); GFR (African American) 78 ML/MIN (>60)
[2024-04-09 17:20] LABS: Albumin Level 3.6 g/dl (3.5-5.0); Calcium 8.8 mg/dl (8.4-10.2); Chol/HDL Ratio 3.5 (1-3.5); Cholesterol 237 mg/dl (140-200); Glucose 118 mg/dl (74-100); HDL Cholesterol 68 mg/dl (40-60); Magnesium 1.8 mg/dl (1.6-2.3); Total Protein,Serum 7.2 g/dl (6.3-8.2); Triglycerides 274 mg/dl (30-150); VLDL Cholesterol 55 mg/dL (0-40)
[2024-04-09 17:31] LABS: Direct LDL Cholesterol 105.23 mg/dL (100-129)
[2024-04-09 17:42] LABS: Free T4 (Free Thyroxine) 2.09 ng/dl (0.78-2.19)
[2024-04-09 17:53] LABS: Thyroid Stimulating Hormone < 0.02 uIU/mL (0.465-4.68)
== END 2024-04-09 23:59 | disposition home or self-care (01) ==
LOC: LAB 16:05
PROVIDERS: PCP Family Medicine; Visit Provider Physician Assistant
DX: R55 Syncope and collapse (principal); R00.2 Palpitations; R07.9 Chest pain, unspecified; I70.1 Atherosclerosis of renal artery; I10 Essential (primary) hypertension
CPT/HCPCS: 36415; 80048; 80061; 80076; 83735; 84439; 84443; 85025; 93270

== ENCOUNTER 2024-05-04 10:23 | Outpatient (CLI) | payer MEDICAID, SELFPAY ==
--- NOTE | 2024-05-04 | CA_ITS ---
APPROVED REPORT Exam: Exercise Treadmill Technologist: Sandy Meier, Ht: 5 ft 4 in Wt: 123 lbs BSA: 1.59 m2 HR: 84 bpm BP: 137/70 mmHg Rhythm: NSR, ST abns inferiorly and laterally Indications: Syncope, CP Medical History Medications: Amlodipine,,,,, Levothyroxine,,,,, Gabapentin,,,,, Premarin,,,,, Escitalopram,,,,, [place],,,,, DulOXETINE,,,,, Tizanidine,,,,, Sumatriptan,,,,, CetIRIZINE,,,,, Cardiac Risk Factors: Smoking Stress Test Details Test: Cezar HR Resting HR: 106 bpm Max Heart Rate (APMHR): 161 bpm Max HR Achieved: 178 bpm Target HR (85% APMHR): 137 bpm % of APMHR: 111 Recovery HR: 126 bpm HR response to stress: Normal HR response to stress BP Resting BP: 122.0/75.0 mmHg Max BP: 190.0/70.0 mmHg Recovery BP: 167.0/74.0 mmHg BP response to stress: Normal blood pressure response to stress. ECG Resting ECG: NSR, ST abns inferiorly and laterally. Stress EC.[address] depression Arrhythmia: None Clinical Exercise duration: 09:26 min Highest Stage Achieved: Exercise capacity: 10.1 METs Overall Exercise Capacity for Age: Average Stress ECG Conclusion During cezar protocol pt walked total of 9:26 minutes. No CP noted. Light-headed with exercise. No arrhythmias noted. ST changes: 0.[address] depression. Conclusion: Average exercise capacity. No evidence of ischemic at peak stress. Stress echo images reported separately. Test Summary REST . . . . . . . Sitting REST . . . . . . . Standing REST 06:09 0.0 0.0 106 . 122/ 75 . . Stage 1 01:00 10.0 1.7 118 . . . . Stage 1 02:00 10.0 1.7 133 . . . . Stage 1 03:00 10.0 1.7 142 . 166/ 70 . . Stage 2 01:00 12.0 2.5 151 . . . . Stage 2 02:00 12.0 2.5 159 . . . . Stage 2 03:00 12.0 2.5 163 . 190/ 70 . . Stage 3 01:00 14.0 3.4 169 . . . . Stage 3 02:00 14.0 3.4 173 . . . . Stage 3 03:00 14.0 3.4 174 . . . . Stage 4 00:26 16.0 4.2 176 . . . Stop exercise at 09:26 RECOVERY 01:00 0.0 0.0 0 . . . . RECOVERY 02:00 0.0 0.0 0 . . . . RECOVERY 03:00 0.0 0.0 127 . . . . RECOVERY 04:00 0.0 0.0 115 . . . . RECOVERY 05:00 0.0 0.0 109 . 144/ 73 . . RECOVERY 06:00 0.0 0.0 108 . 144/ 73 . . RECOVERY 07:00 0.0 0.0 108 . 144/ 73 . . RECOVERY 07:28 0.0 0.0 111 . 147/ 75 . . Electronically signed by : Senia Leo MD 05/07/2024 05:57:36
--- NOTE | 2024-05-04 10:27 | CA_ITS ---
APPROVED REPORT EXAM: Comprehensive 2D, Doppler, and color-flow Echocardiogram Loaf Counter: Loan Huff RVT Ht: 5 ft 4 in Wt: 123lbs BSA: 1.59 BP: 120/60 mmHg Indications: CP,SYNCOPE,HTN,PALPS,EX SMOKER Echo Procedure The patient underwent an Exercise Stress Test using the Jim Protocol. Blood pressure, heart rate, and EKG were monitored. An Echocardiogram was performed by auto transmission technician in four stages in quad fashion. At peak stress, four selected images were obtained and placed side by side with resting images for comparison. Stress Test Details Test: Exercise stress testing was performed using a Jim protocol. HR Resting HR: 106 bpm Max Heart Rate (APMHR): 161 bpm Max HR Achieved: 178 bpm Target HR (85% APMHR): 137 bpm % of APMHR: 111 Recovery HR: 126 bpm HR response to stress: Normal HR response to stress BP Resting BP: 122/75 mmHg Max BP: 190/70 mmHg BP response to stress: Normal blood pressure response to stress. ECG Resting ECG: NSR, non-specific ST changes Stress EC.[address] depression Arrhythmia: None Recovery ECG: Return to baseline within 3 minutes of recovery Recovery Arrhythmia: None Clinical Exercise duration: 09:26 min Exercise capacity: 10.1 METs Overall Exercise Capacity for Age: Average Echo Findings The Pre-Stress Echocardiogram showed normal left ventricular contractility with an estimated Ejection Fraction of about 55%. The Post-Stress Echocardiogram showed normal left ventricular contractility with an estimated Ejection Fraction of about 65%. Other Information Study Quality: Adequate Conclusion Average exercise capacity. Normal LV systolic function at baseline. Good LV augmentation at peak stress with no evidence of new regional wall motion abnormalities. Electronically signed by : Senia Leo MD 05/07/2024 06:01:29
== END 2024-05-04 23:59 | disposition home or self-care (01) ==
LOC: RT 10:23
PROVIDERS: PCP Family Medicine; Visit Provider Physician Assistant
DX: R55 Syncope and collapse (principal); I70.1 Atherosclerosis of renal artery; I10 Essential (primary) hypertension; R00.2 Palpitations; R07.9 Chest pain, unspecified; Z87.891 Personal history of nicotine dependence
CPT/HCPCS: 93017; 93018; 93350

== ENCOUNTER 2024-06-18 10:47 | Outpatient (CLI) | payer MEDICAID, SELFPAY ==
[2024-06-18 14:02] LABS: Adenovirus F 40/41, stool Not Detected (NotDetected); Astrovirus Not Detected (NotDetected); Campylobacter Not Detected (NotDetected); Clostridium Difficile A/B, PCR Not Detected (NotDetected); Cryptosporidium Not Detected (NotDetected); Cyclospora Cayetanesis Not Detected (NotDetected); Entamoeba histolytica Not Detected (NotDetected); Enteroaggregative E coli Not Detected (NotDetected); Enteropathogenic E coli Not Detected (NotDetected); Enterotoxigenic E coli Not Detected (NotDetected); Giardia lamblia Not Detected (NotDetected); Norovirus Not Detected (NotDetected); Plesimonas Shigalloides, PCR Not Detected (NotDetected); Rotavirus A Not Detected (NotDetected); Salmonella, PCR Not Detected (NotDetected); Sapovirus Not Detected (NotDetected); Shiga-like toxin E coli Not Detected (NotDetected); Shigella Enterovasive E coli Not Detected (NotDetected); Vibrio Cholerae Not Detected (NotDetected); Vibrio, PCR Not Detected (NotDetected); Yersinia Entercolitica, PCR Not Detected (NotDetected)
[2024-06-20 15:26] LABS: C difficile Toxins AB, EIA Negative (Negative)
== END 2024-06-18 23:59 | disposition home or self-care (01) ==
LOC: LAB.DROPOF 06-22 10:48
PROVIDERS: PCP Family Medicine; Visit Provider Nurse Practitioner Family
DX: Z86.19 Personal history of other infectious and parasitic diseases (principal); R19.7 Diarrhea, unspecified
CPT/HCPCS: 87324; 87507

== ENCOUNTER 2024-06-28 08:39 | Day surgery (SDC) | payer MEDICAID, SELFPAY ==
[2024-06-27 11:46] VITALS: BMI 21.8
[2024-06-28 09:00] VITALS: BP 119/78; PULSE 81; RESP 18; TEMP 36.3; O2SAT 97
[2024-06-28] MEDS: LACTATED RINGERS 1000ML 1,000 ML 25 ML IV (09:10)
--- NOTE | 2024-06-28 09:15 | P.HP_ITS ---
History of Present Illness *Admission Date: 06/28/24 *Reason for visit:: Bright red rectal bleeding *History of present illness: Mrs. Hutson is a 59-year-old female who is here for diagnostic colonoscopy secondary to rectal bleeding and history of colitis. The examination is deemed medically necessary for colonoscopy. The patient has been seen, interviewed and examined prior to the procedure by both myself and the anesthesia provider. [facility] Disclaimer: The information contained in this section may have been updated after the patient was seen, as this information can be updated by other users. Medical History Sinusitis Hypokalemia Suppurative appendicitis Abdominal pain DAYSI (acute kidney injury) Dehydration Gastroenteritis COVID-19 SIRS (systemic inflammatory response syndrome) Clostridium difficile colitis Hypokalemia Ovarian cyst UTI (urinary tract infection) Exposure to COVID-19 virus Cat bite Fall Pneumonia PRANAY (obstructive sleep apnea) Migraine headache Surgical History History of laparoscopy History of appendectomy History of prolapse of bladder History of arthroscopy of right shoulder History of rhinoplasty Family History Other Cancer Social History (Updated 06/28/24 @ 09:06 by Bijal Oates RN) Smoking Status: Former smoker tobacco type: cigarettes packs per day: 1 second hand exposure: No alcohol intake: never substance use type: denies use current occupational status: employed Travel in the last 8 weeks: None household members: none housing: apartment marital status: 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 current occupational exposures/hazards: No caffeine: Yes Other Medical History Have you received the Flu Vaccine for this season: No Have you received the Pneumonia Vaccine: No Review of Systems Review of Systems Review of systems (narrative): Negative *Cardiovascular Comments: Negative *Gastrointestinal Comments: Negative *Genitourinary Comments: Negative *Musculoskeletal Comments: Negative *Neurologic Comments: Negative Meds Home Medications and Allergies Home Medications ?Medication ?Instructions ?Recorded ?Confirmed ?Type hydrocodone 7.5 mg-acetaminophen 1 tab PO QID Pain 12/02/17 06/28/24 History 325 mg tablet ([place]) diclofenac sodium 1 % topical gel 1 applic topical DAILYP PRN PAIN 07/14/21 06/28/24 History duloxetine 30 mg capsule,delayed 30 mg PO DAILY MOOD 03/01/22 06/27/24 History release cetirizine 10 mg tablet See Rx Instructions .Route 07/26/23 06/27/24 Rx .COMPLEX #30 tabs syringe with needle 3 mL 23 x 1 #1 ea 08/05/23 06/27/24 Rx (BD Luer-Jess Syringe) amlodipine 5 mg tablet (Norvasc) 5 mg PO DAILY hypertension #90 tabs 04/13/24 06/27/24 Rx levothyroxine 112 mcg tablet 112 mcg PO DAILY 05/22/24 06/28/24 History cyanocobalamin (vitamin B-12) See Rx Instructions .Route 05/24/24 06/28/24 Rx 1,000 mcg/mL injection solution .COMPLEX #1 mL (Dodex) galcanezumab-gnlm 120 mg/mL 120 mg SQ DIRECTED Episodic 05/29/24 06/28/24 Rx subcutaneous pen injector migraine #1 mL (Emgality Pen) rimegepant 75 mg disintegrating 75 mg PO ONCE PRN migraine 05/29/24 06/28/24 Rx tablet (Nurtec ODT) headache #8 tabs tizanidine 4 mg tablet 8 mg (2 x 4 mg) PO HS Pain 30 days 05/29/24 06/28/24 Rx #60 tabs conjugated estrogens 1.25 mg 1.25 mg PO DAILY #90 tabs 06/05/24 06/27/24 Rx tablet (Premarin) gabapentin 400 mg capsule 400 mg PO DAILY PRN . 06/18/24 06/27/24 History gabapentin 800 mg tablet 800 mg PO DAILY 06/18/24 06/28/24 History escitalopram oxalate 20 mg tablet 20 mg PO DAILY 06/27/24 06/27/24 History inulin 2 gram chewable tablet 2 g PO DAILY 06/27/24 06/28/24 History (Prebiotic Fiber) ondansetron 4 mg disintegrating 4 mg PO Q6H 06/27/24 06/28/24 History tablet sumatriptan succinate 100 mg tablet 100 mg PO DAILY PRN . 06/27/24 06/28/24 History New Prescriptions to Start Prescriptions: Allergies Allergy/AdvReac Type Severity Reaction Status Date / Time nut - unspecified Allergy Severe Anaphylaxis Verified 06/28/24 08:54 azithromycin [AZITHROMYCIN] Allergy Intermediate Hives Verified 06/28/24 08:54 lisinopril AdvReac Intermediate itching Verified 06/28/24 08:54 Exam Data for Last 24 hours Vital signs and Labs for Last 24 Hours: Temp Pulse Resp BP Pulse Ox O2 Del Method 97.4 F L 81 18 119/78 97 Room Air 06/28/24 09:00 06/28/24 09:00 06/28/24 09:00 06/28/24 09:00 06/28/24 09:00 06/28/24 09:00 I & O for Last 24 hours: Intake & Output 06/25/24 06/26/24 06/27/24 06/28/24 23:59 23:59 23:59 23:59 Weight 127 lb *Routine HEENT Exam Head: Present normocephalic Eye: Present EOMI and PERRL ENT: Present mucous membranes moist *Routine Neck Exam Neck: Present supple *Routine Respiratory Exam Respiratory: Present CTA bilaterally *Routine Cardiovascular Exam Cardiovascular: Present RRR *Routine Abdominal Exam Abdominal: Present soft and normoactive bowel sounds; Absent tenderness *Routine Rectal Exam Rectal:: deferred *Routine Genitalia Exam Genitalia:: deferred *Routine Extremities Exam Extremities: Absent cyanosis, clubbing or edema *Routine Skin Exam Skin: Present warm; Absent rash *Routine Neurological Exam Neurological: Present alert and oriented X3 Assessment and Plan *Assessment and plan (1) Ulcerative colitis: Status: Acute Category: Medical Code(s): K51.90 - Ulcerative colitis, unspecified, without complications Plan A/P: 1. Rectal bleeding/history of colitis is the preprocedural diagnosis. The patient will be anesthetized/sedated using MAC sedation. The patient has been seen and examined. Cardiac and lung assessment prior to the examination is stable. Proceed with planned colonoscopy
--- NOTE | 2024-06-28 09:19 | P.PNANES_ITS ---
[facility] Disclaimer: The information contained in this section may have been updated after the patient was seen, as this information can be updated by other users. Medical History Sinusitis Hypokalemia Suppurative appendicitis Abdominal pain DAYSI (acute kidney injury) Dehydration Gastroenteritis COVID-19 SIRS (systemic inflammatory response syndrome) Clostridium difficile colitis Hypokalemia Ovarian cyst UTI (urinary tract infection) Exposure to COVID-19 virus Cat bite Fall Pneumonia PRANAY (obstructive sleep apnea) Migraine headache Surgical History History of laparoscopy History of appendectomy History of prolapse of bladder History of arthroscopy of right shoulder History of rhinoplasty Family History Other Cancer Social History Smoking Status: Former smoker tobacco type: cigarettes packs per day: 1 second hand exposure: No alcohol intake: never substance use type: denies use current occupational status: employed Travel in the last 8 weeks: None household members: none housing: apartment marital status: 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 current occupational exposures/hazards: No caffeine: Yes [facility] Anesthesia Checklist Patient Identification Patient Identification: Arm Band and Verbal (Name & ) Structural Data Admitted From: Home Planned Operative Procedure/s: EGD/Colonoscopy Consent for Planned Operative Procedure(s) Verified: Yes Verified Documents: Surgical Consent and History and Physical NPO Status Verified Time NPO: 00:00 Additional verifications Anesthesia Reactions: No Hx Blood Transfusions: No Blood Transfusion Reaction: No Airway Assessment Mallampati Score:: Class II C-Spine Mobility Assessed: Yes TMJ Mobility Assessed: Yes Dentition: Good Dentition Neurological Assessment Level of Consciousness: Awake Hx Seizures: No Numbness or tingling in extremities: No Anesthesia Plan Anesthesia Risk discussed: Yes Anesthesia Plan: Verified ASA Class: II Anesthesia Type: MAC
--- NOTE | 2024-06-28 09:33 | P.PCN_ITS ---
[facility] Procedure Note Date: 06/28/24 Time: 09:33 Procedure Note:: Colonoscopy Procedure Report: Colonoscopy with cold biopsies Endoscopist: Danile Peters II, MD Referring physician: Dk Goldberg MD Date of Procedure: June 28, 2024 Equipment: Olympus 190 variable stiffness pediatric colonoscope Sedation: MAC sedation Indication: Mrs. Hutson is a 59-year-old female who is here for diagnostic colonoscopy. The patient was diagnosed with ulcerative colitis by Dr. Maurice Alcantara more than 10 years ago and placed on balsalazide. She has done well with this. Her last colonoscopy was several years ago. The patient recently was in the office with Merle REARDON. She has 4-9 urgent bowel episodes with diarrhea daily. She has had some bright red blood recently and went back to taking balsalazide. This did help. She does get occasional mucus with her bowel movements. She has had episodes of diverticulitis. She was tender in the left lower quadrant. Stool testing on 06/18 showed no bacterial pathogens. She has had C. difficile colitis in the past. Recent labs in March showed hemoglobin 12.1 and hematocrit 37.6. She reports no weight loss. The patient reports no crampy abdominal discomfort but has had bloating and gassiness. She does state [id number] treatment for gas relief. Procedure: Prior to the procedure, a history and physical exam was performed, and patient's medications and allergies were reviewed. The risks, benefits and alternatives of the sedation and procedure were discussed with the patient. All questions were answered and informed consent was obtained. The patient was brought to the procedure room. Patient identification and proposed procedure were verified by the physician and the nurse. The patient was placed in a left lateral decubitus position and the scope was passed under direct vision. Throughout the procedure, the patient's blood pressure, pulse, and oxygen saturations were monitored continuously. The colonoscopy was accomplished without difficulty. The patient tolerated the procedure well. Findings: On digital rectal examination there was normal rectal tone. There were no external hemorrhoids. The colonoscope was introduced through the anal canal to the rectum and advanced to the cecum. The ileocecal valve and appendiceal orifice were identified. The scope was advanced a short distance into the ileum which appeared grossly normal. The scope was then withdrawn into the colon. The cecum, ascending and transverse colon and mucosa were grossly normal. There was some mucosal fibrosis in the transverse and descending colon. There were extensive scattered diverticuli throughout the descending and sigmoid colon (LEFT colon). There was mucosal erythema, edema, granularity and loss of vascular pattern in the descending, sigmoid and rectum consistent with chronic left-sided ulcerative colitis (mild). There was a larger pseudopolyp at 28 cm from the anal verge that was biopsied. Biopsies were taken additionally separately from the sigmoid and rectum. Impression: 1. Mild to moderate left-sided ulcerative colitis (from 30 cm to anal verge) 2. Extensive left-sided diverticulosis with evidence of pandiverticulosis 3. Smaller pseudopolyps in the ascending with larger inflammatory pseudopolyp in sigmoid colon?status post biopsies to rule out any adenomatous change Plan: I will follow-up the biopsies. The patient is on balsalazide for maintenance of remission therapy. I am going to send IBD serologies and iron studies today. I would consider biologic therapy such as Zeposia or Velsipity. I will continue mesalamine therapy. Surveillance colonoscopy again in 3 years.
[2024-06-28 10:37] VITALS: O2SAT 100
--- NOTE | 2024-06-28 10:42 | P.HP_ITS ---
History of Present Illness *Admission Date: 06/28/24 *History of present illness: Mrs. Hutson is a 59-year-old female who is here for diagnostic panendoscopy secondary to diarrhea uncontrolled. The examination is deemed medically necessary for EGD and colonoscopy. The patient has been seen, interviewed and examined prior to the procedure by both myself and the anesthesia provider. [facility] Disclaimer: The information contained in this section may have been updated after the patient was seen, as this information can be updated by other users. Medical History Sinusitis Hypokalemia Suppurative appendicitis Abdominal pain DAYSI (acute kidney injury) Dehydration Gastroenteritis COVID-19 SIRS (systemic inflammatory response syndrome) Clostridium difficile colitis Hypokalemia Ovarian cyst UTI (urinary tract infection) Exposure to COVID-19 virus Cat bite Fall Pneumonia PRANAY (obstructive sleep apnea) Migraine headache Surgical History History of laparoscopy History of appendectomy History of prolapse of bladder History of arthroscopy of right shoulder History of rhinoplasty Family History Other Cancer Social History Smoking Status: Former smoker tobacco type: cigarettes packs per day: 1 second hand exposure: No alcohol intake: never substance use type: denies use current occupational status: employed Travel in the last 8 weeks: None household members: none housing: apartment marital status: 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 current occupational exposures/hazards: No caffeine: Yes Other Medical History Have you received the Flu Vaccine for this season: No Have you received the Pneumonia Vaccine: No Meds Home Medications and Allergies Home Medications ?Medication ?Instructions ?Recorded ?Confirmed ?Type hydrocodone 7.5 mg-acetaminophen 1 tab PO QID Pain 12/02/17 06/28/24 History 325 mg tablet ([place]) diclofenac sodium 1 % topical gel 1 applic topical DAILYP PRN PAIN 07/14/21 06/28/24 History duloxetine 30 mg capsule,delayed 30 mg PO DAILY MOOD 03/01/22 06/27/24 History release cetirizine 10 mg tablet See Rx Instructions .Route 07/26/23 06/27/24 Rx .COMPLEX #30 tabs syringe with needle 3 mL 23 x 1 #1 ea 08/05/23 06/27/24 Rx (BD Luer-Jess Syringe) amlodipine 5 mg tablet (Norvasc) 5 mg PO DAILY hypertension #90 tabs 04/13/24 06/27/24 Rx levothyroxine 112 mcg tablet 112 mcg PO DAILY 05/22/24 06/28/24 History cyanocobalamin (vitamin B-12) See Rx Instructions .Route 05/24/24 06/28/24 Rx 1,000 mcg/mL injection solution .COMPLEX #1 mL (Dodex) galcanezumab-gnlm 120 mg/mL 120 mg SQ DIRECTED Episodic 05/29/24 06/28/24 Rx subcutaneous pen injector migraine #1 mL (Emgality Pen) rimegepant 75 mg disintegrating 75 mg PO ONCE PRN migraine 05/29/24 06/28/24 Rx tablet (Nurtec ODT) headache #8 tabs tizanidine 4 mg tablet 8 mg (2 x 4 mg) PO HS Pain 30 days 05/29/24 06/28/24 Rx #60 tabs conjugated estrogens 1.25 mg 1.25 mg PO DAILY #90 tabs 06/05/24 06/27/24 Rx tablet (Premarin) gabapentin 400 mg capsule 400 mg PO DAILY PRN . 06/18/24 06/27/24 History gabapentin 800 mg tablet 800 mg PO DAILY 06/18/24 06/28/24 History escitalopram oxalate 20 mg tablet 20 mg PO DAILY 06/27/24 06/27/24 History inulin 2 gram chewable tablet 2 g PO DAILY 06/27/24 06/28/24 History (Prebiotic Fiber) ondansetron 4 mg disintegrating 4 mg PO Q6H 06/27/24 06/28/24 History tablet sumatriptan succinate 100 mg tablet 100 mg PO DAILY PRN . 06/27/24 06/28/24 History mesalamine 1.2 gram tablet,delayed 2.4 g (2 x 1.2 gram) PO .Twice 06/28/24 Rx release (Lialda) daily 90 days #360 tabs New Prescriptions to Start Prescriptions: mesalamine [Lialda] Daniel Peters II Allergies Allergy/AdvReac Type Severity Reaction Status Date / Time nut - unspecified Allergy Severe Anaphylaxis Verified 06/28/24 08:54 azithromycin [AZITHROMYCIN] Allergy Intermediate Hives Verified 06/28/24 08:54 lisinopril AdvReac Intermediate itching Verified 06/28/24 08:54 Exam Data for Last 24 hours Vital signs and Labs for Last 24 Hours: Temp Pulse Resp BP Pulse Ox O2 Del Method O2 Flow Rate 97.4 F L 81 18 119/78 97 Nasal Cannula 5 06/28/24 09:00 06/28/24 09:00 06/28/24 09:00 06/28/24 09:00 06/28/24 09:00 06/28/24 10:37 06/28/24 10:37 I & O for Last 24 hours: Intake & Output 06/25/24 06/26/24 06/27/24 06/28/24 23:59 23:59 23:59 23:59 Weight 127 lb *Routine HEENT Exam Head: Present normocephalic Eye: Present EOMI ENT: Present mucous membranes moist *Routine Respiratory Exam Respiratory: Present accessory muscle use *Routine Cardiovascular Exam Cardiovascular: Present RRR *Routine Abdominal Exam Abdominal: Present soft *Routine Rectal Exam Rectal:: normal sphincter tone *Routine Genitalia Exam Genitalia:: normal female Assessment and Plan *Assessment and plan (1) Chronic diarrhea: Status: Acute Category: Medical Code(s): K52.9 - Noninfective gastroenteritis and colitis, unspecified Plan Proceed with colonoscopy
--- NOTE | 2024-06-28 10:44 | HMH.PROCNOTE ---
[facility] Procedure Note Date: 06/28/24 Time: 10:44 Procedure Note:: Upper Endoscopy Procedure Report: Esophagogastroduodenoscopy with cold biopsies Endoscopost: Daniel Peters II, MD Referring Physician: CARON Sargent Date of Procedure: June 28, 2024 Equipment: Olympus GIF 190 standard upper endoscope Sedation: MAC sedation Indications: Mrs. Hutson is a 59-year-old female with nausea and diarrhea. She has had some emesis, abdominal discomfort, bloating, gassiness and belching. This is affecting her quality of life. She did have prior history of C. difficile 2 years ago. She does get occasional mucus with her stool. She is on Gas-X. She was given dietary measures. Her diarrhea panel was PCR negative for pathogens recently. Procedure: Prior to the procedure, a history and physical exam was performed, and patient's medications and allergies were reviewed. The risks, benefits and alternatives of the sedation and procedure were discussed with the patient. All questions were answered and informed consent was obtained. The patient was brought to the procedure room. Patient identification and proposed procedure were verified by the physician and the nurse. The patient was placed in a left lateral decubitus position and the scope was passed under direct vision. Throughout the procedure, the patient's blood pressure, pulse, and oxygen saturations were monitored continuously. The upper GI endoscopy was accomplished without difficulty. The patient tolerated the procedure well. Findings: The scope was passed directly into the upper esophagus and advanced to the third portion of the duodenum. The post bulbar duodenum and duodenal bulb were normal with normal mucosa and conniventes. Cold biopsies were taken from the second portion of duodenum and first portion of duodenum to rule out celiac disease. The scope was withdrawn through a normal duodenal bulb and pylorus into the stomach. There was some bile reflux with linear reactive gastropathy (moderate) of the antrum and body. The remainder of the antrum, body and fundus of the stomach were grossly normal. Upon retroflexion there was small 2 cm hiatal hernia. 2 biopsies were taken in the antrum and along the lesser curvature for histology to rule out gastritis and/or H pylori. The scope was then withdrawn into the esophagus. There was no evidence of reflux esophagitis or Parnell's. The remainder of the esophageal mucosa was normal. Impression: 1. Bile reflux with moderate linear reactive gastropathy 2. Mild esophageal dysmotility with small 1 to 2 cm hiatal hernia Plan: I will follow-up the biopsies. The patient does have functional dyspepsia and some functional bowel disease. We will discuss treatment options. 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 I will proceed with colonoscopy with biopsies.
--- NOTE | 2024-06-28 11:08 | HMH.PROCNOTE ---
[facility] Procedure Note Date: 06/28/24 Time: 11:08 Procedure Note:: Colonoscopy Procedure Report: Colonoscopy with cold biopsies Endoscopist: Daniel Peters II, MD Referring physician: CARON Sargent Date of Procedure: June 28, 2024 Equipment: Olympus 190 variable stiffness pediatric colonoscope Sedation: MAC sedation Indication: This is is a 59-year-old female who is here for diagnostic colonoscopy secondary to chronic diarrhea. She had C. difficile colitis 2 years ago and had a colonoscopy at that time. She has never had normalization of her bowel function and has between 4 and 9 urgent diarrhea episodes daily with some fecal incontinence. She does take Pepto-Bismol daily. Sometimes this can result in a little constipation. She is on Percival 4 times a day and still having diarrhea. This is affecting her quality of life. She has excessive bloating, belching and gassiness. She had noted some bright red blood on the tissue and occasionally mucus with her bowel movements. She does use Gas-X. Procedure: Prior to the procedure, a history and physical exam was performed, and patient's medications and allergies were reviewed. The risks, benefits and alternatives of the sedation and procedure were discussed with the patient. All questions were answered and informed consent was obtained. The patient was brought to the procedure room. Patient identification and proposed procedure were verified by the physician and the nurse. The patient was placed in a left lateral decubitus position and the scope was passed under direct vision. Throughout the procedure, the patient's blood pressure, pulse, and oxygen saturations were monitored continuously. The colonoscopy was accomplished without difficulty. The patient tolerated the procedure well. Findings: On digital rectal examination there was normal rectal tone. There were no external hemorrhoids. The colonoscope was introduced through the anal canal to the rectum and advanced to the cecum. The ileocecal valve and appendiceal orifice were identified. The scope was advanced a short distance into the ileum which appeared grossly normal. The scope was then withdrawn into the colon. There was a normal mucosal pattern throughout the colon. Random biopsies were taken from the right colon to rule out microscopic colitis. The remaining cecum, ascending and transverse colon and mucosa were grossly normal. There were extensive scattered diverticuli throughout the descending and sigmoid colon (LEFT colon). The rectum itself was normal. Upon retroflexion within the rectum there were grade 1-2 internal hemorrhoids. The preparation was excellent throughout with [place] Preparation Score of 9. The cecal time was 12 minutes. Impression: 1. Extensive left-sided diverticulosis 2. Grade 1-2 internal hemorrhoids Plan: I will follow-up the biopsies. I would consider adding bulking FiberCon. I will follow-up the biopsies and if there is evidence of microscopic colitis, I would consider budesonide. If the biopsies are normal, in the setting of IBS diarrhea would also consider alosetron or Viberzi. We will discuss treatment options. Because of her dyspepsia and IBS I would also consider the use of the tricyclic. I would consider 1 therapeutic options presently and then have follow-up in the office
[2024-06-28 11:09] VITALS: BP 128/74; PULSE 82; RESP 16; O2SAT 99
[2024-06-28 11:19] VITALS: BP 118/66; PULSE 83; RESP 16; O2SAT 98
[2024-06-28 11:29] VITALS: BP 143/78; PULSE 83; RESP 16; O2SAT 98
[2024-06-28 11:39] VITALS: BP 151/82; PULSE 86; RESP 16; O2SAT 99
== END 2024-06-28 11:41 | disposition home or self-care (01) ==
PROVIDERS: PCP Family Medicine; Visit Provider Internal Medicine Gastroenterology
PROC: 0DJ08ZZ Inspection of Upper Intestinal Tract, Via Natural or Artificial Opening Endoscopic (ICD-10-PCS; CPT 45378; principal; 2024-06-28 10:00)
DX: K51.50 Left sided colitis without complications (principal); K52.9 Noninfective gastroenteritis and colitis, unspecified; K62.5 Hemorrhage of anus and rectum; K57.30 Diverticulosis of large intestine without perforation or abscess without bleeding; K64.8 Other hemorrhoids; K31.9 Disease of stomach and duodenum, unspecified; K22.4 Dyskinesia of esophagus; K44.9 Diaphragmatic hernia without obstruction or gangrene
CPT/HCPCS: 43239; 45380; J7120

== ENCOUNTER 2024-08-25 18:41 | Emergency (ER) | payer SELFPAY ==
--- NOTE | 2024-08-25 18:51 | XR_ITS ---
PROCEDURE INFORMATION: Exam: XR Right Foot Exam date and time: 08/25/2024 7:16 PM Age: 59 years old Clinical indication: Injury or trauma; Other: Ran over right foot with milk cart; Bleeding/hemorrhage; Toes; Additional info: Crush/ ran over with milk cart TECHNIQUE: Imaging protocol: Radiologic exam of the right foot. Views: 3 or more views. Total images: 3 COMPARISON: CR XR FOOT RT MIN 3V 01/19/2021 10:49 AM FINDINGS: Bones/joints: Acute mildly comminuted tuft fracture distal phalanx 4th toe. Acute nondisplaced transverse fracture distal phalanx 5th toe. No joint dislocation. No concerning bone lesions. Bipartite lateral hallux sesamoid bone. Unremarkable joint spaces. Soft tissues: Soft tissue swelling 4th and 5th toes. IMPRESSION: Acute fractures to the distal phalanx 4th and 5th toes.
[2024-08-25 18:52] VITALS: BP 176/100; PULSE 81; O2SAT 98
[2024-08-25 18:54] VITALS: BP 176/100; PULSE 78; RESP 18; TEMP 37; O2SAT 98; BMI 21.4
[2024-08-25 19:00] VITALS: BP 164/95; PULSE 75; O2SAT 99
[2024-08-25] MEDS: HYDROCODONE/APAP 5/325 MG TABLET 2 TAB PO (19:09)
[2024-08-25] MEDS: ONDANSETRON 4MG ODT 4 MG SL (19:09)
[2024-08-25 19:45] VITALS: BP 152/84; PULSE 73; O2SAT 97
--- NOTE | 2024-08-25 19:59 | ED_ITS ---
<Statement entered by Abiel Turk MD - 08/25/24 23:07> I was consulted by the LUIS, and we discussed the complexity of the problems being addressed. I approved the treatment and management plan for this patient's care in the emergency department, thus performing a substantive portion of the medical decision making. Abiel Turk MD, DEANN, FACEP Discharge Plan Disposition Patient Disposition: Home, Self-Care Condition: Good Prescriptions Prescriptions: New cephalexin 500 mg capsule 500 mg PO BID 7 Days Qty: 14 0RF ibuprofen 800 mg tablet 800 mg PO Q8H PRN (Reason: pain) Qty: 20 0RF No Action hydrocodone-acetaminophen [Greenwood] 7.5-325 mg tablet 1 tab PO QID diclofenac sodium 1 % gel 1 applic TP DAILYP PRN (Reason: PAIN) Patient Comments: APPLY 4 GM TO AFFECTED AREA(S) FOUR TIMES DAILY gabapentin 400 mg capsule 400 mg PO DAILY PRN (Reason: .) levothyroxine 112 mcg tablet 112 mcg PO DAILY Emgality Pen 120 mg/mL pen injector 120 mg SQ DIRECTED Qty: 1 11RF tizanidine 4 mg tablet 8 mg PO HS 30 Days Qty: 60 11RF Nurtec ODT 75 mg tablet,disintegrating 75 mg PO ONCE PRN (Reason: migraine headache) Qty: 8 0RF gabapentin 800 mg tablet 800 mg PO DAILY cetirizine 10 mg tablet See Rx Instructions .ROUTE .COMPLEX Qty: 30 0RF Dose Instruction: TAKE 1 TABLET BY MOUTH DAILY FOR ALLERGIES; MAY TAKE MED AT NIGHT IF IT CAUSES SLEEPINESS Rx Instructions: TAKE 1 TABLET BY MOUTH DAILY FOR ALLERGIES; MAY TAKE MED AT NIGHT IF IT CAUSES SLEEPINESS (DME) BD Luer-Jess Syringe 3 mL 23 x 1 syringe See Rx Instructions .ROUTE .COMPLEX Qty: 1 0RF Dose Instruction: DIRECTED Rx Instructions: DIRECTED cyanocobalamin (vitamin B-12) [Dodex] 1,000 mcg/mL solution See Rx Instructions .ROUTE .COMPLEX Qty: 1 2RF Dose Instruction: 1000 MCG INTRAMUSCULAR EVERY MONTH FOR SUPPLEMENT Rx Instructions: 1000 MCG INTRAMUSCULAR EVERY MONTH FOR SUPPLEMENT Premarin 1.25 mg tablet 1.25 mg PO DAILY Qty: 90 3RF escitalopram oxalate 20 mg tablet See Rx Instructions .ROUTE .COMPLEX Qty: 90 0RF Dose Instruction: TAKE 1 TABLET BY MOUTH ONCE DAILY Rx Instructions: TAKE 1 TABLET BY MOUTH ONCE DAILY amlodipine 5 mg tablet See Rx Instructions .ROUTE .COMPLEX Qty: 90 0RF Dose Instruction: TAKE 1 TABLET BY MOUTH ONCE DAILY Rx Instructions: TAKE 1 TABLET BY MOUTH ONCE DAILY duloxetine 30 MG capsule,delayed release(DR/EC) 30 mg PO DAILY sumatriptan succinate 100 mg tablet 100 mg PO DAILY PRN (Reason: .) ondansetron 4 mg Tablet,Disintegrating 4 mg PO Q6H Prebiotic Fiber 2 gram Tablet,Chewable 2 g PO DAILY mesalamine [Lialda] 1.2 gram tablet,delayed release (DR/EC) 2.4 g PO .Twice daily 90 Days Qty: 360 0RF Rx Instructions: Please take 2 tablets p.o. twice daily amitriptyline 25 mg tablet 25 mg PO DAILY 30 Days Qty: 60 12RF Rx Instructions: Please take 1 tablet p.o. nightly x 7 to 10 days and then 1 tablet p.o. twice daily thereafter Referrals Follow up/Referrals: Priti Kinsey APRN [Primary Care Provider] - See instructions Scott Duarte DO [Staff Physician] - See instructions Grady (ED)Yenni APRN [Emergency Midlevel Provider] - See instructions Activity Restrictions/Add. Instructions Additional Instructions/Restrictions: Ice, elevate, wear the postop shoe when up. Please follow-up with Dr. Duarte for the distal phalanx fracture in your fourth toe. Use Tylenol and ibuprofen for pain. If any worsening problems or concerns please return to the ED. Have your PCP remove the sutures and 10 days Clinical Impressions Clinical Impression: Closed fracture of distal phalanx of toe of right foot Instructions Patient Instructions: DI for Toe Fracture Print Language Print Language: Yoruba Discharge ED Provider: Abiel Turk General Adult HPI General Chief complaint: Extremity Injury, Lower Stated complaint: AO 08/25 1745 right foot rolled over pain Time Seen by Provider: 08/25/24 18:46 Mode of Arrival: Ambulatory Source of Information: Patient Limitations: No Limitations Description of Symptoms (Recalled from ER Triage Doc. by RN): pt came in from work with a injury to foot. from roll cage injury History of Present Illness HPI narrative: This is a 59-year-old female who presents to the ED today for complaint of a full roll cage of milk jugs that she was trying to put away and it rolled over her right foot injuring her fourth toe and the top of her right foot. Patient has had tetanus within the last 5 years. She has no other injury today Related Data Home Medications ?Medication ?Instructions ?Recorded ?Confirmed hydrocodone 7.5 mg-acetaminophen 1 tab PO QID Pain 12/02/17 06/28/24 325 mg tablet (Greenwood) diclofenac sodium 1 % topical gel 1 applic topical DAILYP PRN PAIN 07/14/21 06/28/24 duloxetine 30 mg capsule,delayed 30 mg PO DAILY MOOD 03/01/22 06/27/24 release levothyroxine 112 mcg tablet 112 mcg PO DAILY 05/22/24 06/28/24 gabapentin 400 mg capsule 400 mg PO DAILY PRN . 06/18/24 06/27/24 gabapentin 800 mg tablet 800 mg PO DAILY 06/18/24 06/28/24 inulin 2 gram chewable tablet 2 g PO DAILY 06/27/24 06/28/24 (Prebiotic Fiber) ondansetron 4 mg disintegrating 4 mg PO Q6H 06/27/24 06/28/24 tablet sumatriptan succinate 100 mg tablet 100 mg PO DAILY PRN . 06/27/24 06/28/24 Previous Rx's ?Medication ?Instructions ?Recorded cetirizine 10 mg tablet See Rx Instructions .Route 07/26/23 .COMPLEX #30 tabs syringe with needle 3 mL 23 x 1 #1 ea 08/05/23 (BD Luer-Jess Syringe) cyanocobalamin (vitamin B-12) See Rx Instructions .Route 05/24/24 1,000 mcg/mL injection solution .COMPLEX #1 mL (Dodex) galcanezumab-gnlm 120 mg/mL 120 mg SQ DIRECTED Episodic 05/29/24 subcutaneous pen injector migraine #1 mL (Emgality Pen) rimegepant 75 mg disintegrating 75 mg PO ONCE PRN migraine 05/29/24 tablet (Nurtec ODT) headache #8 tabs tizanidine 4 mg tablet 8 mg (2 x 4 mg) PO HS Pain 30 days 05/29/24 #60 tabs conjugated estrogens 1.25 mg 1.25 mg PO DAILY #90 tabs 06/05/24 tablet (Premarin) amitriptyline 25 mg tablet 25 mg PO DAILY 30 days #60 tabs 06/28/24 mesalamine 1.2 gram tablet,delayed 2.4 g (2 x 1.2 gram) PO .Twice 06/28/24 release (Lialda) daily 90 days #360 tabs escitalopram oxalate 20 mg tablet See Rx Instructions .Route 07/03/24 .COMPLEX #90 tabs amlodipine 5 mg tablet See Rx Instructions .Route 07/11/24 .COMPLEX #90 tabs cephalexin 500 mg capsule 500 mg PO BID 7 days #14 caps 08/25/24 ibuprofen 800 mg tablet 800 mg PO Q8H PRN pain #20 tabs 08/25/24 Allergies Allergy/AdvReac Type Severity Reaction Status Date / Time nut - unspecified Allergy Severe Anaphylaxis Verified 06/28/24 08:54 azithromycin (AZITHROMYCIN) Allergy Intermediate Hives Verified 06/28/24 08:54 lisinopril AdvReac Intermediate itching Verified 06/28/24 08:54 PFSH PFSH Disclaimer: The information contained in this section may have been updated after the patient was seen, as this information can be updated by other users. Medical History Sinusitis Hypokalemia Suppurative appendicitis Abdominal pain DAYSI (acute kidney injury) Dehydration Gastroenteritis COVID-19 SIRS (systemic inflammatory response syndrome) Clostridium difficile colitis Hypokalemia Ovarian cyst UTI (urinary tract infection) Exposure to COVID-19 virus Cat bite Fall Pneumonia PRANAY (obstructive sleep apnea) Migraine headache Surgical History History of laparoscopy History of appendectomy History of prolapse of bladder History of arthroscopy of right shoulder History of rhinoplasty Family History Other Cancer Social History Smoking Status: Never smoker second hand exposure: No alcohol intake: never substance use type: denies use current occupational status: employed Travel in the last 8 weeks: None household members: none housing: apartment marital status: 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 current occupational exposures/hazards: No caffeine: Yes Other Medical History Have you received the Flu Vaccine for this season: No Have you received the Pneumonia Vaccine: No ROS Obtained: Yes Systems reviewed as appropriate & no additional complaints except as documented Constitutional Constitutional: Reports as per HPI Physical Exam General General appearance: alert and in distress Head Head exam: atraumatic and normocephalic Eye Eye exam: Present normal appearance, PERRL and EOMI ENT ENT exam: Present normal oropharynx and mucous membranes moist Neck Neck exam: Present normal inspection, full ROM and trachea midline Respiratory Respiratory exam: Present normal lung sounds bilaterally Cardiovascular Cardiovascular exam: Present regular rate, normal rhythm, normal heart sounds, +S1 and +S2 Extremities Exam Extremities exam: Present tenderness and normal capillary refill Neurological Exam Neurological exam: Present alert and oriented X3 Skin Skin exam: Present warm, dry and other (Bruising to right foot fourth toe with small laceration to the side of the right toe) Medical Decision Making Medical Records Screening: Per USPSTF and CDC recommendations, given the prevalence of disease in our region, it is our hospital?s policy to screen for HIV and viral Hepatitis for all patients aged 18 and over and those with ongoing risk factors. Jef Inquiry Pt receiving controlled substance: No Jef was queried for this patient: No Vital Signs: 08/25/24 18:52 08/25/24 18:54 08/25/24 19:00 Temperature 98.6 F Temperature Source Oral Pulse Rate 81 75 Pulse Rate [Right Radial] 78 Respiratory Rate 18 Blood Pressure 176/100 H 164/95 H Blood Pressure [Right Arm] 176/100 H Blood Pressure Mean [Right Arm] 125 02 Sat by Pulse Oximetry 98 98 99 Oxygen Delivery Method Room Air Room Air Room Air 08/25/24 19:45 08/25/24 20:31 Temperature 98.3 F Temperature Source Pulse Rate 73 78 Pulse Rate [Right Radial] Respiratory Rate 16 Blood Pressure 152/84 H 175/85 H Blood Pressure [Right Arm] Blood Pressure Mean [Right Arm] 02 Sat by Pulse Oximetry 97 Oxygen Delivery Method Room Air Orders (Tests/Meds): ED MEDICATIONS Discontinued Medications Generic Name Dose Route Start Last Admin Trade Name Freq PRN Reason Stop Dose Admin Hydrocodone Bitart/Acetaminophen 2 tab 08/25/24 18:51 08/25/24 19:09 Hydrocodone/Apap 5/325 Mg Tablet PO 08/25/24 18:52 2 tab ONCE ONE Administration Ondansetron HCl 4 mg 08/25/24 18:51 08/25/24 19:09 Ondansetron 4mg Odt SL 08/25/24 18:52 4 mg ONCE ONE Administration ORDERS Category Date Time Status Foot XR right minimum 3 views [XR foot RT min 3V] Stat Exams 08/25/24 18:51 Taken Medical Decision Narrative: Insert review patient is a 59 year-old presenting to the emergency department for evaluation of crush injury to right toes with small laceration that needs to be repaired. Patient is hemodynamically stable and nontoxic-appearing upon arrival, afebrile. Differential diagnosis includes laceration with bruising, versus open fracture, fracture versus E[place]. Workup will be conducted with specific imaging. Initial inventions include lidocaine and pain med for injury. Patient x-ray showed distal phalanx fracture, tuft fracture reviewed by myself. Also reviewed by Dr. Turk. Patient will be fitted with a postop shoe. Patient given 2 sutures to close the small laceration. She will be discharged with follow-up with Dr. duarte Procedures Laceration Laceration 1: Site: toe Side (If applicable): right Size (cm): 0.5 Description: irregular Local Anesthetic: lidocaine 1% Amount of anesthesia used (mL): 6 Skin layer closed with: vicryl Size (cm): 3-0 Number of sutures: 2 Technique: simple, interrupted Subcutaneous layer closed with: vicryl Critical Care Critical Care Time Critical Care Time: No
[2024-08-25 20:31] VITALS: BP 175/85; PULSE 78; RESP 16; TEMP 36.8; O2SAT 94
== END 2024-08-25 20:37 | disposition home or self-care (01) ==
PROVIDERS: Emergency Provider Student in an Organized Health Care Education/Training Program; PCP Family Medicine
DX: S92.911A Unspecified fracture of right toe(s), initial encounter for closed fracture (principal); M79.671 Pain in right foot; X58.XXXA Exposure to other specified factors, initial encounter; Y93.89 Activity, other specified; Y92.89 Other specified places as the place of occurrence of the external cause
CPT/HCPCS: 73630; 99283; Q0162

== ENCOUNTER 2024-10-02 13:21 | Outpatient (CLI) | payer OTHER, SELFPAY ==
--- NOTE | 2024-10-02 13:27 | XR_ITS ---
FINAL REPORT CLINICAL HISTORY: right fourth and fifth distal phalanges COMPARISON: 08/25/2024 FINDINGS: RIGHT FOOT 3 views of the right foot were obtained. Again seen is a comminuted fracture of the tuft of the 4th distal phalanx. 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 The remaining osseous structures are intact. Visualized joint spaces are normally aligned. Soft tissues are unremarkable. IMPRESSION: Fourth distal phalanx fracture. Questionable 5th distal phalanx fracture. Reviewed, Interpreted and Dictated by Kristy Mchugh MD Transcribed by Carri Pineda Authenticated and [facility]
== END 2024-10-02 23:59 | disposition home or self-care (01) ==
PROVIDERS: PCP Family Medicine; Visit Provider Physician Assistant
DX: S92.911A Unspecified fracture of right toe(s), initial encounter for closed fracture (principal)
CPT/HCPCS: 73630

== ENCOUNTER 2024-10-18 15:30 | Outpatient (CLI) | payer MEDICAID, SELFPAY | END 2024-10-18 23:59 | disposition home or self-care (01) | LOC: LAB.DROPOF 10-19 15:05 | PROVIDERS: PCP Family Medicine; Visit Provider Family Medicine | DX: N39.0 Urinary tract infection, site not specified (principal) | CPT/HCPCS: 87086 ==

== ENCOUNTER 2024-11-14 14:01 | Outpatient (CLI) | payer BC, MEDICAID, SELFPAY ==
--- NOTE | 2024-11-14 14:25 | ECG_ITS ---
APPROVED REPORT Exam: Resting ECG HR:75 bpm ECG Measurements Heart Rate 75 AXES SC 127 P 78 QRSd 78 QRS 81 QT 374 T 72 QTc 403 Conclusion SINUS RHYTHM NORMAL ECG UNCONFIRMED REPORT Electronically signed by : Jerry Gordon MD 11/17/2024 13:29:36
[2024-11-14 14:37] LABS: Basophils % 0.6 % (0.1-2.0); Eosinophils # 0.1 K/mm3 (0.0-0.4); Eosinophils % 2.9 % (0.1-12.0); Hemoglobin 11.4 g/dL (12.2-16.2); Lymphocytes # 1.7 K/mm3 (0.7-4.5); Lymphocytes % 34.3 % (10-50); Mean Corpuscular HGB Conc 32.6 g/dL (31.8-35.4); Mean Corpuscular Hemoglobin 28.4 pg (27.0-31.2); Mean Corpuscular Volume 87.3 fl (81-99); Mean Platelet Volume 8.8 fl (7.4-10.4); Monocytes # 0.5 K/mm3 (0.1-1.0); Monocytes % 11.2 % (1.7-9.3); Neutrophils # 2.4 K/mm3 (1.8-7.8); Neutrophils % 50.8 % (37.0-80.0); Platelet Count 342 K/mm3 (142-424); Red Blood Count 4.01 M/mm3 (4.20-5.40); Red Cell Distribution Width 13.2 % (11.5-17.5); White Blood Count 4.8 K/mm3 (4.8-10.8)
[2024-11-14 15:06] LABS: Chloride 103 mmol/L (98-107); Potassium 4.2 mmoL/L (3.5-5.1); Sodium 136 mmol/L (136-145)
[2024-11-14 15:09] LABS: Blood Urea Nitrogen 20 mg/dl (7-17); Estimated Glomerular Filt Rate 73 ml/min (>60); GFR (African American) 89 ML/MIN (>60)
[2024-11-14 15:10] LABS: Anion Gap 11.2 mEq/L (5-15); Calcium 8.7 mg/dl (8.4-10.2); Carbon Dioxide 26 mmol/L (22.0-30.0); Glucose 73 mg/dl (74-100)
== END 2024-11-14 23:59 | disposition home or self-care (01) ==
LOC: PREOP 14:03
PROVIDERS: PCP Family Medicine; Visit Provider Surgery
DX: Z01.810 Encounter for preprocedural cardiovascular examination (principal); D17.9 Benign lipomatous neoplasm, unspecified
CPT/HCPCS: 80048; 85025; 93005

== ENCOUNTER 2024-11-15 07:44 | Day surgery (SDC) | payer BC, MEDICAID, SELFPAY ==
[2024-11-14 14:46] VITALS: BMI 22.1
[2024-11-15] VITALS (13 sets, daily range): BP systolic 131–157; BP diastolic 69–88; PULSE 81–97; RESP 16–18; TEMP 36.1–36.3; O2SAT 93–98
[2024-11-15] MEDS: LACTATED RINGERS 1000ML 1,000 ML 25 ML IV (08:05)
--- NOTE | 2024-11-15 09:27 | EXP.ANES.CKL ---
[facility] Disclaimer: The information contained in this section may have been updated after the patient was seen, as this information can be updated by other users. Medical History Lipoma UTI (urinary tract infection) Sinusitis Hypokalemia Suppurative appendicitis Abdominal pain DAYSI (acute kidney injury) Dehydration Gastroenteritis COVID-19 SIRS (systemic inflammatory response syndrome) Clostridium difficile colitis Hypokalemia Ovarian cyst Exposure to COVID-19 virus Cat bite Fall Pneumonia PRANAY (obstructive sleep apnea) Migraine headache Surgical History History of laparoscopy History of appendectomy History of prolapse of bladder History of arthroscopy of right shoulder History of rhinoplasty Family History Other Cancer Family history of heart disease Social History Smoking Status: Never smoker second hand exposure: No alcohol intake: never substance use type: denies use current occupational status: employed Travel in the last 8 weeks: None household members: none housing: apartment marital status: 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 current occupational exposures/hazards: No caffeine: Yes Have you lived/traveled outside [place] in past 30 days?: No Contact w/someone who lives/traveled outside US past 30 days?: No Exposure to someone with infectious disease in past 14 days?: No Do you have a fever (greater than 100.4 F or 38 C)?: No Have you tested positive for COVID-19: No Exposed to someone with COVID-19 in past 14 days?: No Do you have a sore throat?: No Do you have a cough?: No Do you have any weakness?: No Do you have any diarrhea?: No Are you experiencing any unusual bleeding?: No Do you have any muscle aches/pain?: No Do you have any abdominal pain?: No Are you experiencing loss of taste or smell?: No [facility] Anesthesia Checklist Patient Identification Patient Identification: Verbal (Name & ) Structural Data Admitted From: Home Planned Operative Procedure/s: excision lipoma back Consent for Planned Operative Procedure(s) Verified: Yes NPO Status Verified Time NPO: 00:00 Additional verifications Anesthesia Reactions: No Hx Blood Transfusions: No Blood Transfusion Reaction: No Airway Assessment Mallampati Score:: Class II C-Spine Mobility Assessed: Yes TMJ Mobility Assessed: Yes Dentition: Good Dentition Neurological Assessment Level of Consciousness: Awake, Alert and Appropriate Anesthesia Plan Anesthesia Risk discussed: Yes Anesthesia Plan: Verified ASA Class: II Anesthesia Type: MAC
[2024-11-15] MEDS: CEFAZOLIN SODIUM 2 GM in 0.9 % SODIUM CHLORIDE 100 ML IV (10:16)
[2024-11-15] MEDS: LIDOCAINE 1% 20ML MDV 20 ML (10:39)
--- NOTE | 2024-11-15 10:46 | EXP.OP.NOTE ---
Date of procedure: 11/15/24 Pre-op Diagnosis:: Left mid/lower back lipoma (2.5 cm) Post-op Diagnosis:: Same Procedure performed:: Excision of 2.5 cm left mid/lower back lipoma Surgeon:: Adonis Morgan MD Anesthesia: local and LMA Estimated blood loss (mL): 5 Operative findings:: Lobulated lipoma and deep subcutaneous tissue with encroachment to the fascial margin Operative note:: After informed consent was obtained the patient was taken to the operating room and placed in the supine position. She was then transferred to the left lateral decubitus position. General anesthesia with laryngeal mask airway was achieved. Her left mid/lower back region was prepped and draped in a sterile fashion. After infiltration with local anesthetic an incision was made overlying the palpable lesion. The deep subcutaneous tissue was dissected with a combination of scalpel and electrocautery. A lobulated lipomatous-type lesion in the deep subcutaneous tissue was noted. Electrocautery and blunt dissection was utilized to free the specimen from surrounding tissue. Encroachment to the fascial margin confirmed. No intramuscular component was noted. Electrocautery was utilized to achieve hemostasis. The wound was irrigated and skin was then reapproximated with interrupted 4-0 nylon. Dressings were applied and the patient was transferred to recovery in stable condition. Condition: stable Disposition: PACU Specimens:: Left mid/lower back lipoma Complications:: No immediate
--- NOTE | 2024-11-15 10:52 | P.PNANES_ITS ---
[facility] Anesthesia Record Part I Anesthesia Record I Intake, IV Amount: 750 Hydration: Adequate Estimated blood loss (mL): 10 Urine output (mL): 0 Blood Products used (#): none Blood Pressure: 135/81 SaO2: 93 Pulse Rate: 97 Airway Patency: Patent Respiratory Rate: 16 Temperature: 97.2 F Patient is:: Drowsy, Nasal O2 and Stable Stable to PACU at:: 10:50
[2024-11-15] MEDS: HYDROMORPHONE 2MG/ML SYRINGE 0.5 MG IV ×2 (11:15→11:26)
[2024-11-15] MEDS: PROMETHAZINE HCL 25MG/ML 1ML VIAL 6.25 MG IV (11:37)
[2024-11-15] MEDS: KETOROLAC 30MG/ML VIAL 30 MG (11:38)
[2024-11-15] MEDS: diphenhydrAMINE 50MG/ML VIAL 25 MG IV (11:38)
--- NOTE | 2024-11-15 12:36 | EXP.ANES.II ---
[facility] Anesthesia Record Part II Anesthesia Record Part II Discharge Time: 11:40 Destination: Surgical Day Care (OP Surgery) PACU nurse assessment reviewed?: Yes Patient Condition:: Good Anesthesia Complications:: None Swallowing reflex intact?: Yes Airway Patency: Patent Cyanosis?: No Blood Pressure: 157/85 SaO2: 98 Respiratory Rate: 18 Pulse Rate: 90 Temperature: 97.2 F Mental Status: Alert & Oriented Pain level:: 5 Nausea and/or vomitting:: None Intake, IV Amount: 0 Hydration: Adequate
== END 2024-11-15 12:35 | disposition home or self-care (01) ==
PROVIDERS: PCP Family Medicine; Visit Provider Surgery
PROC: (CPT 21930; principal; 2024-11-15 09:05)
DX: D17.1 Benign lipomatous neoplasm of skin and subcutaneous tissue of trunk (principal)
CPT/HCPCS: 21930; 96374; J0690; J1100; J1171; J1200; J1885; J2250; J2405; J2550; J3010; J7120

== ENCOUNTER 2024-11-21 12:28 | Outpatient (CLI) | payer MEDICAID, SELFPAY ==
--- NOTE | 2024-11-21 12:31 | XR_ITS ---
FINAL REPORT CLINICAL HISTORY: Right foot pain COMPARISON: 10/02/2024 FINDINGS: RIGHT FOOT Three views were obtained. There is an old fracture involving the tuft of the fourth distal phalanx. The previously question fracture of the fifth distal phalanx is less apparent on the current exam. No new abnormality identified. The joint spaces appear normal. No soft tissue abnormality is identified. IMPRESSION: No new findings. Stable abnormalities as above of the fourth and fifth digits. Reviewed, Interpreted and Dictated by Kristy Mchugh MD Transcribed by Margie De Los Santos Authenticated and [facility]
== END 2024-11-21 23:59 | disposition home or self-care (01) ==
LOC: RAD 12:29
PROVIDERS: PCP Family Medicine; Visit Provider Podiatrist
DX: M79.671 Pain in right foot (principal)
CPT/HCPCS: 73630

== ENCOUNTER 2024-12-10 13:00 | Outpatient (RCR) | payer OTHER, SELFPAY ==
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
== END 2024-12-10 23:59 | disposition home or self-care (01) ==
LOC: PT 13:00
PROVIDERS: PCP Family Medicine; Visit Provider Podiatrist
DX: M25.371 Other instability, right ankle (principal); M77.41 Metatarsalgia, right foot; G57.81 Other specified mononeuropathies of right lower limb; S97.81XA Crushing injury of right foot, initial encounter; S92.911A Unspecified fracture of right toe(s), initial encounter for closed fracture
CPT/HCPCS: 97110; 97163

== ENCOUNTER 2025-01-14 14:00 | Outpatient (RCR) | payer OTHER, SELFPAY | END 2025-01-14 23:59 | disposition home or self-care (01) | LOC: PT 14:00 | PROVIDERS: PCP Family Medicine; Visit Provider Podiatrist | DX: M25.371 Other instability, right ankle (principal); M77.41 Metatarsalgia, right foot; G57.81 Other specified mononeuropathies of right lower limb; S97.81XA Crushing injury of right foot, initial encounter | CPT/HCPCS: 97014; 97035; 97110; 97112; 97164; 97530; G0283 ==

== ENCOUNTER 2025-01-17 09:02 | Outpatient (RCR) | payer OTHER, SELFPAY | END 2025-01-17 23:59 | disposition home or self-care (01) | LOC: PT 09:02 | PROVIDERS: PCP Family Medicine; Visit Provider Podiatrist | DX: S92.911A Unspecified fracture of right toe(s), initial encounter for closed fracture (principal); S97.81XA Crushing injury of right foot, initial encounter; G57.81 Other specified mononeuropathies of right lower limb; X58.XXXA Exposure to other specified factors, initial encounter | CPT/HCPCS: 97014; 97035; 97110; G0283 ==

== ENCOUNTER 2025-01-21 10:47 | Outpatient (CLI) | payer OTHER, MEDICAID, SELFPAY ==
--- NOTE | 2025-01-21 11:01 | XR_ITS ---
FINAL REPORT CLINICAL HISTORY: f/u on 4-5th fractures COMPARISON: 11/21/2024 FINDINGS: AP, oblique and lateral views of the right foot were obtained. There has been no change in the appearance of the fracture of the distal tuft of the fourth digit. Deformity of the distal phalanx of the fifth digit is also unchanged. No new fracture identified. The joint spaces are preserved. Soft tissues are unremarkable. IMPRESSION: No change in 4th or 5th digit fractures. Reviewed, Interpreted and Dictated by Pearl Rivera MD Transcribed by Carri Pineda Authenticated and [facility]
== END 2025-01-21 23:59 | disposition home or self-care (01) ==
PROVIDERS: PCP Family Medicine; Visit Provider Podiatrist
DX: S92.911A Unspecified fracture of right toe(s), initial encounter for closed fracture (principal)
CPT/HCPCS: 73630

== ENCOUNTER 2025-03-04 11:27 | Emergency (ER) | payer BC, MEDICAID, SELFPAY ==
[2025-03-04] VITALS (11 sets, daily range): BP systolic 83–123; BP diastolic 47–74; PULSE 68–77; RESP 18; TEMP 36.3–36.6; O2SAT 94–99; BMI 22.1
--- OUTSIDE RECORDS SUMMARY | 2025-03-04 11:39 | XMS_ITS | Encounter Summary ---
Author Organization [facility] Address [address] [place] [address] Care Team Providers Care Food Processing Plant Manager Name Role Phone Ronn Smith MD Primary Care Provider + [phone] Shazia Zelaya SUPERVISOR [employer] Unavailable [phone] Encounter Details Date Type Department Care Team ([facility] Contact Info) Description 02/20/2025 Telephone [facility] Endocrinology [address] [place] [address] Anna Martínez, DO [address] [facility] [address] [place] [address] Social History Tobacco Use Types Packs/Day Years Used Date Smoking Tobacco: Former Cigarettes 1 27 0 12/22/1993 - 12/22/2020 Smokeless Tobacco: Never Alcohol Use Standard Drinks/Week Comments No 0 (1 standard drink = 0.6 oz pur e alcohol) PHQ-2 Answer Date Recorded Patient Health Questionnaire-2 Score 2 06/01/2023 PHQ-2A Answer Date Recorded Patient Health Questionnaire-2 Score 2 06/01/2023 Comments No Sex and Gender Information Value Date Recorded Sex Assigned at Female 07/30/2021 10:50 AM EST Legal Sex Female 8:28 PM EDT Gender Identity Female 07/30/2021 10:50 AM EST Sexual Orientation Not on file documented as of this encounter Miscellaneous Notes * Telephone Encounter - Pooja Lentz - 02/25/2025 2:16 PM EDT Per authorization team Auth is not required . Patient will complete US 03/04. Patient will follow up 04/19@11:40 with endocrine. * Telephone Encounter - Anna Martínez DO - 02/25/2025 6:15 AM EDT I have placed order. She does need appointment with me as she was also supposed to have labs completed and did not and does not have appointment scheduled now. * Telephone Encounter - Pooja Lentz - 02/21/2025 12:[address] Martínez- The previous order . Please enter a new order for an US Thyroid with the scheduling location as [facility]. * Telephone Encounter - Pooja Lentz - 02/21/2025 9:48 AM EDT Apparatus Engineering Technologist sent an email to the authorization team to authorize US Thyroid. Patient will need a follow up appointment with Dr. Martínez post Ultrasound. * Telephone Encounter - Kristi French - 02/20/2025 1:06 PM EDT Patient Phone Message Reason for Call: [facility] is requesting a PA for the u/s of thyroid. The order was sent to their office. Best contact number and optimal time of day to reach caller: Nusrat--[phone] Note: Please do not reply to this message. Follow-up communication and further actions as a result of this message need to be communicated with the patient directly, if the patient is not active onMyChart. If the patient is active on MyChart, they will receive notification of the communication/outcome via Lust have it!. documented in this encounter Plan of Treatment Upcoming Encounters Date Type Department Care Team (Late st Contact Info) Description 04/19/2025 11:40 AM EDT [facility] [address] [place] [address] Anna Martínez DO [address] [facility] [address] [place] [address] documented as of this encounter Visit Diagnoses Not on filedocumented in this encounter Additional Health Concerns Infection Onset Date Last Indicated Resolved Time C. difficile 03/04/2022 04/03/2022 Assessment Noted Time A fall risk assessment has been complete d for the patient 06/01/2023 12:34 PM EDT A Body Mass Index follow-up plan has been documented for the patient 04/27/2024 4:01 PM EDT documented as of this encounter Care Teams Food Processing Plant Manager Relationship Specialty Start Date End Date Ronn Smith MD [address] [place] [address] PCP - General 01/30/21 Shazia Zelaya [facility]N [address] [facility] [address] [place] [id number] Nurse Practitioner Neurosurgery 08/03/21 documented as of this encounter
--- OUTSIDE RECORDS SUMMARY | 2025-03-04 11:39 | XMS_ITS | Clinical Summary ---
Author Organization [facility] Address [address] [place] [address] Care Team Providers Care Pourer Name Role Phone Ronn Smith MD Primary Care Provider + [phone] Shazia Zelaya STONEMASON Unavailable [phone] Allergies Active Allergy Reactions Criticality Noted Date Comments Azithromycin Hives,Unknown - Debbie ent states they do not know rxn details High 11/15/2018 Medications tiZANidine (Zanaflex) 4 MG tablet Take 2 tablets (8 mg) by mouth every night. 10/16/19 19 Active gabapentin (Neurontin) 800 MG tablet Take 1 tablet (800 mg) by mouth every night. Active SUMAtriptan (Imitrex) 100 MG tablet Take 0.5-1 tablets (50-100 mg) by mouth 1 (one) time if needed for migraine. Active clonazePAM (KlonoPIN) 0.5 MG tablet Take 1 tablet (0.5 mg) by mouth if needed for anxiety. Active diclofenac (Voltaren) 1 % topical gel Place 2-4 g on the skin 4 (four) times a day if needed. knee 04/07/20 21 Active cyanocobalamin (Vitamin B-12) 1000 MCG/ML injection Inject 1 mL (1,000 mcg) into the muscle every 30 (thirty) days. 07/15/20 21 Active galcanezumab-gnlm (Emgality) 120 MG/ML injection Inject 1 Syringe (120 mg) under the skin every 30 (thirty) days. 04/20/20 21 Active HYDROcodone-acetam inophen (Indianola) 7.5-325 MG tablet Take 1 tablet (7.5 mg of hydrocodone ) by mouth every 4 (four) hours if needed. 0800, 1200, 1600, 2200 06/06/20 21 Active Premarin 1.25 MG tablet Take 1 tablet (1.25 mg) by mouth 1 (one) time each day in the morning. 01/06/20 22 Active DULoxetine (Cymbalta) [address] capsule Take 1 capsule (30 mg) by mouth every night. 03/29/20 22 Active gabapentin (Neurontin) 300 MG capsule Take 1 capsule (300 mg) by mouth 2 (two) times a day. As needed 03/29/20 22 Active cetirizine (ZyrTEC) 10 MG tablet Take 1 tablet (10 mg) by mouth every night. Active cariprazine (Vraylar) 1.5 MG capsule Take 1 capsule (1.5 mg) by mouth every night. Active ondansetron ODT (Zofran-ODT) 4 MG disintegrating tablet 06/06/20 23 Active amLODIPine (Norvasc) 5 MG tablet 04/13/20 24 Active escitalopram (Lexapro) 20 MG tablet .COMPLEX 11/10/19 24 Active lisinopril 5 MG tablet 1 tablet (5 mg). 07/20/20 23 Active Loteprednol Etabonate 0.25 % suspension 1 drop. 09/14/20 23 Active methylPREDNISolone (Medrol Dospak) 4 MG tablets 10/05/19 24 Active levothyroxine (Synthroid, Levoxyl) 112 MCG tabletIndications: Hypothyroidism Take 1 tablet (112 mcg) by mouth 1 (one) time each day. 30 tablet 5 04/27/20 24 Active lovastatin (Mevacor) 40 MG tablet Take 40 mg by mouth every night. 03/04/20 21 022 Discontinued Active Problems Problem Noted Date Diagnosed Date C. difficile diarrhea 04/04/2022 Incontinence of feces 11/25/2021 Vaginal atrophy 11/25/2021 Dysuria 08/28/2021 Vaginal pain 08/28/2021 Assessment & Plan (08/28/2021 6:04 PM EST): Vaginal pain with associated increase in vaginal discharge and vaginal bleeding. On pelvic exam there is a subcentimeter area of granulation tissue and ulceration in the anterior proximal vagina under the bladder. Cystoscopy shows no bladder erosion or injury. Marked vaginal atrophy on exam. Vagifem sent to pharmacy. Expect area of ulceration and granulation tissue and pain will improve with resolution of atrophy with vaginal estrogen. Chronic right-sided low back pain with right-lin ed sciatica 05/28/2021 PRANAY (obstructive sleep apnea) 04/23/2021 Acquired hypothyroidism 04/23/2021 Resolved Problems Problem Noted Date Diagnosed Date Resolved Date POP-Q stage 3 cystocele 04/14/2021 09/0 05/2021 Vaginal vault prolapse after hysterectomy 04/14/2021 05/28/2021 Stress incontinence 04/14/2021 05/28/20 21 Urgency incontinence 04/14/2021 021 Encounters Date Type Department Care Team Description 02/25/2025 Orders Only [facility] Endocrinology [address] [place] [address] Anna Martínez DO Dysphagia, unspecified type (Primary Dx) 02/20/2025 Telephone [facility] Endocrinology [address] [place] [address] Anna Martínez DO from Last 3 Months Immunizations Immunization Administration Dates Next Due Hep A, Adult 06/13/2019,08/14/2018 TD (adult), 2 Lf tetanus tox oid, preservative free, adsorbed 02/29/2008 Tdap 09/09/2020 Family History Medical History Relation Name Comments Diabetes Cousin Drug abuse Daughter Monica augustinen Cancer Father Antoine Lung cancer Father Antoine Lung disease Father Antoine Heart disease Maternal Grandfather Gómez Stroke Maternal Grandfather Gómez Heart disease Maternal Grandmother Mary Stroke Maternal Grandmother Mary Depression Mother Jaqueline Arthritis Mother's Sister Adrianna jesus Kidney disease Paternal Grandmother [place] Drug abuse Son Jason malcolm Relation Name Status Comments Cousin Daughter Monica eliasbben Father Antoine Maternal Grandfather Gómez Maternal Grandmother Mary Mother Jaqueline Mother's Sister Adrianna lee Paternal Grandmother Nena Son Jason malcolm Social History Tobacco Use Types Packs/Day Years Used Date Smoking Tobacco: Former Cigarettes 1 27 0 12/22/1993 - 12/22/2020 Smokeless Tobacco: Never Tobacco Cessation:Counseling Given: Not Answered Alcohol Use Standard Drinks/Week Comments No 0 [...] AM EST Sexual Orientation Not on file Last Filed Vital Signs Vital Sign Reading Time Taken Comments Blood Pressure 114/73 04/27/2024 3:11 PM EDT Pulse 94 04/27/2024 3:11 PM EDT Temperature 37.1 C (98.8 F) 07/13/2023 2:33 PM EDT Respiratory Rate 18 07/13/2023 2:33 PM EDT Oxygen Saturation 95% 07/13/2023 2:33 PM EDT Inhaled Oxygen Concentration - - Weight 55.8 kg (123 lb 0.3 oz) 04/27/2024 3:11 P M EDT Height 162.6 cm (5' 4 ) 04/27/2024 3:11 PM EDT Body Mass Index 21.12 04/27/2024 3:11 PM EDT Plan of Treatment Upcoming Encounters Date Type Department Care Team (Late st Contact Info) Description 04/19/2025 11:40 AM EDT Office Visit [facility] Endocrinology [address] [place] [phone] Anna Martínez, DO [address] [facility] [address] [place] [address] Health Maintenance Due Date Last Done Comments Dental Oral Exam 1965 Dental Prophylaxis 1965 Dental X-Ray: Bitewings 1965 Dental X-Ray: Full Mouth 1965 [facility]-Infant/Child/Adol SDOH Screenings 1965 [facility]- SDOH Screenings 1983 [facility]-Adult SDOH Screenings 1983 [facility]-Hepatitis B Vaccines (1 of 3 - 19+ 3-dose series) 1984 CT Colonography 2010 Colonoscopy 2010 FIT-DNA 2010 FIT 2010 FOBT 2010 Sigmoidoscopy 2010 [facility]-Colorectal Cancer Screening 2010 [facility]-Breast Cancer Screening 2015 [facility]-Lung Cancer Screening 2015 [facility]-Pneumococcal Vaccine: 50 + Years (1 of 1 - PCV) 2015 [facility]-Zoster Vaccines (1 of 2) 2015 [id number] Vaccine (1 - 2023- season) 2024 [facility]-Depression Screening 06/01/2024 06/01/2023 [facility]-Influenza Vaccine (Seaso n Ended) 2025 [facility]-DTaP,Tdap,and Td Vaccine s (2 - Td or Tdap) 09/09/2030 09/09/2020, 02/29/2008 [facility]-Hepatitis A Vaccines Aged Out 019, 08/14/2018 No longer eligible based on patient's age to complete this topic [facility]-HIV Screening Completed 04/03/2022 [facility]-Hepatitis C Screening Completed 2022, 04/03/2022 HPV Vaccines Aged Out No longer eligi ble based on patient's age to complete this topic [facility]-HIB Vaccines Aged Out No longer e ligible based on patient's age to complete this topic [facility]-IPV Vaccines Aged Out No longer e ligible based on patient's age to complete this topic [facility]-Rotavirus Vaccines Aged Out No lo nger eligible based on patient's age to complete this topic Medical Devices Implanted Type Area Cigar Packer And Grader Device Identifier Shelf Expiration Date Model / Serial / Lot Kit Anchorsure - [id number] - [id number] Implanted:Qty: 1 on 04/23/2021 by Cesar De Los Santos MD at [facility] Foley N/A: [employer]-[id number] 09/26/2022 A-SURE / 132 / [id number] Procedures Procedure Name Priority Date/Time Associated Diagnosis Comments ACUTE HEPATITIS PANEL Routine 06/01/2023 1:55 PM EDT Positive MARGOTH (antinuclear antibody) Polyarthralgia HIV 1/2 ANTIBODY/ANTIGEN SCREEN WITH REFLEX TO HIV I/II DIFFERENTIATION STAT 04/03/2022 7:48 PM EDT from Last 3 Months or Most Recently Relevant to Health Maintenance Results * Acute Hepatitis Panel (06/01/2023 1:55 PM EDT) Hepatitis B Surf Antigen Negative Negative 06/01/2023 5:41 PM EDT [facility] Hepatitis C Antibody Negative Negative 06/01/2023 5:41 PM EDT [facility] Hepatitis A Antibody IgM Negative Negative 06/01/2023 5:41 PM EDT [facility] Hepatitis B Core Antibody IgM Negative Negative 06/01/2023 5:41 PM EDT [facility] Blood Venous blood specimen / Unknown Venipuncture / Unknown 06/01/2023 1:55 PM EDT 06/01/2023 1:57 PM EDT us Anna Caro APRN LAB BLOOD ORDERABLES Final Result Performing Organization Address City/[facility]/ZIP Co de Phone Number [facility] [address] [place] [address] * HIV 1 & 2 Antibody/Antigen Screen (04/03/2022 7:48 PM EDT) HIV 1 & 2 Antibody/Anti gen Screen Nonreactive Nonreactive 04/03/2022 9:15 PM EDT [facility] Blood Venous blood specimen / Unknown Venipuncture / Unknown 04/03/2022 7:48 PM EDT 04/03/2022 8:08 PM EDT us Any Anderson MD LAB BLOOD ORDERABLES F inal Result [facility] [address] [place] [address] from Last 3 Months or Most Recently Relevant to Health Maintenance Additional Health Concerns Infection Onset Date Last Indicated C. difficile 03/04/2022 04/03/2022 Insurance [facility] MEDICAID Advance Directives * Full Code (Latest Code Status on File) Date Activated Date Inactivated Comments 04/04/2022 12:09 AM 04/06/2022 5:11 PM Question Answer Comments Patient has decision-making capacity? Yes * Full Code Date Activated Date Inactivated Comments 04/23/2021 5:59 PM 04/24/2021 7:07 PM Question Answer Comments Patient has decision-making capacity? Yes Care Teams Pourer Relationship Specialty Start Date End Date Ronn Smith MD [address] [place] [address] PCP - General 01/30/21 Shazia Zelaya APRN [address] [place] [address] Nurse Practitioner Neurosurgery 08/03/21
--- OUTSIDE RECORDS SUMMARY | 2025-03-04 11:39 | XMS_ITS | Encounter Summary ---
Author Organization [facility] Address [address] [place] [address] Care Team Providers Care Laundry Aid Name Role Phone Ronn Smith MD Primary Care Provider + [phone] Shazia Zelaya ADMISSIONS SUPERVISOR Unavailable [phone] Reason for Referral * Consultation (Routine) - Closed Specialty Diagnoses / Procedures Referred By Consuelo clements Referred To Contact Rheumatology Diagnoses Positive MARGOTH (antinuclear antibody) Shravan Birmingham APRN [address] [place] [address] Phone: tel: fax: Referral ID Status Reason Start Date Expiration Date V isits Requested Visits Authorized [id number] Closed Specialty Services Required 05/19/2023 11/17/2024 1 1 Encounter Details Date Type Department Care Team (Late st Contact Info) Description 05/19/2023 Community Orders Community Practice [address] [place] [address] Shravan Birmingham APRN [address] [place] [address] Positive MARGOTH (antinuclear antibody) (Primary Dx) Social History Tobacco Use Types Packs/Day Years Used Date Smoking Tobacco: Former Cigarettes 1 27 0 12/22/1993 - 12/22/2020 Smokeless Tobacco: Former Alcohol Use Standard Drinks/Week Comments No 0 (1 standard drink = 0.6 oz pur e alcohol) Comments No Sex and Gender Information Value Date Recorded Sex Assigned at Female 07/30/2021 10:50 AM EST Legal Sex Female 8:28 PM EDT Gender Identity Female 07/30/2021 10:50 AM EST Sexual Orientation Not on file documented as of this encounter Plan of Treatment Upcoming Encounters Date Type Department Care Team (Late st Contact Info) Description 04/19/2025 11:40 AM EDT Office Visit [facility] Endocrinology [address] [place] [id number] Anna Martínez DO [address] [place] [address] Scheduled Referrals Name Type Priority Associated Diagnoses Order Schedule Ambulatory referral to Rheumatology Outpatient Referral Routine Positive MARGOTH (antinuclear antibody) Expected: 05/19/2023 (Approximate), Expires: 11/16/2024 documented as of this encounter Visit Diagnoses Diagnosis Positive MARGOTH (antinuclear antibody)- Primary Other and unspecified nonspecific immunological findings documented in this encounter Additional Health Concerns Infection Onset Date Last Indicated Resolved Time C. difficile 03/04/2022 04/03/2022 Assessment Noted Time A fall risk assessment has been complete d for the patient 12/03/2021 11:29 AM EDT documented as of this encounter Care Teams Laundry Aid Relationship Specialty Start Date End Date Ronn Smith MD [address], [place] [id number] PCP - General 01/30/21 Shazia Zelaya APRN [address] [place] [id number] Nurse Practitioner Neurosurgery 08/03/21 documented as of this encounter
--- OUTSIDE RECORDS SUMMARY | 2025-03-04 11:39 | XMS_ITS | Encounter Summary ---
Author Organization [facility] Address [address] [place] [address] Care Team Providers Care Electronic Systems Technician Name Role Phone Ronn Smith MD Primary Care Provider + [phone] Shazia Zelaya ROOFER HELPER [employer] Unavailable [phone] Reason for Referral * Imaging (Routine) - Authorized Specialty Diagnoses / Procedures Referred By Contac t Referred To Contact Diagnoses Dysphagia, unspecified type Procedures US Thyroid Anna Martínez DO [address] [place] [address] Phone: tel: fax: Referral ID Status Reason Start Date Expiration Date V isits Requested Visits Authorized [id number] Authorized 02/25/2025 08/27/2026 1 1 Encounter Details Date Type Department Care Team ([facility] Contact Info) Description 02/25/2025 Orders Only [facility] Endocrinology [address] [place] [address] Anna Martínez DO [address] [place] [address] Dysphagia, unspecified type (Primary Dx) Social History Tobacco Use Types [...] 04/19/2025 11:40 AM EDT Office Visit [facility] Endocrinology [address] [place] [address] Anna Martínez DO [address] [facility] [address] [place] [address] Scheduled Orders Name Type Priority Associated Diagnoses Orde r Schedule US Thyroid Imaging Routine Dysphagia, unspecified type Expected: 02/25/2025 (Approximate), Expires: 08/29/2026 documented as of this encounter Visit Diagnoses Diagnosis Dysphagia, unspecified type- Primary documented in this encounter Additional Health Concerns Infection Onset Date Last Indicated Resolved Time C. difficile 03/04/2022 04/03/2022 Assessment Noted Time A fall risk assessment has been complete d for the patient 06/01/2023 12:34 PM EDT A Body Mass Index follow-up plan has been documented for the patient 04/27/2024 4:01 PM EDT documented as of this encounter Care Teams Electronic Systems Technician Relationship Specialty Start Date End Date Ronn Smith MD [address] [place], [place] [id number] PCP - General 01/30/21 Shazia Zelaya APRN [address] [facility] [address] [place] [address] Nurse Practitioner Neurosurgery 08/03/21 documented as of this encounter
--- NOTE | 2025-03-04 11:41 | ECG_ITS ---
APPROVED REPORT Exam: Resting ECG HR:64 bpm ECG Measurements Heart Rate [address] 124 P 0 QRSd 85 QRS 51 QT 407 T 61 QTc 417 Conclusion SINUS RHYTHM NORMAL ECG Electronically signed by : SHAKA BRODY, 03/07/2025 23:41:24
--- NOTE | 2025-03-04 11:46 | CT_ITS ---
FINAL REPORT TECHNIQUE: NASCET technique utilized for stenosis evaluation. CLINICAL HISTORY: fall, posterior fullness dizzy 75 CC ISOVUE 40 SALINE COMPARISON: None FINDINGS: The origins of the great vessels and the aortic arch are unremarkable. RIGHT CAROTID: No significant stenosis is seen of the cervical common or internal carotid artery. LEFT CAROTID: No significant stenosis seen of the cervical common or internal carotid artery. VERTEBRALS: The vertebral arteries are patent. No significant stenosis is present. IMPRESSION: No significant arterial abnormality. Reviewed, Interpreted and Dictated by Azam Hernandez MD Transcribed by Pattie Wells Authenticated and [facility]
--- NOTE | 2025-03-04 11:46 | CT_ITS ---
FINAL REPORT TECHNIQUE: Axial CT images were performed through the head. Coronal and sagittal reformatted images were submitted. This study was performed with techniques to keep radiation doses as low as reasonably achievable (ALARA). Individualized dose reduction techniques using automated exposure control or adjustment of mA and/or kV according to the patient's size were employed. CLINICAL HISTORY: fall, posterior pain COMPARISON: None FINDINGS: The ventricles are normal in size. There is no evidence of hemorrhage. There is no mass or edema identified. There is no abnormal extra-axial fluid seen. The sinuses are well aerated. IMPRESSION: No acute intracranial process. Reviewed, Interpreted and Dictated by Azam Hernandez MD Transcribed by Pattie Wells Authenticated and [facility]
--- NOTE | 2025-03-04 11:46 | CT_ITS ---
FINAL REPORT TECHNIQUE: thin section axial CT with and without IV contrast supplemented with multiplanar 3-D reconstruction of the head. This study was performed with techniques to keep radiation doses as low as reasonably achievable, (ALARA)individualized dose reduction techniques using automated exposure control or adjustment of mA and/or kV according to the patient's size were employed. CLINICAL HISTORY: fall, posterior fullness dizzy COMPARISON: None FINDINGS: HEAD CT: The ventricles are normal in size. There is no evidence of hemorrhage. No masses are identified. No extra-axial fluid is seen. The sinuses are normal. CTA: The cranial circulation is unremarkable. There is no significant stenosis, aneurysm or occlusion. IMPRESSION: No acute process. Reviewed, Interpreted and Dictated by Azam Hernandez MD Transcribed by Pattie Wells Authenticated and [facility]
--- NOTE | 2025-03-04 11:49 | ED_ITS ---
Discharge Plan Disposition Patient Disposition: Home, Self-Care Prescriptions Prescriptions: No Action hydrocodone-acetaminophen [Herron] 7.5-325 mg tablet 1 tab PO QID diclofenac sodium 1 % gel 1 applic TP DAILYP PRN (Reason: PAIN) Patient Comments: APPLY 4 GM TO AFFECTED AREA(S) FOUR TIMES DAILY gabapentin 400 mg capsule 400 mg PO DAILY PRN (Reason: .) Premarin 1.25 mg tablet 1.25 mg PO DAILY Qty: 90 3RF rizatriptan 10 mg tablet,disintegrating 10 mg PO ONCE PRN (Reason: migraine headache) Qty: 10 0RF Rx Instructions: Take 1 tablet for onset of headache, no more then 2 in 24 hours, no more then 4 per week Qulipta 60 mg tablet 60 mg PO DAILY Qty: 30 6RF amitriptyline 25 mg tablet 25 mg PO DAILY Qty: 30 6RF tizanidine 4 mg tablet 8 mg PO HS 30 Days Qty: 60 11RF gabapentin 800 mg tablet 800 mg PO DAILY (DME) BD Luer-Jess Syringe 3 mL 23 x 1 syringe See Rx Instructions .ROUTE .COMPLEX Qty: 1 0RF Dose Instruction: DIRECTED Rx Instructions: DIRECTED escitalopram oxalate 20 mg tablet See Rx Instructions .ROUTE .COMPLEX Qty: 90 0RF Dose Instruction: TAKE 1 TABLET BY MOUTH ONCE DAILY Rx Instructions: TAKE 1 TABLET BY MOUTH ONCE DAILY amlodipine 5 mg tablet See Rx Instructions .ROUTE .COMPLEX Qty: 90 0RF Dose Instruction: TAKE 1 TABLET BY MOUTH ONCE DAILY Rx Instructions: TAKE 1 TABLET BY MOUTH ONCE DAILY cetirizine [Allergy Relief (cetirizine)] 10 mg tablet See Rx Instructions .ROUTE .COMPLEX Qty: 90 2RF Dose Instruction: TAKE 1 TABLET BY MOUTH DAILY FOR ALLERGIES; MAY TAKE MED AT NIGHT IF IT CAUSES SLEEPINESS Rx Instructions: TAKE 1 TABLET BY MOUTH DAILY FOR ALLERGIES; MAY TAKE MED AT NIGHT IF IT CAUSES SLEEPINESS cyanocobalamin (vitamin B-12) 1,000 mcg/mL solution See Rx Instructions .ROUTE .COMPLEX Qty: 1 5RF Dose Instruction: 1000 MCG INTRAMUSCULAR EVERY MONTH FOR SUPPLEMENT Rx Instructions: 1000 MCG INTRAMUSCULAR EVERY MONTH FOR SUPPLEMENT levothyroxine 112 mcg tablet See Rx Instructions .ROUTE .COMPLEX Qty: 90 2RF Dose Instruction: TAKE 1 TABLET BY MOUTH EVERY MORNING ON AN EMPTY STOMACH Rx Instructions: TAKE 1 TABLET BY MOUTH EVERY MORNING ON AN EMPTY STOMACH duloxetine 30 MG capsule,delayed release(DR/EC) 30 mg PO DAILY ondansetron 4 mg Tablet,Disintegrating 4 mg PO Q6H Prebiotic Fiber 2 gram Tablet,Chewable 2 g PO DAILY Referrals Follow up/Referrals: Priti Kinsey APRN [Primary Care Provider, Family Practice] - See instructions Activity Restrictions/Add. Instructions Additional Instructions/Restrictions: At this time it was felt you are safe to be discharged home. If new or worsening symptoms please do not hesitate to return the emergency department. Please hold your blood pressure medication for a few days and follow-up with your family doctor to see if they want to modify it. Please drink as much as you are able and take 2-minute intervals while going from lying to sitting to standing. Clinical Impressions Clinical Impression: Orthostatic hypotension Print Language Print Language: Marshallese Discharge ED Provider: Harsha Rogers General Adult HPI General Chief complaint: Dizziness Stated complaint: low blood pressure weakness/dizziness Time Seen by Provider: 03/04/25 11:41 Mode of Arrival: Ambulatory Source of Information: Patient Description of Symptoms (Recalled from ER Triage Doc. by RN): Patient states she was sent from doctor's office because her blood pressure was low, patient states this happens from time to time. States she takes medication for hypertension every night- amlodipine but does not know the dose. Patient denies any vomiting or diarrhea, states she has been eating and drinking ok. History of Present Illness HPI narrative: Patient is a 59-year-old female with past medical history of hypertension on antihypertensives not recently modified, previous lightheadedness and syncope evaluated by cardiology, hypothyroidism on medical therapy who presents emergency department for evaluation of hypotension as a transfer from podiatry clinic. Patient normally takes her antihypertensives at night. She intermittently feels lightheaded and has had this episode similar 7 times in the last year has been evaluated by cardiology and determined not to be a cardiac cause. She has fallen within the last week striking her posterior head without loss of consciousness and feels as if the back of her head is full . She is not currently hurting anywhere no vomiting or diarrhea no dysuria no abdominal pain no chest pain reported no other acute complaints at this time. Please note that above description of symptoms, in this electronic medical record under categorization of recalled from ER triage doctor by RN are reflective of an initial nursing assessment, however, is not reflective of my full history and physical exam that was personally taken and clarified. Consequentially, this preceding description of symptoms, which may include the patient's categorized chief complaint in the EMR, do not reflect my personal clinical impression, and the ultimate description of history of present illness and patient stated complaints should be deferred to this section of the note. Unless stated otherwise or congruent with this section of the note, additional signs, symptoms, or incongruence should be interpreted as inaccurate with my clinical impression. Related Data Home Medications ?Medication ?Instructions ?Recorded ?Confirmed hydrocodone 7.5 mg-acetaminophen 1 tab PO QID Pain 03/04/25 325 mg tablet (Herron) diclofenac sodium 1 % topical gel 1 applic topical BELGICA LYP PRN PAIN 07/14/21 03/04/25 duloxetine 30 mg capsule,delayed 30 mg PO DAILY MOOD 0 03/01/22 03/04/25 release gabapentin 400 mg capsule 400 mg PO DAILY PRN . 03/04/25 gabapentin 800 mg tablet 800 mg PO DAILY 06/18/24 inulin 2 gram chewable tablet 2 g PO DAILY 06/27/24 (Prebiotic Fiber) ondansetron 4 mg disintegrating 4 mg PO Q6H 06/27/24 0 03/04/25 tablet Previous Rx's ?Medication ?Instructions ?Recorded syringe with needle 3 mL 23 x 1 #1 ea 08/05/23 (BD Luer-Jess Syringe) tizanidine 4 mg tablet 8 mg (2 x 4 mg) PO HS Pain 3 0 days 05/29/24 #60 tabs conjugated estrogens 1.25 mg 1.25 mg PO DAILY #90 tabs 10/18/24 tablet (Premarin) escitalopram oxalate 20 mg tablet See Rx Instructions .Route 01/11/25 .COMPLEX #90 tabs amlodipine 5 mg tablet See Rx Instructions .Route 0 01/14/25 .COMPLEX #90 tabs amitriptyline 25 mg tablet 25 mg PO DAILY #30 tabs 12/11 atogepant 60 mg tablet (Qulipta) 60 mg PO DAILY #30 ta bs 02/19/25 rizatriptan 10 mg disintegrating 10 mg PO ONCE PRN eduardo galen 02/19/25 tablet headache #10 tabs cetirizine 10 mg tablet (Allergy See Rx Instructions . Route 02/22/25 Relief (cetirizine)) .COMPLEX #90 tabs cyanocobalamin (vitamin B-12) See Rx Instructions .Rou te 02/25/25 1,000 mcg/mL injection solution .COMPLEX #1 mL levothyroxine 112 mcg tablet See Rx Instructions .Rout e 02/28/25 .COMPLEX #90 tabs Allergies Allergy/AdvReac Type Severity Reaction Status Date / Time nut - unspecified Allergy Severe Anaphylaxis Verified 03/04/25 11:03 azithromycin (AZITHROMYCIN) Allergy Intermediate Hives Verified 03/04/25 11:03 lisinopril AdvReac Intermediate itching Verified 03/04/25 11:03 [facility] Disclaimer: The information contained in this section may have been updated after the patient was seen, as this information can be updated by other users. Medical History Lipoma 2.5 cm left mid/lower back lipoma UTI (urinary tract infection) Sinusitis Hypokalemia Suppurative appendicitis Abdominal pain DAYSI (acute kidney injury) Dehydration Gastroenteritis COVID-19 SIRS (systemic inflammatory response syndrome) Clostridium difficile colitis Hypokalemia Ovarian cyst Exposure to COVID-19 virus Cat bite Fall Pneumonia PRANAY (obstructive sleep apnea) Migraine headache Surgical History History of laparoscopy History of appendectomy History of prolapse of bladder History of arthroscopy of right shoulder History of rhinoplasty Family History Other Cancer Family history of heart disease Social History Smoking Status: Never smoker second hand exposure: No alcohol intake: never substance use type: denies use current occupational status: employed Travel in the last 8 weeks?: None household members: none housing: apartment marital status: 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 current occupational exposures/hazards: No caffeine: Yes Have you lived/traveled outside [place] in past 30 days?: No Contact w/someone who lives/traveled outside US past 30 days?: No Exposure to someone with infectious disease in past 14 days?: No Do you have a fever (greater than 100.4 F or 38 C)?: No Have you tested positive for COVID-19?: No Exposed to someone with COVID-19 in past 14 days?: No Do you have a sore throat?: No Do you have a cough?: No Do you have any weakness?: Yes Do you have any diarrhea?: No Are you experiencing any unusual bleeding?: No Do you have any muscle aches/pain?: No Do you have any abdominal pain?: No Are you experiencing loss of taste or smell?: No Other Medical History Have you received the Flu Vaccine for this season: No Have you received the Pneumonia Vaccine: No ROS Obtained: Yes Systems reviewed as appropriate & no additional complaints except as documented Physical Exam General General appearance: alert and in no apparent distress Head Head exam: atraumatic and normocephalic Eye Eye exam: Present PERRL and EOMI ENT ENT exam: Present mucous membranes moist Neck Neck exam: Present normal inspection Chest Chest inspection: Present normal inspection and symmetric chest wall rise Respiratory Respiratory exam: Present normal lung sounds bilaterally; Absent respiratory distress Cardiovascular Cardiovascular exam: Present regular rate and normal rhythm Abdominal Exam Abdominal exam: Present soft; Absent tenderness Extremities Exam Extremities exam: Present normal inspection Neurological Exam Neurological exam: Present alert and CN II-XII intact; Absent motor sensory deficit Psychiatric Psychiatric exam: Present normal affect Skin Skin exam: Present warm and dry Medical Decision Making Medical Records Screening: Per USPSTF and CDC recommendations, given the prevalence of disease in our region, it is our hospital?s policy to screen for HIV and viral Hepatitis for all patients aged 18 and over and those with ongoing risk factors. Jef Inquiry Pt receiving controlled substance: No Vital Signs: 03/04/25 11:39 03/04/25 12:01 03/04/25 12:24 Temperature 97.4 F L Temperature Source Oral Pulse Rate 68 Pulse Rate [Orthostatic Lying Brachial] Pulse Rate [Orthostatic Sitting Right Brachial] Pulse Rate [Orthostatic Standing Right Brachial] Pulse Rate [Right Radial] 70 Respiratory Rate 18 Blood Pressure 99/50 L 101/62 L Blood Pressure [Orthostatic Lying] Blood Pressure [Orthostatic Sitting Right Arm] Blood Pressure [Orthostatic Standing Right Arm] Blood Pressure [Right Arm] 97/63 L Blood Pressure Mean 66 72 Blood Pressure Mean [Right Arm] 74 Blood Pressure Source [Right Arm] Automatic Cuff Blood Pressure Position [Right Arm] Sitting 02 Sat by Pulse Oximetry 96 94 L Oxygen Delivery Method Room Air Nasal Cannula 03/04/25 12:25 03/04/25 12:29 03/04/25 13:01 Temperature Temperature Source Pulse Rate 68 68 Pulse Rate [Orthostatic Lying Brachial] 68 Pulse Rate [Orthostatic Sitting Right Brachial] 77 Pulse Rate [Orthostatic Standing Right Brachial] 76 Pulse Rate [Right Radial] Respiratory Rate Blood Pressure 91/48 L 117/62 Blood Pressure [Orthostatic Lying] 101/62 L Blood Pressure [Orthostatic Sitting Right Arm] 91/48 L Blood Pressure [Orthostatic Standing Right Arm] 83/47 L Blood Pressure [Right Arm] Blood Pressure Mean 62 77 Blood Pressure Mean [Right Arm] Blood Pressure Source [Right Arm] Blood Pressure Position [Right Arm] 02 Sat by Pulse Oximetry 96 96 Oxygen Delivery Method 03/04/25 13:30 03/04/25 14:00 03/04/25 14:30 Temperature Temperature Source Pulse Rate Pulse Rate [Orthostatic Lying Brachial] Pulse Rate [Orthostatic Sitting Right Brachial] Pulse Rate [Orthostatic Standing Right Brachial] Pulse Rate [Right Radial] Respiratory Rate Blood Pressure 114/64 121/69 123/69 Blood Pressure [Orthostatic Lying] Blood Pressure [Orthostatic Sitting Right Arm] Blood Pressure [Orthostatic Standing Right Arm] Blood Pressure [Right Arm] Blood Pressure Mean 81 84 91 Blood Pressure Mean [Right Arm] Blood Pressure Source [Right Arm] Blood Pressure Position [Right Arm] 02 Sat by Pulse Oximetry Oxygen Delivery Method 03/04/25 14:43 Temperature Temperature Source Pulse Rate Pulse Rate [Orthostatic Lying Brachial] 70 Pulse Rate [Orthostatic Sitting Right Brachial] 74 Pulse Rate [Orthostatic Standing Right Brachial] 77 Pulse Rate [Right Radial] Respiratory Rate Blood Pressure Blood Pressure [Orthostatic Lying] 115/74 Blood Pressure [Orthostatic Sitting Right Arm] 100/74 L Blood Pressure [Orthostatic Standing Right Arm] 118/74 Blood Pressure [Right Arm] Blood Pressure Mean Blood Pressure Mean [Right Arm] Blood Pressure Source [Right Arm] Blood Pressure Position [Right Arm] 02 Sat by Pulse Oximetry Oxygen Delivery Method Lab Data Lab Results 03/04/25 12:04: WBC 5.2, RBC 4.30, Hgb 12.1 L, Hct 37.0, MCV 86.0, MCH 28.1, MCHC 32.7, RDW 11.9, Plt Count 365, MPV 8.9, Neut % (Auto) 53.5, Lymph % (Auto) 34.4, Kern % (Auto) 9.0, Eos % (Auto) 2.3, Baso % (Auto) 0.6, Neut # (Auto) 2.8, Lymph # (Auto) 1.8, Kern # (Auto) 0.5, Eos # (Auto) 0.1, Baso # (Auto) 0.0, S odium 133 L, Potassium 4.3, Chloride 101, Carbon Dioxide 29, Anion Gap 7.3, BUN 16, Creatinine 0.90, Estimated Creat Clear 62, Estimated GFR 64, Est GFR ( Amer) 78, Glucose 91, Calcium 9.4, Magnesium 1.6, Total Bilirubin 0.5, AST 29, ALT 18, Alkaline Phosphatase 71, Total Protein 7.5, Albumin 3.9, G lobulin 3.6 H, Albumin/Globulin Ratio 1.1, TSH < 0.02 L, Free T4 0.88 03/04/25 13:18: Urine Color Yellow, Urine Appearance Clear, Urine pH 6.5, Ur Specific [place] <= 1.005, Urine Protein Negative, Urine Glucose (UA) Negative, Urine Ketones Negative, Urine Blood Negative, Urine Nitrate Negative, Urine Bilirubin Negative, Urine Urobilinogen 0.2, Ur Leukocyte Esterase Negative, Urine RBC None, Urine WBC None, Ur Squamous Epith Cells 10-20, Urine Bacteria None 03/04/25 12:04 03/04/25 12:04 Orders (Tests/Meds): ED MEDICATIONS Discontinued Medications Generic Name Dose Route Start Last Admin Trade Name Freq PRN Reason Stop Dose Admin Lactated Ringer's 1,000 mls @ 999 mls/hr 03/04/25 11:48 03/04/25 12:22 Lactated Ringer's 1000 Ml Bag IV 03/04/25 12:48 999 mls/hr .Q1H1M ONE Administration Iopamidol 75 ml 03/04/25 12:40 03/04/25 12:41 Iopamidol-370 (76%);100ml Bottle IV 03/04/25 12:41 75 ml ONCE ONE Administration Sodium Chloride 10 ml 03/04/25 12:40 03/04/25 12:41 Sodium Chloride 0.9% 10ml Syr (Rad Only) IV 03/04/25 12:41 10 ml ONCE ONE Administration Sodium Chloride 50 ml 03/04/25 12:40 03/04/25 12:41 0.9 % Sodium Chloride 50 Ml Vial IV 03/04/25 12:41 50 ml ONCE ONE Administration ORDERS Category Date Time Status CT angio head Stat Cat Scan 03/04/25 11:[address] angio neck Stat Cat Scan 03/04/25 11:[address] head/brain wo con Stat Cat Scan 03/04/25 11:46 Completed CBC w/Auto Diff [Complete Blood Count Auto Diff] Stat Lab 03/04/25 12:04 Completed CMP [Comprehensive Metabolic Panel] Stat Lab 03/04/25 12:04 Completed Free T4 (Free Thyroxine) Stat Lab 03/04/25 12:04 Completed MG [Magnesium] Stat Lab 03/04/25 12:04 Completed TSH [Thyroid Stimulating Hormone] Stat Lab 03/04/25 12:04 Completed UA [Urinalysis and Microscopic] Stat Lab 03/04/25 13:18 Completed ECG Data Tracing #1: Independently interpreted by me rate of 64, rhythm is regular, axis is normal, no ST elevation in anatomical contiguous leads, QTc 417. Medical Decision Narrative: In summary patient is a 59-year-old female past medical history described below who presents emergency department for evaluation of low blood pressure. It is charted as 67/48 in clinic upon arrival she is 97/63 without intervention afebrile normal heart rate no hypoxia. Differential includes medication effect, metabolic derangement, intracranial hemorrhage, urinary tract infection, among others. Workup we conducted with hematologic labs, noncontrasted CT scan of the head, CT of the head neck, urinalysis, orthostatic vital signs. Interventions include crystalloid bolus. Initial workup reviewed by me, no significant leukocytosis no transfusable anemia. No DAYSI or critical electrolyte abnormality. TSH undetectably low with a normal free T4 given that she is on thyroid medication this is okay. Urinalysis interpreted by me and not consistent with infection. Repeat orthostatics status post crystalloid bolus are normal. Given this I feel that patient is appropriate for outpatient management may be just having a robust response to her long-term antihypertensive therapy at this point I feel essentially all emergencies have been ruled out and patient will follow-up on an outpatient basis for medication modification later this week and was given return precautions verbalized understanding. Critical Care Critical Care Time Critical Care Time: No
[2025-03-04 12:18] LABS: Basophils % 0.6 % (0.1-2.0); Eosinophils # 0.1 Kmm3 (0.0-0.4); Eosinophils % 2.3 % (0.1-12.0); Hemoglobin 12.1 g/dL (12.2-16.2); Immature Granulocytes # 0.01 10^3uL; Immature Granulocytes % 0.2 %; Lymphocytes # 1.8 K/mm3 (0.7-4.5); Lymphocytes % 34.4 % (10-50); Mean Corpuscular HGB Conc 32.7 g/dL (31.8-35.4); Mean Corpuscular Hemoglobin 28.1 pg (27.0-31.2); Mean Platelet Volume 8.9 fl (7.4-10.4); Monocytes # 0.5 K/mm3 (0.1-1.0); Neutrophils # 2.8 K/mm3 (1.8-7.8); Neutrophils % 53.5 % (37.0-80.0); Nucleated Red Blood Cells # 0 10^3/uL; Nucleated Red Blood Cells % 0 %; Platelet Count 365 K/mm3 (142-424); Red Cell Distribution Width 11.9 % (11.5-17.5); Red Cell Distribution Width-SD 37.6 fL; White Blood Count 5.2 K/mm3 (4.8-10.8)
[2025-03-04 12:21] LABS: Albumin Level 3.9 g/dl (3.5-5.0); Chloride 101 mmol/L (98-107); Sodium 133 mmol/L (136-145)
[2025-03-04 12:22] LABS: Potassium 4.3 mmoL/L (3.5-5.1)
[2025-03-04] MEDS: LACTATED RINGERS 1000ML 1,000 ML 999 ML IV (12:22)
[2025-03-04 12:24] LABS: Alanine Aminotransferase 18 U/L (12-78); Anion Gap 7.3 mEq/L (5-15); Aspartate Amino Transferase 29 U/L (14-36); Blood Urea Nitrogen 16 mg/dl (7-17); Carbon Dioxide 29 mmol/L (22.0-30.0); Creatinine Clearance Estimated 62 mL/min (50-200); Estimated Glomerular Filt Rate 64 ml/min (>60); GFR (African American) 78 ML/MIN (>60)
[2025-03-04 12:25] LABS: Albumin/Globulin Ratio 1.1 (1.1-1.8); Alkaline Phosphatase 71 U/L (38-126); Bilirubin,Total 0.5 mg/dl (0.2-1.3); Calcium 9.4 mg/dl (8.4-10.2); Globulin 3.6 g/dL (1.3-3.2); Glucose 91 mg/dl (74-100); Magnesium 1.6 mg/dl (1.6-2.3); Total Protein,Serum 7.5 g/dl (6.3-8.2)
[2025-03-04 12:41] LABS: Free T4 (Free Thyroxine) 0.88 ng/dl (0.78-2.19)
[2025-03-04] MEDS: IOPAMIDOL-370 (76%);100ML BOTTLE 75 ML IV (12:41)
[2025-03-04] MEDS: 0.9 % SODIUM CHLORIDE 50 ML VIAL IV (12:41)
[2025-03-04] MEDS: SODIUM CHLORIDE 0.9% 10ML SYR (RAD ONLY) 10 ML IV (12:41)
[2025-03-04 12:56] LABS: Thyroid Stimulating Hormone < 0.02 uIU/mL (0.465-4.68)
[2025-03-04 13:25] LABS: Microscopic, Urine URINE MICROSCOPIC (MICROSCOPIC)
[2025-03-04 13:32] LABS: Appearance,Urine CLEAR (Clear); Bilirubin,Urine Negative (Negative); Blood, Urine Negative (Negative); Color,Urine YELLOW (Yellow); Glucose,Urine (UA) Negative (Negative); Ketones,Urine Negative (Negative); Leukocyte Esterase,Urine Negative (Negative); Nitrate,Urine Negative (Negative); PH,Urine 6.5 (5.0-8.5); Protein,Urine Negative (Negative); Specific Gravity, Urine <= 1.005 (1.005-1.030); Urobilinogen,Urine 0.2 EU/dl (0.2)
== END 2025-03-04 15:24 | disposition home or self-care (01) ==
PROVIDERS: Emergency Provider Emergency Medicine; PCP Family Medicine
DX: I95.1 Orthostatic hypotension (principal); R53.1 Weakness; R42 Dizziness and giddiness; I10 Essential (primary) hypertension
CPT/HCPCS: 70450; 70496; 70498; 80053; 81001; 83735; 84439; 84443; 85025; 93005; 96360; 99285; J7120; Q9967

== ENCOUNTER 2025-03-12 10:23 | Outpatient (CLI) | payer BC, MEDICAID, SELFPAY ==
--- OUTSIDE RECORDS SUMMARY | 2025-03-12 10:26 | XMS_ITS | Encounter Summary ---
Author Organization [employer] Address [address] [place] [address] Care Team Providers Care Calibrator Barometers Name Role Phone Unavailable Primary Care Provider Unavailabl e Encounter Details Date Type Department Care Team (Late st Contact Info) Description 07/26/2020 Transcribed Document [facility] [facility] [address] ProviderSami MD [address] [place] [address] Social History Tobacco Use Types Packs/Day Years Used Date Smoking Tobacco: Never Assessed Comments Unknown Sex and Gender Information Value Date Recorded Sex Assigned at Not on file Legal Sex Female 6:03 PM CDT Gender Identity Not on file Sexual Orientation Not on file documented as of this encounter Miscellaneous Notes * Cerner Conversion Note - Sami Lovell MD - 07/26/2020 11:01 AM WAD IMPREGNATOR Patient: TAVIA HUTSON Age: 55 Years Sex: Female : 1965 FOLLOW-UP DATE OF SERVICE: 07/08/2020 CHIEF COMPLAINT: Low back pain and neck pain. HISTORY OF PRESENT ILLNESS: Ms. Hutson is a 55 y/o female who presents to the clinic with a 7 year history of pain. Today, she is describing low back pain that radiates down the right side, sciatic pain, right leg. Positive numbness and tingling. She is also complaining of neck pain radiating to the left shoulder. She states walking and sitting increases her pain while stretching and massages decreases her pain. Severity of pain today is 7/10 on the pain scale. She states 70% relief with her current medication. We currently prescribe tramadol 50 mg 1 p.o. q.8h., Neurontin 800 mg 1 tab at bedtime, Lesage 7.5/325 mg 1 p.o. q.6h. and diclofenac gel 4 grams 4 times a day. Nursing intake is reviewed. Medication list is reviewed. Fall risk info sheet has been provided. SOCIAL HISTORY: Allergies: Ms. Hutson states she is allergic to Flagyl and erythromycin. Marital status: The patient is . Current work status: She works. Illicit drug use: Denies. Alcohol use: Denies. Current tobacco use: She smokes 1-1/2 packs a day for the past 32 years. Past Medical History: Arthritis. Depression. Head injury. High blood pressure. High cholesterol. Obstructive sleep apnea. Migraines. Thyroid disease. Past Surgical History: Appendectomy. Hysterectomy. Colon surgery. Shoulder surgery. Sinus surgery. Past Family History: Reviewed with the patient and noted. REVIEW OF SYSTEMS: Complete 10 system review performed and positive for: General: Fatigue, weight gain, weight loss. Respiratory: Negative. Neurological: Headache, numbness and tingling. Gastrointestinal: Constipation, diarrhea. Musculoskeletal: Joint pain, stiffness, neck pain, back pain, muscle weakness, muscle aches and pains. Cardiovascular: Leg pain with walking. Psychiatric: Anxiety and depression. HEENT: Negative. Endocrine: Negative. Hematology: Negative. VITAL SIGNS: Vital signs are reviewed. BP 125/82, heart rate 96, respiratory rate 16, O2 SATs 98%, height 5???4?? , weight 118 lbs. PHYSICAL EXAMINATION: Constitutional: She is conversant, well nourished. Integumentary: Deferred. HEENT: Deferred. Neck: Deferred. Chest and Lung: Deferred. Cardiovascular: Deferred. Abdomen: Deferred. Peripheral Vascular: Deferred Neurologic: Deferred. Psychiatric: Alert and oriented x 3 with normal mood and affect. She scores a 7 on her depression questionnaire and she is in treatment. Musculoskeletal: Deferred. Established patient exam is deferred. DIAGNOSTIC STUDIES: Not present. MEDICAL DECISION MAKING: EKASPER has been reviewed and is appropriate. ASSESSMENT: Stable. 1. Chronic pain syndrome. 2. Lumbar degenerative disc disease. 3. Lumbar spondylosis. 4. Lumbar facet arthropathy. 5. Lumbar radiculitis to right lower extremity. PROCEDURE/TEST ORDERED: Not present. CURRENT PLAN: We are not going to make any changes today. We are going to continue her current medication and we will see her back in the clinic in two months. Three to 5 minutes of smoking cessation counseling was also done. Mignon Thakur, RN acting as a scribe for Parris Leger M.D. I, Parris Leger M.D. personally performed the service described in this documentation, as scribed by, Mignon Thakur RN in my presence, and it is both accurate and complete. Parris Leger M.D. MHL/SS/carmen Electronically signed by Martine [facility] Conversion [employer]ner at 01/03/2023 1:45 PM CDT documented in this encounter Plan of Treatment Not on file documented as of this encounter Visit Diagnoses Not on filedocumented in this encounter
--- OUTSIDE RECORDS SUMMARY | 2025-03-12 10:26 | XMS_ITS | Encounter Summary ---
Author Organization [employer] iatives Address [address] [place] [id number] Care Team Providers Care Hogshead Dumper Name Role Phone Unavailable Primary Care Provider Unavailabl e Encounter Details Date Type Department Care Team (Late st Contact Info) Description 02/05/[address] [facility] [place] [facility] [place] [address] ProviderSami MD [address] [place], [place] [address] Social History Tobacco Use Types Packs/Day Years Used Date Smoking Tobacco: Never Assessed Comments Unknown Sex and Gender Information Value Date Recorded Sex Assigned at Not on file Legal Sex Female 6:03 PM CDT Gender Identity Not on file Sexual Orientation Not on file documented as of this encounter Miscellaneous Notes * Cerner Conversion Note - Sami Lovell MD - 02/05/2020 5:15 PM CDT Patient: TAVIA KHANNA Age: 54 Years Sex: Female : 1965 FOLLOW-UP Date of Service: 01/14/2020 CHIEF COMPLAINT: Low back pain. HISTORY OF PRESENT ILLNESS: This is a 54 y/o female being seen in follow-up with a 7+ year history of low back pain that she overall describes as constant, aching, burning, radiating, numbness and tingling, dull and sharp. The pain is exacerbated with prolonged standing and sitting and reduced with ice, heat, rest and medication. She currently rates the pain as a 6/10 VAS and reports a 70% reduction with medication. Medication list reviewed. Pertinent medications are noted to be Tramadol 50 mg 1 p.o. q 8 h. This was added at last visit as the patient was requesting an increase in her opioid pain medication. She was instructed to take this in between her Hydrocodone doses to see if this would help her pain in between Hydrocodone. Initially Tavia states that it has been of no help but upon further discussion and questioning she does note that she is noticing some benefit in between her Hydrocodone doses. Hydrocodone 7.5 mg 1 p.o. q 6 h, Gabapentin 800 mg 1 p.o. at bedtime and Diclofenac Gel. She is also on Klonopin prescribed by her Primary Care Physician. Nursing intake reviewed. Fall info sheet provided. HISTORY: Allergies: Flagyl, Azithromycin. 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 Illicit drug use: Denies. Alcohol use: Denies. Current tobacco use: Enjoys nicotine tobacco in the form of cigarettes. Caffeine use: Enjoys caffeine. Past Medical History: Arthritis Depression Head injury. High cholesterol Migraines Thyroid disease. Past Surgical History: Appendix Hysterectomy Shoulder Sinus Past Family History: Cancer Lung disease. Migraines Substance abuse disorder. Rheumatoid arthritis Diabetes Stroke Mental illness. Heart disease Osteoarthritis Crohn's Depression Accidental self poisoning. REVIEW OF SYSTEMS: General: Fatigue, weight fluctuation. Respiratory: Negative. Neurological: Headaches, numbness and tingling Gastrointestinal: Constipation, diarrhea. Musculoskeletal: Joint pain, stiffness, neck pain, back pain, muscle weakness, muscle aches and pains. Cardiovascular: Negative. Psychiatric: Anxiety and depression. HEENT: Negative. Endocrine: Negative. Hematology: Negative. Skin: Negative. Genitourinary: Negative. VITAL SIGNS: Vital signs are reviewed. BP 112/77, heart rate 96, respiratory rate 20, O2 SATs 96% on room air, height 5???4?? , weight 120 lbs PHYSICAL EXAMINATION: Constitutional: Conversant, no acute distress, well-nourished. Integumentary: Deferred. HEENT: Normocephalic. Neck: Deferred. Chest and Lung: Deferred. Cardiovascular: Deferred. Abdomen: Deferred. Peripheral Vascular: Deferred Neurologic: Deferred. Musculoskeletal: Able to transition independently from walking, sitting, standing without overt difficulty. Psychiatric: Alert and oriented x 3. Denies suicidal ideation. Normal mood and affect. No signs of impairment. DIAGNOSTIC STUDIES: Not present MEDICAL DECISION MAKING: Stable. ASSESSMENT: 1. Chronic pain syndrome. 2. Lumbar degenerative disc disease. 3. Lumbar spondylosis. PROCEDURE/TEST ORDERED: Not present. CURRENT PLAN: We will continue current medications. Once again she did request an increase, however, we discussed the rationale for not doing so (opioid induced hyperalgesia, further increasing tolerance, etc). We discussed ways that she can try to actually decrease her opioid usage and the patient elected to continue Tramadol for now. She did express some gratitude for information shared today. Of note her RIOSORD score is 43 which translates to a 51% probability of developing an opioid related respiratory event in the next six months. This was also explained and reviewed with her. Questions answered to her satisfaction and she verbalized understanding. NEYMAR reviewed. Return to the clinic in two months. JAIDEN Galeas/cathy Electronically signed by Martine [facility] Conversion Stone Chimney Mason Cerner at 01/03/2023 1:38 PM CDT documented in this encounter Plan of Treatment Not on file documented as of this encounter Visit Diagnoses Not on filedocumented in this encounter
--- OUTSIDE RECORDS SUMMARY | 2025-03-12 10:26 | XMS_ITS | Encounter Summary ---
Author Organization [employer] Address [address] [place] [address] Care Team Providers Care Supervisor Print Line Name Role Phone Unavailable Primary Care Provider Unavailabl e Encounter Details Date Type Department Care Team (Late st Contact Info) Description 05/26/2020 Transcribed Document [facility] [place] [facility] [place] [address] ProviderSami MD [address] [place], [place] [id number] Social History Tobacco Use Types Packs/Day Years Used Date Smoking Tobacco: Never Assessed Comments Unknown Sex and Gender Information Value Date Recorded Sex Assigned at Not on file Legal Sex Female 6:03 PM CDT Gender Identity Not on file Sexual Orientation Not on file documented as of this encounter Miscellaneous Notes * Cerner Conversion Note - Sami Lovell MD - 05/26/2020 1:42 PM CDT Patient: TAVIA HUTSON Age: 55 Years Sex: Female : 1965 FOLLOWUP DATE OF SERVICE: 05/13/2020 CHIEF COMPLAINT: Low back pain, neck pain, left shoulder pain, right leg pain. HISTORY OF PRESENT ILLNESS: The patient is a 55-year-old female who returns to the clinic today with a nine-year history significant for low back pain with right leg pain involvement, neck pain with left shoulder pain involvement. She describes her pain level today as 7/10 on the numerical pain scale rating. The patient states that she gets relief with medication use from our facility as well as alternating ice and heat therapy. Her pain is worse with physical activities, including driving a car. The patient is reporting 75% reduction of the pain with the use of Tramadol 50 mg three times daily dosing, Neurontin 800 mg one at night, [place] 7.5/325 mg four times daily dosing, Diclofenac Gel 1% that the patient applies 4 g four times daily. Nursing intake is reviewed and on today's visit this individual is 5'4 and weighs 118 lymph node. HISTORY: Allergies: Flagyl, Azithromycin. Social History: Marital status: . 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 Current tobacco use: Nicotine use in the form of cigarettes, one pack a day for 30 years. Illicit drug use: Denies. Alcohol use: Denies. Caffeine use: Not reported. Past Medical History: Osteoarthritis. Depression. Head injury. Hypertension. Hyperlipidemia. Obstructive sleep apnea. Migraine headaches. Thyroid disease. Past Surgical History: Appendectomy. Complete hysterectomy. Arthroscopic shoulder surgery. Sinus surgery. Past Family History: Cancer. Lung disease. Migraine headaches. Rheumatoid arthritis. Substance abuse. Type 2 diabetes. Strokes. Kidney disease. Osteoporosis. Mental illness. Heart disease. Osteoarthritis. Depression. REVIEW OF SYSTEMS: The patient's ten system Review of Systems was reviewed and at today's visit this individual has complaints of the following: General: Fatigue and weight gain. Respiratory: Negative. Neurological: Headaches, numbness/tingling. Gastrointestinal: Constipation, diarrhea. Musculoskeletal: Joint pain/stiffness, neck pain, back pain, muscle weakness, muscle aches and pains. Cardiovascular: Negative. Psychiatric: Anxiety and depression. HEENT: Negative. Endocrine: Negative. Hematology: Negative. Skin: Negative. Genitourinary: Negative. PHYSICAL EXAMINATION: Constitutional: Conversant and well-nourished. Vital signs were reviewed today. Integumentary: Deferred. HEENT: Deferred. Neck: Deferred. Chest and Lung: Deferred. Cardiovascular: Deferred. Abdomen: Deferred. Peripheral Vascular: Deferred. Neurologic: Deferred. Psychiatric: The patient is alert and oriented to self, time and place today. The patient has a normal mood and affect at today's visit and there is mild depression on the depression questionnaire that was completed today. Musculoskeletal: Deferred. ASSESSMENT: 1. Chronic pain syndrome. 2. Lumbar degenerative disc disease. 3. Lumbar spondylosis. 4. Lumbar facet arthropathy. CURRENT PLAN: I am going to continue Ms. Hutson on her current medication regiment from our facility at this time. Her NEYMAR report was appropriate upon review today. The patient's urine tox screen done 03/13/2020 was appropriate for the Hydrocodone as well as Gabapentin but it was negative for Tramadol. We will continue to monitor this individual closely over the next couple of months. We will see her back in the clinic in two months for a followup appointment. ELI Solis/vikash Electronically signed by Lencho Farley Conversion Building Supplies Salesperson Retail Cerner at 01/03/2023 1:43 PM CDT documented in this encounter Plan of Treatment Not on file documented as of this encounter Visit Diagnoses Not on filedocumented in this encounter
--- OUTSIDE RECORDS SUMMARY | 2025-03-12 10:26 | XMS_ITS | Encounter Summary ---
Author Organization [employer] Address [address] [place] [address] Care Team Providers Care Belt Notcher Name Role Phone Unavailable Primary Care Provider Unavailabl e Encounter Details Date Type Department Care Team (Late st Contact Info) Description 09/05/2020 Transcribed Document [facility] [place] [address] ProviderSami MD [address] [place] [address] Social History Tobacco Use Types Packs/Day Years Used Date Smoking Tobacco: Never Assessed Comments Unknown Sex and Gender Information Value Date Recorded Sex Assigned at Not on file Legal Sex Female 6:03 PM CDT Gender Identity Not on file Sexual Orientation Not on file documented as of this encounter Miscellaneous Notes * Cerner Conversion Note - Sami Lovell MD - 09/05/2020 11:00 AM PROCEDURAL NURSE Patient: TAVIA KHANNA Age: 55 Years Sex: Female : 1965 FOLLOW-UP DATE OF SERVICE: 09/04/2020 CHIEF COMPLAINT: Lower back pain, neck pain, shoulder pain. HISTORY OF PRESENT ILLNESS: The patient is a 55 y/o female who returns to the clinic for follow-up on her 7 year history of neck pain that goes to her left shoulder, left arm, left hand with numbness and tingling, low back pain, right side sciatic nerve pain. She rates her pain as 7/10 on the pain scale. Quality is aching, burning, radiating, numbness, tingling, dull, sharp and constant. She gets 70% relief with her current medication. Her pain is decreased with massages and stretching and increased with prolonged standing, walking, sitting. Fall risk info sheet has been provided. SOCIAL HISTORY: Allergies: Flagyl, erythromycin. Marital status: The patient is . 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 Illicit drug use: Denies. Alcohol use: Denies. Current tobacco use: She smokes a pack per day for 24 years. Caffeine use: She drinks caffeine. Past Medical History: Arthritis. Depression. Head injury. High cholesterol. Obstructive sleep apnea. Migraines. Thyroid disease. Past Surgical History: Appendectomy. Hysterectomy. Intestine and colon. Shoulder. Sinus. Past Family History: Lung cancer. Lung disease. Migraines. Rheumatoid arthritis. Substance abuse. Diabetes. Strokes. Kidney disease. Mental illness. Heart disease. Osteoarthritis. Crohn's and colitis. Depression. REVIEW OF SYSTEMS: Complete ten system review was performed and noted to be positive for the following: General: Fatigue, weight gain, weight loss. Respiratory: Negative. Neurological: Headache, numbness and tingling. Gastrointestinal: Constipation and diarrhea. Musculoskeletal: Joint pain, stiffness, neck pain, back pain, muscle weakness, muscle aches and pains. Cardiovascular: Negative. Psychiatric: Anxiety and depression. HEENT: Negative. Endocrine: Negative. Hematology: Negative. VITAL SIGNS: Vital signs are reviewed. BP 115/60, heart rate 77, respiratory rate 16, O2 SATs 98%, height 5???4?? , weight 118 lbs. PHYSICAL EXAMINATION: Constitutional: The patient is freely conversant, no acute distress. Integumentary: Deferred. HEENT: Deferred. Neck: Deferred. Chest and Lung: Deferred. Cardiovascular: Deferred. Abdomen: Deferred. Peripheral Vascular: Deferred Neurologic: Deferred. Psychiatric: Alert and oriented x 3 with normal mood and affect. She scored a 9 on the depression questionnaire. Musculoskeletal: She has significant trigger points in her left cervical scapula area. Established patient exam is deferred. DIAGNOSTIC STUDIES: Not present. MEDICAL DECISION MAKING: The patient's NEYMAR has been reviewed and is appropriate. Patient's medications are reviewed and are listed in the patient's file. ASSESSMENT: Worsening. 1. Chronic pain syndrome. 2. Lumbar degenerative disc disease. 3. Lumbar spondylosis. 4. Lumbar facet arthropathy. 5. Lumbar radiculitis, right lower extremity. 6. Cervical degenerative disc disease. 7. Cervical radiculitis, left upper extremity. PROCEDURE/TEST ORDERED: Not present. CURRENT PLAN: We will continue Ms. Khanna on her current medications of tramadol 50 mg every 8 hours, Neurontin 800 mg q.h.s., [place] 7.5 mg every 6 hours, diclofenac gel 1% 4 grams q.i.d. I am going to get her scheduled for a cervical epidural steroid injection with fluoro and trigger point injections in the left cervical/scapula. The patient does have radicular pain down her left upper extremity and the pain has become significantly worse recently. She has been in physical therapy. She does a home exercise program. She takes an anti-inflammatory as needed. She has not had any infectious process, medical complication or unexplained neurological deficit. For at least 6 months, this pain in her neck has interfered with her ADLs and function and failed conservative treatment. Three to 5 minutes was spent on smoking cessation counseling. She is in agreement with the above plan. We will see her back in follow-up in two months. Parris Leger M.D. LEIGH/carmen Electronically signed by Martine [facility] Conversion Photographer Finish Cerner at 01/03/2023 1:54 PM CDT documented in this encounter Plan of Treatment Not on file documented as of this encounter Visit Diagnoses Not on filedocumented in this encounter
--- OUTSIDE RECORDS SUMMARY | 2025-03-12 10:26 | XMS_ITS | Encounter Summary ---
Author Organization [employer] Address [address] [place] [address] Care Team Providers Care Prefabricator Name Role Phone Unavailable Primary Care Provider Unavailabl e Encounter Details Date Type Department Care Team (Late st Contact Info) Description 07/24/2019 Transcribed Document [facility] [place] [facility] [place] [address] ProviderSami MD [address] [place], [place] [address] Social History Tobacco Use Types Packs/Day Years Used Date Smoking Tobacco: Never Assessed Comments Unknown Sex and Gender Information Value Date Recorded Sex Assigned at Not on file Legal Sex Female 6:03 PM CDT Gender Identity Not on file Sexual Orientation Not on file documented as of this encounter Miscellaneous Notes * Cerner Conversion Note - Sami Lovell MD - 07/24/2019 2:44 PM TATTOOER Patient: TAVIA HUTSON Age: 54 Years Sex: Female : 1965 FOLLOWUP DATE OF SERVICE: 07/23/2019 CHIEF COMPLAINT: Neck pain, low back pain, right leg pain. HISTORY OF PRESENT ILLNESS: The patient is a 54-year-old female who returns to clinic today with a 7-year history significant for neck pain as well as low back pain and right lower extremity pain. 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 Her pain level today is 7/10 on the numerical pain scale rating. She reports the pain being worse with walking for long distances, standing for long durations of time, or sitting for long durations of time. If she has a chance to undergo positional changes, she does get some relief. She reports 80% reduction of her pain with the use of Neurontin 400 mg 1 at night, [place] 7.5/325 mg q.i.d., Diclofenac Gel 1% apply 4 grams q.i.d. Nursing intake was reviewed and on today's visit, this individual is 5'4 tall and weighs 119 pounds. HISTORY: Allergies: Flagyl and azithromycin. Social History: Marital status: . Current work status: Employed. Current tobacco use: Nicotine use in the form of cigarettes 1 PPD x the last 23 years. Illicit drug use: Denied Alcohol use: Denied Caffeine use: Caffeine use is daily. Past Medical History: Positives include anemia, osteoarthritis, depression, head injury, hypertension, hyperlipidemia, obstructive sleep apnea, migraine headaches, thyroid disease. Past Surgical History: Appendectomy, complete hysterectomy, colonoscopy, arthroscopic shoulder surgery, sinus surgery. Past Family History: This individual has a history of cancer, lung disease, migraine headaches, rheumatoid arthritis, substance abuse disorder, type 2 diabetes, strokes, kidney disease, mental illness, heart disease, osteoarthritis, colitis, and depression in her family. REVIEW OF SYSTEMS: The patient's ten-system review of systems was reviewed. On today's visit, this individual complains of the following: General: Fatigue. Weight gain. Neurological: Headaches, numbness and tingling. Gastrointestinal: Abdominal pain. Musculoskeletal: Joint pain, stiffness, neck pain, back pain, muscle weakness, muscle aches and pain. Psychiatric: Anxiety, depression. Changes in sleep. All other systems reviewed and were found to be negative. PHYSICAL EXAMINATION: Vital signs: Reviewed today. Constitutional: Conversant. Well nourished. Psychiatric: Alert and oriented to self, time and place today. Normal mood and affect at today's visit. There is moderate depression on the depression questionnaire completed today. Neurological: The patient has a positive [id number] sign on the right, negative on the left. Musculoskeletal: The patient does present with a positive modified Osman's sign, being positive on both sides, with the left side presenting with presentation to the right side. There is tenderness to palpation of the right sacroiliac joint. There was also tenderness to the piriformis muscle at the insertion points. Physical examination is deferred. MEDICAL DECISION MAKING: NEYMAR report is appropriate on review today. ASSESSMENT: 1. Chronic pain syndrome. 2. Lumbar degenerative disc disease. 3. Lumbar radiculitis in L4 distribution. 4. Lumbar spondylosis. 5. Right-sided sacroiliitis. 6. Nicotine use. PROCEDURE/TEST ORDERED: Urine tox screen today to compliance with medication management from our facility. CURRENT PLAN: I am going to continue this individual on her current medication regimen from our facility at this time. I am going to discontinue the Neurontin 400 mg and put her on Neurontin 300 mg to where she can take 2 q.h.s. (this will be an essentially 200-mg increase during the night time). She did not want to escalate too aggressively secondary to fear of side effects of waking up feeling sedated and going to work the next day. I spent 3-5 minutes today discussing nicotine cessation with this individual. We will see her back in clinic in two months for a followup appointment. Rishi Peters PA-C documented in this encounter Plan of Treatment Not on file documented as of this encounter Visit Diagnoses Not on filedocumented in this encounter
--- OUTSIDE RECORDS SUMMARY | 2025-03-12 10:26 | XMS_ITS | Encounter Summary ---
Author Organization [employer] Address [address] [place] [address] Care Team Providers Care Machine Fancy Stitcher Name Role Phone Unavailable Primary Care Provider Unavailabl e Encounter Details Date Type Department Care Team (Late st Contact Info) Description 09/26/2019 Transcribed Document [facility] [place] [facility] [place] [address] ProviderSami MD [address] [place], [place] [id number] Social History Tobacco Use Types Packs/Day Years Used Date Smoking Tobacco: Never Assessed Comments Unknown Sex and Gender Information Value Date Recorded Sex Assigned at Not on file Legal Sex Female 6:03 PM CDT Gender Identity Not on file Sexual Orientation Not on file documented as of this encounter Miscellaneous Notes * Cerner Conversion Note - Sami Lovell MD - 09/26/2019 6:45 AM HEALTHCARE OR MEDICAL Patient: TAVIA HUTSON Age: 54 Years Sex: Female : 1965 DATE OF SERVICE: 09/20/2019. CHIEF COMPLAINT: Left shoulder, lower back, neck, right leg pain. HISTORY OF PRESENT ILLNESS: The patient is a 54 year old female who returns to the clinic for a follow-up on her neck and low back pain that radiates down her bilateral lower extremity with numbness and tingling. She states she fell down the stairs a few days ago, she is okay, she just thinks she bruised her elbow. She did have one episode of left lower extremity numbness and it is usually her right lower extremity but it has not happened since. The patient rates the pain as 7/10 on the pain scale. Quality is aching, burning, radiating, numbness, tingling, dull, sharp. Her pain is constant. She has had her pain for 7 years. She has increased pain with driving, standing for prolonged periods, decreased pain with position changes. She gets 60-70% relief with her current medication. Fall risk information sheet has been provided. ALLERGIES: FLAGYL, AZITHROMYCIN. SOCIAL HISTORY: Marital status: . Current work status: Not answered. Current tobacco use: Smokes a pack a day for 23 years. Illicit drug use: Denied. Alcohol use: Denied. Caffeine use: Drinks caffeine. PAST MEDICAL HISTORY: Anemia. Arthritis. Depression. Head injury. High blood pressure. High cholesterol. Migraines. Thyroid disease. PAST SURGICAL HISTORY: Appendix. Hysterectomy. Shoulder. Sinus. PAST FAMILY HISTORY: Lung cancer. Lung disease. Migraines. Rheumatoid arthritis. Substance abuse. Diabetes. Stroke. Kidney disease. Osteoporosis. Mental illness. Osteoarthritis. Depression. REVIEW OF SYSTEMS: The patient's Ten System Review of Systems was performed: General: Fatigue. Weight loss. Respiratory: Negative. Neurological: Dizzness. Headache. Numbness and tingling. Gastrointestinal: Constipation. Diarrhea. Musculoskeletal: Joint pain and stiffness, neck pain, back pain, muscle weakness, muscle aches and pains. Cardiovascular: Leg pain with walking. Psychiatric: Anxiety. Depression. HEENT: Negative. Endocrine: Appetite changes. Hematology: Negative. Skin: Negative. Genitourinary: Negative. All other systems reviewed were found to be negative. VITAL SIGNS: Vital signs are reviewed. B/P 122/78, heart rate 87, respiratory rate 18, O2 SATs 96% on room air, height 5???4?? , weight 115 lb. PHYSICAL EXAMINATION: Constitutional: Freely conversant, no acute distress. General: The patient is alert and oriented x3. Normal mood and affect. The patient scored a 8 on the depression questionnaire. Integumentary: Deferred. HEENT: Deferred. Neck: Deferred. Chest and Lung: Deferred. Cardiovascular: Deferred. Abdomen: Deferred. Peripheral Vascular: Deferred. Neurologic: Deferred. Neuropsychiatric: Deferred. Musculoskeletal: Deferred. Established patient exam is deferred. DIAGNOSTIC STUDIES: Not present. MEDICAL DECISION MAKING: Stable. NEYMAR is reviewed and is appropriate. Patient's medications reviewed. See list in patient's file. ASSESSMENT: Stable. 1. Chronic pain syndrome. 2. Lumbar degenerative disc disease. 3. Lumbar radiculitis of L4 distribution right lower extremity. 4. Lumbar spondylosis. 5. Right side sacroiliitis. 6. Nicotine use. PROCEDURE/TEST ORDERED: Not present. PLAN: We will continue Ms. Hutson on her current medications of [place] 7.5 mg. q.6 hours, Diclofenac Gel 1%, 4 grams q.6 hours. We have gradually increased her Neurontin at night. She is tolerating the 600 mg. well so I will go ahead and increase her to 800 mg. one p.o. q.h.s. and stop the 300 mg. strength. If she has any more episodes of her left lower extremity numbness we will work it up at her next visit. Less than 3 minutes was spent on smoking cessation counselling. The patient is in agreement with the above plan. We will see this patient back in follow-up in two months. Parris Leger M.D. SONNY:marcos documented in this encounter Plan of Treatment Not on file documented as of this encounter Visit Diagnoses Not on filedocumented in this encounter
--- OUTSIDE RECORDS SUMMARY | 2025-03-12 10:26 | XMS_ITS | Encounter Summary ---
Author Organization [employer] Address [address] [place] [address] Care Team Providers Care Graphic Manager Name Role Phone Unavailable Primary Care Provider Unavailabl e Encounter Details Date Type Department Care Team (Late st Contact Info) Description 11/18/2019 Transcribed Document [facility] [place] [address] [place] [address] ProviderSami MD [address] [place], [place] [address] Social History Tobacco Use Types Packs/Day Years Used Date Smoking Tobacco: Never Assessed Comments Unknown Sex and Gender Information Value Date Recorded Sex Assigned at Not on file Legal Sex Female 6:03 PM CDT Gender Identity Not on file Sexual Orientation Not on file documented as of this encounter Miscellaneous Notes * Cerner Conversion Note - Sami Lovell MD - 11/18/2019 10:55 AM VESSEL MANAGER Patient: TAVIA HUTSON Age: 54 Years Sex: Female : 1965 FOLLOW-UP DATE OF SERVICE: 11/14/2019 CHIEF COMPLAINT: Lower back, neck, shoulder, right leg pain. HISTORY OF PRESENT ILLNESS: The patient is a 54 y/o female who returns to the clinic for follow-up on her lower back pain which radiates down her right leg, neck, left shoulder. She is feeling stressed and anxious. She has some family situations going on that she explained to me. She takes anti-anxiety medications. She was seen two weeks ago after this episode by her Primary Care Physician and they gave her something to take just as needed. She fell going up the stairs, but she did not go to the ER as she felt she was okay. She states her ankle gives out on her and she was told it was just bruised years ago but she is thinking of getting a second opinion from an Ortho because that is the reason she usually falls, that and her sinuses. She has had some anxiety, feeling pressure in her chest and an irregular heart rhythm so they performed an echo and stress test recently. She does not have the results. She rates the pain as 6/10 on the pain scale. Quality is aching, burning, radiating, numbness and tingling, dull and sharp. The pain is constant. She has tried heat and ice therapy. She has had the pain for 7 years. She has decreased pain with medication, heat and ice and increased pain with prolonged standing and sitting. She gets 60-70% relief with her current medication. Fall risk info sheet has been provided. SOCIAL HISTORY: Allergies: Metronidazole, Azithromycin. Marital status: The patient is Current work status: She works. Illicit drug use: Denies. Alcohol use: Not answered. Current tobacco use: She smokes a pack per day for 24 years. Caffeine use: Not answered. Past Medical History: Arthritis Depression Head injury. High cholesterol Obstructive sleep apnea Migraines Thyroid disease. Past Surgical History: Appendix Hysterectomy Colon Shoulder Sinus Past Family History: Lung cancer Lung disease. Migraines Rheumatoid arthritis Substance abuse disorder. Diabetes Strokes Osteoporosis. Mental illness. Heart disease Osteoarthritis Crohn's and colitis. Depression REVIEW OF SYSTEMS: Complete ten system review was performed and noted to be positive for the following: General: Fatigue, weight gain, weight loss Respiratory: Negative. Neurological: Headaches, numbness and tingling Gastrointestinal: Constipation, diarrhea Musculoskeletal: Joint pain, stiffness, neck pain, back pain, muscle weakness, muscle aches and pains. Cardiovascular: Negative. Psychiatric: Anxiety and depression. HEENT: Negative. Endocrine: Appetite changes Hematology: Negative. Skin: Negative. Genitourinary: Negative. VITAL SIGNS: Vital signs are reviewed. BP 131/87, heart rate 67, respiratory rate 18, O2 SATs 99%, height 5???4?? , weight 120 lbs PHYSICAL EXAMINATION: Constitutional: The patient is freely conversant, no acute distress. Integumentary: Deferred. HEENT: Deferred. Neck: Deferred. Chest and Lung: Deferred. Cardiovascular: Deferred. Abdomen: Deferred. Peripheral Vascular: Deferred Neurologic: Deferred. Psychiatric: Alert and oriented x 3 with normal mood and affect. She scored an 8 on the depression questionnaire. She is treated by her Primary Care Physician Dr. Smith. Musculoskeletal: Deferred. Established patient exam is deferred. DIAGNOSTIC STUDIES: Not present MEDICAL DECISION MAKING: The patient's NEYMAR has been reviewed and is appropriate. Patient's medications are reviewed and are listed in the patient's file. ASSESSMENT: Stable. 1. Chronic pain syndrome. 2. Lumbar degenerative disc disease. 3. Lumbar radiculitis L4 distribution right lower extremity. 4. Lumbar spondylosis. 5. Right side sacroiliitis. 6. Nicotine use. PROCEDURE/TEST ORDERED: Not present. CURRENT PLAN: The patient was asking for something to take in between her [place] because it does not last long enough. We talked about anti-inflammatories but she has had diverticulitis and things in her stomach and it irritates it and Tylenol is not much help. I am going to continue her on her [place] 7.5 mg q 6 h, Diclofenac Gel 1% 4 gm q 6 h, Neurontin 800 mg q h.s. She denies any side effects. I am going to put her on a little bit of Tramadol 50 mg q 8 h and with her nerve pain this may benefit her too. Less than 3 minutes was spent on smoking cessation counseling. She is in agreement with the above plan. We will see her back in follow-up in two months. Parris Leger M.D. LEIGH/cathy documented in this encounter Plan of Treatment Not on file documented as of this encounter Visit Diagnoses Not on filedocumented in this encounter
--- OUTSIDE RECORDS SUMMARY | 2025-03-12 10:26 | XMS_ITS | Encounter Summary ---
Author Organization [employer] Address [address] [place] [address] Care Team Providers Care Salesperson Parts Name Role Phone Unavailable Primary Care Provider Unavailabl e Encounter Details Date Type Department Care Team (Late st Contact Info) Description 04/01/2020 Transcribed Document [facility] [place] [facility] [place] [address] ProviderSami MD [address] [place], [place] [id number] Social History Tobacco Use Types Packs/Day Years Used Date Smoking Tobacco: Never Assessed Comments Unknown Sex and Gender Information Value Date Recorded Sex Assigned at Not on file Legal Sex Female 6:03 PM CDT Gender Identity Not on file Sexual Orientation Not on file documented as of this encounter Miscellaneous Notes * Cerner Conversion Note - Sami Lovell MD - 04/01/2020 1:56 PM CDT Patient: TAVIA HUTSON Age: 55 Years Sex: Female : 1965 FOLLOW-UP Date of Service: 03/13/2020 CHIEF COMPLAINT: Neck pain and low back pain. HISTORY OF PRESENT ILLNESS: The patient is a 54 y/o female who returns to the Clinic today with a 9 year history significant for neck pain without radiation into the upper extremities. She states that her neck pain is getting progressively worse over time. She also complains of low back pain with radiation into the right buttock as well as right lower extremity. She describes this as her sciatic nerve . Her pain is aggravated with prolonged activities such as cleaning house, standing in place and walking long distances. Her pain level today is a 7/10 on the numerical pain scale rating. She does get some relief with positional changes as well as alternating ice and heat therapy and stretching exercises. She describes 60-70% pain relief at this time with the use of Tramadol 50 mg three times daily dosing, Neurontin 800 mg one at bedtime, [place] 7.5/325 mg four times daily dosing, Diclofenac Gel 1% that the patient applies 4 grams, four times daily. The patient feels that the Tramadol isn't helping as much as she had hoped for. Nursing intake was reviewed and noted on today's visit. VITAL SIGNS: Vital signs are reviewed today. Height 5???4?? , weight 120 lbs HISTORY: Allergies: Azithromycin and Flagyl. Social History: Marital status: She is currently . 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 Illicit drug use: Denies. Current tobacco use: Nicotine use in the form of cigarettes one pack a day for the last 32 years. Alcohol use: Denies. Caffeine use: Daily Past Medical History: Osteoarthritis Depression Head injury. Hypertension Hyperlipidemia. Obstructive sleep apnea Migraine headaches Thyroid disease. Past Surgical History: Appendectomy Complete hysterectomy Arthroscopic shoulder surgery Sinus surgery Past Family History: Cancer Lung disease. Migraine headaches Rheumatoid arthritis Substance abuse disorder. Type 2 diabetes. Strokes Kidney disease. Osteoporosis. Mental illness. Heart disease Osteoarthritis Colitis Depression REVIEW OF SYSTEMS: The patient's ten system review of systems was reviewed and on today's visit this individual has complaints of the following: General: Fatigue. Respiratory: Negative. Neurological: Headaches, numbness and tingling. Gastrointestinal: Constipation, diarrhea Musculoskeletal: Joint pain, stiffness, neck pain, back pain, muscle weakness, muscle aches and pains. Cardiovascular: Negative. Psychiatric: Anxiety and depression. HEENT: Negative. Endocrine: Negative. Hematology: Negative. Skin: Negative. Genitourinary: Negative. PHYSICAL EXAMINATION: Constitutional: The patient is conversant and well-nourished. Vital signs are reviewed today. Integumentary: Deferred. HEENT: Deferred. Neck: Deferred. Chest and Lung: Deferred. Cardiovascular: Deferred. Abdomen: Deferred. Peripheral Vascular: Deferred Neurologic: The patient presents with a negative straight leg raise bilaterally. Musculoskeletal: The patient does have tenderness to palpation to the insertion points of the patient's right gluteus medius muscle. There is also noted spasm and banding. The patient has increased pain with internal and external rotation both passively and against resistance with presentation to the patient's right buttock region. Psychiatric: The patient is alert and oriented to self, time, and place today. The patient has a normal mood and affect on today's visit and there is mild depression on the depression questionnaire that was completed today. DIAGNOSTIC STUDIES: Not present MEDICAL DECISION MAKING: Stable. ASSESSMENT: 1. Chronic pain syndrome. 2. Right pyriformis syndrome. 3. Lumbar degenerative disc disease. 4. Lumbar spondylosis. 5. Lumbar facet arthropathy. PROCEDURE/TEST ORDERED: Not present. CURRENT PLAN: I am going to continue Ms. Hutson on her current medication regimen from our facility at this time. NEYMAR report was appropriate upon review today. This patient is undergoing a urine tox screen today to confirm compliance with medication management from our facility. To assist with this individual's right leg pain and buttock pain, we are going to schedule her for a right pyriformis muscle injection to be done by Dr. Hoff with the use of fluoroscopy. She has had these in the past with Dr. Hoff which has been quite beneficial. As far as addressing the pain in the area of her neck, we have never received a referral for this issue. I have asked her to go and return to see her Primary Care Physician which she has an appointment next week to discuss this further and I would be more than happy to address this once we get the referral for the cervical issues. The patient has an understanding and agrees with the above plans. ELI Solis/cathy documented in this encounter Plan of Treatment Not on file documented as of this encounter Visit Diagnoses Not on filedocumented in this encounter
--- OUTSIDE RECORDS SUMMARY | 2025-03-12 10:27 | XMS_ITS | Clinical Summary ---
Author Organization Healthcare Address [address] [place] [address] Care Team Providers Care Boring Machine Set Up Operator Name Role Phone Ronn Smith MD Primary Care Provider + [phone] Shazia Zelaya EXCHANGE OPERATOR Unavailable [phone] Allergies Active Allergy Reactions Criticality Noted Date [...] (thirty) days. 04/20/20 21 Active HYDROcodone-acetam inophen ([place]) 7.5-325 MG tablet Take 1 tablet (7.5 [...] Care Team Description 02/25/2025 Orders Only [facility] Endocrinology [address] [place] [address] Anna Martínez DO Dysphagia, unspecified type (Primary Dx) 02/20/2025 Telephone [facility] Endocrinology [address] [place] [address] Anna Martínez DO from Last 3 Months [...] Sister Adrianna jesus Kidney disease Paternal Grandmother [place] Drug abuse Son Jason malcolm Relation Name [...] Description 04/19/2025 11:40 AM EDT Office Visit [facility] Endocrinology [address] [place] [id number] Anna Martínez, DO [address] [facility] [address] [place] [address] Health Maintenance Due Date Last [...] 2015 UKY-Zoster Vaccines (1 of 2) 2015 DGU-YUIUM-16 Vaccine (1 - 2023- season) 2024 UKY-Depression [...] this topic Medical Devices Implanted Type Area Assignment Desk Editor Device Identifier Shelf Expiration Date Model / Serial / Lot Kit Anchorsure - [id number] - [id number] Implanted:Qty: 1 on 04/23/2021 by Cesar De Los Santos MD at [facility] [place] N/A: [id number] 09/26/2022 A-SURE / 132 / [id number] Procedures Procedure Name Priority Date/Time Associated Diagnosis [...] Antigen Negative Negative 06/01/2023 5:41 PM EDT [facility] Hepatitis C Antibody Negative Negative 06/01/2023 5:41 PM EDT [facility] Hepatitis A Antibody IgM Negative Negative 06/01/2023 5:41 PM EDT [facility] Hepatitis B Core Antibody IgM Negative Negative 06/01/2023 5:41 PM EDT [facility] Blood Venous blood specimen / Unknown Venipuncture / Unknown 06/01/2023 1:55 PM EDT 06/01/2023 1:57 PM EDT us Anna Caro APRN LAB BLOOD ORDERABLES Final Result Performing Organization Address City/[facility]/ZIP Co de Phone Number [facility] [address] [place] [address] * HIV 1 & 2 Antibody/Antigen Screen (04/03/2022 7:48 PM EDT) HIV 1 & 2 Antibody/Anti gen Screen Nonreactive Nonreactive 04/03/2022 9:15 PM EDT [facility] Blood Venous blood specimen / Unknown Venipuncture / Unknown 04/03/2022 7:48 PM EDT 04/03/2022 8:08 PM EDT us Any Anderson MD LAB BLOOD ORDERABLES F inal Result [facility] [address] [place] [address] from Last 3 Months or Most Recently Relevant to Health Maintenance Additional Health Concerns Infection Onset Date Last Indicated C. difficile 03/04/2022 04/03/2022 Insurance [facility] MEDICAID Advance Directives * Full Code (Latest Code Status on File) Date Activated Date Inactivated Comments 04/04/2022 12:09 AM 04/06/2022 5:11 PM Question Answer Comments Patient has decision-making capacity? Yes * Full Code Date Activated Date Inactivated Comments 04/23/2021 5:59 PM 04/24/2021 7:07 PM Question Answer Comments Patient has decision-making capacity? Yes Care Teams Boring Machine Set Up Operator Relationship Specialty Start Date End Date Ronn Smith MD [address] [place] [address] PCP - General 01/30/21 Shazia Zelaya APRN [address] [place] [address] Nurse Practitioner Neurosurgery 08/03/21
--- OUTSIDE RECORDS SUMMARY | 2025-03-12 10:27 | XMS_ITS | Encounter Summary ---
Author Organization [facility] Address [address] [place] [address] Care Team Providers Care Loan Interviewer Name Role Phone Ronn Smith MD Primary Care Provider + [phone] Sahzia Zelaya PEDIATRIC MEDICAL ASSISTANT Unavailable [phone] Reason for Referral * Imaging (Routine) - Authorized Specialty Diagnoses / Procedures Referred By Contac t Referred To Contact Diagnoses Dysphagia, unspecified type Procedures US Thyroid Anna Martínez DO [address] [place] [address] Phone: tel: fax: Referral ID Status Reason Start Date Expiration Date V isits Requested Visits Authorized [id number] Authorized 02/25/2025 08/27/2026 1 1 Encounter Details Date Type Department Care Team ([facility] Contact Info) Description 02/25/2025 [facility] [address] [place] [address] Anna Martínez DO [address] [place] [address] Dysphagia, unspecified type (Primary Dx) [...] 11:40 AM EDT Office Visit [facility] Endocrinology [address] [place] [address] Anna Martínez DO [address] [facility] [address] [place] [address] Scheduled Orders Name Type Priority [...] documented as of this encounter Care Teams Loan Interviewer Relationship Specialty Start Date End Date Ronn Smith MD [address] [place], [place] [id number] PCP - General 01/30/21 Shazia Zelaya APRN [address] [facility] [address] [place] [address] Nurse Practitioner Neurosurgery 08/03/21 documented as of this encounter
--- OUTSIDE RECORDS SUMMARY | 2025-03-12 10:27 | XMS_ITS | Encounter Summary ---
Author Organization [facility] Address [address] [place] [address] Care Team Providers Care Contact Center Consultant Name Role Phone Unavailable Primary Care Provider Unavailabl e Encounter Details Date Type Department Care Team (Late st Contact Info) Description 05/29/2019 Transcribed Document [facility] Family [place] [address] ProviderSami MD [address] [place], [place] [id number] Social History Tobacco Use Types Packs/Day Years Used Date Smoking Tobacco: Never Assessed Comments Unknown Sex and Gender Information Value Date Recorded Sex Assigned at Not on file Legal Sex Female 6:03 PM CDT Gender Identity Not on file Sexual Orientation Not on file documented as of this encounter Miscellaneous Notes * Cerner Conversion Note - Sami Lovell MD - 05/29/2019 11:18 AM CDT Patient: TAVIA HUTSON Age: 54 Years Sex: Female : 1965 FOLLOWUP DATE OF SERVICE: 05/24/2019 CHIEF COMPLAINT: Neck and low back pain. HISTORY OF PRESENT ILLNESS: This is a 54-year-old female being seen in followup with a 7-year history of neck pain and low back pain that goes into the right leg that she describes as constant, aching, burning, radiating, numbness and tingling, dull and sharp. It is exacerbated with standing, walking, sitting; reduced with ice, heat, rest and medication. Currently rates pain a 6/10 VAS. Reports an 80% reduction with medication. She underwent an appendectomy two weeks ago and is status post antibiotics. Med list reviewed. Pertinent meds noted to be hydrocodone 7.5 mg 1 p.o. q6h, gabapentin 400 mg 1 p.o. q.h.s., and Diclofenac Gel. Nursing intake reviewed. Fall info sheet provided. HISTORY: Allergies: Flagyl, azithromycin. Social: Marital status: . 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 Current tobacco use: Enjoys nicotine/tobacco in the form of cigarettes. Illicit drug use: Denied Alcohol use: Denied. Caffeine use: Enjoys caffeine. Past Medical History: Positive for anemia, arthritis, depression, head injury, high cholesterol, migraines, thyroid disease. Past Surgical History: Positive for appendix, hysterectomy, shoulder, sinus, rhinoplasty. Past Family History: Positive for lung cancer, migraines, rheumatoid arthritis, substance abuse disorder, diabetes, stroke, mental illness, heart disease, osteoarthritis, Crohn's depression, trauma. REVIEW OF SYSTEMS: General: Fatigue, weight fluctuations. Respiratory: Negative Neurological: Headache, numbness and tingling. Gastrointestinal: Constipation, diarrhea, nausea and vomiting. Musculoskeletal: Joint pain, stiffness, neck pain, back pain. Cardiovascular: Negative Psychiatric: Anxiety and depression. HEENT: Negative Endocrine: Negative Hematology: Negative Skin: Negative Genitourinary: Negative VITAL SIGNS: Vital signs are reviewed. BP 127/85, heart rate 99, respiratory rate 18, O2 SAT 94% on room air, height 5???4?? , weight 122 lbs. PHYSICAL EXAMINATION: Constitutional: Conversant, no acute distress. Well nourished. Integumentary: Deferred. HEENT: Normocephalic. Neck: Deferred. Chest and Lung: Deferred. Cardiovascular: Deferred. Abdomen: Deferred. Peripheral Vascular: Deferred Neuropsychiatric: A&O x 3. PHQ-9 score of 7. Normal mood and affect. No signs of impairment. Musculoskeletal: Able to transition independently from walking, sitting, standing without overt difficulties. MEDICAL DECISION MAKING: E-NEYMAR is reviewed and is appropriate. Patient???s medications are reviewed. See list in patient???s file. ASSESSMENT: 1. Chronic pain syndrome. 2. Lumbar spondylosis. 3. Lumbar facet arthropathy. 4. Lumbar radiculitis of the right lower extremity. 5. Cervical spondylosis. CURRENT PLAN: We will continue current medications. She has a surplus of Diclofenac Gel and does not need a prescription for that today. Return to clinic in two months. Emmy Orozco APRN documented in this encounter Plan of Treatment Not on file documented as of this encounter Visit Diagnoses Not on filedocumented in this encounter
--- OUTSIDE RECORDS SUMMARY | 2025-03-12 10:27 | XMS_ITS | Encounter Summary ---
Author Organization [facility] Address [address] [place] [address] Care Team Providers Care Hotel Service Supervisor Name Role Phone Unavailable Primary Care Provider Unavailabl e Encounter Details Date Type Department Care Team (Late st Contact Info) Description 11/26/2020 Transcribed Document [facility] [place] Family Medicine [address] [place] [address] ProviderSami MD [address] [place], [place] [address] Social History Tobacco Use Types Packs/Day Years Used Date Smoking Tobacco: Never Assessed Comments Unknown Sex and Gender Information Value Date Recorded Sex Assigned at Not on file Legal Sex Female 6:03 PM CDT Gender Identity Not on file Sexual Orientation Not on file documented as of this encounter Miscellaneous Notes * Cerner Conversion Note - Sami Lovell MD - 11/26/2020 2:58 PM MULTIMEDIA EDUCATIONAL SPECIALIST Patient: TAVIA HUTSON Age: 55 Years Sex: Female : 1965 FOLLOW-UP DATE OF SERVICE: 11/06/2020 CHIEF COMPLAINT: Low back pain, sciatica pain. HISTORY OF PRESENT ILLNESS: The patient is a 55-year-old female who returns to the clinic today with a seven-year history significant for low back pain as well as bilateral leg pain. She describes the pain in her right leg as being worse than the left leg. She describes her pain level today as 7/10 on the numerical pain scale rating. Her pain is worse with prolonged standing, sitting and walking. She does get relief with positional changes as well as pain medication use from our facility. She is reporting 50% pain relief at this time with the use of Tramadol 50 mg three times daily dosing, [place] 7.5/325 mg four times daily dosing, Neurontin 800 mg one at bedtime, Diclofenac Gel 1% that the patient applies 4 g four times daily. Nursing intake is reviewed and noted on today's visit this individual is 5'4 and weighs 118 lb. HISTORY: Allergies: Flagyl, Erythromycin. Social History: Marital status: . 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 Current tobacco use: Nicotine use in the form of cigarettes, one pack a day for 25 years. Illicit drug use: Denies. Alcohol use: Denies. Caffeine use: Uses daily. Past Medical History: Osteoarthritis. Depression. Head injury. Hyperlipidemia. Obstructive sleep apnea. Migraine headaches. Thyroid disease. Past Surgical History: Appendectomy. Complete hysterectomy. Colonoscopy. Shoulder surgery. Sinus surgery. Past Family History: Cancer. Lung disease. Migraine headaches. Rheumatoid arthritis. Substance abuse. Type 2 diabetes. Strokes. Kidney disease. Osteoporosis. Mental illness. Heart disease. Osteoarthritis. Depression. REVIEW OF SYSTEMS: The patient's ten system Review of Systems was reviewed and on today's visit this individual has complaints of the following: General: Fatigue and weight gain. Respiratory: Negative. Neurological: Headaches, numbness/tingling. Gastrointestinal: Constipation, diarrhea. Musculoskeletal: Joint pain/stiffness, neck pain, back pain, muscle weakness, muscle aches and pains. Cardiovascular: Leg pain with walking. Psychiatric: Anxiety and depression, changes in sleep. HEENT: Negative. Endocrine: Negative. Hematology: Negative. Skin: Negative. Genitourinary: Negative. PHYSICAL EXAMINATION: Constitutional: Conversant and well-nourished. Vital signs were reviewed today. Integumentary: Deferred. HEENT: Deferred. Neck: Deferred. Chest and Lung: Deferred. Cardiovascular: Deferred. Abdomen: Deferred. Peripheral Vascular: Deferred. Neurologic: The patient has a positive straight leg raise sign on the right, negative on the left. Psychiatric: The patient is alert and oriented to self, time and place today. The patient has a normal mood and affect at today's visit and there is mild depression on the depression questionnaire that was completed today. Musculoskeletal: The patient does have mild tenderness with spasms involving the lumbar paraspinous muscles. She has bilateral lower lumbar facet loading pain with maneuvers at today's visit. ASSESSMENT: 1. Chronic pain syndrome. 2. Lumbar degenerative disc disease. 3. Lumbar radiculitis involving the right lower extremity. 4. Lumbar spondylosis. 5. Lumbar facet arthropathy. 6. Cervical degenerative disc disease. 7. Cervical radiculitis involving the left upper extremity. 8. Nicotine misuse. CURRENT PLAN: I am going to continue this individual on her current medication regimen from our facility at this time. I am going to write for a Medrol Dosepak 4 mg to be used as directed with no refills. Hopefully, this will help with any exacerbation of pain she may be experiencing at this time. She has undergone a urine tox screen today. We will review the results of the study when she returns to the clinic in two months for her next follow-up appointment. I spent 3-5 minutes today discussing nicotine cessation with this individual at today's visit. ELI Solis/vikash documented in this encounter Plan of Treatment Not on file documented as of this encounter Visit Diagnoses Not on filedocumented in this encounter
--- OUTSIDE RECORDS SUMMARY | 2025-03-12 10:27 | XMS_ITS | Clinical Summary ---
Author Organization [facility] Address [address] [place] [address] Care Team Providers Care Facility Administrator Name Role Phone Unavailable Primary Care Provider Unavailabl e Social History Tobacco Use Types Packs/Day Years Used Date Smoking Tobacco: Never Assessed Comments Unknown Sex and Gender Information Value Date Recorded Sex Assigned at Not on file Legal Sex Female 6:03 PM CDT Gender Identity Not on file Sexual Orientation Not on file Plan of Treatment Not on file
--- OUTSIDE RECORDS SUMMARY | 2025-03-12 10:27 | XMS_ITS | Encounter Summary ---
Author Organization [facility] Address [address] [place] [address] Care Team Providers Care Tankage Grinder Operator Name Role Phone Ronn Smith MD Primary Care Provider + [phone] Shazia Zelaya BREAKFAST BAR ATTENDANT Unavailable [phone] Reason for Referral * Consultation (Routine) - Closed Specialty Diagnoses / Procedures Referred By Consuelo clements Referred To Contact Rheumatology Diagnoses Positive MARGOTH (antinuclear antibody) Shravan Birmingham APRN [address] [place] [address] Phone: tel: fax: Referral ID Status Reason Start Date Expiration Date V isits Requested Visits Authorized [id number] Closed Specialty Services Required 05/19/2023 11/17/2024 1 1 Encounter Details Date Type Department Care Team (Late st Contact Info) Description 05/19/2023 Community Orders Community Practice [address] [place] [address] Shravan Birmingham APRN [address] [place] [address] Positive MARGOTH (antinuclear antibody) (Primary [...] Description 04/19/2025 11:40 AM EDT Office Visit [facility] Endocrinology [address] [place] [phone] Anna Martínez DO [address] [facility] [address] [place] [address] Scheduled Referrals Name Type Priority Associated Diagnoses Order Schedule Ambulatory referral to Rheumatology Outpatient Referral Routine Positive MARGOTH (antinuclear antibody) Expected: 05/19/2023 (Approximate), Expires: 11/16/2024 documented as of this encounter Visit Diagnoses Diagnosis Positive MRAGOTH (antinuclear antibody)- Primary Other and unspecified nonspecific immunological findings documented in this encounter Additional Health Concerns Infection Onset Date Last Indicated Resolved Time C. difficile 03/04/2022 04/03/2022 Assessment Noted Time A fall risk assessment has been complete d for the patient 12/03/2021 11:29 AM EDT documented as of this encounter Care Teams Tankage Grinder Operator Relationship Specialty Start Date End Date Ronn Smith MD [address] [place], [place] [id number] PCP - General 01/30/21 Shazia Zelaya APRN [address] [place] [phone] Nurse Practitioner Neurosurgery 08/03/21 documented as of this encounter
--- OUTSIDE RECORDS SUMMARY | 2025-03-12 10:27 | XMS_ITS | Referral Summary ---
Author Organization [email or web address] Address [address] [place] [address] Care Team Providers Care Broadcast Director Operations Name Role Phone Unavailable Primary Care Provider [...]
--- OUTSIDE RECORDS SUMMARY | 2025-03-12 10:27 | XMS_ITS | Encounter Summary ---
Author Organization [facility] Address [address] [place] [address] Care Team Providers Care Infection Prevention Coordinator Name Role Phone Ronn Smith MD Primary Care Provider + [phone] Shazia Zelaya LICENSED ELECTRICIAN Unavailable [phone] Encounter Details Date Type Department Care Team ([facility] [address] Contact Info) Description 02/20/[address] [facility] Endocrinology [address] [place] [address] Anna Martínez, DO [address] [facility] [address] [place] [address] Social History Tobacco Use Types [...] US Thyroid with the scheduling location as [facility]. * Telephone Encounter - Pooja Lentz - 02/21/2025 9:48 AM EDT Steam Shovel Operator sent an email to the authorization team to authorize US Thyroid. Patient will need a follow up appointment with Dr. Martínez post Ultrasound. * Telephone Encounter - Kristi French - 02/20/2025 1:06 PM EDT Patient Phone Message Reason for Call: [facility] is requesting a PA for the u/s of thyroid. The order was sent to their office. Best contact number and optimal time of day to reach caller: Nusrat--[phone] Note: Please do not reply to this message. Follow-up communication and further actions as a result of this message need to be communicated with the patient directly, if the patient is not active onMyChart. If the patient is active on MyChart, they will receive notification of the communication/outcome via [employer]. documented in this encounter Plan of Treatment Upcoming Encounters Date Type Department Care Team (Late st Contact Info) Description 04/19/2025 11:40 AM EDT [facility] [address] [place] [address] Anna Martínez DO [address] [facility] [address] [place] [address] documented as of this encounter [...] documented as of this encounter Care Teams Infection Prevention Coordinator Relationship Specialty Start Date End Date Ronn Smith MD [address] [place] [address] PCP - General 01/30/21 Shazia Zelaya [facility]N [address] [facility] [address] [place] [phone] Nurse Practitioner Neurosurgery 08/03/21 documented as of this encounter
--- NOTE | 2025-03-12 10:51 | US_ITS ---
FINAL REPORT TECHNIQUE: Limited sonographic images of the thyroid were obtained. CLINICAL HISTORY: DYSPHAGIA FINDINGS: Thyroid is severely atrophic. There is a mixed cystic and solid lesion of the right lobe measuring 8 mm. There are no lesions in the left lobe. This is classified as a TR 3 nodule. IMPRESSION: Solitary nodule right lobe. Although classified as TR 3, 12-month follow-up recommended. Thyroid atrophy. Reviewed, Interpreted and Dictated by Kristy Mchugh MD Transcribed by Margie De Los Santos Authenticated and [facility]
== END 2025-03-12 23:59 | disposition home or self-care (01) ==
LOC: RAD 10:24
PROVIDERS: PCP Family Medicine; Visit Provider Student in an Organized Health Care Education/Training Program
DX: E03.4 Atrophy of thyroid (acquired) (principal); R91.1 Solitary pulmonary nodule; R13.10 Dysphagia, unspecified
CPT/HCPCS: 76536

== ENCOUNTER 2025-03-18 12:56 | Outpatient (CLI) | payer MEDICAID, SELFPAY ==
--- OUTSIDE RECORDS SUMMARY | 2025-03-18 12:58 | XMS_ITS | Clinical Summary ---
Author Organization [facility] Address [address] [place] [address] Care Team Providers Care Anesthesia Assistant Name Role Phone Ronn Smith MD Primary Care Provider + [phone] Shazia Zelaya TREATER HELPER Unavailable [phone] Allergies Active Allergy Reactions Criticality Noted Date [...] (thirty) days. 04/20/20 21 Active HYDROcodone-acetam inophen ([place]) 7.5-325 MG tablet Take 1 tablet (7.5 [...] Encounters Date Type Department Care Team Description 03/13/2025 Results Follow-Up [facility] Endocrinology [address] [place] [address] Anna Martínez DO 03/13/2025 Orders Only [facility] Endocrinology [address] [place] [address] Anna Martínez DO 02/25/2025 Orders Only [facility] Endocrinology [address] [place] [address] Anna Martínez DO Dysphagia, unspecified type (Primary Dx) 02/20/2025 [facility] [address] [place] [address] Anna Martínez DO from Last 3 Months Immunizations Immunization Administration Dates Next Due Hep A, Adult 06/13/2019,08/14/2018 TD (adult), 2 Lf tetanus tox oid, preservative free, adsorbed 02/29/2008 Tdap 09/09/2020 Family History Medical History Relation Name Comments Diabetes Cousin Drug abuse Daughter Monica whipple Cancer Father Antoine Lung cancer Father Antoine Lung disease Father Antoine Heart disease Maternal Grandfather Gómez Stroke Maternal Grandfather Gómez Heart disease Maternal Grandmother Mary Stroke Maternal Grandmother Mary Depression Mother Jaqueline Arthritis Mother's Sister Adrianna lee Kidney disease Paternal Grandmother Nena Drug abuse Son Jason malcolm Relation Name Status Comments Cousin Daughter Monica whipple Father Antoine Maternal Grandfather Gómez Maternal Grandmother [...] Description 04/19/2025 11:40 AM EDT [facility] End[facility]ology [address] [place] [phone] Anna Martínez, DO [address] [place] [phone] Health Maintenance Due Date Last Done Comments [facility]-/Child/Adol SDOH Screenings 1965 [facility]- SDOH Screenings 1983 [facility]-Adult SDOH Screenings 1983 CT Colonography 2010 Colonoscopy 2010 FIT-DNA 2010 FIT 2010 FOBT 2010 Sigmoidoscopy 2010 [facility]-Colorectal Cancer Screening 2010 [facility]-Breast Cancer Screening 2015 [facility]-Lung Cancer Screening 2015 [facility]-Pneumococcal Vaccine: 50 + Years (1 of 1 - PCV) 2015 [facility]-Zoster Vaccines (1 of 2) 2015 [id number] Vaccine (1 - season) 2024 [facility]-Depression Screening 06/01/2024 06/01/2023 [facility]-Influenza Vaccine (Seaso n Ended) 2025 [facility]-DTaP,Tdap,and Td Vaccine s (2 - Td or Tdap) 09/09/2030 09/09/2020, 02/29/2008 [facility]-RSV Vaccine: 60+ Years o r (1 - 1-dose 75+ series) 2040 [facility]-Hepatitis A Vaccines Aged Out 019, 08/14/2018 [...] this topic Medical Devices Implanted Type Area Seismic Engineer Device Identifier Shelf Expiration Date Model / Serial / Lot Kit Anchorsure - [id number] - [id number] Implanted:Qty: 1 on 04/23/2021 by Cesar De Los Santos MD at [facility] [place] N/A: [id number] 09/26/2022 A-SURE / 132 / [id number] Procedures Procedure Name Priority Date/Time Associated Diagnosis Comments US THYROID Routine 03/12/2025 8:18 AM EDT ACUTE HEPATITIS PANEL Routine 06/01/2023 1:55 PM EDT Positive MARGOTH (antinuclear antibody) Polyarthralgia HIV 1/2 ANTIBODY/ANTIGEN SCREEN WITH REFLEX TO HIV I/II DIFFERENTIATION STAT 04/03/2022 7:48 PM EDT from Last 3 Months or Most Recently Relevant to Health Maintenance Results * US Thyroid (03/12/2025 8:18 AM EDT) Anatomical Region Laterality Modality Thyroid, Neck Ultrasound us Anna Martínez DO IMG US PROCEDURES Final Res ult * Acute Hepatitis Panel (06/01/2023 1:55 PM EDT) Pathologist [facility] Hepatitis B Surf Antigen Negative Negative 06/01/2023 5:41 PM EDT [facility] Hepatitis C Antibody Negative Negative 06/01/2023 5:41 PM EDT [facility] Hepatitis A Antibody IgM Negative Negative 06/01/2023 5:41 PM EDT [facility] Hepatitis B Core Antibody IgM Negative Negative 06/01/2023 5:41 PM EDT [facility] Blood Venous blood specimen / Unknown Venipuncture / Unknown 06/01/2023 1:55 PM EDT 06/01/2023 1:57 PM EDT Anna Caro TREATER HELPER LAB BLOOD ORDERABLES Final Result [facility] [address] [place] [address] * HIV 1 & 2 Antibody/Antigen Screen (04/03/2022 7:48 PM EDT) HIV 1 & 2 Antibody/Anti gen Screen Nonreactive Nonreactive 04/03/2022 9:15 PM EDT [facility] Blood Venous blood specimen / Unknown Venipuncture / Unknown 04/03/2022 7:48 PM EDT 04/03/2022 8:08 PM EDT Any Anderson MD LAB BLOOD ORDERABLES F inal Result [facility] [address] [place] [address] from Last 3 Months or Most Recently Relevant to Health Maintenance Additional Health Concerns Infection Onset Date Last Indicated C. difficile 03/04/2022 04/03/2022 Insurance [facility] MEDICAID Advance Directives * Full Code (Latest Code Status on File) Date Activated Date Inactivated Comments 04/04/2022 12:09 AM 04/06/2022 5:11 PM Question Answer Comments Patient has decision-making capacity? Yes * Full Code Date Activated Date Inactivated Comments 04/23/2021 5:59 PM 04/24/2021 7:07 PM Question Answer Comments Patient has decision-making capacity? Yes Care Teams Anesthesia Assistant Relationship Specialty Start Date End Date Ronn Smith MD [address] [place] [address] PCP - General 01/30/21 Shazia Zelaya APRN [address] [place] [address] Nurse Practitioner Neurosurgery 08/03/21
--- OUTSIDE RECORDS SUMMARY | 2025-03-18 12:58 | XMS_ITS | Encounter Summary ---
Author Organization [employer] ([place], [place], [place], [place]) Address [address] [place] [address] Care Team Providers Care Belt Maker Helper Name Role Phone Unavailable Primary Care Provider Unavailabl e Encounter Details Date Type Department Care Team (Late st Contact Info) Description 11/18/2019 Transcribed Document [facility] [place] [address] [place] [address] ProviderSami MD [address] [place] [address] Social History Tobacco Use Types Packs/Day Years Used Date Smoking Tobacco: Never Assessed Comments Unknown Sex and Gender Information Value Date Recorded Sex Assigned at Not on file Legal Sex Female 6:03 PM CDT Gender Identity Not on file Sexual Orientation Not on file documented as of this encounter Miscellaneous Notes * Cerner Conversion Note - Sami Lovell MD - 11/18/2019 10:55 AM ELECTRONIC TECH Patient: TAVIA HUTSON Age: 54 Years Sex: [...] for something to take in between her H[place]t because it does not last long enough. We talked about anti-inflammatories but she has had diverticulitis and things in her stomach and it irritates it and Tylenol is not much help. I am going to continue her on her [place] 7.5 mg q 6 h, Diclofenac Gel [...] follow-up in two months. Parris Leger M.D. ELIGH/cathy Electronically signed by Lencho Farley Conversion Cylinder Inspector And Tester Cerner at 01/03/2023 1:52 PM CDT documented in this encounter Plan of Treatment Not on file documented as of this encounter Visit Diagnoses Not on filedocumented in this encounter
--- OUTSIDE RECORDS SUMMARY | 2025-03-18 12:58 | XMS_ITS | Referral Summary ---
Author Organization [employer] ([place], [place], [place], [place]) Address [address] [place] [address] Care Team Providers Care Crop Pest Control Specialist Name Role Phone Unavailable Primary Care Provider [...]
--- OUTSIDE RECORDS SUMMARY | 2025-03-18 12:58 | XMS_ITS | Encounter Summary ---
Author Organization [facility] Address [address] [place] [address] Care Team Providers Care Dental Practice Manager Name Role Phone Ronn Smith MD Primary Care Provider + [phone] Shazia Zelaya BEEF TRIMMER Unavailable [phone] Reason for Referral * Imaging (Routine) - Authorized Specialty Diagnoses / Procedures Referred By Contac t Referred To Contact Diagnoses Dysphagia, unspecified type Procedures US Thyroid Anna Martínez DO [address] [place] [address] Phone: tel: fax: Referral ID Status Reason Start Date Expiration Date V isits Requested Visits Authorized [id number] Authorized 02/25/2025 08/27/2026 1 1 Encounter Details Date Type Department Care Team ([facility] Contact Info) Description 02/25/2025 [facility] [address] [place] [address] Anna Martínez DO [address] [place] [address] Dysphagia, unspecified type (Primary Dx) [...] 11:40 AM EDT Office Visit Kelsey Lopez [facility] Endocrinology [address] [place] [address] Anna Martínez DO [address] [facility] [address] [place] [address] Scheduled Orders Name Type Priority [...] documented as of this encounter Care Teams Dental Practice Manager Relationship Specialty Start Date End Date Ronn Smith MD [address] [place], [place] [id number] PCP - General 01/30/21 Shazia Zelaya APRN [address] [facility] [address] [place] [address] Nurse Practitioner Neurosurgery 08/03/21 documented as of this encounter
--- OUTSIDE RECORDS SUMMARY | 2025-03-18 12:58 | XMS_ITS | Encounter Summary ---
Author Organization [employer] ([place], [place], [place], [place]) Address [address] [place] [address] Care Team Providers Care Solar Manufacturer'S Representative Name Role Phone Unavailable Primary Care Provider Unavailabl e Encounter Details Date Type Department Care Team (Late st Contact Info) Description 04/01/2020 Transcribed Document [facility] [place] Family Medicine [address] [place] [address] ProviderSami MD [address] [place] [address] Social History Tobacco Use Types Packs/Day Years Used Date Smoking Tobacco: Never Assessed Comments Unknown Sex and Gender Information Value Date Recorded Sex Assigned at Not on file Legal Sex Female 6:03 PM CDT Gender Identity Not on file Sexual Orientation Not on file documented as of this encounter Miscellaneous Notes * Cerner Conversion Note - Sami ProviderMD - 04/01/2020 1:56 PM CDT Patient: TAVIA [...] dosing, Neurontin 800 mg one at bedtime, [place] 7.5/325 mg four times daily dosing, Diclofenac [...] 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 Illicit drug use: Denies. Current tobacco [...]
--- OUTSIDE RECORDS SUMMARY | 2025-03-18 12:58 | XMS_ITS | Clinical Summary ---
Author Organization [employer] ([place], [place], [place]) Address [address] [place] [address] Care Team Providers Care Returned Materials Inspector Name Role Phone Unavailable Primary Care Provider [...]
--- OUTSIDE RECORDS SUMMARY | 2025-03-18 12:58 | XMS_ITS | Encounter Summary ---
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 Illicit drug use: Denies. Alcohol use: [...] the clinic in two months. JAIDEN Galeas/cathy documented in this encounter Plan of Treatment Not on file documented as of this encounter Visit Diagnoses Not on filedocumented in this encounter
--- OUTSIDE RECORDS SUMMARY | 2025-03-18 12:58 | XMS_ITS | Encounter Summary ---
Author Organization [facility] Address [address] [place] [address] Care Team Providers Care Telecommunications Line Mechanic Name Role Phone Ronn Smith MD Primary Care Provider + [phone] Shazia Zelaya MANAGER STERILE Unavailable [phone] Encounter Details Date Type Department Care Team (Late Contact Info) Description 03/13/2025 Orders Only [facility] [address] [place] [address] Anna Martínez, DO [address] [facility] [address] [place] [address] Social History Tobacco Use Types [...] Upcoming Encounters Date Type Department Care Team ([facility] Contact Info) Description 04/19/2025 11:40 AM EDT Office Visit Kelsey Lopez [facility] Endocrinology [address] [place] [address] Anna Martínez DO [address] [place] [address] documented as of this encounter Procedures Procedure Name Priority Date/Time Associated Diagnosis Comments US THYROID Routine 03/12/2025 8:18 AM EDT documented in this encounter Results * US Thyroid (03/12/2025 8:18 AM EDT) Anatomical Region Laterality Modality Thyroid, Neck Ultrasound us Anna Martínez DO IMG US PROCEDURES Final Res ult documented in this encounter Visit Diagnoses Not on filedocumented [...] documented as of this encounter Care Teams Telecommunications Line Mechanic Relationship Specialty Start Date End Date Ronn Smith MD [address] [place] [address] PCP - General 01/30/21 Shazia Zelaya APRN [address] [facility] [address] [place] [address] Nurse Practitioner Neurosurgery 08/03/21 documented as of this encounter
--- OUTSIDE RECORDS SUMMARY | 2025-03-18 12:58 | XMS_ITS | Encounter Summary ---
Author Organization [employer] ([place], [place], [place], [place]) Address [address] [place] [address] Care Team Providers Care Pathology Secretary/Transcriptionist Name Role Phone Unavailable Primary Care Provider Unavailabl e Encounter Details Date Type Department Care Team (Late st Contact Info) Description 09/26/2019 Transcribed Document [facility] [place] Family Medicine [address] [place] [address] ProviderSami MD [address] [place], [place] [address] Social History Tobacco Use Types Packs/Day Years Used Date Smoking Tobacco: Never Assessed Comments Unknown Sex and Gender Information Value Date Recorded Sex Assigned at Not on file Legal Sex Female 6:03 PM CDT Gender Identity Not on file Sexual Orientation Not on file documented as of this encounter Miscellaneous Notes * Cerner Conversion Note - Sami ProviderMD - 09/26/2019 6:45 AM AIR VALVE REPAIRER Patient: TAVIA KHANNA Age: 54 Years Sex: [...] Not present. PLAN: We will continue Ms. Khanna on her current medications of [place] 7.5 mg. q.6 hours, Diclofenac Gel 1%, [...]
--- OUTSIDE RECORDS SUMMARY | 2025-03-18 12:58 | XMS_ITS | Encounter Summary ---
Author Organization [employer] ([place], [place], [place]) Address [address] [place] [address] Care Team Providers Care Heavy Equipment Service Manager Name Role Phone Unavailable Primary Care Provider Unavailabl e Encounter Details Date Type Department Care Team (Late st Contact Info) Description 05/29/2019 Transcribed Document [facility] [place] [address] [place] [address] ProviderSami MD [address] [place], [place] [id number] Social History Tobacco Use Types Packs/Day Years [...] Marital status: . 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 Current tobacco use: Enjoys nicotine/tobacco in the [...]
--- OUTSIDE RECORDS SUMMARY | 2025-03-18 12:58 | XMS_ITS | Encounter Summary ---
Author Organization [facility] Address [address] [place] [address] Care Team Providers Care Dag Coater Name Role Phone Ronn Smith MD Primary Care Provider + [phone] Shazia Zelaya MANAGER SCHOOL Unavailable [phone] Reason for Referral * Consultation (Routine) - Closed Specialty Diagnoses / Procedures Referred By Consuelo clements Referred To Contact Rheumatology Diagnoses Positive MARGOTH (antinuclear antibody) Shravan Birmingham APRN [address] [place] [address] Phone: tel: fax: Referral ID Status Reason Start Date Expiration Date V isits Requested Visits Authorized [id number] Closed Specialty Services Required 05/19/2023 11/17/2024 1 1 Encounter Details Date Type Department Care Team (Late st Contact Info) Description 05/19/2023 Community Orders [facility] [address] [place] [address] Shravan Birmingham APRN [address] [place] [address] Positive MARGOTH (antinuclear antibody) (Primary [...] Description 04/19/2025 11:40 AM EDT Office Visit [facility] Endocrinology [address] [place] [address] Anna Martínez DO [address] [facility] [address] [place] [address] Scheduled Referrals Name Type Priority [...] documented as of this encounter Care Teams Dag Coater Relationship Specialty Start Date End Date Ronn Smith MD [address] [place], [place] [id number] PCP - General 01/30/21 Shazia Zelaya APRN [address] [place] [address] Nurse Practitioner Neurosurgery 08/03/21 documented as of this encounter
--- OUTSIDE RECORDS SUMMARY | 2025-03-18 12:58 | XMS_ITS | Encounter Summary ---
Author Organization [employer] ([place], [place], [place], [place]) Address [address] [place] [address] Care Team Providers Care Scaffolder Name Role Phone Unavailable Primary Care Provider Unavailabl e Encounter Details Date Type Department Care Team (Late st Contact Info) Description 11/26/2020 Transcribed Document [facility] [place] Family Medicine [address] [place] [address] ProviderSami MD [address] [place], [place] [id number] Social History Tobacco Use Types Packs/Day Years Used Date Smoking Tobacco: Never Assessed Comments Unknown Sex and Gender Information Value Date Recorded Sex Assigned at Not on file Legal Sex Female 6:03 PM CDT Gender Identity Not on file Sexual Orientation Not on file documented as of this encounter Miscellaneous Notes * Cerner Conversion Note - Sami ProviderMD - 11/26/2020 2:58 PM GRIEVANCE MANAGER Patient: TAVIA KHANNA Age: 55 Years Sex: [...] Tramadol 50 mg three times daily dosing, [place] 7.5/325 mg four times daily dosing, Neurontin 800 mg one at bedtime, Diclofenac Gel 1% that the patient applies 4 g four times daily. Nursing intake is reviewed and noted on today's visit this individual is 5'4 and weighs 118 lb. HISTORY: Allergies: Flagyl, Erythromycin. Social History: Marital status: . 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 Current tobacco use: Nicotine use in [...]
--- OUTSIDE RECORDS SUMMARY | 2025-03-18 12:58 | XMS_ITS | Encounter Summary ---
Author Organization [employer] ([place], [place], [place], [place]) Address [address] [place] [address] Care Team Providers Care Sampler Pickup Name Role Phone Unavailable Primary Care Provider Unavailabl e Encounter Details Date Type Department Care Team (Late st Contact Info) Description 05/26/2020 Transcribed Document [facility] [place] Family Medicine [address] [place] [address] ProviderSami MD [address] [place] [address] Social History Tobacco Use Types Packs/Day Years [...] - 05/26/2020 1:42 PM CDT Patient: TAVIA KHANNA Age: 55 Years Sex: [...] dosing, Neurontin 800 mg one at night, [place] 7.5/325 mg four times daily dosing, Diclofenac Gel 1% that the patient applies 4 g four times daily. Nursing intake is reviewed and on today's visit this individual is 5'4 and weighs 118 lymph node. HISTORY: Allergies: Flagyl, Azithromycin. Social History: Marital status: . 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 Current tobacco use: Nicotine use in [...] PLAN: I am going to continue Ms. Khanna on her current medication regiment from our [...] followup appointment. ELI Solis/vikash Electronically signed by Martine [facility] Conversion General Contractor Cerner at 01/03/2023 1:43 PM CDT documented in this encounter Plan of Treatment Not on file documented as of this encounter Visit Diagnoses Not on filedocumented in this encounter
--- OUTSIDE RECORDS SUMMARY | 2025-03-18 12:58 | XMS_ITS | Encounter Summary ---
Author Organization [facility] Address [address] [place] [address] Care Team Providers Care Mechatronics Engineer Name Role Phone Ronn Smith MD Primary Care Provider + [phone] Shazia Zelaya NETBACKUP ADMINISTRATOR Unavailable [phone] Encounter Details Date Type Department Care Team ([facility] Contact Info) Description 02/20/2025 Telephone [facility] Endocrinology [address] [place] [address] Anna Martínez, DO 2[address] [facility] [address] [place] [address] Social History Tobacco Use Types [...] US Thyroid with the scheduling location as [facility]. * Telephone Encounter - Pooja Lentz - 02/21/2025 9:48 AM EDT Willow Worker sent an email to the authorization team to authorize US Thyroid. Patient will need a follow up appointment with Dr. Martínez post Ultrasound. * Telephone Encounter - Kristi French - 02/20/2025 1:06 PM EDT Patient Phone Message Reason for Call: [facility] is requesting a PA for the u/s of thyroid. The order was sent to their office. Best contact number and optimal time of day to reach caller: Nusrat--[phone] Note: Please do not reply to this message. Follow-up communication and further actions as a result of this message need to be communicated with the patient directly, if the patient is not active onMyChart. If the patient is active on MyChart, they will receive notification of the communication/outcome via [employer]. documented in this encounter Plan of Treatment Upcoming Encounters Date Type Department Care Team (Late st Contact Info) Description 04/19/2025 11:40 AM EDT [facility] [address] [place] [address] Anna Martínez DO [address] [facility] [address] [place] [address] documented as of this encounter [...] documented as of this encounter Care Teams Mechatronics Engineer Relationship Specialty Start Date End Date Ronn Smith MD [address] [place] [address] PCP - General 01/30/21 Shazia Zelaya APRN [address] [facility] [address] [place] [address] Nurse Practitioner Neurosurgery 08/03/21 documented as of this encounter
--- OUTSIDE RECORDS SUMMARY | 2025-03-18 12:58 | XMS_ITS | Encounter Summary ---
Author Organization [facility] Address [address] [place] [address] Care Team Providers Care Senior Data Modeler Name Role Phone Ronn Smith MD Primary Care Provider + [phone] Shazia Zelaya LOCATION MANAGER Unavailable [phone] Encounter Details Date Type Department Care Team ([facility] Contact Info) Description 03/13/2025 Results Follow-Up [facility] Endocrinology [address] [place] [address] Anna Martínez DO [address] [address] Social History Tobacco Use Types Packs/Day [...] encounter Miscellaneous Notes * Telephone Encounter - Anna Martínez DO - 03/14/2025 8:44 AM EDT She needs to get labs done as that would be my initial concern for hair loss and she was supposed to get them done after our visit and I never received any. Can you call and see if she has had thyroid labs completed? If not, please send those orders to her again. documented in this encounter Plan of Treatment Upcoming Encounters Date Type Department Care Team (Late st Contact Info) Description 04/19/2025 11:40 AM EDT [facility] [address] [place] [address] Anna Martínez DO [address] [facility] [address] [place] [address] documented as of this encounter [...] documented as of this encounter Care Teams Senior Data Modeler Relationship Specialty Start Date End Date Ronn Smith MD [address] [place], [place] [phone] PCP - General 01/30/21 Shazia Zelaya APRN [address] [place] [address] Nurse Practitioner Neurosurgery 08/03/21 documented as of this encounter
--- OUTSIDE RECORDS SUMMARY | 2025-03-18 12:58 | XMS_ITS | Encounter Summary ---
Author Organization [employer] ([place], [place], [place], [place]) Address [address] [place] [address] Care Team Providers Care Cup Setter Lockstitch Name Role Phone Unavailable Primary Care Provider Unavailabl e Encounter Details Date Type Department Care Team (Late st Contact Info) Description 09/05/2020 Transcribed Document [facility] [place] [address] [place] [address] ProviderSmai MD [address] [place], [place] [id number] Social History Tobacco Use Types Packs/Day Years Used Date Smoking Tobacco: Never Assessed Comments Unknown Sex and Gender Information Value Date Recorded Sex Assigned at Not on file Legal Sex Female 6:03 PM CDT Gender Identity Not on file Sexual Orientation Not on file documented as of this encounter Miscellaneous Notes * Cerner Conversion Note - Sami Lovell MD - 09/05/2020 11:00 AM DIRECTOR OF RELIGIOUS ACTIVITIES Patient: TAVIA HUTSON Age: 55 Years Sex: [...] 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 Illicit drug use: Denies. Alcohol use: Denies. [...] present. CURRENT PLAN: We will continue Ms. Hutson on her current medications of tramadol 50 mg every 8 hours, Neurontin 800 mg q.h.s., [place] 7.5 mg every 6 hours, diclofenac gel [...] in two months. Parris Leger M.D. LEIGH/carmen documented in this encounter Plan of Treatment Not on file documented as of this encounter Visit Diagnoses Not on filedocumented in this encounter
--- OUTSIDE RECORDS SUMMARY | 2025-03-18 12:58 | XMS_ITS | Encounter Summary ---
Author Organization [employer] ([place], [place], [place], [place]) Address [address] [place] [address] Care Team Providers Care Marketing Communication Manager Name Role Phone Unavailable Primary Care Provider Unavailabl e Encounter Details Date Type Department Care Team (Late st Contact Info) Description 07/24/2019 Transcribed Document [facility] Family Medicine [address] [place] [address] ProviderSami MD [address] [place], [place] [address] Social History Tobacco Use Types Packs/Day Years Used Date Smoking Tobacco: Never Assessed Comments Unknown Sex and Gender Information Value Date Recorded Sex Assigned at Not on file Legal Sex Female 6:03 PM CDT Gender Identity Not on file Sexual Orientation Not on file documented as of this encounter Miscellaneous Notes * Cerner Conversion Note - Sami Lovell MD - 07/24/2019 2:44 PM CROP PEST CONTROL SPECIALIST Patient: TAVIA HUTSON Age: 54 Years Sex: [...] 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 Neurological: The patient has a positive [id number] sign on the right, negative on the [...]
--- OUTSIDE RECORDS SUMMARY | 2025-03-18 12:58 | XMS_ITS | Encounter Summary ---
Author Organization [employer] ([place], [place], [place], [place]) Address [address] [place] [address] Care Team Providers Care Sales Representative Gas Service Name Role Phone Unavailable Primary Care Provider Unavailabl e Encounter Details Date Type Department Care Team (Late st Contact Info) Description 07/26/2020 Transcribed Document [facility] [place] [address] [place] [address] ProviderSami MD [address] [place], [place] [id number] Social History Tobacco Use Types Packs/Day Years Used Date Smoking Tobacco: Never Assessed Comments Unknown Sex and Gender Information Value Date Recorded Sex Assigned at Not on file Legal Sex Female 6:03 PM CDT Gender Identity Not on file Sexual Orientation Not on file documented as of this encounter Miscellaneous Notes * Cerner Conversion Note - Sami Lovell MD - 07/26/2020 11:01 AM CLERICAL OFFICE Patient: TAVIA HUTSON Age: 55 Years Sex: [...] Neurontin 800 mg 1 tab at bedtime, [place] 7.5/325 mg 1 p.o. q.6h. and diclofenac [...] Thakur, RN acting as a scribe for Praris Leger M.D. I, Parris Leger M.D. personally performed the service described in this documentation, as scribed by, Mignon Thakur RN in my presence, and it is both accurate and complete. Parris Leger M.D. [facility]/SS/carmen documented in this encounter Plan of Treatment Not on file documented as of this encounter Visit Diagnoses Not on filedocumented in this encounter
[2025-03-18 14:49] LABS: Free T4 (Free Thyroxine) 1.27 ng/dl (0.78-2.19)
[2025-03-18 15:04] LABS: Thyroid Stimulating Hormone < 0.02 uIU/mL (0.465-4.68)
== END 2025-03-18 23:59 | disposition home or self-care (01) ==
LOC: LAB 12:56
PROVIDERS: PCP Family Medicine; Visit Provider Student in an Organized Health Care Education/Training Program
DX: E03.9 Hypothyroidism, unspecified (principal)
CPT/HCPCS: 36415; 84439; 84443

== ENCOUNTER 2025-04-15 11:53 | Outpatient (CLI) | payer MEDICAID, SELFPAY ==
--- NOTE | 2025-04-15 11:54 | XR_ITS ---
FINAL REPORT CLINICAL HISTORY: Injury of right foot FINDINGS: AP, oblique and lateral views of the right foot were obtained. No prior exam for comparison. There is no acute fracture or dislocation. The joint spaces are preserved. Soft tissues are unremarkable. IMPRESSION: No acute osseous abnormality of the right foot. Reviewed, Interpreted and Dictated by Pearl Rivera MD Transcribed by Carri Pineda Authenticated and [facility]
--- OUTSIDE RECORDS SUMMARY | 2025-04-15 11:55 | XMS_ITS | Encounter Summary ---
Author Organization [employer] ([place], [place], [place], [place]) Address [address] [place] [address] Care Team Providers Care Painter Spray Name Role Phone Unavailable Primary Care Provider Unavailabl e Encounter Details Date Type Department Care Team (Late st Contact Info) Description 07/24/2019 Transcribed Document [facility] [place] [address] [place] [address] ProviderSami MD [address] [place], [place] [address] Social History Tobacco Use Types Packs/Day Years Used Date Smoking Tobacco: Never Assessed Comments Unknown Sex and Gender Information Value Date Recorded Sex Assigned at Not on file Legal Sex Female 6:03 PM CDT Gender Identity Not on file Sexual Orientation Not on file documented as of this encounter Miscellaneous Notes * Cerner Conversion Note - Sami Lovell MD - 07/24/2019 2:44 PM DOPEMAN Patient: TAVIA HUTSON Age: 54 Years Sex: [...] 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 Neurological: The patient has a positive tfzqhteg-nur-opcpgbi sign on the right, negative on the [...]
--- OUTSIDE RECORDS SUMMARY | 2025-04-15 11:55 | XMS_ITS | Encounter Summary ---
Author Organization [employer] ([place], [place], [place], [place]) Address [address] [place] [address] Care Team Providers Care Rock Climbing Team Member Name Role Phone Unavailable Primary Care Provider Unavailabl e Encounter Details Date Type Department Care Team (Late st Contact Info) Description 05/29/2019 Transcribed Document [facility] [place] [address] [place] [address] ProviderSami MD [address] [place], [place] [id number] Social History Tobacco Use Types Packs/Day Years [...] Social: Marital status: . 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 Current tobacco use: Enjoys nicotine/tobacco in the [...]
--- OUTSIDE RECORDS SUMMARY | 2025-04-15 11:55 | XMS_ITS | Encounter Summary ---
Author Organization [facility] Address [address] [place] [address] Care Team Providers Care Nuclear Auxiliary Operator Name Role Phone Ronn Smith MD Primary Care Provider + [phone] Shazia Zelaya SUSTAINABILITY PROJECT COORDINATOR Unavailable [phone] Encounter Details Date Type Department Care Team ([facility] Contact Info) Description 03/19/2025 Results Follow-Up [facility]ology [address] [place] [address] Anna Martínez, DO [address] [address] Social History Tobacco Use Types [...] as of this encounter Miscellaneous Notes * Result Encounter Note - Cristela Recoi RN - 03/19/2025 12:23 PM EDT Contacted patient regarding lab results and recommendations. Script for Levothyroxine 88 mcg lower dose sent to Pharmacy by Dr. Martínez. Patient verbalized understanding of information taught and provided teach back Cristela Recio, RN * Telephone Encounter - Anna Martínez DO - 03/19/2025 9:04 AM EDT Labs reviewed and TSH is low (<0.02) and normal FT4. Need to reduce Levothyroxine to 88 mcg daily and can plan for repeat labs when she comes to follow up in April. Nursing to call and communicate results and plan. * Result Encounter Note - Anna Martínez DO - 03/19/2025 9:04 AM EDT Please call patient and let her know we need to lower her dose of Levothyroxine and likely cause ofher hair loss. I will send in new dose for her. We can plan to repeat labs when she comes to see lucie April. Thanks! documented in this encounter Plan of Treatment Upcoming Encounters Date Type Department Care Team (Late st Contact Info) Description 04/19/2025 11:40 AM EDT Office Visit [facility] Endocrinology [address] [place] [address] Anna Martínez DO [address] [place] [address] documented as of this encounter Visit Diagnoses Diagnosis Acquired hypothyroidism- Primary Unspecified hypothyroidism documented in this encounter Additional Health Concerns Infection Onset Date Last Indicated Resolved Time C. difficile 03/04/2022 04/03/2022 Assessment Noted Time A fall risk assessment has been complete d for the patient 06/01/2023 12:34 PM EDT A Body Mass Index follow-up plan has been documented for the patient 04/27/2024 4:01 PM EDT documented as of this encounter Care Teams Nuclear Auxiliary Operator Relationship Specialty Start Date End Date Ronn Smith MD [address] [place] [address] PCP - General 01/30/21 Shazia Zelaya APRN [address] [facility] [address] [place] [address] Nurse Practitioner Neurosurgery 08/03/21 documented as of this encounter
--- OUTSIDE RECORDS SUMMARY | 2025-04-15 11:55 | XMS_ITS | Encounter Summary ---
Author Organization [employer] ([place], [place], [place], [place]) Address [address] [place] [address] Care Team Providers Care Superintendent Job Name Role Phone Unavailable Primary Care Provider Unavailabl e Encounter Details Date Type Department Care Team (Late st Contact Info) Description 11/18/2019 Transcribed Document [facility] [place] [facility] Family Medicine [address] [place] [address] ProviderSami MD [address] [place] [address] Social History Tobacco Use Types Packs/Day Years Used Date Smoking Tobacco: Never Assessed Comments Unknown Sex and Gender Information Value Date Recorded Sex Assigned at Not on file Legal Sex Female 6:03 PM CDT Gender Identity Not on file Sexual Orientation Not on file documented as of this encounter Miscellaneous Notes * Cerner Conversion Note - Sami Lovell MD - 11/18/2019 10:55 AM ROLLER TURNER Patient: TAVIA HUTSON Age: 54 Years Sex: [...] for something to take in between her [place] because it does not last long enough. We talked about anti-inflammatories but she has had diverticulitis and things in her stomach and it irritates it and Tylenol is not much help. I am going to continue her on her [place] 7.5 mg q 6 h, Diclofenac Gel [...]
--- OUTSIDE RECORDS SUMMARY | 2025-04-15 11:55 | XMS_ITS | Encounter Summary ---
Author Organization [facility] Address [address] [place] [address] Care Team Providers Care Case Resource Manager Name Role Phone Ronn Smith MD Primary Care Provider + [phone] Shazia Zelaya MARINE DRILLER Unavailable [phone] Encounter Details Date Type Department Care Team ([facility] Contact Info) Description 03/13/2025 Results Follow-Up [facility] Endocrinology [address] [place] [address] Anna Martínez DO [address] [address] Social History Tobacco Use Types [...] Description 04/19/2025 11:40 AM EDT [facility] [address] [place] [address] Anna Martínez DO [address] [facility] [address] [place] [address] documented as of this encounter [...] documented as of this encounter Care Teams Case Resource Manager Relationship Specialty Start Date End Date Ronn Smith MD [address] [place], [place] [id number] PCP - General 01/30/21 Shazia Zelaya APRN [address] [place] [address] Nurse Practitioner Neurosurgery 08/03/21 documented as of this encounter
--- OUTSIDE RECORDS SUMMARY | 2025-04-15 11:55 | XMS_ITS | Clinical Summary ---
Author Organization [facility] Address [address] [place] [address] Care Team Providers Care Spray Drier Operator Name Role Phone Ronn Smith MD Primary Care Provider + [phone] Shazia Zelaya CIVIL DIVISION DEPUTY SHERIFF Unavailable [phone] Allergies Active Allergy Reactions Criticality Noted Date [...] (thirty) days. 04/20/20 21 Active HYDROcodone-acetam inophen ([place]) 7.5-325 MG tablet Take 1 tablet (7.5 [...] tablets 10/05/19 24 Active levothyroxine (Synthroid, Levoxyl) 88 MCG tabletIndications: Acquired hypothyroidism Take 1 tablet by mouth daily. 30 tablet 11 03/19/20 25 026 Active lovastatin (Mevacor) 40 MG tablet Take 40 mg by mouth every night. 03/04/20 21 022 Discontinued levothyroxine (Synthroid, Levoxyl) 112 MCG tabletIndications: Hypothyroidism Take 1 tablet (112 mcg) by mouth 1 (one) time each day. 30 tablet 5 04/27/20 24 025 Discontinued Active Problems Problem Noted Date Diagnosed [...] Date Resolved Date POP-Q stage 3 cystocele 04/14/202105/2021 Vaginal vault prolapse after hysterectomy 04/14/2021 05/28/2021 Stress incontinence 04/14/2021 05/28/20 21 Urgency incontinence 04/14/2021 021 Encounters Date Type Department Care Team Description 03/19/2025 Results Follow-Up [facility] Endocrinology [address] [place] [address] Anna Martínez DO 03/19/2025 Orders Only [facility] Endocrinology [address] [place] [address] Anna Martínez, 03/13/2025 Results Follow-Up [facility] [address] [place] [address] Anna Martínez, 03/13/2025 Orders Only [facility] [address] [place] [address] Anna Martínez, 02/25/2025 Orders Only [facility] Endocrinology [address] [place] [address] Anna Martínez, Dysphagia, unspecified type (Primary Dx) 02/20/2025 Telephone [facility] Endocrinology [address] [place] [phone] Anna Martínez DO from Last 3 Months [...] 04/19/2025 11:40 AM EDT Office Visit [facility] [address] [place] [address] Anna Martínez, DO [address] [place] [address] Health Maintenance Due Date Last Done Comments [facility]-/Child/Adol SDOH Screenings 1965 FUT-YCYOS-13 Vaccine (#1) 1970 [facility]- SDOH Screenings 1983 [facility]-Adult SDOH Screenings 1983 CT Colonography 2010 Colonoscopy 2010 FIT-DNA 2010 FIT 2010 FOBT 2010 Sigmoidoscopy 2010 [facility]-Colorectal Cancer Screening 2010 [facility]-Breast Cancer Screening 2015 [facility]-Lung Cancer Screening 2015 [facility]-Pneumococcal Vaccine: 50 + Years (1 of 1 - PCV) 2015 [facility]-Zoster Vaccines (1 of 2) 2015 [facility]-Depression Screening 06/01/2024 06/01/2023 [facility]-RSV Vaccine: 60+ Years o r (1 - Risk 60-74 years 1-dose series) 2025 [facility]-Influenza Vaccine (#1) 2025 [facility]-DTaP,Tdap,and Td Vaccine s (2 - [...] this topic Medical Devices Implanted Type Area Sustainability Specialist Device Identifier Shelf Expiration Date Model / Serial / Lot Kit Anchorsure - [id number] - [id number] Implanted:Qty: 1 on 04/23/2021 by Cesar De Los Santos MD at [facility] [place] N/A: Vagina [id number] 09/26/2022 A-SURE / 132 / [id number] Procedures Procedure Name Priority Date/Time Associated Diagnosis Comments TSH Routine 03/18/2025 8:07 AM EDT FREE T4, PLASMA Routine 03/18/2025 7:23 AM EDT US THYROID Routine 03/12/2025 8:18 AM EDT ACUTE HEPATITIS PANEL Routine 06/01/2023 1:55 PM EDT Positive MARGOTH (antinuclear antibody) Polyarthralgia HIV 1/2 ANTIBODY/ANTIGEN SCREEN WITH REFLEX TO HIV I/II DIFFERENTIATION STAT 04/03/2022 7:48 PM EDT from Last 3 Months or Most Recently Relevant to Health Maintenance Results * Thyroid Stimulating Hormone, Plasma (03/18/2025 8:07 AM EDT) Blood Venous blood specimen / Unknown us Anna Martínez DO LAB BLOOD ORDERABLES Final Result * Free T4, Plasma (03/18/2025 7:23 AM EDT) Blood Venous blood specimen / Unknown us Anna Martínez DO LAB BLOOD ORDERABLES Final Result * US Thyroid (03/12/2025 8:18 AM EDT) Anatomical Region Laterality Modality Thyroid, Neck Ultrasound Anna Martínez DO IMG US PROCEDURES Final Res ult * Acute Hepatitis Panel (06/01/2023 1:55 PM EDT) [facility] Hepatitis B Surf Antigen Negative Negative 06/01/2023 5:41 PM EDT [facility] Hepatitis C Antibody Negative Negative 06/01/2023 5:41 PM EDT [facility] Hepatitis A Antibody IgM Negative Negative 06/01/2023 5:41 PM EDT [facility] Hepatitis B Core Antibody IgM Negative Negative 06/01/2023 5:41 PM EDT [facility] Blood Venous blood specimen / Unknown Venipuncture / Unknown 06/01/2023 1:55 PM EDT 06/01/2023 1:57 PM EDT Anna Caro APRN LAB BLOOD ORDERABLES Final Result [facility] [address] [place] [address] * HIV 1 & 2 Antibody/Antigen Screen (04/03/2022 7:48 PM EDT) [facility] HIV 1 & 2 Antibody/Anti gen Screen Nonreactive Nonreactive 04/03/2022 9:15 PM EDT [facility] Blood Venous blood specimen / Unknown Venipuncture / Unknown 04/03/2022 7:48 PM EDT 04/03/2022 8:08 PM EDT Any Anderson MD LAB BLOOD ORDERABLES F inal Result Performing Organization Address City/[facility]/ZIP Co de Phone Number [facility] [address] [place] [address] from Last 3 Months or Most Recently Relevant to Health Maintenance Additional Health Concerns Infection Onset Date Last Indicated C. difficile 03/04/2022 04/03/2022 Insurance [facility] MEDICAID Advance Directives * Full Code (Latest Code Status on File) Date Activated Date Inactivated Comments 04/04/2022 12:09 AM 04/06/2022 5:11 PM Question Answer Comments Patient has decision-making capacity? Yes * Full Code Date Activated Date Inactivated Comments 04/23/2021 5:59 PM 04/24/2021 7:07 PM Question Answer Comments Patient has decision-making capacity? Yes Care Teams Spray Drier Operator Relationship Specialty Start Date End Date Ronn Smith MD [address] [place] [address] PCP - General 01/30/21 Shazia Zelaya APRN [address] [place] [address] Nurse Practitioner Neurosurgery 08/03/21
--- OUTSIDE RECORDS SUMMARY | 2025-04-15 11:55 | XMS_ITS | Encounter Summary ---
Author Organization [employer] ([place], [place], [place], [place]) Address [address] [place] [address] Care Team Providers Care Donor Floor Technician Name Role Phone Unavailable Primary Care Provider Unavailabl e Encounter Details Date Type Department Care Team (Late st Contact Info) Description 09/26/2019 Transcribed Document [facility] [place] [address] [place] [address] ProviderSami MD [address] [place], [place] [address] Social History Tobacco Use Types Packs/Day Years Used Date Smoking Tobacco: Never Assessed Comments Unknown Sex and Gender Information Value Date Recorded Sex Assigned at Not on file Legal Sex Female 6:03 PM CDT Gender Identity Not on file Sexual Orientation Not on file documented as of this encounter Miscellaneous Notes * Cerner Conversion Note - Sami ProviderMD - 09/26/2019 6:45 AM MOTOR VEHICLES INSPECTOR Patient: TAVIA KHANNA Age: 54 Years Sex: [...] Ms. Khanna on her current medications of [place] 7.5 mg. q.6 hours, Diclofenac Gel 1%, [...]
--- OUTSIDE RECORDS SUMMARY | 2025-04-15 11:55 | XMS_ITS | Encounter Summary ---
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 Illicit drug use: Denies. Alcohol use: [...] every 8 hours, Neurontin 800 mg q.h.s., [place] 7.5 mg every 6 hours, diclofenac gel [...]
--- OUTSIDE RECORDS SUMMARY | 2025-04-15 11:55 | XMS_ITS | Encounter Summary ---
Author Organization [employer] ([place], [place], [place], [place]) Address [address] [place] [address] Care Team Providers Care Cable Splicer Name Role Phone Unavailable Primary Care Provider Unavailabl e Encounter Details Date Type Department Care Team (Late st Contact Info) Description 05/26/2020 Transcribed Document [facility] Family Medicine [address] [place] [address] ProviderSami MD [address] [place] [address] Social History Tobacco Use Types Packs/Day Years [...] dosing, Neurontin 800 mg one at night, [place] 7.5/325 mg four times daily dosing, Diclofenac Gel 1% that the patient applies 4 g four times daily. Nursing intake is reviewed and on today's visit this individual is 5'4 and weighs 118 lymph node. HISTORY: Allergies: Flagyl, Azithromycin. Social History: Marital status: . 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 Current tobacco use: Nicotine use in [...] appointment. ELI Solis/vikash Electronically signed by Martine [facility] Conversion Line Producer Cerner at 01/03/2023 1:43 PM CDT documented in this encounter Plan of Treatment Not on file documented as of this encounter Visit Diagnoses Not on filedocumented in this encounter
--- OUTSIDE RECORDS SUMMARY | 2025-04-15 11:55 | XMS_ITS | Encounter Summary ---
Author Organization [facility] Address [address] [place] [address] Care Team Providers Care Machine Wiper Name Role Phone Ronn Smith MD Primary Care Provider + [phone] Shazia Zelaya CADDY/CADDIE SUPERVISOR Unavailable [phone] Encounter Details Date Type Department Care Team ([facility] Contact Info) Description 02/20/2025 Telephone [facility] Endocrinology [address] [place] [address] Anna Martínez, DO [address] [facility] [address] [place] [address] Social History Tobacco Use Types [...] US Thyroid with the scheduling location as [facility]. * Telephone Encounter - Pooja Lentz - 02/21/2025 9:48 AM EDT Substance Addiction Coordinator sent an email to the authorization team to authorize US Thyroid. Patient will need a follow up appointment with Dr. Martínez post Ultrasound. * Telephone Encounter - Kristi French - 02/20/2025 1:06 PM EDT Patient Phone Message Reason for Call: [facility] is requesting a PA for the u/s of thyroid. The order was sent to their office. Best contact number and optimal time of day to reach caller: Nusrat--[phone] Note: Please do not reply to this message. Follow-up communication and further actions as a result of this message need to be communicated with the patient directly, if the patient is not active onMyChart. If the patient is active on MyChart, they will receive notification of the communication/outcome via [employer]. documented in this encounter Plan of Treatment Upcoming Encounters Date Type Department Care Team (Late st Contact Info) Description 04/19/2025 11:40 AM EDT [facility] [address] [place] [address] Anna Martínez DO [address] [facility] [address] [place] [address] documented as of this encounter [...] documented as of this encounter Care Teams Machine Wiper Relationship Specialty Start Date End Date Ronn Smith MD [address] [place] [address] PCP - General 01/30/21 Shazia Zelaya APRN [address] [facility] [address] [place] [address] Nurse Practitioner Neurosurgery 08/03/21 documented as of this encounter
--- OUTSIDE RECORDS SUMMARY | 2025-04-15 11:55 | XMS_ITS | Encounter Summary ---
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 Illicit drug use: Denies. Alcohol use: [...] two months. JAIDEN Galeas/cathy Electronically signed by Kevin Farley Conversion Supervisor Public Message Service Cerner at 01/03/2023 1:38 PM CDT documented in this encounter Plan of Treatment Not on file documented as of this encounter Visit Diagnoses Not on filedocumented in this encounter
--- OUTSIDE RECORDS SUMMARY | 2025-04-15 11:55 | XMS_ITS | Encounter Summary ---
Author Organization [facility] Address [address] [place] [address] Care Team Providers Care Electronic Scale Tester Name Role Phone Ronn Smith MD Primary Care Provider + [phone] Shazia Zelaya EYEGLASS INSPECTOR Unavailable [phone] Encounter Details Date Type Department Care Team (Late Contact Info) Description 03/19/2025 Orders Only [facility] Endocrinology [address] [place] [address] Anna Martínez, DO 2[address] [facility] [address] [place] [address] Social History Tobacco Use Types [...] Encounters Date Type Department Care Team (Late Contact Info) Description 04/19/2025 11:40 AM EDT Office Visit [facility] Endocrinology [address] [place] [address] Anna Martínez DO [address] [place] [address] documented as of this encounter Procedures Procedure Name Priority Date/Time Associated Diagnosis Comments TSH Routine 03/18/2025 8:07 AM EDT FREE T4, PLASMA Routine 03/18/2025 7:23 AM EDT documented in this encounter Results * Thyroid Stimulating Hormone, Plasma (03/18/2025 8:07 AM EDT) Blood Venous blood specimen / Unknown Anna Martínez DO LAB BLOOD ORDERABLES Final Result * Free T4, Plasma (03/18/2025 7:23 AM EDT) Blood Venous blood specimen / Unknown us Anna Martínez DO LAB BLOOD ORDERABLES Final Result documented in this encounter Visit Diagnoses Not [...] as of this encounter Care Teams Electronic Scale Tester Relationship Specialty Start Date End Date Ronn Smith MD [address] [place] [address] PCP - General 01/30/21 Shazia Zelaya APRN [address] [place] [address] Nurse Practitioner Neurosurgery 08/03/21 documented as of this encounter
--- OUTSIDE RECORDS SUMMARY | 2025-04-15 11:55 | XMS_ITS | Encounter Summary ---
Author Organization [employer] ([place], [place], [place], [place]) Address [address] [place] [address] Care Team Providers Care Pattern Grader Name Role Phone Unavailable Primary Care Provider Unavailabl e Encounter Details Date Type Department Care Team (Late st Contact Info) Description 07/26/2020 Transcribed Document [facility] Family Medicine [address] [place] [address] ProviderSami MD [address] [place], [place] [id number] Social History Tobacco Use Types Packs/Day Years Used Date Smoking Tobacco: Never Assessed Comments Unknown Sex and Gender Information Value Date Recorded Sex Assigned at Not on file Legal Sex Female 6:03 PM CDT Gender Identity Not on file Sexual Orientation Not on file documented as of this encounter Miscellaneous Notes * Cerner Conversion Note - Sami Lovell MD - 07/26/2020 11:01 AM GUN MECHANIC Patient: TAVIA HUTSON Age: 55 Years Sex: [...] Neurontin 800 mg 1 tab at bedtime, [place] 7.5/325 mg 1 p.o. q.6h. and diclofenac [...]
--- OUTSIDE RECORDS SUMMARY | 2025-04-15 11:55 | XMS_ITS | Encounter Summary ---
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 Illicit drug use: Denies. Current tobacco use: [...]
--- OUTSIDE RECORDS SUMMARY | 2025-04-15 11:55 | XMS_ITS | Encounter Summary ---
Author Organization [facility] Address [address] [place] [address] Care Team Providers Care Cross Country Truck Driver Name Role Phone Ronn Smith MD Primary Care Provider + [phone] Shazia Zelaya VOCATIONAL GUIDANCE COUNSELOR Unavailable [phone] Reason for Referral * Imaging (Routine) - Authorized Specialty Diagnoses / Procedures Referred By Contac t Referred To Contact Diagnoses Dysphagia, unspecified type Procedures US Thyroid Anna Martínez DO [address] [place] [address] Phone: tel: fax: Referral ID Status Reason Start Date Expiration Date V isits Requested Visits Authorized [id number] Authorized 02/25/2025 08/27/2026 1 1 Encounter Details Date Type Department Care Team ([facility] Contact Info) Description 02/25/2025 [facility] [address] [place] [address] Anna Martínez DO [address] [place] [address] Dysphagia, unspecified type (Primary Dx) [...] 11:40 AM EDT Office Visit [facility] Endocrinology [address] [place] [address] Anna Martínez DO [address] [facility] [address] [place] [address] Scheduled Orders Name Type Priority [...] documented as of this encounter Care Teams Cross Country Truck Driver Relationship Specialty Start Date End Date Ronn Smith MD [address] [place], [place] [id number] PCP - General 01/30/21 Shazia Zelaya APRN [address] [facility] [address] [place] [address] Nurse Practitioner Neurosurgery 08/03/21 documented as of this encounter
--- OUTSIDE RECORDS SUMMARY | 2025-04-15 11:55 | XMS_ITS | Encounter Summary ---
Author Organization [facility] Address [address] [place] [address] Care Team Providers Care Disposal Plant Operator Name Role Phone Ronn Smith MD Primary Care Provider + [phone] Shazia Zelaya STOCK FITTER Unavailable [phone] Encounter Details Date Type Department Care Team (Late Contact Info) Description 03/13/2025 Orders Only [facility] Endocrinology [address] [place] [address] Anna Martíenz, DO [address] [facility] [address] [place] [address] Social History Tobacco Use Types [...] Upcoming Encounters Date Type Department Care Team ([facility] Contact Info) Description 04/19/2025 11:40 AM EDT Office Visit [facility] Endocrinology [address] [place] [address] Anna Martínez DO [address] [place] [address] documented as of this encounter Procedures Procedure [...] documented as of this encounter Care Teams Disposal Plant Operator Relationship Specialty Start Date End Date Ronn Smith MD [address] [place] [address] PCP - General 01/30/21 Shazia Zelaya APRN [address] [place] [address] Nurse Practitioner Neurosurgery 08/03/21 documented as of this encounter
--- OUTSIDE RECORDS SUMMARY | 2025-04-15 11:56 | XMS_ITS | Encounter Summary ---
Author Organization [facility] Address [address] [place] [address] Care Team Providers Care Yardage Control Clerk Name Role Phone Ronn Smith MD Primary Care Provider + [phone] Shazia Zelaya PAYROLL ACCOUNTING CLERK Unavailable [phone] Reason for Referral * Consultation (Routine) - Closed Specialty Diagnoses / Procedures Referred By Consuelo clements Referred To Contact Rheumatology Diagnoses Positive MARGOTH (antinuclear antibody) Shravan Birmingham APRN [address] [place] [address] Phone: tel: fax: Referral ID Status Reason Start Date Expiration Date V isits Requested Visits Authorized [id number] Closed Specialty Services Required 05/19/2023 11/17/2024 1 1 Encounter Details Date Type Department Care Team (Late st Contact Info) Description 05/19/2023 Community Orders Community Practice [address] [place] [address] Shravan Birmingham APRN [address] [place] [address] Positive MARGOTH (antinuclear antibody) (Primary [...] Description 04/19/2025 11:40 AM EDT Office Visit [facility] Endocrinology [address] [place] [address] Anna Martínez DO [address] [facility] [address] [place] [address] Scheduled Referrals Name Type Priority [...] documented as of this encounter Care Teams Yardage Control Clerk Relationship Specialty Start Date End Date Ronn Smith MD [address] [place], [place] [id number] PCP - General 01/30/21 Shazia Zelaya APRN [address] [place] [address] Nurse Practitioner Neurosurgery 08/03/21 documented as of this encounter
--- OUTSIDE RECORDS SUMMARY | 2025-04-15 11:56 | XMS_ITS | Encounter Summary ---
Author Organization [employer] ([place], [place], [place], [place]) Address [address] [place] [address] Care Team Providers Care Lumber Handler Name Role Phone Unavailable Primary Care Provider Unavailabl e Encounter Details Date Type Department Care Team (Late st Contact Info) Description 11/26/2020 Transcribed Document [facility] Family Medicine [address] [place] [address] ProviderSami MD [address] [place], [place] [id number] Social History Tobacco Use Types Packs/Day Years Used Date Smoking Tobacco: Never Assessed Comments Unknown Sex and Gender Information Value Date Recorded Sex Assigned at Not on file Legal Sex Female 6:03 PM CDT Gender Identity Not on file Sexual Orientation Not on file documented as of this encounter Miscellaneous Notes * Cerner Conversion Note - Sami ProviderMD - 11/26/2020 2:58 PM GOVERNMENT AUDITOR Patient: TAVIA KHANNA Age: 55 Years Sex: [...] Tramadol 50 mg three times daily dosing, Sunset 7.5/325 mg four times daily dosing, Neurontin 800 mg one at bedtime, Diclofenac Gel 1% that the patient applies 4 g four times daily. Nursing intake is reviewed and noted on today's visit this individual is 5'4 and weighs 118 lb. HISTORY: Allergies: Flagyl, Erythromycin. Social History: Marital status: . 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 Current tobacco use: Nicotine use in the [...]
--- OUTSIDE RECORDS SUMMARY | 2025-04-15 11:56 | XMS_ITS | Clinical Summary ---
Author Organization [employer] ([place], [place], [place], [place]) Address [address] [place] [address] Care Team Providers Care Quantitative Strategy Analyst Name Role Phone Unavailable Primary Care Provider [...]
--- OUTSIDE RECORDS SUMMARY | 2025-04-15 11:56 | XMS_ITS | Referral Summary ---
Author Organization [employer] ([place], [place], [place], [place]) Address [address] [place] [address] Care Team Providers Care Weatherseal Technician Name Role Phone Unavailable Primary Care [...]
== END 2025-04-15 23:59 | disposition home or self-care (01) ==
LOC: RAD 11:53
PROVIDERS: PCP Family Medicine; Visit Provider Podiatrist
DX: S99.921D Unspecified injury of right foot, subsequent encounter (principal); X58.XXXD Exposure to other specified factors, subsequent encounter; G57.61 Lesion of plantar nerve, right lower limb
CPT/HCPCS: 73630

== ENCOUNTER 2025-06-11 13:54 | Outpatient (CLI) | payer BC, SELFPAY ==
--- OUTSIDE RECORDS SUMMARY | 2025-06-11 13:57 | XMS_ITS | Encounter Summary ---
Author Organization [facility] Address [address] [place] [address] Care Team Providers Care Welding Estimator Name Role Phone Ronn Smith MD Primary Care Provider + [phone] Shazia Zelaya CARBON DIOXIDE OPERATOR Unavailable [phone] Reason for Referral * Consultation (Routine) - Closed Specialty Diagnoses / Procedures Referred By Consuelo clements Referred To Contact Rheumatology Diagnoses Positive MARGOTH (antinuclear antibody) Shravan Birmingham APRN [address] [place] [address] Phone: tel: fax: Referral ID Status Reason Start Date Expiration Date V isits Requested Visits Authorized [id number] Closed Specialty Services Required 05/19/2023 11/17/2024 1 1 Encounter Details Date Type Department Care Team (Late st Contact Info) Description 05/19/2023 Community Orders Community Practice [address] [place] [address] Shravan Birmingham APRN [address] [place] [address] Positive MARGOTH (antinuclear antibody) (Primary [...] Care Team (Late st Contact Info) Description 08/23/2025 2:20 PM EST Office Visit [facility] Endocrinology [address] [place] [phone] Anna Martínez DO [address] [facility] [address] [place] [address] Scheduled Referrals Name Type Priority [...] documented as of this encounter Care Teams Welding Estimator Relationship Specialty Start Date End Date Ronn Smith MD [address] [place] [address] PCP - General 01/30/21 Shazia Zelaya APRN [address] [place] [address] Nurse Practitioner Neurosurgery 08/03/21 documented as of this encounter
--- OUTSIDE RECORDS SUMMARY | 2025-06-11 13:57 | XMS_ITS | Encounter Summary ---
Author Organization [facility] Address [address] [place] [address] Care Team Providers Care Nanoelectronics Engineer Name Role Phone Ronn Smith MD Primary Care Provider + [phone] Shazia Zelaya PROGRAM THERAPIST Unavailable [phone] Encounter Details Date Type Department Care Team ([facility] Contact Info) Description 03/13/2025 Results Follow-Up [facility] Endocrinology [address] [place] [address] Anna Martínez DO [address] [address] Social History Tobacco Use Types [...] Description 08/23/2025 2:20 PM EST [facility] Endocr[facility]ology [address] [place] [address] Anna Martínez DO [address] [facility] [address] [place] [address] documented as of this encounter [...] documented as of this encounter Care Teams Nanoelectronics Engineer Relationship Specialty Start Date End Date Ronn Smith MD [address] [place], [place] [id number] PCP - General 01/30/21 Shazia Zelaya APRN [address] [facility] [address] [place] [address] Nurse Practitioner Neurosurgery 08/03/21 documented as of this encounter
--- OUTSIDE RECORDS SUMMARY | 2025-06-11 13:57 | XMS_ITS | Clinical Summary ---
Author Organization [facility] Address [address] [place] [address] Care Team Providers Care Engineering Drawings Checker Name Role Phone Ronn Smith MD Primary Care Provider + [phone] Shazia Zelaya RESPIRATORY CARE PROGRAM DIRECTOR Unavailable [phone] Allergies Active Allergy Reactions Criticality Noted Date [...] (thirty) days. 04/20/20 21 Active HYDROcodone-acetam inophen ([place]) 7.5-325 MG tablet Take 1 tablet (7.5 [...] feces 11/25/2021 Vaginal atrophy 11/25/2021 Dysuria 08/28/2021 Chronic right-sided low back pain with right-lin ed sciatica 05/28/2021 PRANAY (obstructive sleep apnea) 04/23/2021 Acquired hypothyroidism 04/23/2021 Resolved Problems Problem Noted Date Diagnosed Date Resolved Date Vaginal pain 08/28/2021 06/09/2025 Assessment & Plan (08/28/2021 6:04 PM EST): [...] with resolution of atrophy with vaginal estrogen. POP-Q stage 3 cystocele 04/14/202105/2021 Vaginal vault prolapse after hysterectomy 04/14/2021 05/28/2021 Stress incontinence 04/14/2021 05/28/20 21 Urgency incontinence 04/14/2021 021 Encounters Date Type Department Care Team Description 03/19/2025 Results [facility] [address] [place] [address] Anna Martínez, 03/19/2025 Orders Only [facility] Endocrinology [address] [place] [address] Anna Martínez, 03/13/2025 Results [facility] [address] [place] [address] Anna Martínez, 03/13/2025 Orders Only [facility] Endocrinology [address] [place] [address] Anna Martínez, from Last 3 Months Immunizations Immunization Administration [...] Description 08/23/2025 2:20 PM EST Office Visit [facility] Endocrinology [address] [place] [address] Anna Martínez DO [address] [facility] [address] [place] [address] Health Maintenance Due Date Last Done Comments [facility]-Infant/Child/Adol SDOH Screenings 1965 [id number] Vaccine (#1) 1970 [facility]- SDOH Screenings 1983 [...] this topic Medical Devices Implanted Type Area Chief Investigator Device Identifier Shelf Expiration Date Model / Serial / Lot Kit Anchorsure - [id number] - [id number] Implanted:Qty: 1 on 04/23/2021 by Cesar De Los Santos MD at [facility] [place] N/A: [id number] 09/26/2022 A-SURE / 132 / [id number] Procedures Procedure Name Priority Date/Time Associated Diagnosis [...] Blood Venous blood specimen / Unknown us nAna Martínez DO LAB BLOOD ORDERABLES Final Result [...] Antigen Negative Negative 06/01/2023 5:41 PM EDT [facility] Hepatitis C Antibody Negative Negative 06/01/2023 5:41 PM EDT [facility] Hepatitis A Antibody IgM Negative Negative 06/01/2023 5:41 PM EDT [facility] Hepatitis B Core Antibody IgM Negative Negative 06/01/2023 5:41 PM EDT [facility] Blood Venous blood specimen / Unknown Venipuncture / Unknown 06/01/2023 1:55 PM EDT 06/01/2023 1:57 PM EDT Anna Caro APRN LAB BLOOD ORDERABLES Final Result Performing Organization Address City/[facility]/ZIP Co de Phone Number [facility]ARE [facility] [address] [place] [address] * HIV 1 & 2 Antibody/Antigen Screen (04/03/2022 7:48 PM EDT) Pathologist [facility] HIV 1 & 2 Antibody/Anti gen Screen Nonreactive Nonreactive 04/03/2022 9:15 PM EDT [facility] Blood Venous blood specimen / Unknown Venipuncture / Unknown 04/03/2022 7:48 PM EDT 04/03/2022 8:08 PM EDT Any Anderson MD LAB BLOOD ORDERABLES F inal Result Performing Organization Address City/[facility] Co de Phone Number HEALTHCARE LAB [address] [place] [address] from Last 3 Months or Most Recently Relevant to Health Maintenance Additional Health Concerns Infection Onset Date Last Indicated C. difficile 03/04/2022 04/03/2022 Insurance Advance Directives * Full Code (Latest Code Status on File) Date Activated Date Inactivated Comments 04/04/2022 12:09 AM 04/06/2022 5:11 PM Question Answer Comments Patient has decision-making capacity? Yes * Full Code Date Activated Date Inactivated Comments 04/23/2021 5:59 PM 04/24/2021 7:07 PM Question Answer Comments Patient has decision-making capacity? Yes Care Teams Engineering Drawings Checker Relationship Specialty Start Date End Date Ronn Smith MD [address] [place] [address] PCP - General 01/30/21 Shazia Zelaya APRN [address] [facility] [address] [place] [address] Nurse Practitioner Neurosurgery 08/03/21
[2025-06-11 15:11] LABS: Hematocrit 38.9 % (37.0-47.0); Hemoglobin 13.0 g/dL (12.2-16.2); Immature Granulocytes % 0.4 %; Mean Corpuscular HGB Conc 33.4 g/dL (31.8-35.4); Mean Corpuscular Hemoglobin 29.1 pg (27.0-31.2); Mean Corpuscular Volume 87.2 fl (81-99); Nucleated Red Blood Cells % 0 %; Platelet Count 369 K/mm3 (142-424); Red Blood Count 4.46 M/mm3 (4.20-5.40); Red Cell Distribution Width-SD 38.6 fL; White Blood Count 5.1 K/mm3 (4.8-10.8)
[2025-06-11 16:11] LABS: Chloride 95 mmol/L (98-107)
[2025-06-11 16:12] LABS: Albumin Level 4.3 g/dl (3.5-5.0); Potassium 4.2 mmoL/L (3.5-5.1); Sodium 133 mmol/L (136-145)
[2025-06-11 16:14] LABS: Blood Urea Nitrogen 15 mg/dl (7-17); Creatinine,Serum 1.10 mg/dl (0.52-1.04); Estimated Glomerular Filt Rate 51 ml/min (>60); GFR (African American) 61 ML/MIN (>60)
[2025-06-11 16:15] LABS: Alanine Aminotransferase 10 U/L (12-78); Albumin/Globulin Ratio 1.2 (1.1-1.8); Alkaline Phosphatase 79 U/L (38-126); Anion Gap 14.2 mEq/L (5-15); Aspartate Amino Transferase 26 U/L (14-36); Bilirubin,Total 0.6 mg/dl (0.2-1.3); Calcium 9.5 mg/dl (8.4-10.2); Carbon Dioxide 28 mmol/L (22.0-30.0); Globulin 3.5 g/dL (1.3-3.2); Glucose 84 mg/dl (74-100); Total Protein,Serum 7.8 g/dl (6.3-8.2)
[2025-06-11 16:19] LABS: Triiodothryronine (T3) Uptake 20 % (23.5-40.5)
[2025-06-11 16:20] LABS: Free Thyroxine Index 1.8 ug/dL (5.93-13.13); T4 (Thyroxine) 9.2 ug/dl (5.53-11.0)
[2025-06-11 16:34] LABS: Thyroid Stimulating Hormone 0.77 uIU/mL (0.465-4.68)
[2025-06-11 17:47] LABS: Vitamin B12 930 pg/mL (239-931)
[2025-06-11 18:36] LABS: Hemoglobin A1C 5.4 % (4.0-6.0)
== END 2025-06-11 23:59 | disposition home or self-care (01) ==
LOC: LAB 13:55
PROVIDERS: PCP Family Medicine; Visit Provider Nurse Practitioner Family
DX: Z13.89 Encounter for screening for other disorder (principal); R53.83 Other fatigue
CPT/HCPCS: 36415; 80053; 82607; 82652; 83036; 84436; 84443; 84479; 85025

== ENCOUNTER 2025-06-20 01:42 | Emergency (ER) | payer BC, SELFPAY ==
[2025-06-20] VITALS (12 sets, daily range): BP systolic 69–136; BP diastolic 43–82; PULSE 60–78; RESP 14–20; TEMP 36.4–37; O2SAT 91–98; BMI 23.0
--- NOTE | 2025-06-20 01:53 | HMH.EDGENADL ---
Discharge Plan Disposition Patient Disposition: Home, Self-Care Prescriptions Prescriptions: New ondansetron HCl 4 mg tablet 4 mg PO Q8H PRN (Reason: nausea and vomiting) 5 Days Qty: 30 0RF No Action hydrocodone-acetaminophen [[place]] 7.5-325 mg tablet 1 tab PO QID diclofenac sodium 1 % gel 1 applic TP DAILYP PRN (Reason: PAIN) Patient Comments: APPLY 4 GM TO AFFECTED AREA(S) FOUR TIMES DAILY gabapentin 400 mg capsule 400 mg PO DAILY PRN (Reason: .) Premarin 1.25 mg tablet 1.25 mg PO DAILY Qty: 90 3RF rizatriptan 10 mg tablet,disintegrating 10 mg PO ONCE PRN (Reason: migraine headache) Qty: 10 0RF Rx Instructions: Take 1 tablet for onset of headache, no more then 2 in 24 hours, no more then 4 per week Qulipta 60 mg tablet 60 mg PO DAILY Qty: 30 6RF amitriptyline 25 mg tablet 25 mg PO DAILY Qty: 30 6RF levothyroxine 88 mcg tablet PO DAILY gabapentin 800 mg tablet 800 mg PO DAILY duloxetine 30 mg capsule,delayed release(DR/EC) 60 mg PO DAILY Qty: 60 1RF buspirone 5 mg tablet 5 mg PO BID Qty: 60 2RF melatonin 3 mg capsule 3 mg PO HS PRN (Reason: sleep) Qty: 30 1RF amlodipine 5 mg tablet See Rx Instructions .ROUTE .COMPLEX Qty: 90 0RF Dose Instruction: TAKE 1 TABLET BY MOUTH ONCE DAILY Rx Instructions: TAKE 1 TABLET BY MOUTH ONCE DAILY cetirizine [Allergy Relief (cetirizine)] 10 mg tablet See Rx Instructions .ROUTE .COMPLEX Qty: 90 2RF Dose Instruction: TAKE 1 TABLET BY MOUTH DAILY FOR ALLERGIES; MAY TAKE MED AT NIGHT IF IT CAUSES SLEEPINESS Rx Instructions: TAKE 1 TABLET BY MOUTH DAILY FOR ALLERGIES; MAY TAKE MED AT NIGHT IF IT CAUSES SLEEPINESS cyanocobalamin (vitamin B-12) 1,000 mcg/mL solution See Rx Instructions .ROUTE .COMPLEX Qty: 1 5RF Dose Instruction: 1000 MCG INTRAMUSCULAR EVERY MONTH FOR SUPPLEMENT Rx Instructions: 1000 MCG INTRAMUSCULAR EVERY MONTH FOR SUPPLEMENT (DME) BD Luer-Jess Syringe 3 mL 23 x 1 syringe See Rx Instructions .ROUTE .COMPLEX Qty: 100 0RF Dose Instruction: DIRECTED Rx Instructions: DIRECTED escitalopram oxalate 20 mg tablet See Rx Instructions .ROUTE .COMPLEX Qty: 90 0RF Dose Instruction: TAKE 1 TABLET BY MOUTH ONCE DAILY Rx Instructions: TAKE 1 TABLET BY MOUTH ONCE DAILY tizanidine 4 mg tablet See Rx Instructions .ROUTE .COMPLEX Qty: 60 10RF Dose Instruction: 2 TABLETS BY MOUTH AT BEDTIME NIGHTLY FOR PAIN FOR 30 DAYS Rx Instructions: 2 TABLETS BY MOUTH AT BEDTIME NIGHTLY FOR PAIN FOR 30 DAYS ondansetron 4 mg Tablet,Disintegrating 4 mg PO Q6H Prebiotic Fiber 2 gram Tablet,Chewable 2 g PO DAILY Referrals Follow up/Referrals: Provider,Referral, MD [Primary Care Provider, Medical] - See instructions Activity Restrictions/Add. Instructions Additional Instructions/Restrictions: Please follow-up with your primary care provider. Please return to the emergency department if you develop any new or worsening symptoms or become concerned for your health. Clinical Impressions Clinical Impression: Enteritis, Hypotension Print Language Print Language: Yi Discharge ED Provider: Alex Mcdonnell General Adult HPI General Chief complaint: Weakness Stated complaint: low bp Time Seen by Provider: 06/20/25 01:44 Mode of Arrival: Wheelchair Source of Information: Patient Description of Symptoms (Recalled from ER Triage Doc. by RN): Pt states she feels weak and Short of breath BP low at home History of Present Illness HPI narrative: 60-year-old female with history of of hypertension, ulcer colitis, IBS, renal artery stenosis presents for multiple complaints. She reports that she was feeling bit nauseous and had some vomiting yesterday and has been feeling generally unwell today. She felt short of breath tonight and checked her blood pressure and it was severely low. She denies any fever, cough, congestion, urinary symptoms. She reports that she was previously on amlodipine for blood pressure but stopped taking it recently because her blood pressure has been intermittently low. Related Data Home Medications ?Medication ?Instructions ?Recorded ?Confirmed hydrocodone 7.5 mg-acetaminophen 1 tab PO QID Pain 12/02/17 05/27/25 325 mg tablet ([place]) diclofenac sodium 1 % topical gel 1 applic topical DAILYP PRN PAIN 07/14/21 05/27/25 gabapentin 400 mg capsule 400 mg PO DAILY PRN . 06/18/24 05/27/25 gabapentin 800 mg tablet 800 mg PO DAILY 06/18/24 05/27/25 inulin 2 gram chewable tablet 2 g PO DAILY 06/27/24 05/27/25 (Prebiotic Fiber) ondansetron 4 mg disintegrating 4 mg PO Q6H 06/27/24 05/27/25 tablet levothyroxine 88 mcg tablet mcg PO DAILY 04/15/25 05/27/25 Previous Rx's ?Medication ?Instructions ?Recorded conjugated estrogens 1.25 mg 1.25 mg PO DAILY #90 tabs 10/18/24 tablet (Premarin) amlodipine 5 mg tablet See Rx Instructions .Route 01/14/25 .COMPLEX #90 tabs amitriptyline 25 mg tablet 25 mg PO DAILY #30 tabs 02/19/25 atogepant 60 mg tablet (Qulipta) 60 mg PO DAILY #30 tabs 02/19/25 rizatriptan 10 mg disintegrating 10 mg PO ONCE PRN migraine 02/19/25 tablet headache #10 tabs cetirizine 10 mg tablet (Allergy See Rx Instructions .Route 02/22/25 Relief (cetirizine)) .COMPLEX #90 tabs cyanocobalamin (vitamin B-12) See Rx Instructions .Route 02/25/25 1,000 mcg/mL injection solution .COMPLEX #1 mL syringe with needle 3 mL 23 x 1 #100 ea 04/03/25 (BD Luer-Jess Syringe) escitalopram oxalate 20 mg tablet See Rx Instructions .Route 04/15/25 .COMPLEX #90 tabs tizanidine 4 mg tablet See Rx Instructions .Route 05/22/25 .COMPLEX #60 tabs buspirone 5 mg tablet 5 mg PO BID #60 tabs 05/27/25 duloxetine 30 mg capsule,delayed 60 mg (2 x 30 mg) PO DAILY MOOD 05/27/25 release #60 caps melatonin 3 mg capsule 3 mg PO HS PRN sleep #30 caps 05/27/25 ondansetron HCl 4 mg tablet 4 mg PO Q8H PRN nausea and 06/20/25 vomiting 5 days #30 tabs Allergies Allergy/AdvReac Type Severity Reaction Status Date / Time nut - unspecified Allergy Severe Anaphylaxis Verified 05/27/25 13:10 azithromycin (AZITHROMYCIN) Allergy Intermediate Hives Verified 05/27/25 13:10 lisinopril AdvReac Intermediate itching Verified 05/27/25 13:[address] [facility] Disclaimer: The information contained in this section may have been updated after the patient was seen, as this information can be updated by other users. Medical History Numbness and tingling Lipoma 2.5 cm left mid/lower back lipoma UTI (urinary tract infection) Sinusitis Hypokalemia Suppurative appendicitis Abdominal pain DAYSI (acute kidney injury) Dehydration Gastroenteritis COVID-19 SIRS (systemic inflammatory response syndrome) Clostridium difficile colitis Hypokalemia Ovarian cyst Exposure to COVID-19 virus Cat bite Fall Pneumonia PRANAY (obstructive sleep apnea) Migraine headache Surgical History History of laparoscopy History of appendectomy History of prolapse of bladder History of arthroscopy of right shoulder History of rhinoplasty Family History Other Cancer Family history of heart disease Social History Smoking Status: Never smoker second hand exposure: No alcohol intake: never substance use type: denies use current occupational status: employed Travel in the last 8 weeks?: None household members: none housing: apartment marital status: 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 current occupational exposures/hazards: No caffeine: Yes Other Medical History Have you received the Flu Vaccine for this season: No Have you received the Pneumonia Vaccine: No ROS Obtained: Yes All systems reviewed & no additional complaints except as documented Physical Exam General General appearance: alert and in no apparent distress Head Head exam: atraumatic and normocephalic Eye Eye exam: Present normal appearance, PERRL and EOMI ENT ENT exam: Present normal oropharynx and normal external ear exam Neck Neck exam: Present normal inspection and full ROM Chest Chest inspection: Present normal inspection and symmetric chest wall rise; Absent tenderness Respiratory Respiratory exam: Present normal lung sounds bilaterally; Absent respiratory distress Cardiovascular Cardiovascular exam: Present regular rate and normal rhythm Abdominal Exam Abdominal exam: Present soft; Absent distention, tenderness or guarding Extremities Exam Extremities exam: Present normal inspection; Absent edema or joint swelling Back Exam Back exam: Present normal inspection; Absent tenderness Neurological Exam Neurological exam: Present alert and oriented X3; Absent motor sensory deficit Psychiatric Psychiatric exam: Present normal affect and normal mood Skin Skin exam: Present warm, dry and normal color Lymphatic Lymphatic Findings: no adenopathy Medical Decision Making Medical Records Medical records reviewed: Yes I reviewed the patient's medical records. Screening: Per USPSTF and CDC recommendations, given the prevalence of disease in our region, it is our hospital?s policy to screen for HIV and viral Hepatitis for all patients aged 18 and over and those with ongoing risk factors. Jef Inquiry Pt receiving controlled substance: No Jef was queried for this patient: No Vital Signs: 06/20/25 01:49 06/20/25 02:17 06/20/25 02:30 Temperature 97.6 F Temperature Source Oral Pulse Rate 62 60 Pulse Rate [Right Radial] 71 Respiratory Rate 20 14 Blood Pressure 69/43 L 86/51 L Blood Pressure [Right Arm] 76/49 L Blood Pressure Mean [Right Arm] 58 Blood Pressure Source [Right Arm] Automatic Cuff Blood Pressure Position Supine Blood Pressure Position [Right Arm] Sitting 02 Sat by Pulse Oximetry 97 95 91 L Oxygen Delivery Method Room Air Room Air 06/20/25 03:00 06/20/25 03:30 06/20/25 04:00 Temperature Temperature Source Pulse Rate 67 71 71 Pulse Rate [Right Radial] Respiratory Rate Blood Pressure 107/68 L 114/67 93/53 L Blood Pressure [Right Arm] Blood Pressure Mean [Right Arm] Blood Pressure Source [Right Arm] Blood Pressure Position Blood Pressure Position [Right Arm] 02 Sat by Pulse Oximetry 98 94 L 96 Oxygen Delivery Method 06/20/25 04:30 06/20/25 05:00 06/20/25 05:54 Temperature Temperature Source Pulse Rate 65 64 72 Pulse Rate [Right Radial] Respiratory Rate Blood Pressure 89/50 L 104/61 L 126/78 Blood Pressure [Right Arm] Blood Pressure Mean [Right Arm] Blood Pressure Source [Right Arm] Blood Pressure Position Blood Pressure Position [Right Arm] 02 Sat by Pulse Oximetry 94 L 94 L 96 Oxygen Delivery Method 06/20/25 06:00 06/20/25 06:30 06/20/25 06:55 Temperature 98.6 F Temperature Source Pulse Rate 70 71 78 Pulse Rate [Right Radial] Respiratory Rate 16 Blood Pressure 132/79 136/82 133/76 Blood Pressure [Right Arm] Blood Pressure Mean [Right Arm] Blood Pressure Source [Right Arm] Blood Pressure Position Blood Pressure Position [Right Arm] 02 Sat by Pulse Oximetry 96 96 Oxygen Delivery Method Room Air Lab Data Lab results reviewed: Yes I reviewed the patient's lab results. Lab Results 06/20/25 01:57: WBC 5.7, RBC 4.35, Hgb 12.6, Hct 37.9, MCV 87.1, MCH 29.0, MCHC 33.2, RDW 12.3, Plt Count 395, MPV 9.3, Neut % (Auto) 49.4, Lymph % (Auto) 39.0, [place] % (Auto) 8.0, Eos % (Auto) 2.6, Baso % (Auto) 0.7, Neut # (Auto) 2.8, Lymph # (Auto) 2.2, [place] # (Auto) 0.5, Eos # (Auto) 0.2, Baso # (Auto) 0.0, D-Dimer 0.93 H, VBG pH 7.40, VBG pCO2 40.5, VBG pO2 61.7 H, VBG HCO3 24.3, VBG Total CO2 25.5, VBG O2 Saturation 90.2 H, VBG Base Excess -0.6, VBG Lactic Acid 3.3 H, Sodium 134 L, Potassium 3.7, Chloride 99, Carbon Dioxide 23, Anion Gap 15.7 H, BUN 20 H, Creatinine 1.20 H, Estimated Creat Clear 46, Estimated GFR 46 L, Est GFR ( Amer) 55 L, Glucose 142 H, Calcium 8.8, Magnesium 2.1, Total Bilirubin 0.6, AST 29, ALT 18, Alkaline Phosphatase 79, Troponin I < 0.01, NT-Pro-B Natriuret Pep 1450 H, Total Protein 7.0, Albumin 3.8, Globulin 3.2, Albumin/Globulin Ratio 1.2, Lipase 106, HCV Ab NATA w/Rflx PCR Qn Negative, HIV Ag/Ab Combo Qual Negative 06/20/25 03:47: Urine Color Yellow, Urine Appearance Clear, Urine pH 6.5, Ur Specific [place] <= 1.005, Urine Protein Negative, Urine Glucose (UA) Negative, Urine Ketones Negative, Urine Blood Negative, Urine Nitrate Negative, Urine Bilirubin Negative, Urine Urobilinogen 0.2, Ur Leukocyte Esterase Trace, Urine RBC Occasional, Urine WBC Occasional, Ur Squamous Epith Cells 10-20, Urine Bacteria 1+ 06/20/25 01:57 06/20/25 01:57 Orders (Tests/Meds): ED MEDICATIONS Discontinued Medications Generic Name Dose Route Start Last Admin Trade Name Aleksandra PRN Reason Stop Dose Admin Lactated Ringer's 1,000 mls @ 999 mls/hr 06/20/25 02:00 06/20/25 03:45 Lactated Ringer's 1000 Ml Bag IV 06/20/25 03:00 Infused .Q1H1M PREMA Infusion Sodium Chloride 1,000 mls @ 999 mls/hr 06/20/25 05:00 06/20/25 06:14 Sod Chlor 0.9% 1000ml Bag IV 06/20/25 06:00 Infused .Q1H1M RPEMA Infusion Iopamidol 150 ml 06/20/25 03:29 06/20/25 03:30 Iopamidol-370 (76%);100ml Bottle IV 06/20/25 03:30 150 ml ONCE ONE Administration Sodium Chloride 50 ml 06/20/25 03:29 06/20/25 03:30 0.9 % Sodium Chloride 50 Ml Vial IV 06/20/25 03:30 50 ml ONCE ONE Administration Sodium Chloride 10 ml 06/20/25 03:29 06/20/25 03:30 Sodium Chloride 0.9% 10ml Syr (Rad Only) IV 06/20/25 03:30 10 ml ONCE ONE Administration ORDERS Category Date Time Status CT abdomen pelvis w con Stat Cat Scan 06/20/25 03:[address] angio chest PE protocol Stat Cat Scan 06/20/25 02:[address] angio head Stat Cat Scan 06/20/25 02:[address] angio neck Stat Cat Scan 06/20/25 02:[address] head/brain wo con Stat Cat Scan 06/20/25 02:45 Completed CXR --portable [XR chest portable] Stat Exams 06/20/25 01:54 Completed BNP [NT Pro Brain Natriuretic Pep.] Stat Lab 06/20/25 01:57 Completed CBC w/Auto Diff [Complete Blood Count Auto Diff] Stat Lab 06/20/25 01:57 Completed CMP [Comprehensive Metabolic Panel] Stat Lab 06/20/25 01:57 Completed D-Dimer Stat Lab 06/20/25 01:57 Completed HIV Combo Routine Lab 06/20/25 01:57 Completed Hepatitis C Ab Qual. W/ RFX Routine Lab 06/20/25 01:57 Completed Lipase Stat Lab 06/20/25 01:57 Completed Magnesium Stat Lab 06/20/25 01:57 Completed Troponin I Q3H Lab 06/20/25 01:57 Completed UA [Urinalysis and Microscopic] Stat Lab 06/20/25 03:47 Completed VBG [Venous Blood Gas] Stat RT 06/20/25 01:57 Completed ECG Data Tracing #1: I reviewed this ECG and interpreted as documented below: ECG initial impression date: 06/20/25 ECG initial impression time: 02:11 ECG normal with no acute: arrhythmias, ischemia, conduction abnormalities, chamber hypertrophy Normal Sinus Rhythm: Yes HEART Score History (anamnesis): Slightly suspicious ECG: Normal Age: 45-65 years Risk factors: 1-2 risk factors Troponin: </= normal limit HEART Score: 2 Medical Decision Narrative: 60-year-old female with history of renal artery stenosis, hypertension, IBS presents for nausea, shortness of breath and hypotension at home. History was obtained via interactive discussion with patient, family, chart review. On arrival, patient is afebrile, hypotensive with blood pressure 76/49 moving all extremities spontaneously. Full physical exam performed and significant for no significant physical exam abnormalities. She is alert, oriented and generally well-appearing satting appropriately. Differential includes but is not limited to ACS, PE, dehydration, intra-abdominal pathology, medication side effect, sepsis Patient was given 1 L IV fluid bolus for symptomatic management and correction of underlying abnormalities. Workup initiated including CBC CMP blood cultures troponin D-dimer EKG chest x-ray TSH T4. On re-evaluation, patient blood pressure mildly improved after fluids. She is now reporting facial numbness. She reports an isolated area involving the right portion of the lower lip and the lower portion of the jaw, approximately 2 cm in diameter, that feels very numb, as if she just had a lidocaine shot at the dentist. She denies any other numbness weakness. Full neurological exam is completely normal with the exception of isolated facial numbness in the V3 distribution on the right Laboratory workup independently interpreted by me and significant for no anemia, no significant leukocytosis, D-dimer is elevated, will follow-up with CT PE. VBG shows minimally elevated lactate at 3.3. Patient has mildly elevated BUN. Liver enzymes normal. Troponin undetectable. Given her new facial numbness, stroke scans were ordered as well as CT of the chest abdomen pelvis to further assess her hypotension, nausea vomiting and elevated D-dimer. Imaging independently interpreted by me and significant for findings consistent with enteritis in the CT abdomen pelvis, no evidence of PE, no evidence of acute intracranial abnormality noted on CTs of the head.. See radiology read for full review of final results. After second liter of fluid, blood pressure was significantly improved, she was monitored for couple hours and remained normotensive. She still has had mild numbness in the lip, I am not certain what the underlying etiology of that is, but no evidence of acute stroke or other serious pathology. Her hypotension may be explained by her enteritis and mild dehydration. These fines were communicated patient. I offered the patient admission but patient would prefer to be discharged since her blood pressure is doing better and she is feeling better. She was given strict return precautions. Procedures Risk/Benefits of Procedure(s) Were Explained: Yes Critical Care Critical Care Time Critical Care Time: No
--- NOTE | 2025-06-20 01:54 | XR_ITS ---
PROCEDURE INFORMATION: Exam: XR Chest Exam date and time: 06/20/2025 2:01 AM Age: 60 years old Clinical indication: Shortness of breath; Additional info: SOA, hypotension TECHNIQUE: Imaging protocol: Radiologic exam of the chest. Views: 1 view. COMPARISON: CR XR CHEST PORTABLE 09/14/2023 9:09 PM FINDINGS: Lungs: Unremarkable. No consolidation. Pleural spaces: Unremarkable. No pleural effusion. No pneumothorax. Heart/Mediastinum: Unremarkable. No cardiomegaly. Bones/joints: Unremarkable. IMPRESSION: No acute findings.
--- OUTSIDE RECORDS SUMMARY | 2025-06-20 02:00 | XMS_ITS | Clinical Summary ---
Author Organization Healthcare Address [address] [place] [address] Care Team Providers Care Beef Farmer Name Role Phone Ronn Smith MD Primary Care Provider + [phone] Shazia Zelaya DATA PROCESSING AUDITOR Unavailable [phone] Allergies Active Allergy Reactions Criticality Noted Date [...] (thirty) days. 04/20/20 21 Active HYDROcodone-acetam inophen ([place]) 7.5-325 MG tablet Take 1 tablet (7.5 [...] with vaginal estrogen. POP-Q stage 3 cystocele 04/14/2021 09/0 05/2021 Vaginal vault prolapse after hysterectomy 04/14/2021 05/28/2021 Stress incontinence 04/14/2021 05/28/20 21 Urgency incontinence 04/14/2021 021 Immunizations Immunization Administration Dates Next Due Hep [...] Jaqueline Mother's Sister Adrianna lee Paternal Grandmother Kemper Son Jason malcolm Social History Tobacco Use [...] Description 08/23/2025 2:20 PM EST Office Visit [facility] Endocrinology [address] [place] [id number] Anna Martínez, DO [address] [address] Health Maintenance Due Date Last Done Comments [facility]-/Child/Adol SDOH Screenings 1965 [id number] Vaccine (#1) 1970 [facility]- SDOH Screenings 1983 [...] this topic Medical Devices Implanted Type Area Inspector Firearms Device Identifier Shelf Expiration Date Model / Serial / Lot Kit Anchorsure - [id number] - [id number] Implanted:Qty: 1 on 04/23/2021 by Cesar De Los Santos MD at [facility] [place] N/A: Vagina [id number] 09/26/2022 A-SURE / 132 / [id number] Procedures Procedure Name Priority Date/Time Associated Diagnosis [...] IgM Negative Negative 06/01/2023 5:41 PM EDT [facility] Hepatitis B Core Antibody IgM Negative Negative 06/01/2023 5:41 PM EDT [facility] Blood Venous blood specimen / Unknown Venipuncture / Unknown 06/01/2023 1:55 PM EDT 06/01/2023 1:57 PM EDT us Anna Caro APRN LAB BLOOD ORDERABLES Final Result [facility] [address] [place] [address] * HIV 1 & 2 Antibody/Antigen Screen (04/03/2022 7:48 PM EDT) [facility] HIV 1 & 2 Antibody/Anti gen Screen Nonreactive Nonreactive 04/03/2022 9:15 PM EDT [facility] Blood Venous blood specimen / Unknown Venipuncture / Unknown 04/03/2022 7:48 PM EDT 04/03/2022 8:08 PM EDT Any Anderson MD LAB BLOOD ORDERABLES F inal Result Performing Organization Address City/[facility] Co de Phone Number [facility] [address] [place] [address] from Last 3 Months or Most Recently Relevant to Health Maintenance Additional Health Concerns Infection Onset Date Last Indicated C. difficile 03/04/2022 04/03/[address] [place] [address] [place] [address] MEDICAID Advance Directives * Full Code (Latest Code Status on File) Date Activated Date Inactivated Comments 04/04/2022 12:09 AM 04/06/2022 5:11 PM Question Answer Comments Patient has decision-making capacity? Yes * Full Code Date Activated Date Inactivated Comments 04/23/2021 5:59 PM 04/24/2021 7:07 PM Question Answer Comments Patient has decision-making capacity? Yes Care Teams Beef Farmer Relationship Specialty Start Date End Date Ronn Smith MD [address] [place] [address] PCP - General 01/30/21 Shazia Zelaya APRN [address] [facility] [address] [place] [address] Nurse Practitioner Neurosurgery 08/03/21
--- OUTSIDE RECORDS SUMMARY | 2025-06-20 02:01 | XMS_ITS | Encounter Summary ---
Author Organization [facility] Address [address] [place] [address] Care Team Providers Care Beveller Operator Name Role Phone Ronn Smith MD Primary Care Provider + [phone] Shazia Zelaya GEOPHYSICAL LABORATORY DIRECTOR Unavailable [phone] Encounter Details Date Type Department Care Team ([facility] Contact Info) Description 03/13/2025 Results Follow-Up Kelsey Lopez [facility] Endocrinology [address] [place] [address] Anna Martínez DO [address] [address] Social History Tobacco Use Types [...] Description 08/23/2025 2:20 PM EST [facility] [address] [place] [address] Anna Martínez DO [address] [facility] [address] [place] [address] documented as of this encounter [...] documented as of this encounter Care Teams Beveller Operator Relationship Specialty Start Date End Date Ronn Smith MD [address] [place], [place] [id number] PCP - General 01/30/21 Shazia Zelaya APRN [address] [facility] [address] [place] [address] Nurse Practitioner Neurosurgery 08/03/21 documented as of this encounter
--- OUTSIDE RECORDS SUMMARY | 2025-06-20 02:01 | XMS_ITS | Encounter Summary ---
Author Organization [facility] Address [address] [place] [address] Care Team Providers Care Casket Liner Name Role Phone Ronn Smith MD Primary Care Provider + [phone] Shazia Zelaya ACCESSORIES REPAIRER Unavailable [phone] Reason for Referral * Consultation (Routine) - Closed Specialty Diagnoses / Procedures Referred By Consuelo clements Referred To Contact Rheumatology Diagnoses Positive MARGOTH (antinuclear antibody) Shravan Birmingham APRN [address] [place] [address] Phone: tel: fax: Referral ID Status Reason Start Date Expiration Date V isits Requested Visits Authorized [id number] Closed Specialty Services Required 05/19/2023 11/17/2024 1 1 Encounter Details Date Type Department Care Team (Late st Contact Info) Description 05/19/2023 Community Orders [facility] [address] [place] [address] Shravan Birmingham APRN [address] [place] [address] Positive MARGOTH (antinuclear antibody) (Primary [...] Description 08/23/2025 2:20 PM EST Office Visit [facility] Endocrinology [address] [place] [phone] Anna Martínez DO [address] [facility] [address] [place] [address] Scheduled Referrals Name Type Priority [...] documented as of this encounter Care Teams Casket Liner Relationship Specialty Start Date End Date Ronn Smith MD [address] [place] [address] PCP - General 01/30/21 Shazia Zelaya APRN [address] [place] [address] Nurse Practitioner Neurosurgery 08/03/21 documented as of this encounter
[2025-06-20 02:07] LABS: VBG HCO3 24.3 mmol/L (23-30); VBG PCO2 40.5 mmol/L (35-51); VBG PH 7.40 mmol/L (7.31-7.41); VBG PO2 61.7 mmol/L (28-40)
[2025-06-20] MEDS: LACTATED RINGERS 1000ML 1,000 ML 999 ML IV (02:09)
[2025-06-20 02:10] LABS: Lactate Venous 3.3 mmol/L (0.4-2.0)
[2025-06-20 02:11] LABS: Hematocrit 37.9 % (37.0-47.0); Hemoglobin 12.6 g/dL (12.2-16.2); Immature Granulocytes % 0.3 %; Mean Corpuscular HGB Conc 33.2 g/dL (31.8-35.4); Mean Corpuscular Hemoglobin 29.0 pg (27.0-31.2); Mean Corpuscular Volume 87.1 fl (81-99); Nucleated Red Blood Cells % 0 %; Platelet Count 395 K/mm3 (142-424); Red Blood Count 4.35 M/mm3 (4.20-5.40); Red Cell Distribution Width-SD 39.1 fL; White Blood Count 5.7 K/mm3 (4.8-10.8)
--- NOTE | 2025-06-20 02:11 | ECG_ITS ---
APPROVED REPORT Exam: Resting ECG HR:66 bpm ECG Measurements Heart Rate 66 AXES GA 131 P 65 QRSd 84 QRS 54 QT 423 T 73 QTc 437 Conclusion SINUS RHYTHM NONSPECIFIC T-WAVE ABNORMALITY BORDERLINE ECG UNCONFIRMED REPORT Electronically signed by : VINCENT GALAN, 06/20/2025 23:03:57
--- NOTE | 2025-06-20 02:17 | PC.NURSE ---
LR placed on pressure bag
[2025-06-20 02:18] LABS: Alanine Aminotransferase 18 U/L (12-78); Albumin Level 3.8 g/dl (3.5-5.0); Albumin/Globulin Ratio 1.2 (1.1-1.8); Alkaline Phosphatase 79 U/L (38-126); Anion Gap 15.7 mEq/L (5-15); Aspartate Amino Transferase 29 U/L (14-36); Bilirubin,Total 0.6 mg/dl (0.2-1.3); Blood Urea Nitrogen 20 mg/dl (7-17); Calcium 8.8 mg/dl (8.4-10.2); Carbon Dioxide 23 mmol/L (22.0-30.0); Chloride 99 mmol/L (98-107); Creatinine Clearance Estimated 46 mL/min (50-200); Creatinine,Serum 1.20 mg/dl (0.52-1.04); Estimated Glomerular Filt Rate 46 ml/min (>60); GFR (African American) 55 ML/MIN (>60); Globulin 3.2 g/dL (1.3-3.2); Glucose 142 mg/dl (74-100); Lipase 106 U/L (23-300); Magnesium 2.1 mg/dl (1.6-2.3); Potassium 3.7 mmoL/L (3.5-5.1); Sodium 134 mmol/L (136-145); Total Protein,Serum 7.0 g/dl (6.3-8.2)
[2025-06-20 02:22] LABS: D-Dimer 0.93 ug/mL (0.0-0.5)
[2025-06-20 02:30] LABS: NT Pro Brain Natriuretic Pep. 1450 pg/mL (0-125)
[2025-06-20 02:37] LABS: Troponin I < 0.01 ng/ml (0.00-0.034)
--- NOTE | 2025-06-20 02:45 | CT_ITS ---
PROCEDURE INFORMATION: Exam: CT Head Without Contrast Exam date and time: 06/20/2025 3:16 AM Age: 60 years old Clinical indication: Numbness / parasthesia; Additional info: Facial numbness TECHNIQUE: Imaging protocol: Computed tomography of the head without contrast. Radiation optimization: All CT scans at this facility use at least one of these dose optimization techniques: automated exposure control; mA and/or kV adjustment per patient size (includes targeted exams where dose is matched to clinical indication); or iterative reconstruction. COMPARISON: CT ANGIO HEAD 03/04/2025 12:38 PM FINDINGS: Brain: No hemorrhage. Unremarkable white matter. No mass effect. Cerebral ventricles: No ventriculomegaly. Paranasal sinuses: Visualized sinuses are unremarkable. No fluid levels. Mastoid air cells: Visualized mastoid air cells are well aerated. Bones: Unremarkable. No acute fracture. Soft tissues: Unremarkable. IMPRESSION: No acute intracranial abnormality.
--- NOTE | 2025-06-20 02:45 | CT_ITS ---
PROCEDURE INFORMATION: Exam: CTA Neck With Contrast Exam date and time: 06/20/2025 3:19 AM Age: 60 years old Clinical indication: Numbness; Additional info: Facial numbness TECHNIQUE: Imaging protocol: Computed tomographic angiography of the neck with contrast. Exam focused on the cervical segments of the vasculature. 3D rendering (Not supervised by radiologist): MIP and/or 3D reconstructed images were created by the technologist. Radiation optimization: All CT scans at this facility use at least one of these dose optimization techniques: automated exposure control; mA and/or kV adjustment per patient size (includes targeted exams where dose is matched to clinical indication); or iterative reconstruction. Contrast material: ISOVUE; Contrast volume: 80 ml; Contrast route: INTRAVENOUS (IV); COMPARISON: CT ANGIO NECK 03/04/2025 12:38 PM FINDINGS: Right common carotid artery: No stenosis. No dissection or occlusion. Right internal carotid artery: No stenosis of the extracranial segment. No dissection or occlusion. Right external carotid artery: No occlusion or stenosis of the origin. Left common carotid artery: No stenosis. No dissection or occlusion. Left internal carotid artery: No stenosis of the extracranial segment. No dissection or occlusion. Left external carotid artery: No occlusion or stenosis of the origin. Right vertebral artery: No stenosis. No dissection or occlusion. Left vertebral artery: No stenosis. No dissection or occlusion. Soft tissues: Normal. No significant soft tissue swelling. Bones/joints: Moderate degenerative changes of the cervical spine are present. IMPRESSION: No cervical carotid or vertebral artery stenosis or occlusion. REFERENCES: NASCET CRITERIA. The degree of stenosis in the cervical segment of the internal carotid artery is based on NASCET criteria. Normal is no stenosis. Mild is less than 50% stenosis. Moderate is 50-69% stenosis. Severe is 70% to 99% stenosis. Total occlusion is no detectable patent lumen.
--- NOTE | 2025-06-20 02:45 | CT_ITS ---
PROCEDURE INFORMATION: Exam: CTA Head With Contrast, Arteriography Exam date and time: 06/20/2025 3:19 AM Age: 60 years old Clinical indication: Numbness; Additional info: Right facial numbness TECHNIQUE: Imaging protocol: Computed tomographic angiography of the head with contrast. Exam focused on the arteries. 3D rendering (Not supervised by radiologist): MIP and/or 3D reconstructed images were created by the technologist. Radiation optimization: All CT scans at this facility use at least one of these dose optimization techniques: automated exposure control; mA and/or kV adjustment per patient size (includes targeted exams where dose is matched to clinical indication); or iterative reconstruction. Contrast material: ISOVUE; Contrast volume: 80 ml; Contrast route: INTRAVENOUS (IV); COMPARISON: CT ANGIO HEAD 03/04/2025 12:38 PM FINDINGS: ANTERIOR CIRCULATION: Right internal carotid artery: Intracranial segment is patent with no significant stenosis. No aneurysm. Right middle cerebral artery: No occlusion or significant stenosis. No aneurysm. Right anterior cerebral artery: No occlusion or significant stenosis. No aneurysm. Left internal carotid artery: Intracranial segment is patent with no significant stenosis. No aneurysm. Left middle cerebral artery: No occlusion or significant stenosis. No aneurysm. Left anterior cerebral artery: No occlusion or significant stenosis. No aneurysm. POSTERIOR CIRCULATION: Right vertebral artery: No occlusion or significant stenosis. No aneurysm. Left vertebral artery: No occlusion or significant stenosis. No aneurysm. Basilar artery: No occlusion or significant stenosis. No aneurysm. Right posterior cerebral artery: No occlusion or significant stenosis. No aneurysm. Left posterior cerebral artery: No occlusion or significant stenosis. No aneurysm. Veins: The venous sinuses are patent. Brain: No acute intracranial hemorrhage, mass, cerebral edema, or midline shift. Cerebral ventricles: No ventriculomegaly. Bones/joints: Unremarkable. No acute fracture. Soft tissues: Unremarkable. IMPRESSION: No large vessel stenosis or occlusion.
--- NOTE | 2025-06-20 02:47 | CT_ITS ---
PROCEDURE INFORMATION: Exam: CTA Chest With Contrast Exam date and time: 06/20/2025 3:23 AM Age: 60 years old Clinical indication: Shortness of breath; Additional info: Hypotension, SOA, positive dimer TECHNIQUE: Imaging protocol: Computed tomographic angiography of the chest with contrast. Exam focused on the arteries. 3D rendering (Not supervised by radiologist): MIP and/or 3D reconstructed images were created by the technologist. Radiation optimization: All CT scans at this facility use at least one of these dose optimization techniques: automated exposure control; mA and/or kV adjustment per patient size (includes targeted exams where dose is matched to clinical indication); or iterative reconstruction. Contrast material: ISOVUE; Contrast volume: 70 ml; Contrast route: INTRAVENOUS (IV); COMPARISON: CT ANGIO CHEST PE PROTOCOL 02/19/2023 9:13 PM FINDINGS: Pulmonary arteries: Normal. No pulmonary emboli. Aorta: Unremarkable. No aortic aneurysm. No aortic dissection. Lungs: Unremarkable. No consolidation. No masses. Pleural spaces: Unremarkable. No pneumothorax. No pleural effusion. Heart: Unremarkable. No cardiomegaly. No pericardial effusion. Lymph nodes: Unremarkable. No enlarged lymph nodes. Bones/joints: Unremarkable. No acute fracture. Soft tissues: Unremarkable. IMPRESSION: No acute findings.
--- NOTE | 2025-06-20 02:56 | PC.NURSE ---
Pt eating cookie and drinking soda in the room, NAD noted, RR even and non labored, skin slightly pale, warm, and dry. Pt aware of need for urine sample foe testing, reports I'd like to try and walk in I can in a few mins if thats ok?
--- NOTE | 2025-06-20 03:02 | CT_ITS ---
PROCEDURE INFORMATION: Exam: CT Abdomen And Pelvis With Contrast Exam date and time: 06/20/2025 3:23 AM Age: 60 years old Clinical indication: Vomiting; Additional info: Hypotension, vomting TECHNIQUE: Imaging protocol: Computed tomography of the abdomen and pelvis with contrast. 3D rendering (Not supervised by radiologist): MIP and/or 3D reconstructed images were created by the technologist. Radiation optimization: All CT scans at this facility use at least one of these dose optimization techniques: automated exposure control; mA and/or kV adjustment per patient size (includes targeted exams where dose is matched to clinical indication); or iterative reconstruction. Contrast material: ISOVUE; Contrast volume: 70 ml; Contrast route: IV; COMPARISON: CT ABDOMEN PELVIS W CON 01/22/2024 3:22 PM FINDINGS: Liver: Normal. No mass. Gallbladder and biliary ducts: Normal. No calcified stones. No ductal dilation. Pancreas: Normal. No ductal dilation. Spleen: Normal. No splenomegaly. Adrenal glands: Normal. No mass. Kidneys and ureters: Normal. No hydronephrosis. Stomach and bowel: Fluid-filled enhancing large and small bowel suggesting enteritis. Appendix: No evidence of appendicitis. Intraperitoneal space: Unremarkable. No free air. No significant fluid collection. Vasculature: Unremarkable. No abdominal aortic aneurysm. Lymph nodes: Unremarkable. No enlarged lymph nodes. Urinary bladder: Unremarkable as visualized. Reproductive: Unremarkable as visualized. Bones/joints: Unremarkable. No acute fracture. Soft tissues: Unremarkable. IMPRESSION: 1. Fluid-filled enhancing large and small bowel suggesting enteritis.
[2025-06-20 03:19] LABS: Hepatitis C Ab Qual. W/ RFX NEGATIVE (Negative)
[2025-06-20] MEDS: 0.9 % SODIUM CHLORIDE 50 ML VIAL IV (03:30)
[2025-06-20] MEDS: IOPAMIDOL-370 (76%);100ML BOTTLE 150 ML IV (03:30)
[2025-06-20] MEDS: SODIUM CHLORIDE 0.9% 10ML SYR (RAD ONLY) 10 ML IV (03:30)
[2025-06-20 03:52] LABS: Microscopic, Urine URINE MICROSCOPIC (MICROSCOPIC)
[2025-06-20 03:53] LABS: Bilirubin,Urine Negative (Negative); Color,Urine YELLOW (Yellow); Glucose,Urine (UA) Negative (Negative); Ketones,Urine Negative (Negative); Leukocyte Esterase,Urine TRACE (Negative); PH,Urine 6.5 (5.0-8.5); Protein,Urine Negative (Negative); Specific Gravity, Urine <= 1.005 (1.005-1.030); Urobilinogen,Urine 0.2 EU/dl (0.2)
[2025-06-20 03:57] LABS: Bacteria,Urine 1+ /lpf; RBC,Urine Occasional #/hpf (0-3); WBC,Urine Occasional #/hpf (0-3)
[2025-06-20] MEDS: 0.9 % SODIUM CHLORIDE 1000ML 1,000 ML 999 ML IV (04:54)
--- NOTE | 2025-06-20 05:02 | PC.NURSE ---
ed provider at the bedsided updating pt on POC
[2025-06-20 06:11] LABS: Reflex Lactic Add Lactic Reflex
== END 2025-06-20 06:59 | disposition home or self-care (01) ==
PROVIDERS: Emergency Provider Emergency Medicine
DX: I95.9 Hypotension, unspecified (principal); R74.02 Elevation of levels of lactic acid dehydrogenase [LDH]; R20.0 Anesthesia of skin; K52.9 Noninfective gastroenteritis and colitis, unspecified; R11.2 Nausea with vomiting, unspecified; E87.1 Hypo-osmolality and hyponatremia; R79.1 Abnormal coagulation profile
CPT/HCPCS: 70450; 70496; 70498; 71045; 71275; 74177; 80053; 81001; 82803; 83690; 83735; 83880; 84484; 85025; 85378; 86803; 87389; 93005; 96360; 96361; 99285; J7030; J7120; Q9967